=== PATIENT | male | born 1950 | race Caucasian/White ===

== ENCOUNTER → 2017-10-20 14:50 | Outpatient (CLI) | payer MEDICARE, MEDICAID, SELFPAY ==
[2017-10-22 20:08] LABS: HCV Quant. RNA PCR 1360000 IU/mL (.)
[2017-10-23 11:10] LABS: HCV log 10 6.134 (.)
== END ==
PROVIDERS: Family Provider Family Medicine; PCP Family Medicine; Visit Provider Internal Medicine Gastroenterology
DX: B19.20 Unspecified viral hepatitis C without hepatic coma (principal)
CPT/HCPCS: 36415; 87522

== ENCOUNTER 2017-11-01 09:13 | Emergency (ER) | payer MEDICARE, OTHER, MEDICAID, SELFPAY ==
[2017-11-01 09:13] VITALS: BP 135/65; PULSE 102; RESP 16; TEMP 36.9; O2SAT 92; BMI 29.6
[2017-11-01 09:23] VITALS: BP 129/86; PULSE 101; RESP 16; O2SAT 97
--- NOTE | 2017-11-01 09:23 | CT_ITS ---
STUDY: CT ABDOMEN AND PELVIS WITHOUT CONTRAST REASON FOR EXAM: Male, 67 years old. Abdominal distention and back pain. RADIATION DOSAGE (If Supplied By Facility): CTDIvol = ( 13.88 ) mGy, DLP = ( 756.11 ) mGycm TECHNIQUE: Transaxial images were obtained from the dome of the diaphragm to the symphysis pubis without oral contrast, and without intravenous contrast. Sagittal and coronal images were reconstructed. Individualized dose optimization techniques were used for this CT. COMPARISON: CT of the abdomen dated March 18, 2017. FINDINGS: There is a calcified subpleural nodule in the left lower lobe that likely represents a granuloma. This is unchanged since the previous CT. There is patchy right basilar airspace consolidation and/or atelectasis. The visualized portions of the heart are within normal limits. There are vascular calcifications of the coronary arteries. There are calcified left-sided hilar lymph nodes. Appears be some enlargement of the left lobe liver. There is a subtle focal area of decreased attenuation within the liver and near the falciform ligament. This is most obvious in appearance since previous CT. Small calcifications are visible within the liver that may represent granulomas. Normal gallbladder and extrahepatic biliary system. There are multiple benign calcified granulomata of the spleen. Normal pancreas. Normal bilateral adrenal glands. Normal right kidney. Normal left kidney. Normal visualized stomach. There is no evidence for dilated bowel, ascites or pneumoperitoneum. Small bowel has a grossly normal appearance. Stool visible throughout the colon. The appendix is visualized and appears normal. There is diffuse atherosclerotic calcification of the abdominal aorta with elongation and tortuosity, but without a demonstrated aneurysm. Normal inferior vena cava. Normal retroperitoneum. Urinary bladder appears to have a mass. The mass measures approximately 5.4 x 3.3 x 6.0 cm in size. Normal visualized prostate gland. Appear to be bilateral inguinal hernias containing fat. There are diffuse degenerative changes of the visualized thoracic and lumbar spine. CT/Abdomen/Pelvis without Cont IMPRESSION: 1. Urinary bladder mass. 2. Bilateral inguinal hernias containing fat. 3. Sequela of coronary artery vascular disease. Electronically Signed: Keiko Bucio MD at 10:53 EDT , Service support ,
--- NOTE | 2017-11-01 09:26 | CT_ITS ---
STUDY: CT LUMBAR SPINE WITHOUT CONTRAST REASON FOR EXAM: Male, 67 years old. Low-back pain. RADIATION DOSAGE (If Supplied By Facility): CTDIvol = ( 13.88 ) mGy, DLP = ( 756.11 ) mGycm TECHNIQUE: The patient was scanned in a multi detector CT scanner. High resolution transaxial imaging was performed. Images were obtained from T11 to sacrum. Sagittal and coronal images were reconstructed. Individualized dose optimization techniques were used for this CT. COMPARISON: CT abdomen and pelvis dated November 01, 2017. FINDINGS: There is straightening of the normal lumbar lordosis. There is mild curvature of lumbar spine with convexity towards the right. The bones appear osteopenic. The vertebral bodies have normal height. There is no demonstrated compression deformity or fracture of the visualized lumbar vertebrae. L1-2: There is an annular disc bulge and osteophyte complex. There is narrowing of the neural foramina. There is no significant central acquired canal stenosis. Facet joints are within normal limits. L2-3: There is narrowing of the disc space with vacuum disc phenomenon. There is a large broad central disc protrusion with mild central acquired canal stenosis. The facet joints are within normal limits. Neural foramina are narrowed. L3-4: There is narrowing of the disc space is vacuum disc phenomenon. There is annular disc bulge and osteophyte complex. There is mild central acquired canal stenosis. The facet joints are within normal limits. Neural foramina are narrowed. L4-5: There is annular disc bulge with what appears to be a large broad central disc protrusion. There is severe acquired canal stenosis. There is mild degenerative arthropathy of facet joints. Neural foramina are narrowed. L5-S1: There is narrowing of the disc with vacuum disc phenomenon. There is annular disc bulge with broad central disc protrusion. There is mild degenerative arthropathy of facet joints. There is mild central acquired canal stenosis. Neural foramina are narrowed. There are atherosclerotic calcifications of the abdominal aorta and iliac arteries. There is patchy right basilar airspace consolidation and/or atelectasis. CT/Spine Lumbar without Contrast IMPRESSION: Moderately severe multilevel degenerative disc disease and degenerative arthropathy of the lumbar spine with acquired canal stenosis and neural foraminal narrowing, as described. Electronically Signed: Keiko Bucio MD at 11:04 EDT , Service support ,
--- NOTE | 2017-11-01 09:30 | ED.VISSUMM ---
- ER Visit Summary Date of Service: 11/01/17 Chief Complaint: []lumbar back pain started a few days ago History of Present Illness: The patient is a 67 M [], the patient is a very poor historian, denies any past history, reports that on Thursday he had a cystoscopy by a physician he thinks is Dr. davis at [facility] in [place], he is not sure why that was necessary, he basically reports Thursday or Thursday began having low lumbar back pain the pain does not radiate he denies any bowel or bladder incontinence no paresthesias he is able walk around his home today the pain intensified is very stiff he called paramedics he was brought in for evaluation No history of lumbar back element except for common back disorders, no history of fracture or spine disease disc disease, he denies any past history he believes he is on an antibiotic post the cystoscopy, He indicates that he was told there may be abnormalities on the cystoscopy possibly cancer and he needs additional testing is scheduled for 2 weeks from now Review of systems are negative for nausea vomiting fever chest pain or abdominal pain he points to his left lumbar back flank area as well he seems to have distended bladder he just voided about 100 cc and he feels that his bladder is empty Physical Examination: [] In no distress his vital signs are within normal range head neck chest unremarkable the abdomen seems distended in the suprapubic area there is no fullness mass pulsations, he has vague pain to the lumbar back and left flank he has full range of motion of his lower extremities his pelvis is stable he has what appears to be normal perfusion to the lower extremities he is awake and alert resting comfortably in the bed as long as he still indicates his back pain is much improved, there are no neurologic abnormalities a full range of motion of all 4 extremities no signs of cauda equina The patient's CT shows nothing acute chronic changes see that report, there is a 6 cm lesion in the bladder etiology is unclear, his UA came back for signs of UTI and yeast it is not clear if the yeast is contributing to UTI or is a contaminant his white count 14,000 he remains awake and alert, lumbar spine CT reconstruction images showed DJD generalized diffuse stenosis nothing acute no fracture Have sent urine culture he was started on IV Rocephin 2 g the patient feels better he wants to go home again he is a very poor historian The records suggest his primary care physician is amrit Candelario,, I spoke with Dr. Reggie Capone systems management consultant for that office, discussed case with him in detail including all the above the UA urine cultures etc. they will be happy see the patient the office they will track down his antibiotics as follow-up instructions prior urine cultures and arrange continuity care I further explained the patient it is his responsibility contact the primary care's office to keep the appointments we did discuss the concept of the UTI versus contamination and potential resistance to the current antibiotic he is on further I explained to him he does have a lesion in his bladder and he must follow-up as scheduled with the urologist for further management, I have also instructed him when he sees his urologist in [place] to let him know if there urine culture results CT scan reports etc. so they can follow-up, in addition I provided him copies of his studies so he could take them to his follow-up doctors He is feeling fine he wants to go home to be discharged on Naprosyn [place] 4 tablets as back pain Test Results: [] Emergency Department Course and Treatment: [] Treatment Plan: [] Disposition: [] Home stable Preparing discharge the computer suggested that Dr. Estrella was the patient's primary care physician, we also spoke then with Dr. garrett systems management consultant for Dr. Estrella had the same discussion as above and they will follow-up with the patient Impression: [] Lumbar back pain, 6 cm bladder mass, UTI possible yeast UTI, lumbar spine DJD, patient poor historian This note was generated with [employer] dictation software. It may contain incorrect words, spelling, and punctuation that were not noted in review of the chart prior to signing ED Disposition - Plan for ED Patient: Chief Complaint: Back Instructions: ED Spasm Back No Trauma, ED Sprain Strain Lumbar, ED UTI Cystitis Male Prescriptions: Hydrocodone Bitart/Apap 5-325 [[place] 5/325] 1 tab PO QHS #7 tab Naproxen [Naprosyn] 500 mg PO BID PRN #20 tab Referrals: Price Estrella MD [NON-STAFF] -
--- NOTE | 2017-11-01 09:33 | ED.DCSUM_ITS ---
- ER Visit Summary Date of Service: 11/01/17 Chief Complaint: []lumbar back pain started a few days ago History of Present Illness: The patient is a 67 M [], the patient is a very poor historian, denies any past history, reports that on Thursday he had a cystoscopy by a physician he thinks is Dr. davis at [facility] in [place] , he is not sure why that was necessary, he basically reports Thursday or Thursday began having low lumbar back pain the pain does not radiate he denies any bowel or bladder incontinence no paresthesias he is able walk around his home today the pain intensified is very stiff he called paramedics he was brought in for evaluation No history of lumbar back element except for common back disorders, no history of fracture or spine disease disc disease, he denies any past history he believes he is on an antibiotic post the cystoscopy, He indicates that he was told there may be abnormalities on the cystoscopy possibly cancer and he needs additional testing is scheduled for 2 weeks from now Review of systems are negative for nausea vomiting fever chest pain or abdominal pain he points to his left lumbar back flank area as well he seems to have distended bladder he just voided about 100 cc and he feels that his bladder is empty Physical Examination: [] In no distress his vital signs are within normal range head neck chest unremarkable the abdomen seems distended in the suprapubic area there is no fullness mass pulsations, he has vague pain to the lumbar back and left flank he has full range of motion of his lower extremities his pelvis is stable he has what appears to be normal perfusion to the lower extremities he is awake and alert resting comfortably in the bed as long as he still indicates his back pain is much improved, there are no neurologic abnormalities a full range of motion of all 4 extremities no signs of cauda equina The patient's CT shows nothing acute chronic changes see that report, there is a 6 cm lesion in the bladder etiology is unclear, his UA came back for signs of UTI and yeast it is not clear if the yeast is contributing to UTI or is a contaminant his white count 14,000 he remains awake and alert, lumbar spine CT reconstruction images showed DJD generalized diffuse stenosis nothing acute no fracture Have sent urine culture he was started on IV Rocephin 2 g the patient feels better he wants to go home again he is a very poor historian The records suggest his primary care physician is amrit Candelario,, I spoke with Dr. Reggie Capone media liaison officer for that office, discussed case with him in detail including all the above the UA urine cultures etc. they will be happy see the patient the office they will track down his antibiotics as follow-up instructions prior urine cultures and arrange continuity care I further explained the patient it is his responsibility contact the primary care's office to keep the appointments we did discuss the concept of the UTI versus contamination and potential resistance to the current antibiotic he is on further I explained to him he does have a lesion in his bladder and he must follow-up as scheduled with the urologist for further management, I have also instructed him when he sees his urologist in [place] to let him know if there urine culture results CT scan reports etc. so they can follow-up, in addition I provided him copies of his studies so he could take them to his follow-up doctors He is feeling fine he wants to go home to be discharged on Naprosyn [place] 4 tablets as back pain Test Results: [] Emergency Department Course and Treatment: [] Treatment Plan: [] Disposition: [] Home stable Preparing discharge the computer suggested that Dr. Estrella was the patient's primary care physician, we also spoke then with Dr. garrett media liaison officer for Dr. Estrella had the same discussion as above and they will follow-up with the patient Impression: [] Lumbar back pain, 6 cm bladder mass, UTI possible yeast UTI, lumbar spine DJD, patient poor historian This note was generated with [employer] dictation software. It may contain incorrect words, spelling, and punctuation that were not noted in review of the chart prior to signing ED Disposition - Plan for ED Patient: Chief Complaint: Back Instructions: ED Spasm Back No Trauma, ED Sprain Strain Lumbar, ED UTI Cystitis Male Prescriptions: Hydrocodone Bitart/Apap 5-325 [[place] 5/325] 1 tab PO QHS #7 tab Naproxen [Naprosyn] 500 mg PO BID PRN #20 tab Referrals: Price Estrella MD [NON-STAFF] -
[2017-11-01] MEDS: Ondansetron 4 MG/2 ML Vial IV (09:44)
[2017-11-01 09:46] LABS: Absolute Lymphocyte Count 1.46 X10^3/ul (0.83-4.51); Absolute Neutrophil Count 11.4 X10^3/uL (2.0-7.7); Basophil# 0.01 X10^3/uL; Basophil% 0.1 % (0-1); Eosinophil# 0.01 X10^3/uL; Eosinophils% 0.1 % (0-5); Hematocrit 40.1 % (40-54); Hemoglobin 13.2 g/dl (13.0-16.5); Lymphocyte # 1.46 X10^3/ul (4.0); Lymphocyte % 9.9 % (19-41); Mean Corp Hgb Conc 32.9 g/gl (32-36); Mean Corpuscular Hgb 29.5 pg (27.0-32.0); Mean Corpuscular Volume 89.5 fL (80-94); Mean Platelet Vol. 8.9 fl (6.2-12.0); Monocyte# 1.79 X10^3/uL; Monocyte% 12.2 % (0-10); Neutrophil # 11.42 X10^3/uL (2.7-7.7); Neutrophil % 77.4 % (47-70); Platelet Count 173 K/mm3 (150-450); RBC Distribution Width CV 13.7 % (11.6-14.6); RBC Distribution Width SD 44.6 fl (35.1-43.9); Red Blood Count 4.48 M/mm3 (4.6-6.2); White Blood Count 14.7 K/mm3 (4.4-11.0)
[2017-11-01 09:51] LABS: Differential Indicated SCAN CRITERIA MET; POSITIVE COUNT NO; POSITIVE DIFFERENTIAL YES; POSITIVE MORPHOLOGY NO
[2017-11-01 09:52] LABS: Mucous, Urine 0 SEEN /hpf (<or=2+)
[2017-11-01 09:58] LABS: Color, Urine Amber (Yellow); Glucose, Dipstick Normal (Normal); Ketone-Dipstick Negative (Negative); Leukocyte Esterase-Dipstick 500 /ul (Negative); Nitrite-Dipstick Positive (Negative); Occult Blood-Urine 250 /ul (Negative); Protein-Dipstick 30 mg/dl (Negative); Urine Bilirubin Dipstick Negative (Negative); Urine Clarity Cloudy (Clear); Urine Urobilinogen 1 mg/dl (Normal)
[2017-11-01 09:58] LABS: AST(SGOT) 44 U/L (15-37); Alanine Aminotransfer ALT/SGPT 71 U/L (16-61); Albumin, Serum 2.9 g/dL (3.2-5.0); Alkaline Phosphatase 40 U/L (45-117); Anion Gap 9 (5-15); BUN 33 mg/dL (7-18); BUN/Creat Ratio 37.1 RATIO (10-20); Bilirubin, Direct 0.19 mg/dL (0.00-0.30); Calcium,Total 8.4 mg/dL (8.5-10.1); Chloride 108 mmol/L (98-107); Creatinine, Serum 0.89 mg/dL (0.70-1.30); EST Glomerular Filtration Rate 90 mL/min (>60); Est Glom Filt Rate - Afr Amer 109 mL/min (>60); Estimated Creatinine Clearance 75.79 ml/min; Globulin 5.1 g/dL (2.2-4.2); Glucose 125 mg/dL (74-106); Lipase 124 U/L (73-393); Potassium 4.4 mmol/L (3.5-5.1); Sodium Level 140 mmol/L (136-145)
[2017-11-01 10:05] LABS: Bacteria 2+ /hpf (None Seen); Red Blood Cells-Urine 50-100 SEEN /hpf (0-5); Squamous Epithelial Cells - UA 0-5 SEEN /hpf (0-5); White Blood Cells 5-10 SEEN /hpf (0-5); Yeast-Urine RARE /hpf (None Seen)
--- NOTE | 2017-11-01 11:32 | ED.DEP ---
ED Disposition - Plan for ED Patient: Chief Complaint: Back Instructions: ED Spasm Back No Trauma, ED Sprain Strain Lumbar, ED UTI Cystitis Male Prescriptions: Hydrocodone Bitart/Apap 5-325 [[place] 5/325] 1 tab PO QHS #7 tab Naproxen [Naprosyn] 500 mg PO BID PRN #20 tab Referrals: Price Estrella MD [NON-STAFF] -
--- NOTE | 2017-11-01 11:36 | DCINST.ED_ITS ---
ED Disposition - Plan for ED Patient: Chief Complaint: Back Instructions: ED Spasm Back No Trauma, ED Sprain Strain Lumbar, ED UTI Cystitis Male Prescriptions: Hydrocodone Bitart/Apap 5-325 [[place] 5/325] 1 tab PO QHS #7 tab Naproxen [Naprosyn] 500 mg PO BID PRN #20 tab Referrals: Price Estrella MD [NON-STAFF] -
[2017-11-01 12:37] VITALS: BP 96/44; PULSE 87; RESP 14
[2017-11-01] MEDS: HYDROcodone Bitartrate/Apap 5/325 Tablet PO (12:43)
[2017-11-01 12:46] VITALS: BP 96/44; PULSE 89; RESP 14
== END 2017-11-01 12:47 | disposition home or self-care (01) ==
PROVIDERS: Emergency Provider Emergency Medicine
DX: M47.896 Other spondylosis, lumbar region (principal); N32.9 Bladder disorder, unspecified; N39.0 Urinary tract infection, site not specified
CPT/HCPCS: 72131; 74176; 80048; 80076; 81001; 83690; 85025; 87077; 87086; 87088; 87186; 96361; 96365; 96375; 99285; J7040; J7050; A4216; J2405

== ENCOUNTER → 2017-11-11 16:38 | Outpatient (CLI) | payer MEDICARE, MEDICAID, SELFPAY ==
[2017-11-11 18:12] LABS: Hematocrit 39.9 % (40-54); Hemoglobin 13.1 g/dl (13.0-16.5); Mean Corp Hgb Conc 32.8 g/gl (32-36); Mean Corpuscular Hgb 28.8 pg (27.0-32.0); Mean Corpuscular Volume 87.7 fL (80-94); Mean Platelet Vol. 8.7 fl (6.2-12.0); Platelet Count 335 K/mm3 (150-450); RBC Distribution Width CV 13.6 % (11.6-14.6); Red Blood Count 4.55 M/mm3 (4.6-6.2); White Blood Count 14.6 K/mm3 (4.4-11.0)
[2017-11-11 18:14] LABS: Scan Indicated on CBC? Y/N NO
[2017-11-11 18:27] LABS: International Normalized Ratio 1.2; Prothrombin Time (Protime)PT. 14.9 SECONDS (11.7-14.9)
[2017-11-11 18:48] LABS: AST(SGOT) 35 U/L (15-37); Alanine Aminotransfer ALT/SGPT 39 U/L (16-61); Albumin, Serum 2.7 g/dL (3.2-5.0); Alkaline Phosphatase 38 U/L (45-117); Bilirubin, Direct 0.08 mg/dL (0.00-0.30); Globulin 5.5 g/dL (2.2-4.2); Protein, Total 8.2 g/dL (6.4-8.2)
[2017-11-13 09:28] LABS: AFP, Tumor Marker 3.9 ng/mL (0.0-8.3)
== END ==
PROVIDERS: Visit Provider Internal Medicine Gastroenterology
DX: K74.60 Unspecified cirrhosis of liver (principal)
CPT/HCPCS: 36415; 80076; 82105; 85027; 85610

== ENCOUNTER 2017-11-25 11:41 | Emergency (ER) | payer MEDICARE, MEDICAID, SELFPAY ==
[2017-11-25 11:42] VITALS: BP 130/109; PULSE 98; RESP 16; TEMP 36.2; O2SAT 94; BMI 30.1
[2017-11-25 12:30] LABS: Mucous, Urine 0 SEEN /hpf (<or=2+)
[2017-11-25 12:36] LABS: Absolute Lymphocyte Count 2.39 X10^3/ul (0.83-4.51); Absolute Neutrophil Count 9.5 X10^3/uL (2.0-7.7); Basophil# 0.04 X10^3/uL; Basophil% 0.3 % (0-1); Eosinophil# 0.04 X10^3/uL; Eosinophils% 0.3 % (0-5); Hematocrit 36.2 % (40-54); Hemoglobin 11.8 g/dl (13.0-16.5); Lymphocyte # 2.39 X10^3/ul (4.0); Mean Corp Hgb Conc 32.6 g/gl (32-36); Mean Platelet Vol. 7.9 fl (6.2-12.0); Monocyte# 1.18 X10^3/uL; Monocyte% 8.9 % (0-10); Neutrophil # 9.54 X10^3/uL (2.7-7.7); Platelet Count 241 K/mm3 (150-450); RBC Distribution Width CV 13.8 % (11.6-14.6); RBC Distribution Width SD 43.4 fl (35.1-43.9); Red Blood Count 4.21 M/mm3 (4.6-6.2); White Blood Count 13.3 K/mm3 (4.4-11.0)
[2017-11-25 12:37] LABS: Color, Urine Yellow (Yellow); Glucose, Dipstick Normal (Normal); Ketone-Dipstick Negative (Negative); Leukocyte Esterase-Dipstick 500 /ul (Negative); Nitrite-Dipstick Positive (Negative); Occult Blood-Urine 250 /ul (Negative); Protein-Dipstick 100 mg/dl (Negative); Urine Bilirubin Dipstick Negative (Negative); Urine Clarity Sl. Cloudy (Clear); Urine Urobilinogen 1 mg/dl (Normal)
[2017-11-25 12:37] LABS: POSITIVE COUNT NO; POSITIVE DIFFERENTIAL NO; POSITIVE MORPHOLOGY NO
[2017-11-25 12:48] LABS: Anion Gap 8 (5-15); BUN 28 mg/dL (7-18); BUN/Creat Ratio 31.4 RATIO (10-20); Calcium,Total 8.6 mg/dL (8.5-10.1); Chloride 104 mmol/L (98-107); Creatinine, Serum 0.89 mg/dL (0.70-1.30); EST Glomerular Filtration Rate 90 mL/min (>60); Est Glom Filt Rate - Afr Amer 109 mL/min (>60); Estimated Creatinine Clearance 75.79 ml/min; Glucose 111 mg/dL (74-106); Potassium 4.5 mmol/L (3.5-5.1); Sodium Level 138 mmol/L (136-145)
[2017-11-25 12:55] LABS: Bacteria 4+ /hpf (None Seen); Red Blood Cells-Urine > 100 SEEN /hpf (0-5); Squamous Epithelial Cells - UA 0-5 SEEN /hpf (0-5); White Blood Cells >100 SEEN /hpf (0-5)
[2017-11-25 13:00] LABS: Lactic Acid 1.4 mmol/L (0.4-2.0)
[2017-11-25] MEDS: 0.9% Normal Saline 1,000 ML 1000 ML IV (13:03)
--- NOTE | 2017-11-25 13:34 | NURSING ---
CALLED [facility] FOR TRANSFER.
[2017-11-25 13:36] VITALS: BP 128/75; PULSE 72; RESP 17; O2SAT 96
--- NOTE | 2017-11-25 13:56 | NURSING ---
ON WAITING LIST FOR BED AT [place]. PAGED HOSPITALIST
--- NOTE | 2017-11-25 14:09 | ED.VISSUMM ---
- ER Visit Summary Date of Service: 11/25/17 Chief Complaint: Back pain History of Present Illness: The patient is a 67 M who presents with back pain. He is a very poor informant. He does appear disoriented as well. He had a cystoscopy last month for a bladder tumor. He was seen in the emergency department afterwards for back pain. He had a CT of the abdomen and lumbar spine and urinalysis which was suggestive of infection. The ER physician spoke to his doctors at that time and he was currently on antibiotics. It was felt that this may be contamination. Indications were continued. It does not sound like the patient followed up. He was seen yesterday at the [facility] due to increased pain. He was noted to be hypotensive in the 70s but had no other symptoms. They called to check on him today and noticed increasing confusion and he was advised to call EMS. Denies fevers vomiting or abdominal pain. He denies any other complaints. No urinary retention, fecal incontinence, radiation pain into the legs. Physical Examination: Initial blood pressure 130/109 however while I was in the room repeat blood pressure 84 systolic. Afebrile. Vitals otherwise unremarkable Pulse ox 94% on room air at the time of my examination he was 89% on room air and was placed on nasal cannula Patient is disoriented and confused. He is oriented to self and place and is alert but does not remember recent events well and does not remember his office visit yesterday well. No focal or lateralizing neurological deficits, normal strength and sensation, 5 out of 5 dorsiflexion, plantarflexion, extensor hallucis longus Heart regular Lungs clear Abdomen soft nontender Bilateral CVA/paraspinal lumbar tenderness Test Results: Laboratory studies notable for white blood cell count 13.3. BUN 28. UA shows 500 leukocyte esterase, positive nitrites, greater than 100 WBCs, 4+ bacteria. Lactic acid normal. Emergency Department Course and Treatment: She was treated with IV fluids. On reevaluation his mental status does not seem improved and repeat blood pressure was about 119 systolic. He was given IV Rocephin. Given that he is scheduled for urological procedure next week at [place] we did call their transfer line and the hospital is currently full and he was placed on a waiting list. Patient will be treated with IV antibiotics and admitted here until a bed is available. Treatment Plan: [] Disposition: Admit Impression: UTI Altered mental status Transient hypotension This note was generated with [employer] dictation software. It may contain incorrect words, spelling, and punctuation that were not noted in review of the chart prior to signing ED Disposition - Plan for ED Patient: Chief Complaint: Back Referrals: Care Physician,No Primary [Primary Care Provider] -
--- NOTE | 2017-11-25 14:13 | ED.DCSUM_ITS ---
- ER Visit Summary Date of Service: 11/25/17 Chief Complaint: Back pain History of Present Illness: The patient is a 67 M who presents with back pain. He is a very poor informant. He does appear disoriented as well. He had a cystoscopy last month for a bladder tumor. He was seen in the emergency department afterwards for back pain. He had a CT of the abdomen and lumbar spine and urinalysis which was suggestive of infection. The ER physician spoke to his doctors at that time and he was currently on antibiotics. It was felt that this may be contamination. Indications were continued. It does not sound like the patient followed up. He was seen yesterday at the [facility] due to increased pain. He was noted to be hypotensive in the 70s but had no other symptoms. They called to check on him today and noticed increasing confusion and he was advised to call EMS. Denies fevers vomiting or abdominal pain. He denies any other complaints. No urinary retention, fecal incontinence , radiation pain into the legs. Physical Examination: Initial blood pressure 130/109 however while I was in the room repeat blood pressure 84 systolic. Afebrile. Vitals otherwise unremarkable Pulse ox 94% on room air at the time of my examination he was 89% on room air and was placed on nasal cannula Patient is disoriented and confused. He is oriented to self and place and is alert but does not remember recent events well and does not remember his office visit yesterday well. No focal or lateralizing neurological deficits, normal strength and sensation, 5 out of 5 dorsiflexion, plantarflexion, extensor hallucis longus Heart regular Lungs clear Abdomen soft nontender Bilateral CVA/paraspinal lumbar tenderness Test Results: Laboratory studies notable for white blood cell count 13.3. BUN 28. UA shows 500 leukocyte esterase, positive nitrites, greater than 100 WBCs, 4+ bacteria. Lactic acid normal. Emergency Department Course and Treatment: She was treated with IV fluids. On reevaluation his mental status does not seem improved and repeat blood pressure was about 119 systolic. He was given IV Rocephin. Given that he is scheduled for urological procedure next week at [place] we did call their transfer line and the hospital is currently full and he was placed on a waiting list. Patient will be treated with IV antibiotics and admitted here until a bed is available. Treatment Plan: [] Disposition: Admit Impression: UTI Altered mental status Transient hypotension This note was generated with [employer] dictation software. It may contain incorrect words, spelling, and punctuation that were not noted in review of the chart prior to signing ED Disposition - Plan for ED Patient: Chief Complaint: Back Referrals: Care Physician,No Primary [Primary Care Provider] -
[2017-11-25 14:28] VITALS: BP 125/77; PULSE 72; RESP 16; O2SAT 97
--- NOTE | 2017-11-25 14:46 | PCM.DC ---
You will use the following diet at home:: Cardiac Your food should be the consistency of: Regular Your liquids should be the consistency of: Regular/Thin Call your doctor if you observe: Fever of 101 or Higher, - - inability to urinate. worsening back pain. Allergies/Adverse Reactions: Allergies No Known Allergies Allergy (Verified 03/18/17 09:19) Medications to take at Discharge Amlodipine [Norvasc] 5 mg PO DAILY 11/25/17 Finasteride [Proscar] 5 mg PO DAILY 11/25/17 Hydrocodone/Acetaminophen [[place] 5-325 Tablet] 1 each PO Q8H 3 Days #9 tablet 11/25/17 Levofloxacin [Levaquin] 750 mg PO DAILY #7 tab 11/25/17 Lisinopril 20 mg PO DAILY 11/25/17 Pantoprazole Sodium [Protonix] 40 mg PO DAILY 11/25/17 Tamsulosin HCl [Flomax] 0.4 mg PO DAILY 11/25/17 The following prescriptions were given: Hydrocodone/Acetaminophen [[place] 5-325 Tablet] 1 each PO Q8H 3 Days #9 tablet Levofloxacin [Levaquin] 750 mg PO DAILY #7 tab Primary Care Physician: Care Physician,No Primary [Primary Care Provider] - Please Follow Up With: Andree Muller MD When: 11/27/17 Please Follow Up With: Urology - Surgery When: 12/04 Proposed Discharge Date: 11/25/17
--- NOTE | 2017-11-25 14:48 | PCM.CONS.GEN ---
Problem List (1) Bladder tumor Status: Chronic (2) BPH (benign prostatic hyperplasia) Status: Chronic (3) HTN (hypertension) Status: Chronic (4) Back pain Status: Acute (5) UTI (urinary tract infection) Status: Acute Reason for Consult Date of Consultation: 11/25/17 Reason for Consultation: back pain History of Present Illness: The patient is a 67 year old M presents with several month history of low back pain. Was seen here in October for the same complaint and had a urinary tract infection and did receive antibiotics which did seem to help somewhat but patient presents again with low back pain not flank pain. Patient did have a positive urinalysis and did receive ceftriaxone. Patient has a known bladder tumor which she does get some episodes of hematuria and black sludge looking urine which his urologist is been aware of. Patient has a surgery scheduled for a resection on December 04. The emergency room doctor contacted [facility] and they accepted the patient but did not have any beds readily available. I was asked to admit the patient to hold the patient until he can go over to [facility]. Patient states he has back pain but denies any abdominal pain. Does complain of a urinary frequency but denies any dysuria. Upon evaluation of the patient I feel that the patient can be discharged home with antibiotics and pain control and follow-up with his primary care doctor which he has an appointment this coming Thursday and to follow-up with his urologist next week. [] Past Medical History Past Medical History (Chronic Problems): Chronic Problems Bladder tumor (Chronic) BPH (benign prostatic hyperplasia) (Chronic) HTN (hypertension) (Chronic) Allergies No Known Allergies Allergy (Verified 03/18/17 09:19) Home Medications: Ambulatory Orders Medication Instructions Recorded Amlodipine [Norvasc] 5 mg PO DAILY 11/25/17 Finasteride [Proscar] 5 mg PO DAILY 11/25/17 Hydrocodone/Acetaminophen [Loop 1 each PO Q8H 3 Days #9 tablet 11/25/17 5-325 Tablet] Levofloxacin [Levaquin] 750 mg PO DAILY #7 tab 11/25/17 Lisinopril 20 mg PO DAILY 11/25/17 Pantoprazole Sodium [Protonix] 40 mg PO DAILY 11/25/17 Tamsulosin HCl [Flomax] 0.4 mg PO DAILY 11/25/17 Surgical History: no surgical history Psychiatric History: No pertinent psych hx Lives: Alone Smoking Status: Heavy Smoker (>10/day) Tobacco Use: Cigarettes Alcohol: None Drugs: None - *Family History Maternal History Items: - - No cancer Paternal History Items: - - No cancer Review of Systems Constitutional: Denies: Anorexia, Chills, Fever, Night Sweats Eyes: Denies: Blurred vision, Double vision HEENT: Denies: Head Aches, Sinus Congestion, Sinus Drainage Cardiovascular: Denies: Chest Pain, Palpitations Respiratory: Denies: Cough, Shortness of breath at rest, Sputum production Gastrointestinal: Denies: Abdominal Pain, Nausea, Vomiting Genitourinary: Reports: Frequency, Hematuria. Denies: Dysuria, Incontinence Musculoskeletal: Reports: Back Pain. Denies: Joint Pain, Joint Tenderness Skin: Denies: Rash, Wounds Neurological: Denies: Numbness, Tingling, Focal weakness Psychiatric: Denies: Anxiety, Depression Endocrine: Denies: Change in Body Habitus Hematologic/ Lymphatic: Denies: Easy Bruising, Easy Bleeding, Hx of blood clot Patient Problems: Active and Suspected Problems Back pain (Acute) UTI (urinary tract infection) (Acute) - Physical Exam General: Alert, Cooperative, No apparent distress HEENT: Atraumatic, Normocephalic Neck: No Nodes, Thyroid Normal Size and Texture Lungs: Clear to auscultation, Normal air movement, No rhonchi, No wheeze Cardiovascular: Regular rate, Regular Rhythm, Normal S1, Normal S2, No murmurs Abdomen: Bowel Sounds Present, Soft, Non Tender, Non-Distended, No Hepato-splenomegaly, Passing Flatus Extremities: No edema, No Calf Tenderness Skin: - - Dry skin and lower extremities grade swastika on the dorsal aspect of his hand between his thumb and index finger on the left. Musculoskeletal: No Tenderness to Palpation of Joints or Extremities, No Muscle Wasting Psych/Mental Status: Normal Affect, Appropriate Vital Signs Temp Pulse Resp BP Pulse Ox 36.2 C L 72 16 125/77 H 97 11/25/17 11:42 11/25/17 14:28 11/25/17 14:28 11/25/17 14:28 11/25/17 14:28 Oxygen Delivery Method Room Air Weight: 89.811 kg Body Mass Index (BMI) 30.1 Laboratory Tests Past 24 Hrs 11/25/17 11/25/17 11/25/17 12:25 12:25 12:25 WBC 13.3 H RBC 4.21 L Hgb 11.8 L Hct 36.2 L MCV 86.0 MCH 28.0 MCHC 32.6 RDW 13.8 RDW Differential 43.4 Plt Count 241 MPV 7.9 Immature Gran % (Auto) 0.500 Neut % (Auto) 72.0 H Lymph % (Auto) 18.0 L [place] % (Auto) 8.9 Eos % (Auto) 0.3 Baso % (Auto) 0.3 Absolute Neuts (auto) 9.5 H Absolute Lymphs (auto) 2.39 Total Counted Not Reportable Sodium 138 Potassium 4.5 Chloride 104 Carbon Dioxide 26.0 Anion Gap 8 BUN 28 H Creatinine 0.89 Estim Creat Clear Calc 75.79 Est GFR (MDRD) Af Amer 109 Est GFR (MDRD) Non-Af 90 BUN/Creatinine Ratio 31.4 H Glucose 111 H Lactic Acid 1.4 Calcium 8.6 Urine Color Urine Clarity Urine pH Ur Specific [place] Urine Protein Urine Glucose (UA) Urine Ketones Urine Occult Blood Urine Nitrite Urine Bilirubin Urine Urobilinogen Ur Leukocyte Esterase Urine RBC Urine WBC Ur Squamous Epith Cells Urine Bacteria Urine Mucus 11/25/17 12:26 WBC RBC Hgb Hct MCV MCH MCHC RDW RDW Differential Plt Count MPV Immature Gran % (Auto) Neut % (Auto) Lymph % (Auto) [place] % (Auto) Eos % (Auto) Baso % (Auto) Absolute Neuts (auto) Absolute Lymphs (auto) Total Counted Sodium Potassium Chloride Carbon Dioxide Anion Gap BUN Creatinine Estim Creat Clear Calc Est GFR (MDRD) Af Amer Est GFR (MDRD) Non-Af BUN/Creatinine Ratio Glucose Lactic Acid Calcium Urine Color Yellow Urine Clarity Sl. Cloudy Urine pH 6.0 Ur Specific [place] 1.020 Urine Protein 100 H Urine Glucose (UA) Normal Urine Ketones Negative Urine Occult Blood 250 H Urine Nitrite Positive H Urine Bilirubin Negative Urine Urobilinogen 1 H Ur Leukocyte Esterase 500 H Urine RBC > 100 SEEN Urine WBC >100 SEEN Ur Squamous Epith Cells 0-5 SEEN Urine Bacteria 4+ Urine Mucus 0 SEEN Assessment/Plan Active and Suspected Problems Back pain (Acute) UTI (urinary tract infection) (Acute) 1. Urinary tract infection Clinically, do not feel the patient has pyelonephritis. And I will treat patient with Levaquin. Patient did have staph epidermidis on culture from October. Patient has a follow-up appointment with his primary care doctor on the and patient started follow-up with them to see if the cultures have come back. Patient is not septic does have a white count but otherwise stable. I feel patient can be discharged. 2. Back pain No significant back pain noted on my exam. No red flags. May be muscular skeletal versus his bladder tumor. Given the patient's hematuria I would avoid any NSAIDs at this time. I will give patient a prescription for Loop. 3. Bladder tumor Patient has a known hematuria and viscous urine at times. Patient states that his urologist is aware of this this may be presumably related with the patient's bladder tumor. Patient is to have resection of his bladder tumor on December 04. Patient is medically stable and feel the patient does not necessarily warrant hospitalization at this time. Patient's prescriptions were sent to his drug marked. I have taken liberty of discharging the patient from the emergency room. Code Visit Office Visits / Consults: [id number] OP Consult L3
--- NOTE | 2017-11-25 14:55 | CON.PCM_ITS ---
Problem List (1) Bladder tumor Status: Chronic (2) BPH (benign prostatic hyperplasia) Status: Chronic (3) HTN (hypertension) Status: Chronic (4) Back pain Status: Acute (5) UTI (urinary tract infection) Status: Acute Reason for Consult Date of Consultation: 11/25/17 Reason for Consultation: back pain History of Present Illness: The patient is a 67 year old M presents with several month history of low back pain. Was seen here in October for the same complaint and had a urinary tract infection and did receive antibiotics which did seem to help somewhat but patient presents again with low back pain not flank pain. Patient did have a positive urinalysis and did receive ceftriaxone. Patient has a known bladder tumor which she does get some episodes of hematuria and black sludge looking urine which his urologist is been aware of. Patient has a surgery scheduled for a resection on December 04. The emergency room doctor contacted [facility] and they accepted the patient but did not have any beds readily available. I was asked to admit the patient to hold the patient until he can go over to [facility]. Patient states he has back pain but denies any abdominal pain. Does complain of a urinary frequency but denies any dysuria. Upon evaluation of the patient I feel that the patient can be discharged home with antibiotics and pain control and follow-up with his primary care doctor which he has an appointment this coming Thursday and to follow-up with his urologist next week. [ ] Past Medical History Past Medical History (Chronic Problems): Chronic Problems Bladder tumor (Chronic) BPH (benign prostatic hyperplasia) (Chronic) HTN (hypertension) (Chronic) Allergies No Known Allergies Allergy (Verified 03/18/17 09:19) Home Medications: Ambulatory Orders Medication Instructions Recorded Amlodipine [Norvasc] 5 mg PO DAILY 11/25/17 Finasteride [Proscar] 5 mg PO DAILY 11/25/17 Hydrocodone/Acetaminophen [Sargents 1 each PO Q8H 3 Days #9 tablet 11/25/17 5-325 Tablet] Levofloxacin [Levaquin] 750 mg PO DAILY #7 tab 11/25/17 Lisinopril 20 mg PO DAILY 11/25/17 Pantoprazole Sodium [Protonix] 40 mg PO DAILY 11/25/17 Tamsulosin HCl [Flomax] 0.4 mg PO DAILY 11/25/17 Surgical History: no surgical history Psychiatric History: No pertinent psych hx Lives: Alone Smoking Status: Heavy Smoker (>10/day) Tobacco Use: Cigarettes Alcohol: None Drugs: None - *Family History Maternal History Items: - - No cancer Paternal History Items: - - No cancer Review of Systems Constitutional: Denies: Anorexia, Chills, Fever, Night Sweats Eyes: Denies: Blurred vision, Double vision HEENT: Denies: Head Aches, Sinus Congestion, Sinus Drainage Cardiovascular: Denies: Chest Pain, Palpitations Respiratory: Denies: Cough, Shortness of breath at rest, Sputum production Gastrointestinal: Denies: Abdominal Pain, Nausea, Vomiting Genitourinary: Reports: Frequency, Hematuria. Denies: Dysuria, Incontinence Musculoskeletal: Reports: Back Pain. Denies: Joint Pain, Joint Tenderness Skin: Denies: Rash, Wounds Neurological: Denies: Numbness, Tingling, Focal weakness Psychiatric: Denies: Anxiety, Depression Endocrine: Denies: Change in Body Habitus Hematologic/ Lymphatic: Denies: Easy Bruising, Easy Bleeding, Hx of blood clot Patient Problems: Active and Suspected Problems Back pain (Acute) UTI (urinary tract infection) (Acute) - Physical Exam General: Alert, Cooperative, No apparent distress HEENT: Atraumatic, Normocephalic Neck: No Nodes, Thyroid Normal Size and Texture Lungs: Clear to auscultation, Normal air movement, No rhonchi, No wheeze Cardiovascular: Regular rate, Regular Rhythm, Normal S1, Normal S2, No murmurs Abdomen: Bowel Sounds Present, Soft, Non Tender, Non-Distended, No Hepato- splenomegaly, Passing Flatus Extremities: No edema, No Calf Tenderness Skin: - - Dry skin and lower extremities grade swastika on the dorsal aspect of his hand between his thumb and index finger on the left. Musculoskeletal: No Tenderness to Palpation of Joints or Extremities, No Muscle Wasting Psych/Mental Status: Normal Affect, Appropriate Vital Signs Temp Pulse Resp BP Pulse Ox 36.2 C L 72 16 125/77 H 97 11/25/17 11:42 11/25/17 14:28 11/25/17 14:28 11/25/17 14:28 11/25/17 14:28 Oxygen Delivery Method Room Air Weight: 89.811 kg Body Mass Index (BMI) 30.1 Laboratory Tests Past 24 Hrs 11/25/17 11/25/17 11/25/17 12:25 12:25 12:25 WBC 13.3 H RBC 4.21 L Hgb 11.8 L Hct 36.2 L MCV 86.0 MCH 28.0 MCHC 32.6 RDW 13.8 RDW Differential 43.4 Plt Count 241 MPV 7.9 Immature Gran % (Auto) 0.500 Neut % (Auto) 72.0 H Lymph % (Auto) 18.0 L [place] % (Auto) 8.9 Eos % (Auto) 0.3 Baso % (Auto) 0.3 Absolute Neuts (auto) 9.5 H Absolute Lymphs (auto) 2.39 Total Counted Not Reportable Sodium 138 Potassium 4.5 Chloride 104 Carbon Dioxide 26.0 Anion Gap 8 BUN 28 H Creatinine 0.89 Estim Creat Clear Calc 75.79 Est GFR (MDRD) Af Amer 109 Est GFR (MDRD) Non-Af 90 BUN/Creatinine Ratio 31.4 H Glucose 111 H Lactic Acid 1.4 Calcium 8.6 Urine Color Urine Clarity Urine pH Ur Specific [place] Urine Protein Urine Glucose (UA) Urine Ketones Urine Occult Blood Urine Nitrite Urine Bilirubin Urine Urobilinogen Ur Leukocyte Esterase Urine RBC Urine WBC Ur Squamous Epith Cells Urine Bacteria Urine Mucus 11/25/17 12:26 WBC RBC Hgb Hct MCV MCH MCHC RDW RDW Differential Plt Count MPV Immature Gran % (Auto) Neut % (Auto) Lymph % (Auto) [place] % (Auto) Eos % (Auto) Baso % (Auto) Absolute Neuts (auto) Absolute Lymphs (auto) Total Counted Sodium Potassium Chloride Carbon Dioxide Anion Gap BUN Creatinine Estim Creat Clear Calc Est GFR (MDRD) Af Amer Est GFR (MDRD) Non-Af BUN/Creatinine Ratio Glucose Lactic Acid Calcium Urine Color Yellow Urine Clarity Sl. Cloudy Urine pH 6.0 Ur Specific [place] 1.020 Urine Protein 100 H Urine Glucose (UA) Normal Urine Ketones Negative Urine Occult Blood 250 H Urine Nitrite Positive H Urine Bilirubin Negative Urine Urobilinogen 1 H Ur Leukocyte Esterase 500 H Urine RBC > 100 SEEN Urine WBC >100 SEEN Ur Squamous Epith Cells 0-5 SEEN Urine Bacteria 4+ Urine Mucus 0 SEEN Assessment/Plan Active and Suspected Problems Back pain (Acute) UTI (urinary tract infection) (Acute) 1. Urinary tract infection * Clinically, do not feel the patient has pyelonephritis. And I will treat patient with Levaquin. Patient did have staph epidermidis on culture from October. * Patient has a follow-up appointment with his primary care doctor on the and patient started follow-up with them to see if the cultures have come back. Patient is not septic does have a white count but otherwise stable. I feel patient can be discharged. 2. Back pain * No significant back pain noted on my exam. No red flags. May be muscular skeletal versus his bladder tumor. * Given the patient's hematuria I would avoid any NSAIDs at this time. I will give patient a prescription for Sargents. 3. Bladder tumor * Patient has a known hematuria and viscous urine at times. Patient states that his urologist is aware of this this may be presumably related with the patient's bladder tumor. Patient is to have resection of his bladder tumor on December 04. Patient is medically stable and feel the patient does not necessarily warrant hospitalization at this time. Patient's prescriptions were sent to his drug marked. I have taken liberty of discharging the patient from the emergency room. Code Visit Office Visits / Consults: [id number] OP Consult L3
[2017-11-25] MEDS: Ceftriaxone 1 GM/50 mL Premix x1 IV (15:33)
[2017-11-25 16:20] VITALS: BP 129/77; PULSE 71; RESP 16; O2SAT 96
== END 2017-11-25 16:21 | disposition home or self-care (01) ==
PROVIDERS: Emergency Provider Emergency Medicine
DX: N39.0 Urinary tract infection, site not specified (principal); I95.89 Other hypotension; R41.82 Altered mental status, unspecified; I10 Essential (primary) hypertension; K21.9 Gastro-esophageal reflux disease without esophagitis; Z79.899 Other long term (current) drug therapy
CPT/HCPCS: 80048; 81001; 83605; 85025; 87040; 87077; 87086; 87088; 87186; 96361; 96365; 99285; J7030; J7050

== ENCOUNTER → 2017-12-01 10:07 | Outpatient (CLI) | payer MEDICARE, SELFPAY ==
[2017-12-01 11:13] LABS: Hematocrit 37.3 % (40-54); Mean Corp Hgb Conc 32.2 g/gl (32-36); Mean Corpuscular Hgb 27.9 pg (27.0-32.0); Mean Corpuscular Volume 86.7 fL (80-94); Mean Platelet Vol. 8.1 fl (6.2-12.0); Platelet Count 260 K/mm3 (150-450); RBC Distribution Width CV 14.2 % (11.6-14.6); RBC Distribution Width SD 44.8 fl (35.1-43.9)
--- NOTE | 2017-12-01 11:13 | EKG12_ITS ---
Test Reason : BLADDER TUMOR Blood Pressure : / mmHG Vent. Rate : 101 BPM Atrial Rate : 101 BPM P-R Int : 146 ms QRS Dur : 074 ms QT Int : 338 ms P-R-T Axes : 085 052 072 degrees QTc Int : 438 ms Sinus tachycardia Otherwise normal ECG Confirmed by SANTI MISHRA ([id number]), manuscript editor ADRI CHILD ([id number] on 12/03/2017 2:46:56 PM Referred By: MELISSA XIE Confirmed By:SANTI MISHRA
[2017-12-01 11:16] LABS: Scan Indicated on CBC? Y/N NO
[2017-12-01 11:40] LABS: Anion Gap 9 (5-15); BUN 17 mg/dL (7-18); Calcium,Total 8.5 mg/dL (8.5-10.1); Chloride 104 mmol/L (98-107); Creatinine, Serum 0.89 mg/dL (0.70-1.30); EST Glomerular Filtration Rate 90 mL/min (>60); Est Glom Filt Rate - Afr Amer 108 mL/min (>60); Glucose 127 mg/dL (74-106); PSA,Total - Annual Screen 1.24 ng/mL (0.00-4.00); Potassium 4.3 mmol/L (3.5-5.1); Sodium Level 140 mmol/L (136-145)
== END ==
PROVIDERS: Family Provider Family Medicine; PCP Family Medicine
DX: D49.4 Neoplasm of unspecified behavior of bladder (principal); R31.0 Gross hematuria; Z12.5 Encounter for screening for malignant neoplasm of prostate
CPT/HCPCS: 36415; 80048; 84153; 85027; 93005; G0103

== ENCOUNTER 2017-12-11 03:02 | Emergency (ER) | payer MEDICARE, MEDICAID, SELFPAY ==
[2017-12-11 03:03] VITALS: BP 176/101; PULSE 119; RESP 20; TEMP 36.8; O2SAT 99; BMI 28.3
--- NOTE | 2017-12-11 03:21 | ED.VISSUMM ---
- ER Visit Summary Date of Service: 12/11/17 Chief Complaint: Urinary retention History of Present Illness: The patient is a 67 M who presents with urinary retention. He states he last urinated 3-4 hours ago. He is having a lot of suprapubic pain. He states he feels burning at the tip of his penis. He thinks he might have seen blood as well. He has no history of this in the past. He has no prostate issues. He does tell me that he has a tumor in his bladder and he is currently seeing a urologist in [place]. He is scheduled for surgery for this removal next week. He denies any fevers. No other issues Physical Examination: Vital signs reviewed. HEENT exam unremarkable. Heart is tachycardic and regular rhythm without murmurs. Lungs are clear to auscultation. Abdomen is soft with suprapubic tenderness to palpation. Extremities reveal no edema. Neurologic exam normal Test Results: Urinalysis reveals bloody urine Emergency Department Course and Treatment: The patient had a Garcia catheter placed and it relieved his symptoms. It did show bloody urine. He states that it has been this color for a couple of weeks. His urologist knows about his bloody urine. This is why he is scheduled for a bladder tumor removal next week. 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 He will be discharged with a catheter in place. He will call his urologist today Treatment Plan: [] Disposition: Discharge Impression: Urinary retention, hematuria This note was generated with [employer] dictation software. It may contain incorrect words, spelling, and punctuation that were not noted in review of the chart prior to signing ED Disposition - Plan for ED Patient: Chief Complaint: Complaint Referrals: Andree Muller MD [Primary Care Provider] -
[2017-12-11 03:40] VITALS: BP 137/71; PULSE 94; RESP 16; O2SAT 92
[2017-12-11 03:43] LABS: Mucous, Urine 0 SEEN /hpf (<or=2+)
[2017-12-11 03:46] LABS: Color, Urine Red (Yellow); Glucose, Dipstick Normal (Normal); Ketone-Dipstick 5 mg/dl (Negative); Leukocyte Esterase-Dipstick 25 /ul (Negative); Nitrite-Dipstick Negative (Negative); Occult Blood-Urine 250 /ul (Negative); Protein-Dipstick 500 mg/dl (Negative); Specific Gravity, Urine 1.015 (1.002-1.030); Urine Bilirubin Dipstick Negative (Negative); Urine Clarity Turbid (Clear); Urine Urobilinogen Normal (Normal); Urine pH 6.5 (5.0 - 8.0)
[2017-12-11 03:53] LABS: Bacteria 1+ /hpf (None Seen)
[2017-12-11 03:54] LABS: Red Blood Cells-Urine 50-100 SEEN /hpf (0-5); Squamous Epithelial Cells - UA 0-5 SEEN /hpf (0-5); White Blood Cells 0-5 SEEN /hpf (0-5)
--- NOTE | 2017-12-11 04:10 | ED.DEP ---
ED Disposition - Plan for ED Patient: Disposition: Home or Assisted Living Chief Complaint: Complaint Instructions: ED Retention Urinary Male Referrals: Andree Muller MD [Primary Care Provider] -
[2017-12-11 05:29] VITALS: BP 136/87; PULSE 88; RESP 16; O2SAT 93
== END 2017-12-11 05:31 | disposition home or self-care (01) ==
PROVIDERS: Emergency Provider Emergency Medicine; Family Provider Family Medicine; PCP Family Medicine
DX: D49.4 Neoplasm of unspecified behavior of bladder (principal); K74.60 Unspecified cirrhosis of liver; Z79.899 Other long term (current) drug therapy; Z72.0 Tobacco use
CPT/HCPCS: 51702; 81001; 87086; 99285; A4216

== ENCOUNTER 2017-12-14 00:30 | Emergency (ER) | payer MEDICARE, MEDICAID, SELFPAY ==
[2017-12-14 00:31] VITALS: BP 184/97; PULSE 114; RESP 22; TEMP 36.9; O2SAT 95; BMI 29.0
[2017-12-14 01:19] LABS: Absolute Lymphocyte Count 1.51 X10^3/ul (0.83-4.51); Absolute Neutrophil Count 7.1 X10^3/uL (2.0-7.7); Basophil# 0.02 X10^3/uL; Basophil% 0.2 % (0-1); Eosinophil# 0.06 X10^3/uL; Eosinophils% 0.6 % (0-5); Hematocrit 34.2 % (40-54); Lymphocyte # 1.51 X10^3/ul (4.0); Lymphocyte % 15.6 % (19-41); Mean Corp Hgb Conc 32.2 g/gl (32-36); Mean Corpuscular Hgb 27.9 pg (27.0-32.0); Mean Corpuscular Volume 86.8 fL (80-94); Mean Platelet Vol. 7.9 fl (6.2-12.0); Monocyte# 0.95 X10^3/uL; Monocyte% 9.8 % (0-10); Neutrophil # 7.11 X10^3/uL (2.7-7.7); Neutrophil % 73.7 % (47-70); Platelet Count 258 K/mm3 (150-450); RBC Distribution Width CV 14.4 % (11.6-14.6); RBC Distribution Width SD 44.3 fl (35.1-43.9); Red Blood Count 3.94 M/mm3 (4.6-6.2); White Blood Count 9.7 K/mm3 (4.4-11.0)
[2017-12-14 01:22] LABS: POSITIVE COUNT NO; POSITIVE DIFFERENTIAL NO; POSITIVE MORPHOLOGY NO
[2017-12-14 01:24] LABS: International Normalized Ratio 1.2; Prothrombin Time (Protime)PT. 15.1 SECONDS (11.7-14.9)
[2017-12-14 01:25] LABS: Partial Thromboplast Time 35.6 Seconds (24.1-36.2)
[2017-12-14 01:30] LABS: Anion Gap 5 (5-15); BUN 15 mg/dL (7-18); BUN/Creat Ratio 19.9 RATIO (10-20); Calcium,Total 8.4 mg/dL (8.5-10.1); Chloride 106 mmol/L (98-107); Creatinine, Serum 0.76 mg/dL (0.70-1.30); EST Glomerular Filtration Rate 109 mL/min (>60); Est Glom Filt Rate - Afr Amer 132 mL/min (>60); Estimated Creatinine Clearance 67.45 ml/min; Glucose 127 mg/dL (74-106); Potassium 3.7 mmol/L (3.5-5.1); Sodium Level 137 mmol/L (136-145)
--- NOTE | 2017-12-14 01:59 | ED.VISSUMM ---
- ER Visit Summary Date of Service: 12/14/17 Chief Complaint: Burning pain tip of penis History of Present Illness: The patient is a [address] Muller and Dr. Bowling. He has a known bladder mass that he has seen urology for. In fact, he has an appointment in 5 days to have this removed. He was seen in the emergency department 2 days ago and had a Garcia catheter placed for urinary retention and hematuria. He reports that he is doing well until 3-4 hours ago began having burning in the tip of his penis. Dates he has pain is 6 out of 10 severity. Worsened by nothing. His catheter was irrigated prior to my seeing him and he reports that this completely resolved his pain. He denies any other complaints on review of systems. Physical Examination: Vitals: Stable. Afebrile. General: Well-nourished and well-developed. Head: Normocephalic atraumatic. Neck: Supple, no lymphadenopathy. No JVD. Nontender. Cardiovascular: Regular rate and rhythm. No murmurs. Respiratory: No respiratory distress. Clear to auscultation bilaterally. Abdominal: Soft, nontender, nondistended, normal bowel sounds. No guarding, rebound, or peritoneal signs. Back: Nontender. Extremities: Nontender, no edema. Skin: Normal color, no rash. Neurologic: Alert and oriented ?3. Cranial nerves II through XII are intact. Normal strength and sensation. Psych: Normal affect. Test Results: CBC is marked for an H&H of 11.0 34.2, segment neutrophils of 74, lymphocytes of 16. Chem-7 is more for glucose 127 calcium 8.4. INR is 1.2. PTT is 35.6. He had a urinalysis obtained 2 days ago that was negative. His urine cultures returned and it is negative as well. Emergency Department Course and Treatment: Patient had his catheter irrigated and his pain completely resolved. He does have blood-tinged urine draining. Treatment Plan: The patient was discussed with Dr. Bowling. He is instructed to keep his appointment in 5 days for removal of this mass. Return to the emergency department if his catheter is not draining. Disposition: To home in improved and stable condition. Impression: 1. Hematuria. 2. Bladder mass. This note was generated with [employer] software. It may contain incorrect words, spelling, and punctuation that were not noted in review of the chart prior to signing ED Disposition - Plan for ED Patient: Disposition: Home or Assisted Living Chief Complaint: Garcia C/O Instructions: ED Hematuria Additional Instructions: Follow-up with Dr. Bowling as soon as possible.
[2017-12-14 02:54] VITALS: BP 154/92; PULSE 82; RESP 16
== END 2017-12-14 02:54 | disposition home or self-care (01) ==
LOC: ED 01:00
PROVIDERS: Emergency Provider Emergency Medicine; Family Provider Family Medicine; PCP Family Medicine
DX: N32.9 Bladder disorder, unspecified (principal); R31.9 Hematuria, unspecified; Z72.0 Tobacco use
CPT/HCPCS: 80048; 85025; 85610; 85730; 99285; A4216

== ENCOUNTER 2017-12-16 10:14 | Emergency (ER) | payer MEDICARE, MEDICAID, SELFPAY ==
[2017-12-16 10:15] VITALS: BP 142/84; PULSE 123; RESP 16; TEMP 37.4; O2SAT 93; BMI 28.3
--- NOTE | 2017-12-16 10:43 | ED.DCSUM_ITS ---
- ER Visit Summary Date of Service: 12/16/17 Chief Complaint: Garcia catheter going to fall out History of Present Illness: The patient is a [address] Muller and Dr. Bowling. He reports that his brother has tripped over his catheter for times. States that it pulled out approximately 1 inch. He denies any pain. No blood in his urine. No abdominal pain. Review of systems: General: No fever, chills, cold sweats. Cardiovascular: No chest pain, palpitations. Respiratory: No cough, shortness of breath, dyspnea on exertion. Gastrointestinal: No abdominal pain, nausea, vomiting, diarrhea, melena, or hematochezia. Genitourinary: No dysuria, frequency, hematuria. Skin: No rash. Neuro: No headache, numbness, weakness. Physical Examination: Vitals: Stable. Afebrile. General: Well-nourished and well-developed. Head: Normocephalic atraumatic. Neck: Supple, no lymphadenopathy. No JVD. Nontender. Cardiovascular: Tachycardic regular rhythm. No murmurs. Respiratory: No respiratory distress. Clear to auscultation bilaterally. Abdominal: Soft, nontender, nondistended, normal bowel sounds. No guarding, rebound, or peritoneal signs. Fully catheter is draining cloudy urine without blood. Back: Nontender. Extremities: Nontender, no edema. Skin: Normal color, no rash. Neurologic: Alert and oriented ?3. Cranial nerves II through XII are intact. Normal strength and sensation. Psych: Normal affect. Emergency Department Course and Treatment: I removed 30 cc of saline from the balloon without any difficulty. It is clearly intact. His Garcia is approximately 4 cm from being hubbed. He has it attached to his leg this way. Treatment Plan: Patient will be discharged and changed to a leg bag rather than the bag that he seems to be having a difficult time with. Instructed to follow- up Dr. Bowling in 2 days as previously scheduled. Disposition: To home in improved and stable condition. Impression: 1. Bladder mass. 2. Indwelling Garcia catheter. This note was generated with [employer] software. It may contain incorrect words, spelling, and punctuation that were not noted in review of the chart prior to signing ED Disposition - Plan for ED Patient: Disposition: Home or Assisted Living Chief Complaint: Garcia C/O Instructions: Discharge Instructions: Caring for Your Leg Bag Additional Instructions: Follow up with Dr. Bowling Thursday as scheduled.
[2017-12-16 11:20] VITALS: BP 142/84; PULSE 103; RESP 18
== END 2017-12-16 11:27 | disposition home or self-care (01) ==
LOC: ED 11:15
PROVIDERS: Emergency Provider Emergency Medicine; Family Provider Family Medicine; PCP Family Medicine
DX: T83.021A Displacement of indwelling urethral catheter, initial encounter (principal); N32.9 Bladder disorder, unspecified; K74.60 Unspecified cirrhosis of liver; Z79.899 Other long term (current) drug therapy; Z72.0 Tobacco use
CPT/HCPCS: 99282

== ENCOUNTER → 2018-01-18 10:00 | Outpatient (CLI) | payer MEDICARE, SELFPAY ==
--- NOTE | 2018-01-18 10:00 | DT_ITS ---
This patient was seen during an EMR downtime January 18, 2018 - January 25, 2018. This patient may have a combination of paper and electronic documentation or all paper documentation. All documentation is viewable within the e-chart portion of [employer] for each patient visit.
--- NOTE | 2018-01-18 12:30 | NM_ITS ---
CLINICAL: Male, 67 years old. History of bladder cancer. WHOLE BODY NUCLEAR BONE SCAN TECHNIQUE: Following the IV administration of 26.8 mCi of Tc MDP, whole body bone imaging was performed with a gamma camera following a three hour delay. COMPARISON STUDIES : NM - None. CR - Not available for review at this time. CT - CT scan of the abdomen and pelvis and CT scan of the lumbar spine of 11/01/2017. MR - Not available for review at this time. US - Not available for review at this time. FINDINGS: Is increased concentration of radiopharmaceutical in the lower lumbar spine corresponding to degenerative changes seen on the previous CTs. Small area of increased uptake is seen in the right-sided pelvis probably in the soft tissues. There is also faint focal area of increased uptake in the region of the right greater trochanter and right sternoclavicular joint region. Mild increased uptake is seen in the knees, right great toe and right elbow likely due to degenerative arthrosis. The uptake otherwise is unremarkable. There is no evidence of metastatic disease. NM/Bone Scan Whole Body IMPRESSION: Increased uptake in the lower lumbar spine likely corresponds to degenerative changes seen of the CT scan of the lumbar spine. Small area of increased uptake in the pelvic region probably in the soft tissues of undetermined etiology and significance at this time. Otherwise no evidence of metastatic disease on this examination. Electronically Signed: Leobardo Bob MD at 10:54 EDT Tel , Service support ,
== END ==
PROVIDERS: Family Provider Family Medicine; PCP Family Medicine; Visit Provider Internal Medicine Hematology & Oncology
DX: C67.9 Malignant neoplasm of bladder, unspecified (principal); M48.00 Spinal stenosis, site unspecified; M47.9 Spondylosis, unspecified
CPT/HCPCS: 78306

== ENCOUNTER → 2018-01-27 11:23 | Outpatient (CLI) | payer MEDICARE, SELFPAY ==
--- NOTE | 2018-01-27 11:29 | CT_ITS ---
STUDY: CT ABDOMEN AND PELVIS WITH CONTRAST REASON FOR EXAM: Male, 67 years old. Bladder malignancy. RADIATION DOSAGE (If Supplied By Facility): CTDIvol = ( 21.94 ) mGy, DLP = ( 3391.39 ) mGycm TECHNIQUE: Transaxial images were obtained from the dome of the diaphragm to the symphysis pubis without oral contrast. 100 ml of Isovue 300 contrast was administered. Sagittal and coronal images were reconstructed. Individualized dose optimization techniques were used for this CT. COMPARISON: CT abdomen and pelvis November 01, 2017. FINDINGS: There is stable elevation of left diaphragm. Minor subsegmental atelectasis or scarring in the inferior left lung base. The heart size is within normal limits. There is calcification at the aortic valve leaflets as well as atherosclerotic calcification in the left anterior descending coronary artery. Mixed density 2.8 x 2.5 x 2.5 cm structure better seen today at the juncture of the right and left lobes of the liver, grossly unchanged and likely representing hemangioma. 4 mm calcified stone seen at the neck of the gallbladder. No mural thickening of the gallbladder nor pericholecystic fluid to suggest cholecystitis. The common bile duct diameter is 5 mm. Normal spleen. Normal pancreas. Normal bilateral adrenal glands. Normal right kidney. Normal left kidney. No hydronephrosis. Normal visualized stomach. Incidental note of an interposition of nondistended small bowel loops anterior to the right lobe of the liver. Normal caliber of the small intestine. Normal colon. The appendix is visualized and appears normal. There is diffuse moderate atherosclerotic calcification of the abdominal aorta and iliofemoral arteries with elongation and tortuosity, but without a demonstrated aneurysm. Normal inferior vena cava. Normal retroperitoneum. There is been progression of incompletely defined mural soft tissue mass involving the upper two thirds of the urinary bladder, consistent with a history of malignancy. Normal visualized prostate gland. There is a small umbilical hernia containing fat. There is a right-sided inguinal hernia containing adipose tissue. There is a left-sided inguinal hernia containing adipose tissue. There are diffuse degenerative changes of the visualized lumbar spine as well as multilevel spondylotic changes of the lower thoracic spine. There is notably worsened degenerative disc height narrowing at L4-5, accompanied by loss of the cortical endplate margins, incompletely defined endplate invaginations, and mild anterior wedging of the L4 vertebra. There is a 15 degree dextroscoliosis centered at L4. Degenerative arthrosis is also again seen at the bilateral sacroiliac joints. CT/Abdomen/Pelvis W IV Cont ONLY IMPRESSION: 1. Worsened, irregular mural urinary bladder soft tissue mass consistent with malignancy, now involving the upper two thirds of the urinary bladder. No hydronephrosis. 2. Again seen are multilevel degenerative changes of the spine. There is notably worsened degenerative disc height narrowing at L4-5, some loss of the cortical endplate margins, incompletely defined endplate invaginations, mild anterior wedging of the L4 vertebra. The findings are worrisome for evolving discitis or other inflammatory/infectious process. 3. Atherosclerotic calcification of the right coronary artery, tortuous abdominal aorta, and iliofemoral arteries again noted. The aortic calcification, by itself, portends moderate risk for future cardiovascular event, Abdominal Aortic Calcific Deposits Are an Important Predictor of Vascular Morbidity and Mortality; Sj Velasquez, et al. Circulation, 2001;103:5070-6931. No demonstrated aneurysm. 4. Stable 2.8 cm lesion at the junction of the right and left lobes of the liver may be hemangioma. If clinically indicated, this can be further characterized with ultrasound or MRI. 5. 4 mm stone at the neck of the gallbladder. No CT sign of cholecystitis or bile duct obstruction. 6. There is interposition of nondistended small bowel loops anterior to the right lobe of liver 2 and even greater degree than on prior study. No sign of obstruction. The bowel is otherwise unremarkable, and the appendix is normal. 7. Stable fat-containing umbilical and bilateral inguinal hernias. 8. Stable elevation of left diaphragm with minor subsegmental atelectasis or scarring in the left lung base. Electronically Signed: Ankur Ward MD at 12:19 EDT , Service support ,
--- NOTE | 2018-01-27 11:30 | CT_ITS ---
STUDY: CT CHEST/THORAX WITH CONTRAST REASON FOR EXAM: Male, 67 years old. Bladder cancer. RADIATION DOSAGE (If Supplied By Facility): CTDIvol = ( 21.94 ) mGy, DLP = ( 3391.39 ) mGycm TECHNIQUE: Transaxial imaging was performed following intravenous administration of 100 ml of Isovue 300 contrast material. Multiplanar coronal and sagittal images were reformatted. Individualized dose optimization techniques were used for this CT. COMPARISON: None. FINDINGS: Focal scarring seen in the lateral periphery of the right upper lobe at the mid chest, and there is subsegmental hypoventilation in the posterior right upper lobe abutting the pleural fissure. Subsegmental volume loss also present in the left posterior costophrenic sulcus and inferior lingula of the left upper lobe. Calcified granulomata noted adjacent to the left hilum. There is no demonstrated pleural abnormality. Normal heart and pericardium. There are calcifications of the coronary arteries. There are nonspecific pericarinal lymph nodes. No suspicious adenopathy. There are a few calcified left hilar lymph nodes. Normal enhanced pulmonary arteries. There is atherosclerotic calcification of the aortic arch and descending thoracic aorta. There are multi-level degenerative changes of the lower thoracic spine. 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 Incidental note of an interposition of nondistended bowel loops anterior to the right lobe of the liver. A few calcified granulomata are seen in the spleen. CT/Chest WITH Contrast IMPRESSION: 1. No findings suspicious for thoracic metastatic disease. 2. Minor scarring and/or subsegmental volume loss in the periphery of the right upper lobe and left base. There are also findings of old left calcified granulomatous disease. Electronically Signed: Ankur Ward MD at 14:06 EDT , Service support ,
== END ==
PROVIDERS: Family Provider Family Medicine; PCP Family Medicine; Visit Provider Internal Medicine Hematology & Oncology
DX: C67.9 Malignant neoplasm of bladder, unspecified (principal); M48.00 Spinal stenosis, site unspecified; M47.9 Spondylosis, unspecified
CPT/HCPCS: 71260; 74177; Q9967

== ENCOUNTER 2018-02-09 06:33 | Day surgery (SDC) | payer MEDICARE, MEDICAID, SELFPAY ==
[2018-02-09 07:23] VITALS: BP 108/70; PULSE 100; RESP 18; TEMP 36.6; O2SAT 94; BMI 25.9
[2018-02-09] MEDS: Cefazolin 2 GM in 0.9% Normal Saline 100 ML IV (08:16)
[2018-02-09] MEDS: Bupivacaine Mpf 0.5% 30 ML VIAL (08:36)
--- NOTE | 2018-02-09 09:13 | RAD_ITS ---
STUDY: X-RAY CHEST REASON FOR EXAM: Male, 67 years old. Port placement. TECHNIQUE: Single AP portable view of the chest. COMPARISON: None. FINDINGS: A right-sided portacatheter as been placed. The tip is at junction of the superior vena cava and right atrium. Mild degree of increased linear markings at the left lung base suggestive of left basilar atelectasis. There is no demonstrated pleural abnormality. Normal size heart. Normal mediastinum and jill. Normal visualized pulmonary arteries. There is atherosclerotic calcification of the aortic arch with tortuosity. There are degenerative changes of the visualized thoracic spine. Normal visualized ribs, clavicles, and shoulders. There is no demonstrated abnormality of the visualized soft tissue structures of the upper abdomen. RAD/CXR for Line Placement IMPRESSION: Status post right port placement. The tip is at the junction of the superior vena cava and right atrium. Mild increased linear markings at the left lung base suggestive of atelectasis. Electronically Signed: Albert Braun MD at 10:03 EDT Tel [phone], Service support ,
--- NOTE | 2018-02-09 09:15 | OP.PCM_ITS ---
Report of Operation Date of Procedure: 02/09/18 Pre-Operative Diagnosis: z45.2, bladder cancer Post-Operative Diagnosis: same Description of Surgical Findings:: 1. placement of Right IJ portacath 2. use of U/S 3. Use of fluoroscopy Type of Anesthesia:: MAC Anesthesiologist: Randy Giles Special Medications: ancef 2 grams IV x1 Specimen's removed: none Estimated Blood Loss (mL): < 5 cc Fluids Replaced: 1000 cc Description of Procedure: After informed consent was given, the patient was brought to the operating room and placed in the supine position. Appropriate time out protocol was followed. He was then given IV conscious sedation for anesthesia. The patient 's right upper chest and neck were then prepped with a surgical skin preparation and sterile surgical drapes were placed. After proper landmarks were ascertained, the skin at the upper right chest area was then infiltrated with 1:1 mixture of 1% lidocaine with epinephrine and 0.5% maricaine- total of 10 cc. A needle trocar was then inserted into the right internal jugular vein with ultrasound guidance-multiple vessels were viewed with u/s and the right IJ was chosen-- and there was good aspiration of venous blood. A wire was then threaded into the needle trocar and this was visualized under fluoroscopy to ensure that the wire was in the superior vena cava. Once this was done, then the needle trocar was removed. A small skin everton was made with an 11 blade knife at the wire entrance site. The dilator with the introducer sheath attached was then placed over the wire into the right internal jugular vein via the Seldinger technique and this was visualized under fluoroscopy. The dilator and sheath were in proper position as visualized by fluoroscopy. A subcutaneous pocket was then created caudad to the catheter insertion site. A transverse skin incision was made after the skin and subcutaneous tissues were infiltrated with local anesthetic. Blunt dissection was then used to create a space large enough for placement of the subcutaneous port. The catheter was then tunneled into the subcutaneous pocket. The wire and dilator were then removed. The catheter was then threaded into the introducer sheath and was positioned with its tip at the junction of the superior vena cava and the right atrium as visualized under fluoroscopy. The excess catheter was transected. The catheter was then attached to the subcutaneous port using manufacturers guidelines. The catheter was flushed with a heparin saline mixture prior to placement. Hemostasis was carefully controlled with electrocautery. The port was sutured to the subcutaneous fascia using 3-0 PDS suture at two sites. The port was then placed in the subcutaneous pocket and the sutures were ligated. The incision were reapproximated with interrupted subdermal 3-0 vicryl sutures. The skin was reapproximated with 3-0 nylon suture in a interrupted fashion. Steristrips were used for reinforcement of the skin closure at IJ insertion site and a sterile opsite dressings was applied. The port was accessed with the tong access kit that comes with the port. Good blood return and easy to flush the line, covered with 4x4 gauzed and secured with tape. The patient tolerated the procedure well. Implants Used: [employer] PowerPort isp M.R.I. 6Fr Lot [id number] Grafts/Implants Used: Powerport isp MRI 6Fr LOT [id number] [id number] - Complications none
[2018-02-09 09:17] VITALS: BP 108/70; BP 82/58; PULSE 104; RESP 14; TEMP 36.8; O2SAT 93
--- NOTE | 2018-02-09 09:26 | PCM.DC.POR ---
Discharge Diet: No Restrictions Discharge Activity: May not drive while taking narcotic pain medications. Lifting Restrictions: no lifting >15 lb on right for 1 week Call your doctor if your incision/area has: Continuous Slow Oozing, Sudden Increased Bleeding, Increased Pain/ Swelling, Increased Redness, Foul Smelling Discharge, Swelling at the incision site Call your doctor if you observe: Fever of 101 or Higher Remove Dressing in (days):: 5 - keep port site covered and dry for 5 days then ok to shower but keep covered until sutures removed in 10 days from surgery Cleanse incision/area with: Keep Dressing Clean & Dry - for 5 days then ok to shower Allergies/Adverse Reactions: Allergies No Known Allergies Allergy (Verified 02/09/18 07:33) Medications to take at Discharge Finasteride [Proscar] 5 mg PO DAILY 11/25/17 Lisinopril 20 mg PO DAILY 11/25/17 Pantoprazole Sodium [Protonix] 40 mg PO DAILY 11/25/17 Sertraline HCl [Zoloft] 50 mg PO DAILY 01/14/18 Oxycodone [Oxyir] 5 mg PO Q6H PRN PRN 2 Days #6 tablet 02/09/18 The following prescriptions were given: Oxycodone [Oxyir] 5 mg PO Q6H PRN PRN 2 Days #6 tablet PRN Reason: Pain Primary Care Physician: Andree Muller MD [Primary Care Provider] - Please Follow Up With: Anay Montalvo MD - call [phone] with any issues after 5pm/weekend When: call office [phone] for removal of sutures in 10 days from surgery Proposed Discharge Date: 02/09/18
[2018-02-09 09:30] VITALS: BP 108/70; BP 88/61; PULSE 101; RESP 14; O2SAT 93
--- NOTE | 2018-02-09 09:30 | DCINST_ITS ---
Discharge Diet: No Restrictions Discharge Activity: May not drive while taking narcotic pain medications. Lifting Restrictions: no lifting >15 lb on right for 1 week Call your doctor if your incision/area has: Continuous Slow Oozing, Sudden Increased Bleeding, Increased Pain/ Swelling, Increased Redness, Foul Smelling Discharge, Swelling at the incision site Call your doctor if you observe: Fever of 101 or Higher Remove Dressing in (days):: 5 - keep port site covered and dry for 5 days then ok to shower but keep covered until sutures removed in 10 days from surgery Cleanse incision/area with: Keep Dressing Clean & Dry - for 5 days then ok to shower Allergies/Adverse Reactions: Allergies No Known Allergies Allergy (Verified 02/09/18 07:33) Medications to take at Discharge Finasteride [Proscar] 5 mg PO DAILY 11/25/17 Lisinopril 20 mg PO DAILY 11/25/17 Pantoprazole Sodium [Protonix] 40 mg PO DAILY 11/25/17 Sertraline HCl [Zoloft] 50 mg PO DAILY 01/14/18 Oxycodone [Oxyir] 5 mg PO Q6H PRN PRN 2 Days #6 tablet 02/09/18 The following prescriptions were given: Oxycodone [Oxyir] 5 mg PO Q6H PRN PRN 2 Days #6 tablet PRN Reason: Pain Primary Care Physician: Andree Muller MD [Primary Care Provider] - Please Follow Up With: Anay Montalvo MD - call [phone] with any issues after 5pm/weekend When: call office [phone] for removal of sutures in 10 days from surgery Proposed Discharge Date: 02/09/18
[2018-02-09 09:45] VITALS: BP 108/70; BP 88/68; PULSE 96; RESP 14; TEMP 36.6; O2SAT 91
[2018-02-09 10:18] VITALS: PULSE 88; RESP 16
[2018-02-09] MEDS: Albuterol 2.5 MG/3 ML VIAL.NEB. INHALATION (10:18)
--- NOTE | 2018-02-09 10:38 | RAD_ITS ---
STUDY: X-RAY CHEST REASON FOR EXAM: Male, 67 years old. sob post port placement TECHNIQUE: PA and lateral views of the chest. COMPARISON: February 09, 2018 FINDINGS: There is a right central venous line with the distal tip in the midsuperior vena cava. There is stable elevation of the left hemidiaphragm and left basilar scarring/atelectasis. No demonstrated pleural abnormality. Normal size heart. Normal mediastinum and jill. Normal visualized pulmonary arteries. Normal visualized aortic arch and descending thoracic aorta. There are diffuse degenerative changes of the visualized thoracic spine. There is a stable old left rib fracture. There is no demonstrated abnormality of the visualized soft tissue structures of the upper abdomen. RAD/Chest PA and Lateral IMPRESSION: No acute disease is demonstrated. Electronically Signed: Lisa Yu MD at 10:57 EDT , Service support ,
[2018-02-09 11:47] VITALS: BP 106/78; BP 108/70; PULSE 78; RESP 18; TEMP 36.3; O2SAT 92
== END 2018-02-09 11:42 | disposition home or self-care (01) ==
LOC: SDC 06:34 → AC 06:35
PROVIDERS: Family Provider Family Medicine; PCP Family Medicine; Visit Provider Surgery
PROC: (CPT 36561; principal; 2018-02-09 08:15)
DX: Z45.2 Encounter for adjustment and management of vascular access device (principal); C67.9 Malignant neoplasm of bladder, unspecified; I10 Essential (primary) hypertension; N40.1 Benign prostatic hyperplasia with lower urinary tract symptoms; N39.498 Other specified urinary incontinence; K21.9 Gastro-esophageal reflux disease without esophagitis; B19.20 Unspecified viral hepatitis C without hepatic coma; F17.200 Nicotine dependence, unspecified, uncomplicated; Z79.899 Other long term (current) drug therapy
CPT/HCPCS: 36561; 36591; 71045; 71046; 77001; 80053; 83735; 85025; 94640; J7120; A4216; C1788; J2405

== ENCOUNTER 2018-02-13 08:13 | Emergency (ER) | payer MEDICARE, MEDICAID, SELFPAY ==
[2018-02-13 08:14] VITALS: BP 132/94; PULSE 91; RESP 20; TEMP 36.7; O2SAT 95; BMI 26.1
[2018-02-13 08:20] VITALS: BMI 26.1
--- NOTE | 2018-02-13 08:37 | ED.VISSUMM ---
- ER Visit Summary Date of Service: 02/13/18 Chief Complaint: Decreased urine output History of Present Illness: The patient is a 67 M who is scheduled to start chemotherapy for bladder cancer next week. Patient had a Garcia catheter placed at the cancer center yesterday. A 16 Turkish catheter is currently in place. Patient reports decreased urine output, bloody urine, and lower abdominal pressure. He believes he has a clot blocking the catheter. Physical Examination: Vital signs are unremarkable. Patient's lying in bed no acute distress. Heart is regular rate and rhythm. Lungs are clear. Abdomen is soft with suprapubic tenderness. He has a bloody urine in his leg bag with a small clot noted in the back as well. Test Results: [] Emergency Department Course and Treatment: Patient previously had a 24 Turkish three-way catheter placed here in the emergency room. Patient had his 16 Turkish catheter changed out to a 24 Turkish three-way. Nursing staff states there is no difficulty getting the catheter placed. He did have bloody urine initially which cleared with 400 cc of flush. Urine has turned somewhat bloody at this time but after irrigation of a few clots these seem to have cleared. Bedside ultrasound was performed of bladder does not appear to be distended. Patient be discharged with a leg bag and the larger sized catheter. Treatment Plan: [] Disposition: Discharge Impression: Hematuria and urinary retention with Garcia catheter change out This note was generated with [employer] dictation software. It may contain incorrect words, spelling, and punctuation that were not noted in review of the chart prior to signing ED Disposition - Plan for ED Patient: Chief Complaint: Garcia C/O Referrals: Andree Muller MD [Primary Care Provider] -
--- NOTE | 2018-02-13 09:34 | ED.DEP ---
ED Disposition - Plan for ED Patient: Disposition: Home or Assisted Living Chief Complaint: Garcia C/O Instructions: ED Catheter Care Garcia Referrals: Andree Muller MD [Primary Care Provider] -
== END 2018-02-13 09:53 | disposition home or self-care (01) ==
PROVIDERS: Emergency Provider Emergency Medicine; Family Provider Family Medicine; PCP Family Medicine
DX: T83.86XA Thrombosis due to genitourinary prosthetic devices, implants and grafts, initial encounter (principal); R31.9 Hematuria, unspecified; C67.9 Malignant neoplasm of bladder, unspecified; N40.1 Benign prostatic hyperplasia with lower urinary tract symptoms; R33.8 Other retention of urine; I10 Essential (primary) hypertension; Z79.899 Other long term (current) drug therapy; Z72.0 Tobacco use
CPT/HCPCS: 99282; A4216

== ENCOUNTER 2018-02-20 08:15 | Outpatient (CLI) | payer MEDICARE, MEDICAID, SELFPAY ==
[2018-02-20 08:54] VITALS: BP 103/60; PULSE 84; RESP 17; TEMP 37.2; O2SAT 94
[2018-02-20] MEDS: 0.9% NaCl VAD Flush 10 ML IV ×2 (08:55→14:40)
[2018-02-20] MEDS: 0.9% Normal Saline 1,000 ML 400 ML IV ×2 (08:55→11:55)
[2018-02-20 12:55] VITALS: BP 133/69; PULSE 73; RESP 16; TEMP 36.4; O2SAT 95
[2018-02-20 14:33] VITALS: BP 136/79; PULSE 67; RESP 17; TEMP 36.3; O2SAT 95
== END 2018-02-20 14:52 | disposition home or self-care (01) ==
LOC: MEDOUTP 08:17 → PCU 08:38
PROVIDERS: Family Provider Family Medicine; PCP Family Medicine; Visit Provider Internal Medicine Hematology & Oncology
DX: E86.0 Dehydration (principal)
CPT/HCPCS: 96360; 96361 ×5; 96523; J7030; A4216

== ENCOUNTER 2018-02-21 08:21 | Outpatient (CLI) | payer MEDICARE, MEDICAID, SELFPAY ==
[2018-02-21 08:35] VITALS: BMI 26.1
[2018-02-21 08:37] VITALS: BP 132/79; PULSE 84; RESP 18; TEMP 36.3; O2SAT 99
[2018-02-21] MEDS: 0.9% NaCl VAD Flush 10 ML IV ×2 (09:02→14:12)
[2018-02-21] MEDS: 0.9% Normal Saline 1,000 ML 400 ML IV ×2 (09:02→11:50)
[2018-02-21 14:28] VITALS: BP 142/66; PULSE 74; RESP 18; TEMP 36.7; O2SAT 98
== END 2018-02-21 14:40 | disposition home or self-care (01) ==
LOC: MS3OUT 08:23 → MS3 08:24
PROVIDERS: Family Provider Family Medicine; PCP Family Medicine; Visit Provider Internal Medicine Hematology & Oncology
DX: E86.0 Dehydration (principal)
CPT/HCPCS: 96360; 96361 ×5; J7030; A4216

== ENCOUNTER 2018-02-26 08:20 | Emergency (ER) | payer MEDICARE, MEDICAID, SELFPAY ==
[2018-02-26 08:21] VITALS: BP 170/103; PULSE 102; RESP 22; TEMP 36.9; O2SAT 97; BMI 29.0
--- NOTE | 2018-02-26 08:34 | ED.VISSUMM ---
- ER Visit Summary Date of Service: 02/26/18 Chief Complaint: Garcia catheter obstruction History of Present Illness: The patient is a 67 M who presents with decreased urine output from his Garcia catheter that he noticed today. Patient states he emptied his leg bag this morning. Patient states that after that he is only had a small amount of bloody urine. Patient also states he has been having some blood clots come to his catheter. Patient states he is leaking around his catheter. Patient admits to some fullness to his bladder. Patient denies any fevers or chills. Patient denies any flank pain. Physical Examination: Vital signs are stable except for mildly elevated blood pressure 170/103. Patient is afebrile. Patient is in no acute distress. Oral mucosa is pink and moist. Neck is supple. Trachea is midline. There is no JVD noted. Heart was regular rate and rhythm. Lungs are clear and equal bilateral. Abdomen is soft. There is some distention of the bladder. There is some mild tenderness over the suprapubic area. There is no rebound or guarding noted. Garcia catheter is in place. There is no active drainage from the catheter. The remaining physical exam is within normal limits. Test Results: Urinalysis showed leukocyte esterase of 100. There were 10-25 white blood cells and 50-100 red blood cells. There is no bacteria noted. Emergency Department Course and Treatment: Garcia catheter was irrigated. Several clots were removed. Catheter began to drain freely. Patient felt better on reevaluation. Patient was instructed to follow-up with his primary care physician in 3-5 days. Patient understood and was agreeable with the plan. All questions were answered. Disposition: Discharged home Impression: Urinary retention, hematuria This note was generated with [employer] dictation software. It may contain incorrect words, spelling, and punctuation that were not noted in review of the chart prior to signing ED Disposition - Plan for ED Patient: Disposition: Home or Assisted Living Chief Complaint: Garcia C/O Diagnosis: Urinary retention, Hematuria Instructions: ED Catheter Care Garcia Referrals: Andree Muller MD [Primary Care Provider] -
[2018-02-26 09:36] LABS: Bacteria 0 SEEN /hpf (None Seen); Mucous, Urine 0 SEEN /hpf (<or=2+); Squamous Epithelial Cells - UA 0 SEEN /hpf (0-5)
[2018-02-26 09:59] LABS: Color, Urine Red (Yellow); Glucose, Dipstick Normal (Normal); Ketone-Dipstick Negative (Negative); Leukocyte Esterase-Dipstick 100 /ul (Negative); Nitrite-Dipstick Negative (Negative); Occult Blood-Urine 250 /ul (Negative); Protein-Dipstick 500 mg/dl (Negative); Urine Bilirubin Dipstick Negative (Negative); Urine Clarity Cloudy (Clear); Urine Urobilinogen Normal (Normal); Urine pH 6.5 (5.0 - 8.0)
[2018-02-26 10:06] LABS: Red Blood Cells-Urine 50-100 SEEN /hpf (0-5); White Blood Cells 10-25 SEEN /hpf (0-5)
--- NOTE | 2018-02-26 10:25 | ED.RN ---
Cath irrigated through third cath port initially. Pt experienced increased pain with instillation of water. No clots noted at this site. Cath irrigated for several large clots. Instilled 200 ml over three episodes and drained without difficulty. Color red and without clots. Physician notifed. Pt trembling due to being cold. He waited outside for D/C instruction. He admitted to feeling better when I presented D/C instructions and inquired of his well being of which he stated I'm fine. He verified the sob noted is wnl for him after exertion.
== END 2018-02-26 10:38 | disposition home or self-care (01) ==
PROVIDERS: Emergency Provider Emergency Medicine; Family Provider Family Medicine; PCP Family Medicine
DX: R33.9 Retention of urine, unspecified (principal); R31.9 Hematuria, unspecified; Z85.51 Personal history of malignant neoplasm of bladder; Z72.0 Tobacco use
CPT/HCPCS: 81001; 99281

== ENCOUNTER 2018-04-20 11:17 | Inpatient (IN) | payer MEDICARE, MEDICAID, SELFPAY ==
[2018-04-20] VITALS (38 sets, daily range): BP systolic 61–149; BP diastolic 41–131; PULSE 142–179; RESP 16–39; TEMP 36.2–36.6; O2SAT 88–99; BMI 25.4; BMI 25.7
[2018-04-20] MEDS: 0.9% Normal Saline 1,000 ML 1000 ML IV (11:33)
[2018-04-20 12:06] LABS: Lactic Acid 5.6 mmol/L (0.4-2.0)
--- NOTE | 2018-04-20 12:08 | ED.RN ---
lactic acid 5.[address] lab[address] dr mendez aware
[2018-04-20] MEDS: 0.9% Normal Saline 1,000 ML 500 ML IV (12:23)
--- NOTE | 2018-04-20 12:45 | ED.VISSUMM ---
- ER Visit Summary Date of Service: 04/20/18 Chief Complaint: Shortness of breath History of Present Illness: The patient is a 67 M who feels weak, short of breath, he has history of bladder cancer on chemotherapy he was seen in the infusion center and apparently he was tachycardic but could not improve with IV fluids he does have a heart rate between 180s and 110s, he is in SVT at 180s but he self converts from time to time to 110s when he is on bigeminy. He has diffuse weakness. Physical Examination: Patient appears chronically ill and acutely toxic. He is tachycardic, his lungs are diminished mostly on the right He has a soft abdomen. He is not pale. He has full range of motion of his extremities. He has no calf tenderness. Emergency Department Course and Treatment: Patient was sent for a PE study right away, this showed a massive saddle embolus. His RV was somewhat dilated however his RA was severely dilated on my bedside ultrasound. He continues to be hypotensive and tachycardic, he certainly meets criteria for TPA. I discussed with ICU physician. Patient will be admitted to the ICU TPA was given. He does have a white count of 40,000 apparently he received antibiotics outpatient, I believe currently his main concern is saddle pulmonary embolism which is quite life-threatening and is receiving TPA. He understands that he is critically and gravely ill and he is getting maximum therapy. Admit in critical condition Impression: Saddle pulmonary embolus Critical care time 35 minutes This note was generated with [employer] dictation software. It may contain incorrect words, spelling, and punctuation that were not noted in review of the chart prior to signing ED Disposition - Plan for ED Patient: Chief Complaint: General Illness Referrals: Care Physician,No Primary [Primary Care Provider] -
--- NOTE | 2018-04-20 13:40 | EKG12_ITS ---
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 Rate : 177 BPM Atrial Rate : 119 BPM P-R Int : 000 ms QRS Dur : 078 ms QT Int : 270 ms P-R-T Axes : 000 048 060 degrees QTc Int : [address] depression, consider subendocardial injury Abnormal ECG Confirmed by SANTI MISHRA ([id number]), news videotape editor ADRI CHILD ([id number]) on 04/27/2018 2:05:46 PM Referred By: MELISSA XIE Confirmed By:SANTI MISHRA
--- NOTE | 2018-04-20 14:01 | PCM.HP.STD ---
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 He states that he has been having increasing SOB and lightheadedness and dizziness that has caused him to fall several times over the last few days. His dizziness began about 2 weeks ago and has steadily worsened. He denies chest pain, fevers, or chills. In the ED he was found to be significantly hypotensive to 60's/50's with MAPs below 60. He received several liters of fluid between the oncologists office and the ER. He has a lactate drawn which was 5.6. CTA of the chest shows a non-occlusive saddle PE and he was started on Alteplase IV. Past Medical History Past Medical History (Chronic Problems): Chronic Problems (Last Reviewed 04/20/18 @ 08:55 by Venessa Meneses) Depression (Chronic) Hearing loss (Chronic) Anemia (Chronic) Urinary bladder cancer (Chronic) Spinal stenosis (Chronic) Degenerative joint disease of spine (Chronic) Cirrhosis (Chronic) BPH (benign prostatic hyperplasia) (Chronic) HTN (hypertension) (Chronic) Medical History: Medical History (Last Reviewed 04/20/18 @ 08:55 by Venessa Meneses) Anemia (Chronic) D64.9 Urinary bladder cancer (Chronic) C67.9 Spinal stenosis (Chronic) M48.00 Degenerative joint disease of spine (Chronic) M47.9 Cirrhosis (Chronic) K74.60 UTI (urinary tract infection) (Acute) N39.0 Back pain (Acute) M54.9 BPH (benign prostatic hyperplasia) (Chronic) N40.0 HTN (hypertension) (Chronic) I10 Bladder neoplasm D49.4 Essential hypertension I10 Gross hematuria R31.0 Hepatitis C B19.20 UTI (urinary tract infection) N39.0 Allergies No Known Allergies Allergy (Verified 04/20/18 08:55) Home Medications: Ambulatory Orders Medication Instructions Recorded Lisinopril 20 mg PO DAILY 11/25/17 Pantoprazole Sodium [Protonix] 40 mg PO DAILY 11/25/17 Sertraline HCl [Zoloft] 50 mg PO DAILY 01/14/18 Ondansetron HCl [Zofran] 4 mg PO PRN PRN 04/20/18 Surgical History: Surgical History (Last Reviewed 04/20/18 @ 08:55 by Venessa Meneses) S/P cystoscopy Z98.890 x 2 liver biopsy, percutaneous Surgical History: - - Port placement Psychiatric History: Depression Smoking Status: Current every day smoker Alcohol: None Drugs: None - *Family History Maternal Family History: Family History (Last Reviewed 04/20/18 @ 08:55 by Venessa Meneses) Brother Diabetes Mother Diabetes History Items: - - No cancer Paternal Family History: Family History (Last Reviewed 04/20/18 @ 08:55 by Venessa Meneses) Brother Diabetes Mother Diabetes History Items: - - No cancer Review of Systems Constitutional: Denies: Chills, Fever, Weight Change HEENT: Denies: Head Aches, Sinus Congestion, Sinus Drainage Cardiovascular: Reports: Light Headedness, Palpitations. Denies: Chest Pain Respiratory: Reports: Shortness of breath at rest, Shortness of breath upon exertion. Denies: Cough, Pleuritic Pain, Sputum production Gastrointestinal: Denies: Abdominal Pain, Nausea, Vomiting Genitourinary: Denies: Dysuria Musculoskeletal: Denies: Joint Pain, Joint Tenderness Skin: Denies: Rash, Wounds Neurological: Denies: Numbness, Tingling, Focal weakness Psychiatric: Reports: Depression. Denies: Anxiety Hematologic/ Lymphatic: Reports: Anemia. Denies: Easy Bruising, Easy Bleeding VTE Information - Inpt Only VTE Present on Admission: Yes - Pharm prophylaxis contraindicated with alteplase Patient Problems: Active and Suspected Problems (Last Reviewed 04/20/18 @ 08:55 by Venessa Meneses) Chemotherapy management, encounter for (Acute) - Physical Exam General: Alert, Oriented x3, Cooperative HEENT: Atraumatic, EOMI, - - scleral icterus Oral: Moist Mucosa Neck: Supple, No JVD Lungs: Clear to auscultation, Normal air movement, No rhonchi, No wheeze, No rales Cardiovascular: Regular Rhythm, No murmurs, Tachycardic Abdomen: Soft, Non Tender, Non-Distended, No Hepato-splenomegaly Extremities: No edema, Capillary Refill Less than 3 Seconds Skin: No rashes, No breakdown, - - slight jaundice and bruising Musculoskeletal: No Tenderness to Palpation of Joints or Extremities Neurological: Neuro grossly intact, Sensory exam intact to light touch and pain Psych/Mental Status: Normal Affect, Appropriate Vital Signs Temp Pulse Resp BP Pulse Ox 98 F 157 H 26 H 74/56 L 96 04/20/18 13:48 04/20/18 13:48 04/20/18 13:48 04/20/18 13:48 04/20/18 13:48 Oxygen Flow Rate (L/min) 2 Oxygen Delivery Method Nasal Cannula Weight: 167 lb 1.766 oz Body Mass Index (BMI) 25.4 Laboratory Tests Past 24 Hrs 04/20/18 11:36 Lactic Acid 5.6 H* Assessment/Plan All Active Problems (Last Reviewed 04/20/18 @ 08:55 by Venessa Meneses) Chemotherapy management, encounter for (Acute) Saddle embolus of pulmonary artery with acute cor pulmonale (Acute) Pneumonia (Acute) UTI (urinary tract infection) (Acute) Back pain (Acute) 1. 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 Cirrhosis from Hep C/chronic Anemia - LDH is elevated and he has hyperbilirubinemia with an increased direct over indirect - Iron in December was low with a normal ferritin and TIBC but decreased iron sat - Iron deficiency vs hemolytic anemia, retic index is low - Given his bladder cancer could be chronic - Monitor with repeat CBC in the am 3. depression - c/w zoloft - Stable 4. GERD - Stable - c/w PPI 5. HTN - Hold lisinopril given hypotension DVT: Alteplase Code: DNR Diet: NPO dispo: ICU Critical Care time: 35 min Code Visit Inpatient E&M: 21259 Init Hosp L3 Procedures: 66438 Critial Care 1st Hr
--- NOTE | 2018-04-20 14:57 | PCM.RX.CS ---
Consult Pharmacy has been consulted to manage selected antiobiotic: Vancomycin Type of Consult: New start Suspected Infection: Pneumonia Prior Doses of Antibiotics Received/Current Regimen: 0 Labs: TROUGH TO BE DRAWN 04/22/18 @ 0330 Weight used for dosin.7 kg Estimated Creatinine Clearance: 61.32 Goal Trough: 10-15 mcg/mL - 1250MG X1 THEN 750MG Q12H. TROUGH TO BE DRAWN PRIOR TO 4TH DOSE Pharmacy Plan for Drug Dosing: Pharmacy Service will continue to monitor and adjust dosing as required.
[2018-04-20] MEDS: 0.9% NaCl Peripheral Flush Adult/Peds IV ×2 (15:19→15:24)
--- NOTE | 2018-04-20 15:19 | PCM.CON.CC ---
Problem List (1) Chemotherapy management, encounter for Status: Acute (2) Saddle embolus of pulmonary artery with acute cor pulmonale Status: Acute Qualifiers: Chronicity: acute Qualified Code(s): I26.02 - Saddle embolus of pulmonary artery with acute cor pulmonale (3) Hearing loss Status: Chronic (4) Urinary bladder cancer Status: Chronic (5) Spinal stenosis Status: Chronic (6) Degenerative joint disease of spine Status: Chronic (7) Back pain Status: Acute (8) BPH (benign prostatic hyperplasia) Status: Chronic (9) HTN (hypertension) Status: Chronic Reason for Consult Date of Consultation: 04/20/18 Reason for Consultation: Submassive pulmonary embolism History of Present Illness: The patient is a 67 year old M, with past medical history listed below, who presented to his oncologist office for chemotherapy and was found to have hypotension and tachycardia. Patient had also reported increased shortness of breath, lightheadedness and dizziness that resulted in several falls over the last couple of days. Patient is not a very good historian, but states that he started to notice dizziness approximately 2 weeks ago and this has steadily worsened. Patient denies any chest pain, fever, chills or productive cough. On presentation to the emergency room, patient was noted to be hypotensive in the 60s despite receiving several liters of fluid between his oncologist office in the ER. Lactate was drawn and was noted to be 5.6. CTA of the chest showed significant saddle pulmonary embolism and given hypotension, patient was initiated on alteplase therapy. Patient reported some subjective improvement in overall condition on presentation to the intensive care unit. Patient is still requiring supplemental oxygen to maintain saturations and heart rates have been in the 140s-160s with atrial fibrillation. Patient reports some palpitations approximately 2-3 days ago, but denies any history of previous atrial fibrillation. Patient denies any recent trauma or bleeding complications. Patient does have stage II bladder cancer per his report. Patient is a poor historian and unable to provide additional information at this time. Patient's blood pressure has improved following administration of TPA, but infusion has approximately 15 more minutes. Some labs were drawn the patient's outside office. These included an albumin of 1.7, creatinine of 1.1, sodium of 132, INR 1.2, hemoglobin of 9.8 with 3.36% reticulocyte count and a white blood cell count of 40. Past Medical History Past Medical History (Chronic Problems): Chronic Problems (Last Reviewed 04/20/18 @ 08:55 by Venessa Meneses) Depression (Chronic) Hearing loss (Chronic) Anemia (Chronic) Urinary bladder cancer (Chronic) Spinal stenosis (Chronic) Degenerative joint disease of spine (Chronic) Cirrhosis (Chronic) BPH (benign prostatic hyperplasia) (Chronic) HTN (hypertension) (Chronic) Medical History: Medical History (Last Reviewed 04/20/18 @ 08:55 by Venessa Meneses) Anemia (Chronic) D64.9 Urinary bladder cancer (Chronic) C67.9 Spinal stenosis (Chronic) M48.00 Degenerative joint disease of spine (Chronic) M47.9 Cirrhosis (Chronic) K74.60 UTI (urinary tract infection) (Acute) N39.0 Back pain (Acute) M54.9 BPH (benign prostatic hyperplasia) (Chronic) N40.0 HTN (hypertension) (Chronic) I10 Bladder neoplasm D49.4 Essential hypertension I10 Gross hematuria R31.0 Hepatitis C B19.20 UTI (urinary tract infection) N39.0 Allergies No Known Allergies Allergy (Verified 04/20/18 08:55) Home Medications: Ambulatory Orders Medication Instructions Recorded Lisinopril 20 mg PO DAILY 11/25/17 Pantoprazole Sodium [Protonix] 40 mg PO DAILY 11/25/17 Sertraline HCl [Zoloft] 50 mg PO DAILY 01/14/18 Ondansetron HCl [Zofran] 4 mg PO PRN PRN 04/20/18 Surgical History: Surgical History (Last Reviewed 04/20/18 @ 08:55 by Venessa Meneses) S/P cystoscopy Z98.890 x 2 liver biopsy, percutaneous Surgical History: - - Port placement Psychiatric History: Depression Smoking Status: Current every day smoker Tobacco Use: Cigarettes Alcohol: None Drugs: None - *Family History Maternal Family History: Family History (Last Reviewed 04/20/18 @ 08:55 by Venessa Meneses) Brother Diabetes Mother Diabetes History Items: - - No cancer Paternal Family History: Family History (Last Reviewed 04/20/18 @ 08:55 by Venessa Meneses) Brother Diabetes Mother Diabetes History Items: - - No cancer Review of Systems Comment: See HPI, otherwise negative ?10 systems. Patient Problems: Active and Suspected Problems (Last Reviewed 04/20/18 @ 08:55 by Venessa Meneses) Chemotherapy management, encounter for (Acute) Objective: CT scan of the chest was personally reviewed and shows bilateral saddle pulmonary embolism with infiltrate noted in the right midlung zone. - Physical Exam General: Alert, Cooperative, No apparent distress, - - Pressured speech. Some tangential discussion noted. HEENT: Atraumatic, PERRLA, EOMI, Normocephalic, - - No scleral icterus or injection noted. Oral: Moist Mucosa, No Gingival or Mucosal Lesions/ Ulcerations Neck: Supple, No Nodes, Trachea Midline, JVD, Right Lungs: No rhonchi, No wheeze, Diminished, Rales - Right chest, - - Symmetric expansion. No dullness to percussion. Cardiovascular: Normal S1, Normal S2, No murmurs, Irregular Rate, No rub noted, No Gallop, Tachycardic Abdomen: Bowel Sounds Present, Soft, Non Tender, Non-Distended Extremities: No cyanosis, Capillary Refill Less than 3 Seconds, Clubbing, Edema - 2+ lower extremity Skin: - - Venous stasis changes of the lower extremities. Alopecia noted. Musculoskeletal: No Tenderness to Palpation of Joints or Extremities Lymphatic: No Cervical, Supraclavicular, or Inguinal Adenopathy Neurological: Cranial nerves II-XII grossly intact, Neuro grossly intact, Motor Exam 5/5 strength throughout Psych/Mental Status: Anxious, Impulsive, Restless Vital Signs Temp Pulse Resp BP Pulse Ox 36.6 C 162 H 26 H 74/56 L 96 04/20/18 13:48 04/20/18 14:08 04/20/18 13:48 04/20/18 13:48 04/20/18 14:08 Oxygen Flow Rate (L/min) 2 Oxygen Delivery Method Nasal Cannula Weight: 76.7 kg Body Mass Index (BMI) 25.7 Laboratory Tests 04/20/18 11:36 Lactic Acid 5.6 H* Clinical Impression(s) from Imaging Studies Chest CTA 04/20/18 11:30 IMPRESSION: Nonocclusive saddle embolus within the right and left pulmonary arteries, extending into the right upper lobe pulmonary artery. A small embolus is seen within the left lower lobe pulmonary artery. Dense consolidation within the right upper lobe with findings suggesting early cavitation. N.B. : The above information has been verbally conveyed by Ollie Kirkpatrick DO to , Covering Physician, on 04/20/2018 13:44:33 (ET). Electronically Signed: Ollie Kirkpatrick DO at 12:32 EDT Tel , Service support , Assessment/Plan Active and Suspected Problems (Last Reviewed 04/20/18 @ 08:55 by Venessa Meneses) Chemotherapy management, encounter for (Acute) RECOMMENDATIONS: 1. Continue TPA with protocol 2. Possible need for cardioversion 3. Wean supplemental oxygen as tolerated 4. Agree with empiric antibiotic 5. Hold baseline antihypertensives 6. Possibly initiate stress dose steroids if remains hypotensive overnight 7. Obtain echocardiogram IMPRESSIONS: 1. Cardiogenic shock secondary to submassive pulmonary embolism status post TPA/possible severe sepsis Patient reportedly is hypertensive at baseline and on lisinopril. This will be held and patient has been given TPA. Continue with TPA protocol. Monitor saturations. Wean oxygen as tolerated. Unclear if patient has pulmonary infarction versus acute pneumonia. Agree with empiric antibiotics of cefepime and vancomycin in the interim. Can repeat lactic acid per protocol. Patient will not be able to have any central line until 24 hours has passed, as risk for bleeding would be substantial. 2. A. fib with RVR Likely secondary to #1. Patient has received TPA. We will continue to monitor to see if patient will spontaneously revert once clot burden is improved. Patient may require emergent cardioversion overnight if hypotension were to worsen. Will obtain an echocardiogram for quantification of right heart function. Patient has received significant volume resuscitation. 3. Reported cirrhosis secondary to hepatitis C/anemia of chronic disease Patient does have decreased albumin, but coagulation studies appear to be appropriate at this time. Patient currently receiving chemotherapy for bladder cancer. Defer to hospitalist if oncologist needs to be consulted. 4. Hypertension/GERD/depression/stage II bladder cancer Complicates care, management, recovery and prognosis. TIME: 35 minutes critical care time spent addressing patient's submassive PE, A. fib with RVR, possible severe sepsis, review of all data and collaboration with care team (2:30 PM to 3:40 PM) Code Visit 9xxxx: [id number] Critical care first hour
[2018-04-20] MEDS: 0.9% Normal Saline 1,000 ML 150 ML IV ×2 (15:32→22:07)
[2018-04-20 15:38] LABS: Reflex Lactate? Y
--- NOTE | 2018-04-20 16:00 | NURSING ---
Echo started and pt turned to L side, SPO2 immediately in low 80s. Oxygen increased to 6L. After 10 minutes, 50% VM placed and SPO2 returned to 93-94%; pt states slightly more dyspnea on L side, denies CP.
--- NOTE | 2018-04-20 16:30 | NURSING ---
Pt verbalizes that the only person he wishes to have information over the phone is his niece Celine, who is listed in the demographics. Pt states that his long time friend Cheryl Bucio is not his fiance, which she identifies as when she calls into the unit.
[2018-04-20 16:54] LABS: Lactic Acid 4.6 mmol/L (0.4-2.0)
[2018-04-21] VITALS (58 sets, daily range): BP systolic 63–101; BP diastolic 39–75; PULSE 96–154; RESP 12–35; TEMP 36.1–36.3; O2SAT 86–96
--- NOTE | 2018-04-21 01:50 | EKG12_ITS ---
Test Reason : AFIB Blood Pressure : / mmHG Vent. Rate : 110 BPM Atrial Rate : 110 BPM P-R Int : 134 ms QRS Dur : 066 ms QT Int : 324 ms P-R-T Axes : 071 050 053 degrees QTc Int : 438 ms Sinus tachycardia Otherwise normal ECG No previous ECGs available Confirmed by SANTI MISHRA ([id number]), newspaper editor managing ADRI CHILD ([id number]) on 04/27/2018 3:10:57 PM Referred By: MELISSA XIE Confirmed By:SANTI MISHRA
[2018-04-21] MEDS: 0.9% NaCl Peripheral Flush Adult/Peds IV ×3 (03:50→21:00)
[2018-04-21 04:29] LABS: Hematocrit 28.6 % (40-54); Hemoglobin 9.1 g/dl (13.0-16.5); Mean Corp Hgb Conc 31.8 g/gl (32-36); Mean Corpuscular Hgb 27.9 pg (27.0-32.0); Mean Corpuscular Volume 87.7 fL (80-94); Mean Platelet Vol. 9.2 fl (6.2-12.0); Platelet Count 186 K/mm3 (150-450); RBC Distribution Width CV 24.4 % (11.6-14.6); RBC Distribution Width SD 73.9 fl (35.1-43.9); Red Blood Count 3.26 M/mm3 (4.6-6.2)
[2018-04-21 04:30] LABS: Scan Indicated on CBC? Y/N YES- FLAGS NOTED; White Blood Count 34.2 K/mm3 (4.4-11.0)
[2018-04-21 04:37] LABS: BUN 30 mg/dL (7-18); Creatinine, Serum 1.16 mg/dL (0.70-1.30); EST Glomerular Filtration Rate 66 mL/min (>60); Estimated Creatinine Clearance 58.15 ml/min; Glucose 73 mg/dL (74-106)
[2018-04-21 04:38] LABS: ALB/GLOB Ratio 0.3 RATIO (0.9-2.4); AST(SGOT) 69 U/L (15-37); Alanine Aminotransfer ALT/SGPT 25 U/L (16-61); Albumin, Serum 1.2 g/dL (3.2-5.0); Alkaline Phosphatase 70 U/L (45-117); Anion Gap 14 (5-15); BUN/Creat Ratio 25.9 RATIO (10-20); Calcium,Total 6.7 mg/dL (8.5-10.1); Chloride 106 mmol/L (98-107); Est Glom Filt Rate - Afr Amer 80 mL/min (>60); Globulin 3.7 g/dL (2.2-4.2); Potassium 3.9 mmol/L (3.5-5.1); Protein, Total 4.9 g/dL (6.4-8.2); Sodium Level 140 mmol/L (136-145)
[2018-04-21] MEDS: 0.9% Normal Saline 1,000 ML 150 ML IV ×2 (04:52→12:21)
[2018-04-21 04:57] LABS: Differential Comment SCANNED
--- NOTE | 2018-04-21 07:14 | PN_ITS ---
Subjective: Patient did okay overnight. Patient's oxygenation has been doing well on nasal cannula. However, patient's blood pressure has been marginal overnight. Patient was not initiated on pressor therapy given normal mental status throughout. Called by the infusion center and patient reportedly is growing gram-positive cocci in clusters out of all blood cultures (4 out of 4). No bleeding complications have been noted from TPA. Patient did transition to sinus rhythm at approximately 1:30 AM. General: Alert, Oriented x3, Cooperative, No apparent distress, - - Tangential discussions noted. Speaking in full sentences. HEENT: Atraumatic, PERRLA, EOMI, Normocephalic, - - No scleral icterus or injection noted. Oral: Moist Mucosa, No Gingival or Mucosal Lesions/ Ulcerations Neck: Supple, No JVD, No Nodes, Trachea Midline Lungs: No wheeze, No rales, Diminished, Rhonchi - Right upper lung field Cardiovascular: Normal S1, Normal S2, No murmurs, No rub noted, No Gallop, Tachycardic, - - Sinus rhythm noted on telemetry Abdomen: Bowel Sounds Present, Soft, Non Tender, Non-Distended Extremities: No clubbing, No cyanosis, Edema Skin: No rashes, No breakdown, - - Alopecia noted. Some venous stasis changes lower extremities. Musculoskeletal: No Tenderness to Palpation of Joints or Extremities Lymphatic: No Cervical, Supraclavicular, or Inguinal Adenopathy Neurological: Cranial nerves II-XII grossly intact, Neuro grossly intact, Motor Exam 5/5 strength throughout Psych/Mental Status: Appropriate, Anxious Vital Signs Temp Pulse Resp BP Pulse Ox 36.1 C L 96 26 H 84/58 L 93 04/21/18 04:00 04/21/18 07:00 04/21/18 07:00 04/21/18 07:00 04/21/18 07:00 Oxygen Flow Rate (L/min) 3 Oxygen Delivery Method Nasal Cannula Weight: 78.1 kg Body Mass Index (BMI) 25.7 Intake and Output for Last 24 Hours 04/19/18 04/20/18 04/21/18 23:59 23:59 23:59 Intake Total 2179 / 2179 1274 / 1274 Output Total 350 / 350 125 / 125 Balance 1829 / 1829 1149 / 1149 Labs (Last 48 Hours) 04/20/18 04/21/1818 15:45 03:40 03:40 WBC 34.2 H* RBC 3.26 L Hgb 9.1 L Hct 28.6 L MCV 87.7 MCH 27.9 MCHC 31.8 L RDW 24.4 H RDW Differential 73.9 H Plt Count 186 MPV 9.2 Differential Comment SCANNED Diff Path Review December Sodium 140 Potassium 3.9 Chloride 106 Carbon Dioxide 20.0 L Anion Gap 14 BUN 30 H Creatinine 1.16 Estim Creat Clear Calc 58.15 Est GFR (MDRD) Af Amer 80 Est GFR (MDRD) Non-Af 66 BUN/Creatinine Ratio 25.9 H Glucose 73 L Lactic Acid 4.6 H* Calcium 6.7 L Total Bilirubin 2.50 H AST 69 H ALT 25 Alkaline Phosphatase 70 Total Protein 4.9 L Albumin 1.2 L Globulin 3.7 Albumin/Globulin Ratio 0.3 L Clinical Impression(s) from Imaging Studies Chest CTA 04/20/18 11:30 IMPRESSION: Nonocclusive saddle embolus within the right and left pulmonary arteries, extending into the right upper lobe pulmonary artery. A small embolus is seen within the left lower lobe pulmonary artery. Dense consolidation within the right upper lobe with findings suggesting early cavitation. N.B. : The above information has been verbally conveyed by Ollie Kirkpatrick DO to , Covering Physician, on 04/20/2018 13:44:33 (ET). Electronically Signed: Ollie Kirkpatrick DO at 12:32 EDT Tel , Service support , Medical Necessity - Tobacco Use Smoking Status: Current every day smoker Tobacco Use: Cigarettes Assessment/Plan All Active Problems (Last Reviewed 04/20/18 @ 08:55 by Venessa Meneses) Chemotherapy management, encounter for (Acute) Saddle embolus of pulmonary artery with acute cor pulmonale (Acute) Pneumonia (Acute) UTI (urinary tract infection) (Acute) Back pain (Acute) RECOMMENDATIONS: 1. Continue TPA with protocol, initiate heparin drip after 24 hours 2. Continue with empiric antibiotics 3. Wean supplemental oxygen as tolerated 4. Possible addition of pressor therapy if not fluid responsive 5. Repeat echocardiogram in 6-8 weeks 6. Okay to initiate a p.o. diet IMPRESSIONS: 1. Cardiogenic shock secondary to submassive pulmonary embolism status post TPA/possible severe sepsis Patient reportedly is hypertensive at baseline and on lisinopril. This will be held and patient has been given TPA. Continue with TPA protocol. Patient will be done with 24 hours at approximately 3 PM. Patient should be initiated on heparin drip at this time. 2. A. fib with RVR Resolved > likely secondary to #1. Patient has received TPA. Patient spontaneously converted overnight. Echocardiogram shows preserved ejection fraction, but elevated pulmonary artery pressures, likely leading to dilatation of atria and arrhythmia. 3. Reported cirrhosis secondary to hepatitis C/anemia of chronic disease Patient does have decreased albumin, but coagulation studies appear to be appropriate at this time. Patient currently receiving chemotherapy for bladder cancer. Defer to hospitalist if oncologist needs to be consulted. 4. Hypertension/GERD/depression/stage II bladder cancer Complicates care, management, recovery and prognosis. 5. Septic shock Patient reportedly has 4-4 blood cultures positive for gram-positive cocci in clusters. Given infiltrate on CT chest with possible early cavitation , concern for staph aureus pneumonia. Patient is on vancomycin at this time. Cannot exclude the need for initiation of pressor therapy if patient does not respond to fluid boluses. Patient does have significantly depressed albumin, likely secondary to underlying malignancy. Addendum 1443: Patient with increased respiratory distress and hypotension during the day. Patient was initiated on Levophed therapy through his port. Patient also noted to have increased respiratory rate into the 40s at approximately 1 PM. Patient was placed on BiPAP therapy and appears to be responding to therapy. TIME: 65 minutes critical care time spent addressing patient's submassive PE, A. fib with RVR, possible severe sepsis, review of all data and collaboration with care team (6 AM to 7:15 AM, 9:30 AM to 10:30 AM, 1 PM to 1:30 PM) Code Visit 9xxxx: [id number] Critical care first hour
[2018-04-21] MEDS: Cefazolin 2 GM in 0.9% Normal Saline 100 ML IV ×2 (08:14→15:11)
--- NOTE | 2018-04-21 09:59 | PCM.PN.HOSP ---
Patient Problems: Active and Suspected Problems (Last Reviewed 04/20/18 @ 08:55 by Venessa Meneses) Chemotherapy management, encounter for (Acute) Subjective: Patient seen and examined. Complains of right sided chest pain. Denies dizziness, nausea or vomiting. Overnight, his blood pressure has been low, map in the low 60s. Received a couple of fluid boluses and maintained on 150 cc of fluid. Receive alteplase yesterday Vitals/I&O's: Vital Signs Temp Pulse Resp BP Pulse Ox 97.0 F L 98 26 H 81/57 L 93 04/21/18 04:00 04/21/18 07:15 04/21/18 07:00 04/21/18 07:15 04/21/18 07:00 Oxygen Flow Rate (L/min) 3 Oxygen Delivery Method Nasal Cannula Weight: 78.1 kg Body Mass Index (BMI) 25.7 Intake and Output for Last 24 Hours 04/19/18 04/20/18 04/21/18 23:59 23:59 23:59 Intake Total 2179 / 2179 1274 / 1274 Output Total 350 / 350 125 / 125 Balance 1829 / 1829 1149 / 1149 General: Alert, Oriented x3, Cooperative, - - on 2L oxygen HEENT: Atraumatic, PERRLA, EOMI, Normocephalic Oral: Moist Mucosa Neck: Supple Lungs: Diminished Cardiovascular: Regular rate, Regular Rhythm, Normal S1, Normal S2, No murmurs, Tachycardic Abdomen: Bowel Sounds Present, Soft, Non Tender, Non-Distended, No Hepato-splenomegaly Extremities: No edema Skin: No rashes, No breakdown Musculoskeletal: No Tenderness to Palpation of Joints or Extremities Lymphatic: No Cervical, Supraclavicular, or Inguinal Adenopathy Neurological: Cranial nerves II-XII grossly intact, Neuro grossly intact Psych/Mental Status: Normal Affect, Appropriate Laboratory Results 04/20/18 15:45: Lactic Acid 4.6 H* 04/21/18 03:40: WBC 34.2 H*, RBC 3.26 L, Hgb 9.1 L, Hct 28.6 L, MCV 87.7, MCH 27.9, MCHC 31.8 L, RDW 24.4 H, RDW Differential 73.9 H, Plt Count 186, MPV 9.2, Differential Comment SCANNED, Diff Path Review December foll 04/21/18 03:40: Sodium 140, Potassium 3.9, Chloride 106, Carbon Dioxide 20.0 L, Anion Gap 14, BUN 30 H, Creatinine 1.16, Estim Creat Clear Calc 58.15, Est GFR (MDRD) Af Amer 80, Est GFR (MDRD) Non-Af 66, BUN/Creatinine Ratio 25.9 H, Glucose 73 L, Calcium 6.7 L, Total Bilirubin 2.50 H, AST 69 H, ALT 25, Alkaline Phosphatase 70, Total Protein 4.9 L, Albumin 1.2 L, Globulin 3.7, Albumin/Globulin Ratio 0.3 L Current Medications Guaifenesin (Mucinex) 1,200 mg PO BID YUE Heparin Sodium (Beef Lung) (Heparin 500 Unit/5 Ml (100/Ml)) 500 unit IV UD PRN PRN Reason: HEPARIN FLUSH Sodium Chloride () 1,000 mls @ 150 mls/hr IV .[id number] YUE Last Admin: 04/21/18 04:52 Dose: 150 mls/hr Cefazolin Sodium 2 gm/ Sodium (Chloride) 110 mls @ 150 mls/hr IV Q8 YUE Heparin Sodium/Dextrose () 25,000 units in 250 mls @ 11 mls/hr IV .[id number] YUE; As Directed PRN Reason: Protocol Magnesium Hydroxide (Milk Of Magnesia) 30 ml PO DAILY PRN PRN PRN Reason: Constipation Nutritional Formula (Lactose Free) (Ensure Enlive) 120 ml PO 4X/DAY [facility] Ondansetron HCl (Zofran) 4 mg IV Q8H PRN PRN PRN Reason: NAUSEA Pantoprazole Sodium (Protonix) 40 mg PO DAILY YUE Sertraline HCl (Zoloft) 50 mg PO DAILY [facility] Sodium Chloride () 5 - 30 ml IV UD PRN PRN Reason: SALINE FLUSH Last Admin: 04/21/18 03:50 Dose: 10 ml Sodium Chloride () 10 ml IV UD PRN PRN Reason: R PORT FLUSH Last Admin: 04/21/18 03:50 Dose: 10 ml Medical Necessity - Tobacco Use Smoking Status: Current every day smoker Tobacco Use: Cigarettes Assessment/Plan All Active Problems (Last Reviewed 04/20/18 @ 08:55 by Venessa Meneses) Chemotherapy management, encounter for (Acute) Saddle embolus of pulmonary artery with acute cor pulmonale (Acute) Pneumonia (Acute) UTI (urinary tract infection) (Acute) Back pain (Acute) 67-year-old male with past medical history of stage 2 bladder cancer, GERD, cirrhosis, Chronic Hep C referred from his PCP admitted with hypotensive and tachycardic from his oncology office and found to have non-occlusive saddle PE. He was given ateplase yesterday. Remains hypotensive. 1. Hypotension related to saddle PE, on maintenance fluids, managed in ICU, will continue to monitor 2. Acute nonocclusive saddle PE, status post ateplase IV, started on heparin drip this pm, will continue to monitor per protocol 3. A. fib with RVR, spontaneously converted, patient has remained in sinus tachycardia, will continue to monitor 4. Bladder CA, stage II, receiving chemotherapy 5. Recent staph aureus bacteremia, started on IV cefazolin by [employer], 2D echo did not show any vegetation, will consult ID 6. Right-sided postobstructive infiltrate, likely related to possible HCAP, with a leukocytosis and infiltrates seen on CT, IV vancomycin and cefepime have been stopped, started on cefazolin by [employer], would recommend coverage for HCAP organisms. 7. Microcytic microchromic anemia, will check iron stores 8. Chronic hep C, cirrhosis 9. DVT PPx- On heparin drip Code Visit Inpatient E&M: 08072 Subs Hosp L2
[2018-04-21] MEDS: Sertraline 50 MG Tablet PO (10:10)
[2018-04-21] MEDS: Pantoprazole Sodium 40 MG Tablet PO (10:10)
--- NOTE | 2018-04-21 12:16 | CASEMGMT ---
Addendum entered by Alis Junior 04/21/18 12:59: SW spoke w/pt navigator Emelyn Escalante in regard to this pt. She explains that pt was about to start his fourth and final chemotherapy cycle. As per RHYS Amaro, pt's chemotherapy may be suspended at present if SNF is needed. Should SNF be needed, will find out this answer definitively. Alis Junior, SIMULATION SOFTWARE ENGINEER-S, CLAIM PROFESSIONAL Original Note: SW spoke initially w/pt navigator Emelyn, who has been working w/pt. She applied for waiver w/pt and is assisting pt to get into assisted living at [facility]. As per Emelyn, pt lives w/his brother and pt has said his brother is a hoarder. Pt also has said that the water pressure is low. Emelyn spoke to the landlord about this but pt's brother will not let landlord in to check the water pressure. SW spoke w/pt in room, confirmed w/pt he lives w/his brother, pt reported to this SW also that pt's brother does not help pt much at home, will occasionally get pt something to eat and does his laundry. Pt states his brother never says thank you, never offers to help. Pt states he used to take his brother to the [place], his brother never thanked pt. SW offered support to pt about this. Pt also told this SW that Emelyn is helping pt to get into assisted living. Pt states he uses a walker at times when weak, is not on home O2. Pt lives on the first floor of a two story home, and they have a homemade bathroom on the first floor, with plastic bags and two chairs. Pt is not able to get up the stairs. SW asked pt about his treatment, pt states he is supposed to have chemo Thursday and Thursday, but now with these health problems won't be getting chemo right now. SW also asked pt about PCP. Pt states was to have an appt w/Dr. Yu today, but he is here in the hospital so has not seen her yet. SW spoke w/pt briefly about discharge options, whether he would be able to return home or may need to go somewhere for rehab. At this time, it is too soon to know what will be needed at discharge. SW/MYCHAL will continue to follow for appropriate discharge plan. ANNA Plasencia, CLAIM PROFESSIONAL
[2018-04-21] MEDS: guaiFENesin 1,200 MG Tablet 1200 MG PO ×2 (12:45→20:54)
[2018-04-21] MEDS: Bumetanide 1 MG/4 ML Vial 0.5 MG IV (13:09)
--- NOTE | 2018-04-21 14:58 | NURSING ---
alena took pt phone home
[2018-04-21] MEDS: HEPARIN/D5w 25,000 UNITS 25,000 UNITS/250 ML IV.SOLN. 11 UNITS IV (15:12)
[2018-04-21] MEDS: Haloperidol Lactate 5 MG/ML Vial 3 MG IV (15:19)
--- NOTE | 2018-04-21 15:54 | RAD_ITS ---
STUDY: X-RAY CHEST REASON FOR EXAM: Male, 67 years old. Shortness of breath TECHNIQUE: Frontal view of the chest COMPARISON: 02/09/2018 FINDINGS: There is a right-sided port with its tip in the superior vena cava. There is dense airspace opacity throughout the right lung, most pronounced in the right upper lobe. This likely represents multilobar pneumonia. The left lung is clear. There are no pleural effusions. There is no pneumothorax. The heart is normal in size. The visualized osseous structures are within normal limits. RAD/Chest 1 View IMPRESSION: Dense airspace opacity throughout the right lung, most pronounced in the right upper lobe. This likely represents multilobar pneumonia. Electronically Signed: Don Castro, at 16:13 EDT Tel , Service support ,
[2018-04-21 16:39] LABS: Iron 14 ug/dL (65-175); Iron Binding Capacity,Total 93 ug/dL (250-450); PERCENT IRON SATURATION 15.1 % (15.0-55.0)
[2018-04-21 16:45] LABS: Immature Platelet Fraction 3.1 % (1.0-7.9); RET-HE 26.2 pg (30-35); Reticulocyte Count 2.83 % (0.5-1.5)
--- NOTE | 2018-04-21 17:18 | PCM.RX.CS ---
Consult Pharmacy has been consulted to manage selected antiobiotic: Vancomycin Type of Consult: New start Suspected Infection: Pneumonia Prior Doses of Antibiotics Received/Current Regimen: 2 Labs: Sodium 140 mmol/L (136-145) 04/21/18 03:40 Potassium 3.9 mmol/L (3.5-5.1) 04/21/18 03:40 Chloride 106 mmol/L (98-107) 04/21/18 03:40 Carbon Dioxide 20.0 mmol/L (21.0-32.0) L 04/21/18 03:40 Anion Gap 14 (5-15) 04/21/18 03:40 BUN 30 mg/dL (7-18) H 04/21/18 03:40 Creatinine 1.16 mg/dL (0.70-1.30) 04/21/18 03:40 Est GFR (MDRD) Af Amer 80 mL/min (>60) 04/21/18 03:40 Est GFR (MDRD) Non-Af 66 mL/min (>60) 04/21/18 03:40 BUN/Creatinine Ratio 25.9 RATIO (10-20) H 04/21/18 03:40 Glucose 73 mg/dL (74-106) L 04/21/18 03:40 Weight used for dosin.1 kg Estimated Creatinine Clearance: 58.15 Goal Trough: 10-15 mcg/mL - RESTART AT 750MG Q12H, TROUCH LEVEL PRIOR TO 3RD DOSE 04/22/18 @ 2029 Pharmacy Plan for Drug Dosing: Pharmacy Service will continue to monitor and adjust dosing as required.
[2018-04-21] MEDS: Piperacil/Tazobactam 3.375 GM/50 ML ML IV ×2 (18:06→23:32)
[2018-04-21 21:29] LABS: Partial Thromboplast Time 88.2 Seconds (24.1-36.2)
[2018-04-22] VITALS (44 sets, daily range): BP systolic 86–123; BP diastolic 55–86; PULSE 86–108; RESP 12–30; TEMP 36–36.8; O2SAT 87–99
[2018-04-22 04:37] LABS: Absolute Lymphocyte Count 2.45 X10^3/ul (0.83-4.51); Absolute Neutrophil Count 20.9 X10^3/uL (2.0-7.7); Basophil# 0.06 X10^3/uL; Basophil% 0.2 % (0-1); Hematocrit 25.5 % (40-54); Hemoglobin 7.9 g/dl (13.0-16.5); Lymphocyte # 2.45 X10^3/ul (4.0); Lymphocyte % 9.6 % (19-41); Mean Corpuscular Hgb 26.9 pg (27.0-32.0); Mean Corpuscular Volume 86.7 fL (80-94); Mean Platelet Vol. 8.6 fl (6.2-12.0); Monocyte# 1.99 X10^3/uL; Monocyte% 7.8 % (0-10); Neutrophil # 20.87 X10^3/uL (2.7-7.7); Neutrophil % 81.4 % (47-70); Platelet Count 125 K/mm3 (150-450); RBC Distribution Width CV 24.9 % (11.6-14.6); RBC Distribution Width SD 77.7 fl (35.1-43.9); Red Blood Count 2.94 M/mm3 (4.6-6.2); White Blood Count 25.6 K/mm3 (4.4-11.0)
[2018-04-22 04:38] LABS: Differential Indicated SCAN CRITERIA MET; POSITIVE COUNT NO; POSITIVE DIFFERENTIAL YES; POSITIVE MORPHOLOGY YES
[2018-04-22 04:40] LABS: ALB/GLOB Ratio 0.3 RATIO (0.9-2.4); AST(SGOT) 74 U/L (15-37); Alanine Aminotransfer ALT/SGPT 20 U/L (16-61); Albumin, Serum 1.1 g/dL (3.2-5.0); Alkaline Phosphatase 63 U/L (45-117); Anion Gap 12 (5-15); BUN 45 mg/dL (7-18); Calcium,Total 6.8 mg/dL (8.5-10.1); Chloride 110 mmol/L (98-107); EST Glomerular Filtration Rate 49 mL/min (>60); Est Glom Filt Rate - Afr Amer 60 mL/min (>60); Estimated Creatinine Clearance 44.97 ml/min; Globulin 3.8 g/dL (2.2-4.2); Glucose 181 mg/dL (74-106); Potassium 3.5 mmol/L (3.5-5.1); Protein, Total 4.9 g/dL (6.4-8.2); Sodium Level 142 mmol/L (136-145)
[2018-04-22 04:51] LABS: Partial Thromboplast Time 93.8 Seconds (24.1-36.2)
--- NOTE | 2018-04-22 05:02 | CPS ---
pt dislikes bipap, on 6L nasal o2
[2018-04-22 05:28] LABS: Anisocytosis 2+; Differential Comment SCANNED
[2018-04-22] MEDS: Piperacil/Tazobactam 3.375 GM/50 ML ML IV (05:54)
[2018-04-22] MEDS: 0.9% NaCl Peripheral Flush Adult/Peds IV ×2 (05:55→09:50)
[2018-04-22] MEDS: CHLORHEXIDINE GLUC 2% CLOTH 1 EACH TOWELETTE TOPICAL (06:02)
--- NOTE | 2018-04-22 06:46 | PN_ITS ---
Subjective: Patient did well overnight. Patient was able to come off of Levophed therapy at approximately 2 AM. Patient did require BiPAP rescue yesterday afternoon, but refused it overnight. Patient currently on 3 L nasal cannula. Hospitalist broadened antimicrobial coverage overnight, but infectious disease has not seen the patient at this time. No obvious blood loss has been noted. Patient has been placed on heparin and appears to be tolerating this well. Objective: Chest x-ray shows blossoming of right infiltrate yesterday afternoon. General: Alert, Oriented x3, Cooperative, No apparent distress, - - Appears older than stated age. Speaking in full sentences. HEENT: Atraumatic, PERRLA, EOMI, Normocephalic, - - Slight scleral injection without icterus Oral: Moist Mucosa, No Gingival or Mucosal Lesions/ Ulcerations Neck: Supple, No JVD, No Nodes, Trachea Midline Lungs: No wheeze, No rales, Diminished, Rhonchi - Right greater than left, - - Symmetric expansion. No dullness to percussion. Cardiovascular: Regular rate, Regular Rhythm, Normal S1, Normal S2, No murmurs, No rub noted, No Gallop Abdomen: Bowel Sounds Present, Soft, Non Tender, Non-Distended Extremities: No clubbing, No cyanosis, Capillary Refill Less than 3 Seconds, Edema Skin: - - No significant change compared to previous Musculoskeletal: No Tenderness to Palpation of Joints or Extremities, No Muscle Wasting Lymphatic: No Cervical, Supraclavicular, or Inguinal Adenopathy Neurological: Cranial nerves II-XII grossly intact, Neuro grossly intact, Motor Exam 5/5 strength throughout Psych/Mental Status: Appropriate, Anxious Vital Signs Temp Pulse Resp BP Pulse Ox 36.2 C L 96 19 H 94/63 96 04/22/18 04:00 04/22/18 06:00 04/22/18 06:00 04/22/18 06:00 04/22/18 06:00 Oxygen Flow Rate (L/min) 3 Oxygen Delivery Method Nasal Cannula Weight: 82 kg Body Mass Index (BMI) 25.7 Intake and Output for Last 24 Hours 04/20/18 04/21/18 04/22/18 23:59 23:59 23:59 Intake Total 2179 / 2179 4159.7 / 4159.7 255.6 / 255.6 Output Total 350 / 350 375 / 375 250 / 250 Balance 1829 / 1829 3784.7 / 3784.7 5.6 / 5.6 Labs (Last 48 Hours) 04/20/18 04/21/18 04/21/18 15:45 03:40 03:40 WBC 34.2 H* RBC 3.26 L Hgb 9.1 L Hct 28.6 L MCV 87.7 MCH 27.9 MCHC 31.8 L RDW 24.4 H RDW Differential 73.9 H Plt Count 186 MPV 9.2 Immature Gran % (Auto) Neut % (Auto) Lymph % (Auto) [place] % (Auto) Eos % (Auto) Baso % (Auto) Absolute Neuts (auto) Absolute Lymphs (auto) Total Counted Differential Comment SCANNED Diff Path Review May foll Immature Plt Fraction Anisocytosis Retic Count Immature Retic Fraction Retic Hgb Equivalent APTT Sodium 140 Potassium 3.9 Chloride 106 Carbon Dioxide 20.0 L Anion Gap 14 BUN 30 H Creatinine 1.16 Estim Creat Clear Calc 58.15 Est GFR (MDRD) Af Amer 80 Est GFR (MDRD) Non-Af 66 BUN/Creatinine Ratio 25.9 H Glucose 73 L Lactic Acid 4.6 H* Calcium 6.7 L Iron TIBC Iron Saturation Total Bilirubin 2.50 H AST 69 H ALT 25 Alkaline Phosphatase 70 Total Protein 4.9 L Albumin 1.2 L Globulin 3.7 Albumin/Globulin Ratio 0.3 L 04/21/18 04/21/18 04/21/18 03:40 03:40 21:00 WBC RBC Hgb Hct MCV MCH MCHC RDW RDW Differential Plt Count MPV Immature Gran % (Auto) Neut % (Auto) Lymph % (Auto) [place] % (Auto) Eos % (Auto) Baso % (Auto) Absolute Neuts (auto) Absolute Lymphs (auto) Total Counted Differential Comment Diff Path Review Immature Plt Fraction 3.1 Anisocytosis Retic Count 2.83 H Immature Retic Fraction 24.10 H Retic Hgb Equivalent 26.2 L APTT 88.2 H Sodium Potassium Chloride Carbon Dioxide Anion Gap BUN Creatinine Estim Creat Clear Calc Est GFR (MDRD) Af Amer Est GFR (MDRD) Non-Af BUN/Creatinine Ratio Glucose Lactic Acid Calcium Iron 14 L TIBC 93 L Iron Saturation 15.1 Total Bilirubin AST ALT Alkaline Phosphatase Total Protein Albumin Globulin Albumin/Globulin Ratio 09/02/0104/22/18 04/22/18 04:15 04:15 04:15 WBC 25.6 H RBC 2.94 L Hgb 7.9 L Hct 25.5 L MCV 86.7 MCH 26.9 L MCHC 31.0 L RDW 24.9 H RDW Differential 77.7 H Plt Count 125 L MPV 8.6 Immature Gran % (Auto) 1.000 H Neut % (Auto) 81.4 H Lymph % (Auto) 9.6 L [place] % (Auto) 7.8 Eos % (Auto) 0.0 Baso % (Auto) 0.2 Absolute Neuts (auto) 20.9 H Absolute Lymphs (auto) 2.45 Total Counted Not Reportable Differential Comment SCANNED Diff Path Review May foll Immature Plt Fraction Anisocytosis 2+ Retic Count Immature Retic Fraction Retic Hgb Equivalent APTT 93.8 H* Sodium 142 Potassium 3.5 Chloride 110 H Carbon Dioxide 20.0 L Anion Gap 12 BUN 45 H Creatinine 1.50 H Estim Creat Clear Calc 44.97 Est GFR (MDRD) Af Amer 60 Est GFR (MDRD) Non-Af 49 L BUN/Creatinine Ratio 30.0 H Glucose 181 H Lactic Acid Calcium 6.8 L Iron TIBC Iron Saturation Total Bilirubin 2.50 H AST 74 H ALT 20 Alkaline Phosphatase 63 Total Protein 4.9 L Albumin 1.1 L Globulin 3.8 Albumin/Globulin Ratio 0.3 L Microbiology 04/21/18 03:40 Blood Culture (Wb) - Anticubital Left Blood Culture - Preliminary Medical Necessity - Tobacco Use Smoking Status: Current every day smoker Tobacco Use: Cigarettes Assessment/Plan All Active Problems (Last Reviewed 04/20/18 @ 08:55 by Venessa Meneses) Chemotherapy management, encounter for (Acute) Saddle embolus of pulmonary artery with acute cor pulmonale (Acute) Pneumonia (Acute) UTI (urinary tract infection) (Acute) Back pain (Acute) RECOMMENDATIONS: 1. Continue heparin drip 2. Continue with empiric antibiotics, await ID recommendations 3. Wean supplemental oxygen as tolerated 4. Possible addition of pressor therapy to keep map greater than 65 5. Repeat echocardiogram in 6-8 weeks 6. Okay to initiate a p.o. diet IMPRESSIONS: 1. Cardiogenic shock secondary to submassive pulmonary embolism status post TPA/possible severe sepsis Patient reportedly is hypertensive at baseline and on lisinopril. Patient tolerated TPA well. Patient currently on a heparin drip. Chest x-ray shows blossoming of right-sided infiltrate and this is likely the etiology of patient's continued oxygen requirements. 2. A. fib with RVR Resolved > likely secondary to #1. Patient has received TPA. Patient spontaneously converted. Echocardiogram shows preserved ejection fraction, but elevated pulmonary artery pressures, likely leading to dilatation of atria and arrhythmia. 3. Reported cirrhosis secondary to hepatitis C/anemia of chronic disease Patient does have decreased albumin, but coagulation studies appear to be appropriate at this time. Patient currently receiving chemotherapy for bladder cancer. Defer to hospitalist if oncologist needs to be consulted. Low albumin will cause issues with extravasation of fluid. 4. Hypertension/GERD/depression/stage II bladder cancer Complicates care, management, recovery and prognosis. 5. Septic shock Patient growing MSSA from blood cultures at outside facility. Hospitalist concern with narrowing of coverage, so was brought in. Patient does have infectious disease consulted for evaluation. Will continue with antibiotics for now. Code Visit Inpatient E&M: 27802 [facility] Hosp L3
--- NOTE | 2018-04-22 08:56 | PCM.PN.HOSP ---
Patient Problems: Active and Suspected Problems (Last Reviewed 04/20/18 @ 08:55 by Venessa Meneses) Chemotherapy management, encounter for (Acute) Subjective: Patient was seen and examined. Remains stable. Was started on levophed yesterday, switched off around 1 AM. Was initiated on BiPAP in the afternoon of yesterday, patient did not tolerate BiPAP, taken off BiPAP, oxygen level improved to 2 L. He still complains of chest pain, worse with coughing, but generally feels improved Objective: Physical exam: General: Alert, Oriented x3, Cooperative, - - on 2L oxygen, appears ill-looking, HEENT: Atraumatic, PERRLA, EOMI, Normocephalic Oral: Moist Mucosa Neck: Supple Lungs: Diminished Cardiovascular: Regular rate, Regular Rhythm, Normal S1, Normal S2, No murmurs, Tachycardic Abdomen: Bowel Sounds Present, Soft, Non Tender, Non-Distended, No Hepato-splenomegaly Extremities:Bilateral pedaL edema +1 Skin: No rashes, No breakdown Musculoskeletal: No Tenderness to Palpation of Joints or Extremities Lymphatic: No Cervical, Supraclavicular, or Inguinal Adenopathy Neurological: Cranial nerves II-XII grossly intact, Neuro grossly intact Psych/Mental Status: Normal Affect, Appropriate Vitals/I&O's: Vital Signs Temp Pulse Resp BP Pulse Ox 96.8 F L 93 23 H 120/69 92 04/22/18 08:00 04/22/18 08:00 04/22/18 08:00 04/22/18 08:00 04/22/18 08:00 Oxygen Flow Rate (L/min) 2 Oxygen Delivery Method Nasal Cannula Weight: 82 kg Body Mass Index (BMI) 25.7 Intake and Output for Last 24 Hours 04/20/18 04/21/18 04/22/18 23:59 23:59 23:59 Intake Total 2179 / 2179 4159.7 / 4159.7 255.6 / 255.6 Output Total 350 / 350 375 / 375 250 / 250 Balance 1829 / 1829 3784.7 / 3784.7 5.6 / 5.6 Microbiology Past 72 Hours 04/21/18 03:40 Blood Culture (Wb) - Anticubital Left Blood Culture - Preliminary Laboratory Results 04/21/18 03:40: Immature Plt Fraction 3.1, Retic Count 2.83 H, Immature Retic Fraction 24.10 H, Retic Hgb Equivalent 26.2 L 04/21/18 03:40: Iron 14 L, TIBC 93 L, Iron Saturation 15.1 04/21/18 21:00: APTT 88.2 H 04/22/18 04:15: WBC 25.6 H, RBC 2.94 L, Hgb 7.9 L, Hct 25.5 L, MCV 86.7, MCH 26.9 L, MCHC 31.0 L, RDW 24.9 H, RDW Differential 77.7 H, Plt Count 125 L, MPV 8.6, Immature Gran % (Auto) 1.000 H, Neut % (Auto) 81.4 H, Lymph % (Auto) 9.6 L, [place] % (Auto) 7.8, Eos % (Auto) 0.0, Baso % (Auto) 0.2, Absolute Neuts (auto) 20.9 H, Absolute Lymphs (auto) 2.45, Total Counted Not Reportable, Differential Comment SCANNED, Diff Path Review December foll, Anisocytosis 2+ 04/22/18 04:15: Sodium 142, Potassium 3.5, Chloride 110 H, Carbon Dioxide 20.0 L, Anion Gap 12, BUN 45 H, Creatinine 1.50 H, Estim Creat Clear Calc 44.97, Est GFR (MDRD) Af Amer 60, Est GFR (MDRD) Non-Af 49 L, BUN/Creatinine Ratio 30.0 H, Glucose 181 H, Calcium 6.8 L, Total Bilirubin 2.50 H, AST 74 H, ALT 20, Alkaline Phosphatase 63, Total Protein 4.9 L, Albumin 1.1 L, Globulin 3.8, Albumin/Globulin Ratio 0.3 L 04/22/18 04:15: APTT 93.8 H* Current Medications Chlorhexidine Gluconate () 1 each TOPICAL DAILY YUE Last Admin: 04/22/18 06:02 Dose: 1 each Guaifenesin (Mucinex) 1,200 mg PO BID YUE Last Admin: 04/21/18 20:54 Dose: 1,200 mg Haloperidol Lactate (Haldol) 5 mg IV Q4H PRN PRN PRN Reason: AGITATION Heparin Sodium (Beef Lung) (Heparin 500 Unit/5 Ml (100/Ml)) 500 unit IV UD PRN PRN Reason: HEPARIN FLUSH Heparin Sodium/Dextrose () 25,000 units in 250 mls @ 11 mls/hr IV .[id number] [facility]; As Directed PRN Reason: Protocol Last Admin: 04/21/18 15:12 Dose: 11 mls/hr Norepinephrine Bitartrate 8 mg (/ Dextrose) 258 mls @ 9.67 mls/hr IV .[id number] [facility] PRN Reason: 5 MCG/MIN Last Admin: 04/21/18 11:00 Dose: 9.67 mls/hr Piperacillin Sod/Tazobactam Sod (Zosyn) 3.375 gm in 50 mls @ 12.5 mls/hr IV Q8 [facility] Last Admin: 04/22/18 05:54 Dose: 12.5 mls/hr Vancomycin HCl 750 mg/ Sodium (Chloride) 265 mls @ 250 mls/hr IV Q12H [facility] Last Admin: 04/21/18 22:15 Dose: 250 mls/hr Magnesium Hydroxide (Milk Of Magnesia) 30 ml PO DAILY PRN PRN PRN Reason: Constipation Nicotine (Nicoderm Cq (Pbkc)) 21 mg TRANSDERM. DAILY [facility] Nutritional Formula (Lactose Free) (Ensure Enlive) 120 ml PO 4X/DAY [facility] Last Admin: 04/21/18 20:54 Dose: Not Given Ondansetron HCl (Zofran) 4 mg IV Q8H PRN PRN PRN Reason: NAUSEA Pantoprazole Sodium (Protonix) 40 mg PO DAILY [facility] Last Admin: 04/21/18 10:10 Dose: 40 mg Sertraline HCl (Zoloft) 50 mg PO DAILY [facility] Last Admin: 04/21/18 10:10 Dose: 50 mg Sodium Chloride () 5 - 30 ml IV UD PRN PRN Reason: SALINE FLUSH Last Admin: 04/22/18 05:55 Dose: 20 ml Sodium Chloride () 10 ml IV UD PRN PRN Reason: R PORT FLUSH Last Admin: 04/21/18 03:50 Dose: 10 ml Medical Necessity - Tobacco Use Smoking Status: Current every day smoker Tobacco Use: Cigarettes Assessment/Plan All Active Problems (Last Reviewed 04/20/18 @ 08:55 by Venessa Meneses) Chemotherapy management, encounter for (Acute) Saddle embolus of pulmonary artery with acute cor pulmonale (Acute) Pneumonia (Acute) UTI (urinary tract infection) (Acute) Back pain (Acute) 67-year-old male with past medical history of stage 2 bladder cancer, GERD, cirrhosis, Chronic Hep C referred from his PCP admitted with hypotensive and tachycardic from his oncology office and found to have non-occlusive saddle PE. He was given alteplase on 04/20/18. 1. Cardiogenic shock related to saddle PE, was on levophed momentarily, BP remains stable, will continue to monitor vitals. 2. Acute nonocclusive saddle PE, status post ateplase IV, on heparin drip, will discuss conversion to oral anticoagulants from tomorrow if patient continues to remain stable. 3. A. fib with RVR, spontaneously converted, patient has remained in sinus tachycardia, will continue to monitor 4. Bladder CA, stage II, receiving chemotherapy 5. Recent staph aureus bacteremia, 2D echo did not show any vegetation, ID consulted, on iV Zosyn and Vancomycin for HCAP 6. Right-sided postobstructive infiltrate, likely related to possible HCAP, leucocytosis is improved, started on Vancomycin and Zosyn, ID consulted, will continue pending ID recommendations. 7. Microcytic microchromic anemia, drop in hemoglobin secondary to hemodilution, iron profile shows a mixed picture with low iron but also low TIBC and borderline iron saturation with a high reticulocyte count, will continue to monitor, will start oral iron possible tomorrow when patient is better. 8. MARTA, likely pre-renal from previous hypotension, his baseline creatinine is less than 1, will continue to monitor, BMP in am 9. Chronic hep C, cirrhosis, needs to follow-up in the outpatient. 10. DVT PPx- On heparin drip Code Visit Inpatient E&M: 37737 Subs Hosp L3
[2018-04-22] MEDS: Pantoprazole Sodium 40 MG Tablet PO (09:50)
[2018-04-22] MEDS: Sertraline 50 MG Tablet PO (09:50)
[2018-04-22] MEDS: guaiFENesin 1,200 MG Tablet 1200 MG PO ×2 (09:50→22:02)
[2018-04-22 10:32] LABS: Partial Thromboplast Time 66.8 Seconds (24.1-36.2)
--- NOTE | 2018-04-22 11:10 | PCM.HP.ID ---
Problem List (1) MSSA bacteremia Status: Acute Reason for Consult: mssa Consulted by: Dr. 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 No issues with R chest port. No fever. Was having some R sided sharp chest pain with deep breath. No sputum. Some nausea. Bcx drawn, (+) for mssa, admitted with septic shock, found to have saddle R sided PE. Feeling a little better today. Full ROS performed and neg except as noted above. Denies any new joint or back pain. - Medical History Past Medical History (Chronic Problems): Chronic Problems (Last Reviewed 04/20/18 @ 08:55 by Venessa Meneses) Depression (Chronic) Hearing loss (Chronic) Anemia (Chronic) Urinary bladder cancer (Chronic) Spinal stenosis (Chronic) Degenerative joint disease of spine (Chronic) Cirrhosis (Chronic) BPH (benign prostatic hyperplasia) (Chronic) HTN (hypertension) (Chronic) Allergies/Adverse Reactions: Allergies No Known Allergies Allergy (Verified 04/20/18 08:55) Home Medications: Ambulatory Orders Medication Instructions Recorded Lisinopril 20 mg PO DAILY 11/25/17 Pantoprazole Sodium [Protonix] 40 mg PO DAILY 11/25/17 Sertraline HCl [Zoloft] 50 mg PO DAILY 01/14/18 Ondansetron HCl [Zofran] 4 mg PO PRN PRN 04/20/18 - Social History Tobacco Use: cigarettes Vital Signs Temp Pulse Resp BP Pulse Ox 96.8 F L 95 18 95/80 93 04/22/18 08:00 04/22/18 10:00 04/22/18 10:00 04/22/18 10:00 04/22/18 10:00 Oxygen Flow Rate (L/min) 2 Oxygen Delivery Method Nasal Cannula Weight: 82 kg Body Mass Index (BMI) 25.7 Microbiology Past 72 Hours 04/21/18 03:40 Blood Culture - Preliminary Blood Culture (Wb) - Anticubital Left Laboratory Tests Past 24 Hrs 04/21/18 04/21/18 04/21/18 03:40 03:40 21:00 WBC RBC Hgb Hct MCV MCH MCHC RDW RDW Differential Plt Count MPV Immature Gran % (Auto) Neut % (Auto) Lymph % (Auto) [place] % (Auto) Eos % (Auto) Baso % (Auto) Absolute Neuts (auto) Absolute Lymphs (auto) Total Counted Differential Comment Diff Path Review Immature Plt Fraction 3.1 Anisocytosis Retic Count 2.83 H Immature Retic Fraction 24.10 H Retic Hgb Equivalent 26.2 L APTT 88.2 H Sodium Potassium Chloride Carbon Dioxide Anion Gap BUN Creatinine Estim Creat Clear Calc Est GFR (MDRD) Af Amer Est GFR (MDRD) Non-Af BUN/Creatinine Ratio Glucose Calcium Iron 14 L TIBC 93 L Iron Saturation 15.1 Total Bilirubin AST ALT Alkaline Phosphatase Total Protein Albumin Globulin Albumin/Globulin Ratio 04/22/18 04/22/18 04/22/18 04:15 04:15 04:15 WBC 25.6 H RBC 2.94 L Hgb 7.9 L Hct 25.5 L MCV 86.7 MCH 26.9 L MCHC 31.0 L RDW 24.9 H RDW Differential 77.7 H Plt Count 125 L MPV 8.6 Immature Gran % (Auto) 1.000 H Neut % (Auto) 81.4 H Lymph % (Auto) 9.6 L [place] % (Auto) 7.8 Eos % (Auto) 0.0 Baso % (Auto) 0.2 Absolute Neuts (auto) 20.9 H Absolute Lymphs (auto) 2.45 Total Counted Not Reportable Differential Comment SCANNED Diff Path Review May foll Immature Plt Fraction Anisocytosis 2+ Retic Count Immature Retic Fraction Retic Hgb Equivalent APTT 93.8 H* Sodium 142 Potassium 3.5 Chloride 110 H Carbon Dioxide 20.0 L Anion Gap 12 BUN 45 H Creatinine 1.50 H Estim Creat Clear Calc 44.97 Est GFR (MDRD) Af Amer 60 Est GFR (MDRD) Non-Af 49 L BUN/Creatinine Ratio 30.0 H Glucose 181 H Calcium 6.8 L Iron TIBC Iron Saturation Total Bilirubin 2.50 H AST 74 H ALT 20 Alkaline Phosphatase 63 Total Protein 4.9 L Albumin 1.1 L Globulin 3.8 Albumin/Globulin Ratio 0.3 L 04/22/18 10:00 WBC RBC Hgb Hct MCV MCH MCHC RDW RDW Differential Plt Count MPV Immature Gran % (Auto) Neut % (Auto) Lymph % (Auto) [place] % (Auto) Eos % (Auto) Baso % (Auto) Absolute Neuts (auto) Absolute Lymphs (auto) Total Counted Differential Comment Diff Path Review Immature Plt Fraction Anisocytosis Retic Count Immature Retic Fraction Retic Hgb Equivalent APTT 66.8 H Sodium Potassium Chloride Carbon Dioxide Anion Gap BUN Creatinine Estim Creat Clear Calc Est GFR (MDRD) Af Amer Est GFR (MDRD) Non-Af BUN/Creatinine Ratio Glucose Calcium Iron TIBC Iron Saturation Total Bilirubin AST ALT Alkaline Phosphatase Total Protein Albumin Globulin Albumin/Globulin Ratio - Other Studies Radiology: [] reviewed Other Studies: [] Route of nutrition/ use of supplements: [] Nutritional Intake: [] IV Site: [] Garcia Catheter: [] - Physical Exam General: Alert, Oriented x3, Cooperative, - - ill appearing HEENT: Atraumatic, PERRLA, EOMI Neck: Supple, No Nodes Lungs: Rhonchi - R sided Cardiovascular: Regular Rhythm, No murmurs, Tachycardic Abdomen: Soft, Non Tender, Non-Distended Extremities: No edema Skin: No rashes, - - no janeway/osler/splinter hemorrhages on hands or feet IV Site: Central Line, without redness - no tenderness to R chest port Musculoskeletal: No Tenderness to Palpation of Joints or Extremities - including spine Neurological: Cranial nerves II-XII grossly intact - Assessment/Plan Antibiotics: [] Assessment/Plan: [] Active and Suspected Problems (Last Reviewed 04/20/18 @ 08:55 by Venessa Meneses) Chemotherapy management, encounter for (Acute) Septic shock due to port-related MSSA bacteremia with PE and suspected developing cavitary pneumonia - pt has been receiving chemo via port for bladder cancer. Repeat bcx. Will need port removed as soon as possible. Narrow abx to cefazolin. No sign of other organism causing pneumonia. Will order dopplers to check for source of septic thrombus. TTE showed no endocarditis, will need PONCHO. Plan will be for 4-8 weeks of iv cefazolin depending on further results. hep C cirrhosis - he is not sure who has been managing this, but reports failing treatment after 12 weeks of harvoni several months ago. Genotype 1a. MARTA - will monitor. Thank you, will follow, d/w Dr. Penny and Dr. Faye.
--- NOTE | 2018-04-22 14:04 | CASEMGMT ---
Pt resting w/bipap mask on at present, also getting a test at the bedside. SW will follow up tomorrow or when appropriate regarding discharge needs. ANNA Plasencia, [employer]
[2018-04-22 14:24] LABS: Pathologist Review Reviewed
[2018-04-22 14:38] LABS: Pathologist Review Reviewed
[2018-04-22] MEDS: Cefazolin 2 GM in 0.9% Normal Saline 100 ML IV ×2 (14:40→22:02)
[2018-04-22] MEDS: HEPARIN/D5w 25,000 UNITS 25,000 UNITS/250 ML IV.SOLN. 11 UNITS IV (15:22)
[2018-04-22 16:32] LABS: Partial Thromboplast Time 70.9 Seconds (24.1-36.2)
[2018-04-23] VITALS (33 sets, daily range): BP systolic 95–131; BP diastolic 60–87; PULSE 101–116; RESP 21–30; TEMP 36.1–36.8; O2SAT 88–100
[2018-04-23 04:30] LABS: Absolute Lymphocyte Count 1.96 X10^3/ul (0.83-4.51); Absolute Neutrophil Count 16.1 X10^3/uL (2.0-7.7); Basophil# 0.06 X10^3/uL; Basophil% 0.3 % (0-1); Hematocrit 26.1 % (40-54); Hemoglobin 8.3 g/dl (13.0-16.5); Lymphocyte # 1.96 X10^3/ul (4.0); Lymphocyte % 9.8 % (19-41); Mean Corp Hgb Conc 31.8 g/gl (32-36); Mean Corpuscular Hgb 27.1 pg (27.0-32.0); Mean Corpuscular Volume 85.3 fL (80-94); Mean Platelet Vol. 8.6 fl (6.2-12.0); Monocyte# 1.43 X10^3/uL; Monocyte% 7.2 % (0-10); Neutrophil # 16.08 X10^3/uL (2.7-7.7); Neutrophil % 80.7 % (47-70); Platelet Count 98 K/mm3 (150-450); RBC Distribution Width CV 24.8 % (11.6-14.6); RBC Distribution Width SD 75.7 fl (35.1-43.9); Red Blood Count 3.06 M/mm3 (4.6-6.2); White Blood Count 19.9 K/mm3 (4.4-11.0)
[2018-04-23 04:32] LABS: Differential Indicated SCAN CRITERIA MET; POSITIVE COUNT YES; POSITIVE DIFFERENTIAL NO; POSITIVE MORPHOLOGY YES
[2018-04-23 04:37] LABS: Partial Thromboplast Time 73.6 Seconds (24.1-36.2)
[2018-04-23 04:49] LABS: Anion Gap 9 (5-15); BUN 40 mg/dL (7-18); BUN/Creat Ratio 37.7 RATIO (10-20); Calcium,Total 7.4 mg/dL (8.5-10.1); Chloride 110 mmol/L (98-107); Creatinine, Serum 1.06 mg/dL (0.70-1.30); EST Glomerular Filtration Rate 74 mL/min (>60); Est Glom Filt Rate - Afr Amer 89 mL/min (>60); Estimated Creatinine Clearance 63.63 ml/min; Glucose 155 mg/dL (74-106); Potassium 2.9 mmol/L (3.5-5.1); Sodium Level 142 mmol/L (136-145)
[2018-04-23] MEDS: CHLORHEXIDINE GLUC 2% CLOTH 1 EACH TOWELETTE TOPICAL (04:53)
[2018-04-23] MEDS: Cefazolin 2 GM in 0.9% Normal Saline 100 ML IV ×3 (04:54→23:24)
[2018-04-23 05:04] LABS: Atypical Lymphocyte RARE %; Differential Comment SCANNED
[2018-04-23 05:05] LABS: Anisocytosis 1+
[2018-04-23 05:06] LABS: Crenated RBC RARE; Polychromasia RARE
--- NOTE | 2018-04-23 07:41 | PN_ITS ---
Subjective: Patient did okay overnight. Patient refused any positive pressure ventilation, but saturated acceptably on 6 L nasal cannula. Patient continues to report a productive cough. There is some blood-tinged sputum, but no cristhian hemoptysis. Patient does report some right-sided chest pain associated with coughing. General: Alert, Cooperative, No apparent distress, - - Appears older than stated age. Speaking in full sentences, but difficult to understand secondary to lack of mandibular teeth HEENT: Atraumatic, PERRLA, EOMI, Normocephalic, - - No scleral icterus or injection noted. Oral: No Gingival or Mucosal Lesions/ Ulcerations, Dry Mucosa Neck: Supple, No JVD, No Nodes, Trachea Midline Lungs: No wheeze, No rales, Diminished, Rhonchi - Right greater than left Cardiovascular: Normal S1, Normal S2, No murmurs, No rub noted, No Gallop, Tachycardic Abdomen: Bowel Sounds Present, Soft, Non Tender, Non-Distended Extremities: No cyanosis, Capillary Refill Less than 3 Seconds, Edema Skin: - - No significant change compared to previous Musculoskeletal: No Tenderness to Palpation of Joints or Extremities, No Muscle Wasting Lymphatic: No Cervical, Supraclavicular, or Inguinal Adenopathy Neurological: Cranial nerves II-XII grossly intact, Neuro grossly intact Psych/Mental Status: Normal Affect, Appropriate Vital Signs Temp Pulse Resp BP Pulse Ox 36.7 C 109 H 25 H 107/68 91 04/23/18 05:00 04/23/18 06:00 04/23/18 06:00 04/23/18 06:00 04/23/18 06:00 Oxygen Flow Rate (L/min) 6 Oxygen Delivery Method Nasal Cannula Weight: 81.7 kg Body Mass Index (BMI) 25.7 Intake and Output for Last 24 Hours 04/21/18 04/22/18 04/23/18 23:59 23:59 23:59 Intake Total 4159.7 / 4159.7 1030.6 / 1030.6 1021.5 / 1021.5 Output Total 375 / 375 950 / 950 950 / 950 Balance 3784.7 / 3784.7 80.6 / 80.6 71.5 / 71.5 Labs (Last 48 Hours) 04/21/18 04/21/18 04/21/18 03:40 03:40 03:40 WBC RBC Hgb Hct MCV MCH MCHC RDW RDW Differential Plt Count MPV Immature Gran % (Auto) Neut % (Auto) Lymph % (Auto) [place] % (Auto) Eos % (Auto) Baso % (Auto) Absolute Neuts (auto) Absolute Lymphs (auto) Total Counted Differential Comment Diff Path Review Reviewed Atypical Lymphocytes Immature Plt Fraction 3.1 RBC Morphology Polychromasia Anisocytosis Retic Count 2.83 H Immature Retic Fraction 24.10 H Retic Hgb Equivalent 26.2 L APTT Sodium Potassium Chloride Carbon Dioxide Anion Gap BUN Creatinine Estim Creat Clear Calc Est GFR (MDRD) Af Amer Est GFR (MDRD) Non-Af BUN/Creatinine Ratio Glucose Calcium Iron 14 L TIBC 93 L Iron Saturation 15.1 Total Bilirubin AST ALT Alkaline Phosphatase Total Protein Albumin Globulin Albumin/Globulin Ratio 04/21/18 04/22/18 04/22/18 21:00 04:15 04:15 WBC 25.6 H RBC 2.94 L Hgb 7.9 L Hct 25.5 L MCV 86.7 MCH 26.9 L MCHC 31.0 L RDW 24.9 H RDW Differential 77.7 H Plt Count 125 L MPV 8.6 Immature Gran % (Auto) 1.000 H Neut % (Auto) 81.4 H Lymph % (Auto) 9.6 L [place] % (Auto) 7.8 Eos % (Auto) 0.0 Baso % (Auto) 0.2 Absolute Neuts (auto) 20.9 H Absolute Lymphs (auto) 2.45 Total Counted Not Reportable Differential Comment SCANNED Diff Path Review Reviewed Atypical Lymphocytes Immature Plt Fraction RBC Morphology Polychromasia Anisocytosis 2+ Retic Count Immature Retic Fraction Retic Hgb Equivalent APTT 88.2 H Sodium 142 Potassium 3.5 Chloride 110 H Carbon Dioxide 20.0 L Anion Gap 12 BUN 45 H Creatinine 1.50 H Estim Creat Clear Calc 44.97 Est GFR (MDRD) Af Amer 60 Est GFR (MDRD) Non-Af 49 L BUN/Creatinine Ratio 30.0 H Glucose 181 H Calcium 6.8 L Iron TIBC Iron Saturation Total Bilirubin 2.50 H AST 74 H ALT 20 Alkaline Phosphatase 63 Total Protein 4.9 L Albumin 1.1 L Globulin 3.8 Albumin/Globulin Ratio 0.3 L 09/06/18 09/06/18 09/06/18 04:15 10:00 16:10 WBC RBC Hgb Hct MCV MCH MCHC RDW RDW Differential Plt Count MPV Immature Gran % (Auto) Neut % (Auto) Lymph % (Auto) [place] % (Auto) Eos % (Auto) Baso % (Auto) Absolute Neuts (auto) Absolute Lymphs (auto) Total Counted Differential Comment Diff Path Review Atypical Lymphocytes Immature Plt Fraction RBC Morphology Polychromasia Anisocytosis Retic Count Immature Retic Fraction Retic Hgb Equivalent APTT 93.8 H* 66.8 H 70.9 H Sodium Potassium Chloride Carbon Dioxide Anion Gap BUN Creatinine Estim Creat Clear Calc Est GFR (MDRD) Af Amer Est GFR (MDRD) Non-Af BUN/Creatinine Ratio Glucose Calcium Iron TIBC Iron Saturation Total Bilirubin AST ALT Alkaline Phosphatase Total Protein Albumin Globulin Albumin/Globulin Ratio 04/23/18 04/23/18 04/23/18 04:20 04:20 04:20 WBC 19.9 H RBC 3.06 L Hgb 8.3 L Hct 26.1 L MCV 85.3 MCH 27.1 MCHC 31.8 L RDW 24.8 H RDW Differential 75.7 H Plt Count 98 L MPV 8.6 Immature Gran % (Auto) 2.000 H Neut % (Auto) 80.7 H Lymph % (Auto) 9.8 L [place] % (Auto) 7.2 Eos % (Auto) 0.0 Baso % (Auto) 0.3 Absolute Neuts (auto) 16.1 H Absolute Lymphs (auto) 1.96 Total Counted Not Reportable Differential Comment SCANNED Diff Path Review May foll Atypical Lymphocytes RARE Immature Plt Fraction RBC Morphology RARE Polychromasia RARE Anisocytosis 1+ Retic Count Immature Retic Fraction Retic Hgb Equivalent APTT 73.6 H Sodium 142 Potassium 2.9 L Chloride 110 H Carbon Dioxide 23.0 Anion Gap 9 BUN 40 H Creatinine 1.06 Estim Creat Clear Calc 63.63 Est GFR (MDRD) Af Amer 89 Est GFR (MDRD) Non-Af 74 BUN/Creatinine Ratio 37.7 H Glucose 155 H Calcium 7.4 L Iron TIBC Iron Saturation Total Bilirubin AST ALT Alkaline Phosphatase Total Protein Albumin Globulin Albumin/Globulin Ratio Microbiology 04/21/18 03:40 Blood Culture (Wb) - Anticubital Left Blood Culture - Preliminary Medical Necessity - Tobacco Use Smoking Status: Current every day smoker Tobacco Use: Cigarettes Assessment/Plan All Active Problems (Last Reviewed 04/20/18 @ 08:55 by Venessa Meneses) Chemotherapy management, encounter for (Acute) Saddle embolus of pulmonary artery with acute cor pulmonale (Acute) Pneumonia (Acute) MSSA bacteremia (Acute) UTI (urinary tract infection) (Acute) Back pain (Acute) RECOMMENDATIONS: 1. Continue heparin drip 2. Continue with antibiotics per ID recommendations 3. Wean supplemental oxygen as tolerated 4. Possible addition of pressor therapy to keep map greater than 65 5. Arrange for PONCHO and port removal per ID recommendations 6. N.p.o. pending procedures IMPRESSIONS: 1. Cardiogenic shock secondary to submassive pulmonary embolism status post TPA/septic shock Patient reportedly is hypertensive at baseline and on lisinopril. Patient tolerated TPA well. Patient currently on a heparin drip. Chest x-ray shows blossoming of right-sided infiltrate and this is likely the etiology of patient's continued oxygen requirements. 2. A. fib with RVR Resolved > likely secondary to #1. Patient has received TPA. Patient spontaneously converted. Echocardiogram shows preserved ejection fraction, but elevated pulmonary artery pressures, likely leading to dilatation of atria and arrhythmia. No recurrence of A. fib has been noted. 3. Reported cirrhosis secondary to hepatitis C/anemia of chronic disease Patient does have decreased albumin, but coagulation studies appear to be appropriate at this time. Patient currently receiving chemotherapy for bladder cancer. Defer to hospitalist if oncologist needs to be consulted. Low albumin will cause issues with extravasation of fluid. 4. Hypertension/GERD/depression/stage II bladder cancer Complicates care, management, recovery and prognosis. 5. Septic shock Patient growing MSSA from blood cultures at outside facility. Infectious disease is currently following. Patient appears to be responding well to therapy. Patient may need a repeat CT scan of the chest for evaluation of cavitation. Infectious disease is suggesting PNOCHO and removal of port. Once blood cultures have cleared, PICC line can be placed and patient will require 4- 6 weeks of IV antibiotics. Code Visit Inpatient E&M: [id number] [facility] L3
[2018-04-23 08:23] LABS: AST(SGOT) 106 U/L (15-37); Alanine Aminotransfer ALT/SGPT 18 U/L (16-61); Albumin, Serum 1.1 g/dL (3.2-5.0); Alkaline Phosphatase 96 U/L (45-117); Bilirubin, Direct 2.31 mg/dL (0.00-0.30); Globulin 4.4 g/dL (2.2-4.2); Protein, Total 5.5 g/dL (6.4-8.2)
--- NOTE | 2018-04-23 09:05 | PCM.PN.HOSP ---
Patient Problems: Active and Suspected Problems (Last Reviewed 04/20/18 @ 08:55 by Venessa Meneses) MSSA bacteremia (Acute) Subjective: Patient was seen and examined. Yesterday, he became hypoxic and desaturated to the 70s while sitting out in the chair, he was started on BiPAP and refused. He has remained stable on 6 L of oxygen. Denies any chest pain no dizziness or palpitations. Objective: Physical exam: General: Alert, Oriented x3, Cooperative, - - on 6L oxygen, appears ill-looking, HEENT: Atraumatic, PERRLA, EOMI, Normocephalic Oral: Moist Mucosa Neck: Supple Lungs: Diminished particularly on the right side with lower lung zone crackles Cardiovascular: Regular rate, Regular Rhythm, Normal S1, Normal S2, No murmurs, Tachycardic Abdomen: Bowel Sounds Present, Soft, Non Tender, Non-Distended, No Hepato-splenomegaly Extremities:Bilateral pedaL edema +1 Skin: No rashes, No breakdown Musculoskeletal: No Tenderness to Palpation of Joints or Extremities Lymphatic: No Cervical, Supraclavicular, or Inguinal Adenopathy Neurological: Cranial nerves II-XII grossly intact, Neuro grossly intact Psych/Mental Status: Normal Affect, Appropriate Vitals/I&O's: Vital Signs Temp Pulse Resp BP Pulse Ox 97.9 F 104 H 25 H 111/70 92 04/23/18 07:55 04/23/18 08:00 04/23/18 08:00 04/23/18 08:00 04/23/18 08:00 Oxygen Flow Rate (L/min) 6 Oxygen Delivery Method Nasal Cannula Weight: 81.7 kg Body Mass Index (BMI) 25.7 Intake and Output for Last 24 Hours 04/21/18 04/22/18 04/23/18 23:59 23:59 23:59 Intake Total 4159.7 / 4159.7 1030.6 / 1030.6 1021.5 / 1021.5 Output Total 375 / 375 950 / 950 950 / 950 Balance 3784.7 / 3784.7 80.6 / 80.6 71.5 / 71.5 Microbiology Past 72 Hours 04/22/18 11:40 Blood Culture (Wb) - Left Hand Blood Culture - Preliminary 04/21/18 03:40 Blood Culture (Wb) - Port Blood Culture - Preliminary Staphylococcus aureus 04/21/18 03:40 Blood Culture (Wb) - Anticubital Left Blood Culture - Preliminary Staphylococcus aureus Laboratory Results 04/21/18 03:40: Diff Path Review Reviewed 04/22/18 04:15: Diff Path Review Reviewed 04/22/18 10:00: APTT 66.8 H 04/22/18 16:10: APTT 70.9 H 04/23/18 04:20: WBC 19.9 H, RBC 3.06 L, Hgb 8.3 L, Hct 26.1 L, MCV 85.3, MCH 27.1, MCHC 31.8 L, RDW 24.8 H, RDW Differential 75.7 H, Plt Count 98 L, MPV 8.6, Immature Gran % (Auto) 2.000 H, Neut % (Auto) 80.7 H, Lymph % (Auto) 9.8 L, [place] % (Auto) 7.2, Eos % (Auto) 0.0, Baso % (Auto) 0.3, Absolute Neuts (auto) 16.1 H, Absolute Lymphs (auto) 1.96, Total Counted Not Reportable, Differential Comment SCANNED, Diff Path Review May foll, Atypical Lymphocytes RARE, RBC Morphology RARE, Polychromasia RARE, Anisocytosis 1+ 04/23/18 04:20: Sodium 142, Potassium 2.9 L, Chloride 110 H, Carbon Dioxide 23.0, Anion Gap 9, BUN 40 H, Creatinine 1.06, Estim Creat Clear Calc 63.63, Est GFR (MDRD) Af Amer 89, Est GFR (MDRD) Non-Af 74, BUN/Creatinine Ratio 37.7 H, Glucose 155 H, Calcium 7.4 L 04/23/18 04:20: APTT 73.6 H 04/23/18 04:20: Total Bilirubin 2.60 H, Direct Bilirubin 2.31 H, AST 106 H, ALT 18, Alkaline Phosphatase 96, Total Protein 5.5 L, Albumin 1.1 L, Globulin 4.4 H Current Medications Chlorhexidine Gluconate () 1 each TOPICAL DAILY YUE Last Admin: 04/23/18 04:53 Dose: 1 each Guaifenesin (Mucinex) 1,200 mg PO BID YUE Last Admin: 04/22/18 22:02 Dose: 1,200 mg Haloperidol Lactate (Haldol) 5 mg IV Q4H PRN PRN PRN Reason: AGITATION Heparin Sodium (Beef Lung) (Heparin 500 Unit/5 Ml (100/Ml)) 500 unit IV UD PRN PRN Reason: HEPARIN FLUSH Heparin Sodium/Dextrose () 25,000 units in 250 mls @ 11 mls/hr IV .[id number] [facility]; As Directed PRN Reason: Protocol Last Admin: 04/22/18 15:22 Dose: 11 mls/hr Norepinephrine Bitartrate 8 mg (/ Dextrose) 258 mls @ 9.67 mls/hr IV .[id number] [facility] PRN Reason: 5 MCG/MIN Last Admin: 04/22/18 11:28 Dose: Not Given Cefazolin Sodium 2 gm/ Sodium (Chloride) 110 mls @ 150 mls/hr IV Q8 [facility] Last Admin: 04/23/18 04:54 Dose: 150 mls/hr Magnesium Hydroxide (Milk Of Magnesia) 30 ml PO DAILY PRN PRN PRN Reason: Constipation Nicotine (Nicoderm Cq (Pbkc)) 21 mg TRANSDERM. DAILY [facility] Last Admin: 04/22/18 09:50 Dose: 21 mg Nutritional Formula (Lactose Free) (Ensure Enlive) 120 ml PO 4X/DAY [facility] Last Admin: 04/22/18 22:02 Dose: 120 ml Ondansetron HCl (Zofran) 4 mg IV Q8H PRN PRN PRN Reason: NAUSEA Pantoprazole Sodium (Protonix) 40 mg PO DAILY [facility] Last Admin: 04/22/18 09:50 Dose: 40 mg Sertraline HCl (Zoloft) 50 mg PO DAILY [facility] Last Admin: 04/22/18 09:50 Dose: 50 mg Sodium Chloride () 5 - 30 ml IV UD PRN PRN Reason: SALINE FLUSH Last Admin: 04/22/18 09:50 Dose: 20 ml Sodium Chloride () 10 ml IV UD PRN PRN Reason: R PORT FLUSH Last Admin: 04/21/18 03:50 Dose: 10 ml Medical Necessity - Tobacco Use Smoking Status: Current every day smoker Tobacco Use: Cigarettes Assessment/Plan All Active Problems (Last Reviewed 04/20/18 @ 08:55 by Venessa Meneses) Chemotherapy management, encounter for (Acute) Saddle embolus of pulmonary artery with acute cor pulmonale (Acute) Pneumonia (Acute) MSSA bacteremia (Acute) UTI (urinary tract infection) (Acute) Back pain (Acute) 67-year-old male with past medical history of stage 2 bladder cancer, GERD, cirrhosis, Chronic Hep C referred from his PCP to the ED and admitted with hypotensive and tachycardic from his oncology office and found to have non-occlusive saddle PE. He was given alteplase on 04/20/18. 1. Cardiogenic shock related to saddle PE, was on levophed momentarily, BP remains stable, will continue to monitor vitals. 2. Acute nonocclusive saddle PE, status post ateplase IV, on heparin drip 3. Staphylococcus aureus bacteremia, septic shock, POA, likely source may be medport, concern also for possible infective endocarditis WBC count is improving, no fevers seen transthoracic Echo did not show any vegetation, ID consulted, cardiology consulted for PONCHO, general surgery consulted for medport removal on IV cefazolin 4. Right-sided postobstructive infiltrate, POA, suggestive of HCAP, ID consulted, remains on IV cefazolin, will follow per ID recommendations 5. Hypokalemia, being replaced, recheck BMP in afternoon and in am 6. A. fib with RVR, spontaneously converted, remains in sinus tachycardia, will continue to monitor 7. Microcytic microchromic anemia, drop in hemoglobin secondary to hemodilution, iron profile shows a mixed picture with low iron but also low TIBC and borderline iron saturation with a high reticulocyte count, will continue to monitor, will start oral iron possible tomorrow when patient is better. 8. MARTA, likely pre-renal from previous hypotension, resolving 9. Nicotine dependency, on replacement 10. Chronic hep C, cirrhosis, needs to follow-up in the outpatient. 11. DVT PPx- On heparin drip 12. GI ppx- on PPI Code Visit Inpatient E&M: [id number] Subs Hosp L3
--- NOTE | 2018-04-23 09:22 | PN_ITS ---
Patient Problems: Active and Suspected Problems (Last Reviewed 04/20/18 @ 08:55 by Venessa Meneses) MSSA bacteremia (Acute) Subjective: Patient was seen and examined. Yesterday, he became hypoxic and desaturated to the 70s while sitting out in the chair, he was started on BiPAP and refused. He has remained stable on 6 L of oxygen. Denies any chest pain no dizziness or palpitations. Objective: Physical exam: General: Alert, Oriented x3, Cooperative, - - on 6L oxygen, appears ill-looking , HEENT: Atraumatic, PERRLA, EOMI, Normocephalic Oral: Moist Mucosa Neck: Supple Lungs: Diminished particularly on the right side with lower lung zone crackles Cardiovascular: Regular rate, Regular Rhythm, Normal S1, Normal S2, No murmurs, Tachycardic Abdomen: Bowel Sounds Present, Soft, Non Tender, Non-Distended, No Hepato- splenomegaly Extremities:Bilateral pedaL edema +1 Skin: No rashes, No breakdown Musculoskeletal: No Tenderness to Palpation of Joints or Extremities Lymphatic: No Cervical, Supraclavicular, or Inguinal Adenopathy Neurological: Cranial nerves II-XII grossly intact, Neuro grossly intact Psych/Mental Status: Normal Affect, Appropriate Vitals/I&O's: Vital Signs Temp Pulse Resp BP Pulse Ox 97.9 F 104 H 25 H 111/70 92 04/23/18 07:55 04/23/18 08:00 04/23/18 08:00 04/23/18 08:00 04/23/18 08:00 Oxygen Flow Rate (L/min) 6 Oxygen Delivery Method Nasal Cannula Weight: 81.7 kg Body Mass Index (BMI) 25.7 Intake and Output for Last 24 Hours 04/21/18 04/22/18 04/23/18 23:59 23:59 23:59 Intake Total 4159.7 / 4159.7 1030.6 / 1030.6 1021.5 / 1021.5 Output Total 375 / 375 950 / 950 950 / 950 Balance 3784.7 / 3784.7 80.6 / 80.6 71.5 / 71.5 Microbiology Past 72 Hours 04/22/18 11:40 Blood Culture (Wb) - Left Hand Blood Culture - Preliminary 04/21/18 03:40 Blood Culture (Wb) - Port Blood Culture - Preliminary Staphylococcus aureus 04/21/18 03:40 Blood Culture (Wb) - Anticubital Left Blood Culture - Preliminary Staphylococcus aureus Laboratory Results 04/21/18 03:40: Diff Path Review Reviewed 04/22/18 04:15: Diff Path Review Reviewed 04/22/18 10:00: APTT 66.8 H 04/22/18 16:10: APTT 70.9 H 04/23/18 04:20: WBC 19.9 H, RBC 3.06 L, Hgb 8.3 L, Hct 26.1 L, MCV 85.3, MCH 27.1, MCHC 31.8 L, RDW 24.8 H, RDW Differential 75.7 H, Plt Count 98 L, MPV 8.6 , Immature Gran % (Auto) 2.000 H, Neut % (Auto) 80.7 H, Lymph % (Auto) 9.8 L, [place] % (Auto) 7.2, Eos % (Auto) 0.0, Baso % (Auto) 0.3, Absolute Neuts (auto) 16.1 H, Absolute Lymphs (auto) 1.96, Total Counted Not Reportable, Differential Comment SCANNED, Diff Path Review May foll, Atypical Lymphocytes RARE, RBC Morphology RARE, Polychromasia RARE, Anisocytosis 1+ 04/23/18 04:20: Sodium 142, Potassium 2.9 L, Chloride 110 H, Carbon Dioxide 23.0 , Anion Gap 9, BUN 40 H, Creatinine 1.06, Estim Creat Clear Calc 63.63, Est GFR (MDRD) Af Amer 89, Est GFR (MDRD) Non-Af 74, BUN/Creatinine Ratio 37.7 H, Glucose 155 H, Calcium 7.4 L 04/23/18 04:20: APTT 73.6 H 04/23/18 04:20: Total Bilirubin 2.60 H, Direct Bilirubin 2.31 H, AST 106 H, ALT 18, Alkaline Phosphatase 96, Total Protein 5.5 L, Albumin 1.1 L, Globulin 4.4 H Current Medications Chlorhexidine Gluconate () 1 each TOPICAL DAILY YUE Last Admin: 04/23/18 04:53 Dose: 1 each Guaifenesin (Mucinex) 1,200 mg PO BID YUE Last Admin: 04/22/18 22:02 Dose: 1,200 mg Haloperidol Lactate (Haldol) 5 mg IV Q4H PRN PRN PRN Reason: AGITATION Heparin Sodium (Beef Lung) (Heparin 500 Unit/5 Ml (100/Ml)) 500 unit IV UD PRN PRN Reason: HEPARIN FLUSH Heparin Sodium/Dextrose () 25,000 units in 250 mls @ 11 mls/hr IV .[id number] [facility] ; As Directed PRN Reason: Protocol Last Admin: 04/22/18 15:22 Dose: 11 mls/hr Norepinephrine Bitartrate 8 mg (/ Dextrose) 258 mls @ 9.67 mls/hr IV .[id number] [facility] PRN Reason: 5 MCG/MIN Last Admin: 04/22/18 11:28 Dose: Not Given Cefazolin Sodium 2 gm/ Sodium (Chloride) 110 mls @ 150 mls/hr IV Q8 [facility] Last Admin: 04/23/18 04:54 Dose: 150 mls/hr Magnesium Hydroxide (Milk Of Magnesia) 30 ml PO DAILY PRN PRN PRN Reason: Constipation Nicotine (Nicoderm Cq (Pbkc)) 21 mg TRANSDERM. DAILY [facility] Last Admin: 04/22/18 09:50 Dose: 21 mg Nutritional Formula (Lactose Free) (Ensure Enlive) 120 ml PO 4X/DAY [facility] Last Admin: 04/22/18 22:02 Dose: 120 ml Ondansetron HCl (Zofran) 4 mg IV Q8H PRN PRN PRN Reason: NAUSEA Pantoprazole Sodium (Protonix) 40 mg PO DAILY [facility] Last Admin: 04/22/18 09:50 Dose: 40 mg Sertraline HCl (Zoloft) 50 mg PO DAILY [facility] Last Admin: 04/22/18 09:50 Dose: 50 mg Sodium Chloride () 5 - 30 ml IV UD PRN PRN Reason: SALINE FLUSH Last Admin: 04/22/18 09:50 Dose: 20 ml Sodium Chloride () 10 ml IV UD PRN PRN Reason: R PORT FLUSH Last Admin: 04/21/18 03:50 Dose: 10 ml Medical Necessity - Tobacco Use Smoking Status: Current every day smoker Tobacco Use: Cigarettes Assessment/Plan All Active Problems (Last Reviewed 04/20/18 @ 08:55 by Venessa Meneses) Chemotherapy management, encounter for (Acute) Saddle embolus of pulmonary artery with acute cor pulmonale (Acute) Pneumonia (Acute) MSSA bacteremia (Acute) UTI (urinary tract infection) (Acute) Back pain (Acute) 67-year-old male with past medical history of stage 2 bladder cancer, GERD, cirrhosis, Chronic Hep C referred from his PCP to the ED and admitted with hypotensive and tachycardic from his oncology office and found to have non- occlusive saddle PE. He was given alteplase on 04/20/18. 1. Cardiogenic shock related to saddle PE, was on levophed momentarily, BP remains stable, will continue to monitor vitals. 2. Acute nonocclusive saddle PE, status post ateplase IV, on heparin drip 3. Staphylococcus aureus bacteremia, septic shock, POA, likely source may be medport, concern also for possible infective endocarditis WBC count is improving, no fevers seen transthoracic Echo did not show any vegetation, ID consulted, cardiology consulted for PONCHO, general surgery consulted for medport removal on IV cefazolin 4. Right-sided postobstructive infiltrate, POA, suggestive of HCAP, ID consulted, remains on IV cefazolin, will follow per ID recommendations 5. Hypokalemia, being replaced, recheck BMP in afternoon and in am 6. A. fib with RVR, spontaneously converted, remains in sinus tachycardia, will continue to monitor 7. Microcytic microchromic anemia, drop in hemoglobin secondary to hemodilution , iron profile shows a mixed picture with low iron but also low TIBC and borderline iron saturation with a high reticulocyte count, will continue to monitor, will start oral iron possible tomorrow when patient is better. 8. MARTA, likely pre-renal from previous hypotension, resolving 9. Nicotine dependency, on replacement 10. Chronic hep C, cirrhosis, needs to follow-up in the outpatient. 11. DVT PPx- On heparin drip 12. GI ppx- on PPI Code Visit Inpatient E&M: 26280 Subs Hosp L3
--- NOTE | 2018-04-23 09:27 | PCM.CONS.GEN ---
Reason for Consult Date of Consultation: 04/23/18 Reason for Consultation: Port removal due to bacteremia History of Present Illness: The patient is a 67 year old M admitted due to bacteremia, PE, cirrhosis, bladder cancer receiving chemotherapy. Patient is known to me as he has his right IJ port placed in late January 2018 for chemotherapy for his bladder cancer. Patient states that he went to chemotherapy however he was hypotensive and tachycardic and admitted to being dizzy the past few days and having a couple falls. Patient was then admitted to the hospital due to bacteremia and also PE seen on CTA chest. Patient is currently on antibiotics per ID and has heparin for his PE. ID requests that his right IJ port be removed due to his bacteremia. Past Medical History Past Medical History (Chronic Problems): Chronic Problems (Last Reviewed 04/20/18 @ 08:55 by Venessa Meneses) Depression (Chronic) Hearing loss (Chronic) Anemia (Chronic) Urinary bladder cancer (Chronic) Spinal stenosis (Chronic) Degenerative joint disease of spine (Chronic) Cirrhosis (Chronic) BPH (benign prostatic hyperplasia) (Chronic) HTN (hypertension) (Chronic) Medical History: Medical History (Last Reviewed 04/20/18 @ 08:55 by Venessa Meneses) Anemia (Chronic) D64.9 Urinary bladder cancer (Chronic) C67.9 Spinal stenosis (Chronic) M48.00 Degenerative joint disease of spine (Chronic) M47.9 Cirrhosis (Chronic) K74.60 UTI (urinary tract infection) (Acute) N39.0 Back pain (Acute) M54.9 BPH (benign prostatic hyperplasia) (Chronic) N40.0 HTN (hypertension) (Chronic) I10 Bladder neoplasm D49.4 Essential hypertension I10 Gross hematuria R31.0 Hepatitis C B19.20 UTI (urinary tract infection) N39.0 Allergies No Known Allergies Allergy (Verified 04/20/18 08:55) Home Medications: Ambulatory Orders Medication Instructions Recorded RX: Lisinopril 20 mg PO DAILY 11/25/17 RX: Pantoprazole Sodium [Protonix] 40 mg PO DAILY 11/25/17 Sertraline HCl [Zoloft] 50 mg PO DAILY 01/14/18 Ondansetron HCl [Zofran] 4 mg PO PRN PRN 04/20/18 Surgical History: Surgical History (Last Reviewed 04/20/18 @ 08:55 by Venessa Meneses) S/P cystoscopy Z98.890 x 2 liver biopsy, percutaneous Surgical History: - - Port placement Psychiatric History: Depression Smoking Status: Current every day smoker Tobacco Use: Cigarettes Alcohol: None Drugs: None - *Family History Maternal Family History: Family History (Last Reviewed 04/20/18 @ 08:55 by eVnessa Meneses) Brother Diabetes Mother Diabetes History Items: - - No cancer Paternal Family History: Family History (Last Reviewed 04/20/18 @ 08:55 by Venessa Meneses) Brother Diabetes Mother Diabetes History Items: - - No cancer Review of Systems Respiratory: Reports: Shortness of Breath Gastrointestinal: Denies: Abdominal Pain, Vomiting Hematologic/ Lymphatic: Denies: Easy Bruising, Easy Bleeding Patient Problems: Active and Suspected Problems (Last Reviewed 04/20/18 @ 08:55 by Venessa Meneses) MSSA bacteremia (Acute) - Physical Exam General: Alert, Oriented x3, Cooperative HEENT: Atraumatic Lungs: Diminished - greater on the right Cardiovascular: Tachycardic Abdomen: Soft, Non Tender, Non-Distended Extremities: No clubbing, No cyanosis, Edema Skin: - - Right IJ port site appears clean dry and intact no erythema to the skin, port is accessed with the Tegaderm over the top. Prior to removing the port removal of the Tegaderm the port area did appear to be erythematous but his previous lead site area was also erythematous question there is just from the adhesive. Neurological: Cranial nerves II-XII grossly intact Psych/Mental Status: Normal Affect Vital Signs Temp Pulse Resp BP Pulse Ox 97.9 F 104 H 25 H 111/70 92 04/23/18 07:55 04/23/18 08:00 04/23/18 08:00 04/23/18 08:00 04/23/18 08:00 Oxygen Flow Rate (L/min) 6 Oxygen Delivery Method Nasal Cannula Weight: 180 lb 1.883 oz Body Mass Index (BMI) 25.7 Intake and Output for Last 24 Hours 04/21/18 04/22/18 04/23/18 23:59 23:59 23:59 Intake Total 4159.7 / 4159.7 1030.6 / 1030.6 1021.5 / 1021.5 Output Total 375 / 375 950 / 950 950 / 950 Balance 3784.7 / 3784.7 80.6 / 80.6 71.5 / 71.5 Microbiology Past 72 Hours 04/22/18 11:40 Blood Culture - Preliminary Blood Culture (Wb) - Left Hand 04/21/18 03:40 Blood Culture - Preliminary Blood Culture (Wb) - Port Staphylococcus aureus 04/21/18 03:40 Blood Culture - Preliminary Blood Culture (Wb) - Anticubital Left Staphylococcus aureus Laboratory Tests Past 24 Hrs 04/21/18 04/22/18 04/22/18 03:40 04:15 10:00 WBC RBC Hgb Hct MCV MCH MCHC RDW RDW Differential Plt Count MPV Immature Gran % (Auto) Neut % (Auto) Lymph % (Auto) [place] % (Auto) Eos % (Auto) Baso % (Auto) Absolute Neuts (auto) Absolute Lymphs (auto) Total Counted Differential Comment Diff Path Review Reviewed Reviewed Atypical Lymphocytes RBC Morphology Polychromasia Anisocytosis APTT 66.8 H Sodium Potassium Chloride Carbon Dioxide Anion Gap BUN Creatinine Estim Creat Clear Calc Est GFR (MDRD) Af Amer Est GFR (MDRD) Non-Af BUN/Creatinine Ratio Glucose Calcium Total Bilirubin Direct Bilirubin AST ALT Alkaline Phosphatase Total Protein Albumin Globulin 04/22/18 04/23/18 04/23/18 16:10 04:20 04:20 WBC 19.9 H RBC 3.06 L Hgb 8.3 L Hct 26.1 L MCV 85.3 MCH 27.1 MCHC 31.8 L RDW 24.8 H RDW Differential 75.7 H Plt Count 98 L MPV 8.6 Immature Gran % (Auto) 2.000 H Neut % (Auto) 80.7 H Lymph % (Auto) 9.8 L [place] % (Auto) 7.2 Eos % (Auto) 0.0 Baso % (Auto) 0.3 Absolute Neuts (auto) 16.1 H Absolute Lymphs (auto) 1.96 Total Counted Not Reportable Differential Comment SCANNED Diff Path Review May foll Atypical Lymphocytes RARE RBC Morphology RARE Polychromasia RARE Anisocytosis 1+ APTT 70.9 H Sodium 142 Potassium 2.9 L Chloride 110 H Carbon Dioxide 23.0 Anion Gap 9 BUN 40 H Creatinine 1.06 Estim Creat Clear Calc 63.63 Est GFR (MDRD) Af Amer 89 Est GFR (MDRD) Non-Af 74 BUN/Creatinine Ratio 37.7 H Glucose 155 H Calcium 7.4 L Total Bilirubin Direct Bilirubin AST ALT Alkaline Phosphatase Total Protein Albumin Globulin 04/23/18 04/23/18 04:20 04:20 WBC RBC Hgb Hct MCV MCH MCHC RDW RDW Differential Plt Count MPV Immature Gran % (Auto) Neut % (Auto) Lymph % (Auto) [place] % (Auto) Eos % (Auto) Baso % (Auto) Absolute Neuts (auto) Absolute Lymphs (auto) Total Counted Differential Comment Diff Path Review Atypical Lymphocytes RBC Morphology Polychromasia Anisocytosis APTT 73.6 H Sodium Potassium Chloride Carbon Dioxide Anion Gap BUN Creatinine Estim Creat Clear Calc Est GFR (MDRD) Af Amer Est GFR (MDRD) Non-Af BUN/Creatinine Ratio Glucose Calcium Total Bilirubin 2.60 H Direct Bilirubin 2.31 H AST 106 H ALT 18 Alkaline Phosphatase 96 Total Protein 5.5 L Albumin 1.1 L Globulin 4.4 H Assessment/Plan All Active Problems (Last Reviewed 04/20/18 @ 08:55 by Venessa Meneses) Chemotherapy management, encounter for (Acute) Saddle embolus of pulmonary artery with acute cor pulmonale (Acute) Pneumonia (Acute) MSSA bacteremia (Acute) UTI (urinary tract infection) (Acute) Back pain (Acute) 67-year-old male with PE, bacteremia, bladder cancer, cirrhosis/hepatitis C, PNA 1. Bacteremia--will remove port at bedside after heparin has been off for 2 hours. About 1030 this morning. Discussed the procedure with the patient and he is agreeable to proceed-risks including but not limited to bleeding and infection at port site (patient is on antibiotics per ID for his bacteremia already). Anay Montalvo M.D. Pager: [phone] [facility] [address] [place] [address], [facility], [address] [place] [address] Office: [phone]
--- NOTE | 2018-04-23 10:37 | PCM.OP.BLANK ---
Operative Report Date of Procedure: 04/23/18 67-year-old male with bacteremia staph aureus for right IJ port removal. Patient was supine on ICU bed. Timeout was completed verifying correct patient, procedure, site, positioning, special, prior to beginning procedure. Consent was signed. The right chest was prepped and draped in usual sterile fashion with Betadine after the port was de-accessed. Local anesthesia of 1% lidocaine was used 3 cc. The previous right port site was re-incised with a 15 blade scalpel in Metzenbaum scissors were used to sharply incise the capsule surrounding the port. The catheter was removed while pressure was being held on the right IJ site externally. Next the port was removed from the pocket. Port was sent as specimen for culture. The incision was closed with 3-0 Vicryl subdermal sutures with skin open due to infection at the site. A pressure dressing was placed over the port site as well as the right IJ site due to the patient and restarting anticoagulation and was previously on anticoagulant for PE. Patient tolerated procedure well. Okay to restart heparin drip in 1 hour.
--- NOTE | 2018-04-23 11:06 | CASEMGMT ---
Addendum entered by Alis Junior 04/23/18 11:20: Referral sent to [facility]. ANNA Plasencia, YESICA Original Note: SW spoke w/pt about discharge plan, pt agreeable to have a referral sent to [facility]. SW called [facility], message left. SW will fax a referral shortly. SW will continue to follow. ANNA Plasencia, YESICA
[2018-04-23 11:19] LABS: Pathologist Review Reviewed
[2018-04-23] MEDS: Pantoprazole Sodium 40 MG Tablet PO (11:56)
[2018-04-23] MEDS: 0.9% NaCl Peripheral Flush Adult/Peds IV ×2 (11:56→11:57)
[2018-04-23] MEDS: guaiFENesin 1,200 MG Tablet 1200 MG PO ×2 (11:56→23:24)
[2018-04-23] MEDS: Sertraline 50 MG Tablet PO (11:56)
--- NOTE | 2018-04-23 12:38 | PCM.PN.ID ---
Patient Problems: Active and Suspected Problems (Last Reviewed 04/20/18 @ 08:55 by Venessa Meneses) MSSA bacteremia (Acute) Subjective: Port removed today. No fever. Feeling a little better. - Physical Exam General: Cooperative, No apparent distress Lungs: Clear to auscultation, Normal air movement Cardiovascular: Tachycardic Abdomen: Soft, Non Tender, Non-Distended Extremities: No edema Skin: No rashes Vital Signs Temp Pulse Resp BP Pulse Ox 97.1 F L 115 H 28 H 95/64 90 04/23/18 12:00 04/23/18 12:00 04/23/18 12:00 04/23/18 12:00 04/23/18 12:00 Oxygen Flow Rate (L/min) 6 Oxygen Delivery Method Nasal Cannula Weight: 81.7 kg Body Mass Index (BMI) 25.7 Intake and Output for Last 24 Hours 04/21/18 04/22/18 04/23/18 23:59 23:59 23:59 Intake Total 4159.7 / 4159.7 1030.6 / 1030.6 1365.5 / 1365.5 Output Total 375 / 375 950 / 950 1400 / 1400 Balance 3784.7 / 3784.7 80.6 / 80.6 -34.5 / -34.5 Microbiology Past 72 Hours 04/22/18 11:40 Blood Culture - Preliminary Blood Culture (Wb) - Left Hand 04/21/18 03:40 Blood Culture - Preliminary Blood Culture (Wb) - Port Staphylococcus aureus 04/21/18 03:40 Blood Culture - Preliminary Blood Culture (Wb) - Anticubital Left Staphylococcus aureus Laboratory Tests Past 24 Hrs 04/21/18 04/22/18 04/22/18 03:40 04:15 16:10 WBC RBC Hgb Hct MCV MCH MCHC RDW RDW Differential Plt Count MPV Immature Gran % (Auto) Neut % (Auto) Lymph % (Auto) [place] % (Auto) Eos % (Auto) Baso % (Auto) Absolute Neuts (auto) Absolute Lymphs (auto) Total Counted Differential Comment Diff Path Review Reviewed Reviewed Atypical Lymphocytes RBC Morphology Polychromasia Anisocytosis APTT 70.9 H Sodium Potassium Chloride Carbon Dioxide Anion Gap BUN Creatinine Estim Creat Clear Calc Est GFR (MDRD) Af Amer Est GFR (MDRD) Non-Af BUN/Creatinine Ratio Glucose Calcium Total Bilirubin Direct Bilirubin AST ALT Alkaline Phosphatase Total Protein Albumin Globulin 04/23/18 04/23/18 04/23/18 04:20 04:20 04:20 WBC 19.9 H RBC 3.06 L Hgb 8.3 L Hct 26.1 L MCV 85.3 MCH 27.1 MCHC 31.8 L RDW 24.8 H RDW Differential 75.7 H Plt Count 98 L MPV 8.6 Immature Gran % (Auto) 2.000 H Neut % (Auto) 80.7 H Lymph % (Auto) 9.8 L [place] % (Auto) 7.2 Eos % (Auto) 0.0 Baso % (Auto) 0.3 Absolute Neuts (auto) 16.1 H Absolute Lymphs (auto) 1.96 Total Counted Not Reportable Differential Comment SCANNED Diff Path Review Reviewed Atypical Lymphocytes RARE RBC Morphology RARE Polychromasia RARE Anisocytosis 1+ APTT 73.6 H Sodium 142 Potassium 2.9 L Chloride 110 H Carbon Dioxide 23.0 Anion Gap 9 BUN 40 H Creatinine 1.06 Estim Creat Clear Calc 63.63 Est GFR (MDRD) Af Amer 89 Est GFR (MDRD) Non-Af 74 BUN/Creatinine Ratio 37.7 H Glucose 155 H Calcium 7.4 L Total Bilirubin Direct Bilirubin AST ALT Alkaline Phosphatase Total Protein Albumin Globulin 04/23/18 04:20 WBC RBC Hgb Hct MCV MCH MCHC RDW RDW Differential Plt Count MPV Immature Gran % (Auto) Neut % (Auto) Lymph % (Auto) [place] % (Auto) Eos % (Auto) Baso % (Auto) Absolute Neuts (auto) Absolute Lymphs (auto) Total Counted Differential Comment Diff Path Review Atypical Lymphocytes RBC Morphology Polychromasia Anisocytosis APTT Sodium Potassium Chloride Carbon Dioxide Anion Gap BUN Creatinine Estim Creat Clear Calc Est GFR (MDRD) Af Amer Est GFR (MDRD) Non-Af BUN/Creatinine Ratio Glucose Calcium Total Bilirubin 2.60 H Direct Bilirubin 2.31 H AST 106 H ALT 18 Alkaline Phosphatase 96 Total Protein 5.5 L Albumin 1.1 L Globulin 4.4 H Medical Necessity - Tobacco Use Smoking Status: Current every day smoker Tobacco Use: Cigarettes Route of nutrition/ use of supplements: [] Nutritional Intake: [] IV Site: [] Garcia Catheter: [] - Assessment/Plan Antibiotics: [] Assessment/Plan: [] Active and Suspected Problems (Last Reviewed 04/20/18 @ 08:55 by Venessa Meneses) Chemotherapy management, encounter for (Acute) Septic shock due to port-related MSSA bacteremia with PE and suspected developing cavitary pneumonia - pt has been receiving chemo via port for bladder cancer. Port removed 04/23. Repeat bcx today and tomorrow. Continue cefazolin. Pending dopplers to check for source of septic thrombus. TTE showed no endocarditis, will need PONCHO. Plan will be for 4-8 weeks of iv cefazolin depending on further results. hep C cirrhosis - he is not sure who has been managing this, but reports failing treatment after 12 weeks of harvoni several months ago. Genotype 1a. MARTA - resolved Will follow.
[2018-04-23] MEDS: Haloperidol Lactate 5 MG/ML Vial IV (13:47)
[2018-04-23 14:01] LABS: Anion Gap 10 (5-15); BUN 37 mg/dL (7-18); BUN/Creat Ratio 38.2 RATIO (10-20); Calcium,Total 7.8 mg/dL (8.5-10.1); Chloride 112 mmol/L (98-107); Creatinine, Serum 0.97 mg/dL (0.70-1.30); EST Glomerular Filtration Rate 82 mL/min (>60); Est Glom Filt Rate - Afr Amer 99 mL/min (>60); Estimated Creatinine Clearance 69.54 ml/min; Glucose 143 mg/dL (74-106); Potassium 3.3 mmol/L (3.5-5.1); Sodium Level 143 mmol/L (136-145)
[2018-04-24] VITALS (21 sets, daily range): BP systolic 120–155; BP diastolic 75–109; PULSE 99–114; RESP 18–30; TEMP 36.6–36.9; O2SAT 90–95
[2018-04-24] MEDS: HEPARIN/D5w 25,000 UNITS 25,000 UNITS/250 ML IV.SOLN. 11 UNITS IV (03:57)
[2018-04-24] MEDS: CHLORHEXIDINE GLUC 2% CLOTH 1 EACH TOWELETTE TOPICAL (03:57)
[2018-04-24] MEDS: 0.9% NaCl Peripheral Flush Adult/Peds IV (04:02)
[2018-04-24 04:15] LABS: Absolute Neutrophil Count 14.1 X10^3/uL (2.0-7.7); Basophil# 0.09 X10^3/uL; Basophil% 0.5 % (0-1); Eosinophil# 0.02 X10^3/uL; Eosinophils% 0.1 % (0-5); Hematocrit 26.4 % (40-54); Hemoglobin 8.3 g/dl (13.0-16.5); Lymphocyte % 14.3 % (19-41); Mean Corp Hgb Conc 31.4 g/gl (32-36); Mean Corpuscular Hgb 27.1 pg (27.0-32.0); Mean Corpuscular Volume 86.3 fL (80-94); Mean Platelet Vol. 8.9 fl (6.2-12.0); Monocyte# 1.39 X10^3/uL; Monocyte% 7.4 % (0-10); Neutrophil # 14.07 X10^3/uL (2.7-7.7); Neutrophil % 74.8 % (47-70); Platelet Count 81 K/mm3 (150-450); RBC Distribution Width CV 25.1 % (11.6-14.6); Red Blood Count 3.06 M/mm3 (4.6-6.2); White Blood Count 18.8 K/mm3 (4.4-11.0)
[2018-04-24 04:16] LABS: Differential Indicated SCAN CRITERIA MET; POSITIVE COUNT YES; POSITIVE DIFFERENTIAL NO; POSITIVE MORPHOLOGY YES
[2018-04-24 04:35] LABS: Anion Gap 9 (5-15); BUN 32 mg/dL (7-18); BUN/Creat Ratio 37.1 RATIO (10-20); Calcium,Total 7.6 mg/dL (8.5-10.1); Chloride 113 mmol/L (98-107); Creatinine, Serum 0.86 mg/dL (0.70-1.30); EST Glomerular Filtration Rate 93 mL/min (>60); Est Glom Filt Rate - Afr Amer 113 mL/min (>60); Estimated Creatinine Clearance 78.43 ml/min; Glucose 174 mg/dL (74-106); Partial Thromboplast Time 75.1 Seconds (24.1-36.2); Potassium 3.5 mmol/L (3.5-5.1); Sodium Level 147 mmol/L (136-145)
[2018-04-24] MEDS: Cefazolin 2 GM in 0.9% Normal Saline 100 ML IV ×3 (06:11→21:38)
--- NOTE | 2018-04-24 06:16 | PN_ITS ---
Subjective: Patient did well overnight. No acute issues were reported. Patient did have several episodes of diarrhea, but C. difficile was negative. Patient was maintained on nasal cannula oxygen overnight. Patient denies any pain at this time. PONCHO was delayed secondary to patient's respiratory status. General: Alert, Oriented x3, Cooperative, No apparent distress, - - No conversational dyspnea appreciated HEENT: Atraumatic, PERRLA, EOMI, Normocephalic, - - No scleral icterus or injection noted. Oral: Moist Mucosa, No Gingival or Mucosal Lesions/ Ulcerations Neck: Supple, No JVD, No Nodes, Trachea Midline Lungs: No wheeze, No rales, Diminished, Rhonchi - Right greater than left, - - Symmetric expansion. No dullness to percussion. Cardiovascular: Regular rate, Regular Rhythm, Normal S1, Normal S2, No murmurs, No rub noted, No Gallop Abdomen: Bowel Sounds Present, Soft, Non Tender, Non-Distended Extremities: No cyanosis, Capillary Refill Less than 3 Seconds, Edema Skin: - - Grossly unchanged compared to previous Musculoskeletal: No Tenderness to Palpation of Joints or Extremities Lymphatic: No Cervical, Supraclavicular, or Inguinal Adenopathy Neurological: Cranial nerves II-XII grossly intact, Neuro grossly intact, Motor Exam 5/5 strength throughout Psych/Mental Status: Normal Affect, Appropriate Vital Signs Temp Pulse Resp BP Pulse Ox 36.7 C 103 H 23 H 130/86 H 94 04/24/18 00:00 04/24/18 04:00 04/24/18 03:00 04/24/18 03:00 04/24/18 03:00 Oxygen Flow Rate (L/min) 4 Oxygen Delivery Method Nasal Cannula Weight: 87.1 kg Body Mass Index (BMI) 25.7 Intake and Output for Last 24 Hours 04/22/18 04/23/18 04/24/18 23:59 23:59 23:59 Intake Total 1030.6 / 1030.6 1585.5 / 1585.5 700 / 700 Output Total 950 / 950 1750 / 1750 650 / 650 Balance 80.6 / 80.6 -164.5 / -164.5 50 / 50 Labs (Last 48 Hours) 04/21/18 04/22/18 04/22/18 03:40 04:15 10:00 WBC RBC Hgb Hct MCV MCH MCHC RDW RDW Differential Plt Count MPV Immature Gran % (Auto) Neut % (Auto) Lymph % (Auto) [place] % (Auto) Eos % (Auto) Baso % (Auto) Absolute Neuts (auto) Absolute Lymphs (auto) Total Counted Differential Comment Diff Path Review Reviewed Reviewed Atypical Lymphocytes RBC Morphology Polychromasia Anisocytosis APTT 66.8 H Sodium Potassium Chloride Carbon Dioxide Anion Gap BUN Creatinine Estim Creat Clear Calc Est GFR (MDRD) Af Amer Est GFR (MDRD) Non-Af BUN/Creatinine Ratio Glucose Calcium Total Bilirubin Direct Bilirubin AST ALT Alkaline Phosphatase Total Protein Albumin Globulin 04/22/18 04/23/18 04/23/18 16:10 04:20 04:20 WBC 19.9 H RBC 3.06 L Hgb 8.3 L Hct 26.1 L MCV 85.3 MCH 27.1 MCHC 31.8 L RDW 24.8 H RDW Differential 75.7 H Plt Count 98 L MPV 8.6 Immature Gran % (Auto) 2.000 H Neut % (Auto) 80.7 H Lymph % (Auto) 9.8 L [place] % (Auto) 7.2 Eos % (Auto) 0.0 Baso % (Auto) 0.3 Absolute Neuts (auto) 16.1 H Absolute Lymphs (auto) 1.96 Total Counted Not Reportable Differential Comment SCANNED Diff Path Review Reviewed Atypical Lymphocytes RARE RBC Morphology RARE Polychromasia RARE Anisocytosis 1+ APTT 70.9 H Sodium 142 Potassium 2.9 L Chloride 110 H Carbon Dioxide 23.0 Anion Gap 9 BUN 40 H Creatinine 1.06 Estim Creat Clear Calc 63.63 Est GFR (MDRD) Af Amer 89 Est GFR (MDRD) Non-Af 74 BUN/Creatinine Ratio 37.7 H Glucose 155 H Calcium 7.4 L Total Bilirubin Direct Bilirubin AST ALT Alkaline Phosphatase Total Protein Albumin Globulin 04/23/18 04/23/18 04/23/18 04:20 04:20 13:30 WBC RBC Hgb Hct MCV MCH MCHC RDW RDW Differential Plt Count MPV Immature Gran % (Auto) Neut % (Auto) Lymph % (Auto) [place] % (Auto) Eos % (Auto) Baso % (Auto) Absolute Neuts (auto) Absolute Lymphs (auto) Total Counted Differential Comment Diff Path Review Atypical Lymphocytes RBC Morphology Polychromasia Anisocytosis APTT 73.6 H Sodium 143 Potassium 3.3 L Chloride 112 H Carbon Dioxide 21.0 Anion Gap 10 BUN 37 H Creatinine 0.97 Estim Creat Clear Calc 69.54 Est GFR (MDRD) Af Amer 99 Est GFR (MDRD) Non-Af 82 BUN/Creatinine Ratio 38.2 H Glucose 143 H Calcium 7.8 L Total Bilirubin 2.60 H Direct Bilirubin 2.31 H AST 106 H ALT 18 Alkaline Phosphatase 96 Total Protein 5.5 L Albumin 1.1 L Globulin 4.4 H 04/24/18 04/24/18 04/24/18 04:05 04:05 04:05 WBC 18.8 H RBC 3.06 L Hgb 8.3 L Hct 26.4 L MCV 86.3 MCH 27.1 MCHC 31.4 L RDW 25.1 H RDW Differential 76.0 H Plt Count 81 L MPV 8.9 Immature Gran % (Auto) 2.900 H Neut % (Auto) 74.8 H Lymph % (Auto) 14.3 L [place] % (Auto) 7.4 Eos % (Auto) 0.1 Baso % (Auto) 0.5 Absolute Neuts (auto) 14.1 H Absolute Lymphs (auto) 2.70 Total Counted Not Reportable Differential Comment Diff Path Review May foll Atypical Lymphocytes RBC Morphology Polychromasia Anisocytosis APTT 75.1 H Sodium 147 H Potassium 3.5 Chloride 113 H Carbon Dioxide 25.0 Anion Gap 9 BUN 32 H Creatinine 0.86 Estim Creat Clear Calc 78.43 Est GFR (MDRD) Af Amer 113 Est GFR (MDRD) Non-Af 93 BUN/Creatinine Ratio 37.1 H Glucose 174 H Calcium 7.6 L Total Bilirubin Direct Bilirubin AST ALT Alkaline Phosphatase Total Protein Albumin Globulin Microbiology 04/23/18 14:30 Stool C. difficile DNA Amplification - Final 04/22/18 11:40 Blood Culture (Wb) - Left Hand Blood Culture - Preliminary 04/21/18 03:40 Blood Culture (Wb) - Port Blood Culture - Preliminary Staphylococcus aureus 04/21/18 03:40 Blood Culture (Wb) - Anticubital Left Blood Culture - Preliminary Staphylococcus aureus Medical Necessity - Tobacco Use Smoking Status: Current every day smoker Tobacco Use: Cigarettes Assessment/Plan All Active Problems (Last Reviewed 04/20/18 @ 08:55 by Venessa Meneses) Chemotherapy management, encounter for (Acute) Saddle embolus of pulmonary artery with acute cor pulmonale (Acute) Pneumonia (Acute) MSSA bacteremia (Acute) UTI (urinary tract infection) (Acute) Back pain (Acute) RECOMMENDATIONS: 1. Continue heparin drip 2. Continue with antibiotics per ID recommendations 3. Wean supplemental oxygen as tolerated 4. May need to initiate D5W for free water 5. Arrange for PONCHO next week per ID recommendations 6. Increase activity as tolerated 7. Blood cultures daily until negative 8. Okay to transfer from the intensive care unit from my perspective IMPRESSIONS: 1. Cardiogenic shock secondary to submassive pulmonary embolism status post TPA/septic shock Patient reportedly is hypertensive at baseline and on lisinopril. Patient tolerated TPA well. Patient currently on a heparin drip. Chest x-ray shows blossoming of right-sided infiltrate and this is likely the etiology of patient's continued oxygen requirements. Patient will require Lovenox therapy on discharge, but several procedures are necessary, so heparin will be used for now. 2. A. fib with RVR Resolved > likely secondary to #1. Patient has received TPA. Patient spontaneously converted. Echocardiogram shows preserved ejection fraction, but elevated pulmonary artery pressures, likely leading to dilatation of atria and arrhythmia. No recurrence of A. fib has been noted. 3. Reported cirrhosis secondary to hepatitis C/anemia of chronic disease Patient does have decreased albumin, but coagulation studies appear to be appropriate prior to initiation of heparin. Patient currently receiving chemotherapy for bladder cancer. Defer to hospitalist if oncologist needs to be consulted. Low albumin will cause issues with extravasation of fluid. 4. Hypertension/GERD/depression/stage II bladder cancer Complicates care, management, recovery and prognosis. 5. Septic shock Patient with MSSA bacteremia and probable lung abscess. Patient did not have PONCHO yesterday secondary to respiratory status. Patient did have the port removed. Anticipate daily blood cultures until negative. Once negative, PICC line can be placed for 4-6 weeks of IV antibiotics. Patient likely to have PONCHO next week. However, patient has been hemodynamically stable for over 24 hours and can likely leave the intensive care unit. Code Visit Inpatient E&M: [id number] [place] [id number]
--- NOTE | 2018-04-24 07:49 | PN_ITS ---
Patient Problems: Active and Suspected Problems (Last Reviewed 04/20/18 @ 08:55 by Venessa Meneses) MSSA bacteremia (Acute) Subjective: Patient was seen and examined. Denies any new complains. PONCHO planned for next week. Remains on 4L oxygen. Objective: Physical exam: General: Alert, Oriented x3, Cooperative, - - on 4L oxygen, appears ill-looking , HEENT: Atraumatic, PERRLA, EOMI, Normocephalic Oral: Moist Mucosa Neck: Supple Lungs: Diminished particularly on the right side with lower lung zone crackles Cardiovascular: Regular rate, Regular Rhythm, Normal S1, Normal S2, No murmurs, Tachycardic Abdomen: Bowel Sounds Present, Soft, Non Tender, Non-Distended, No Hepato- splenomegaly Extremities:Bilateral pedaL edema +1 Skin: No rashes, No breakdown Musculoskeletal: No Tenderness to Palpation of Joints or Extremities Lymphatic: No Cervical, Supraclavicular, or Inguinal Adenopathy Neurological: Cranial nerves II-XII grossly intact, Neuro grossly intact Psych/Mental Status: Normal Affect, Appropriate Vitals/I&O's: Vital Signs Temp Pulse Resp BP Pulse Ox 97.9 F 106 H 25 H 153/84 H 90 04/24/18 04:00 04/24/18 06:00 04/24/18 06:00 04/24/18 06:00 04/24/18 07:05 Oxygen Flow Rate (L/min) 4 Oxygen Delivery Method Nasal Cannula Weight: 87.1 kg Body Mass Index (BMI) 25.7 Intake and Output for Last 24 Hours 04/22/18 04/23/18 04/24/18 23:59 23:59 23:59 Intake Total 1030.6 / 1030.6 1585.5 / 1585.5 700 / 700 Output Total 950 / 950 1750 / 1750 650 / 650 Balance 80.6 / 80.6 -164.5 / -164.5 50 / 50 Microbiology Past 72 Hours 04/21/18 03:40 Blood Culture (Wb) - Port Blood Culture - Final Staphylococcus aureus 04/23/18 14:30 Stool C. difficile DNA Amplification - Final 04/22/18 11:40 Blood Culture (Wb) - Left Hand Blood Culture - Preliminary 04/21/18 03:40 Blood Culture (Wb) - Anticubital Left Blood Culture - Preliminary Staphylococcus aureus Laboratory Results 04/23/18 04:20: Diff Path Review Reviewed 04/23/18 04:20: Total Bilirubin 2.60 H, Direct Bilirubin 2.31 H, AST 106 H, ALT 18, Alkaline Phosphatase 96, Total Protein 5.5 L, Albumin 1.1 L, Globulin 4.4 H 04/23/18 13:30: Sodium 143, Potassium 3.3 L, Chloride 112 H, Carbon Dioxide 21.0 , Anion Gap 10, BUN 37 H, Creatinine 0.97, Estim Creat Clear Calc 69.54, Est GFR (MDRD) Af Amer 99, Est GFR (MDRD) Non-Af 82, BUN/Creatinine Ratio 38.2 H, Glucose 143 H, Calcium 7.8 L 04/24/18 04:05: WBC 18.8 H, RBC 3.06 L, Hgb 8.3 L, Hct 26.4 L, MCV 86.3, MCH 27.1, MCHC 31.4 L, RDW 25.1 H, RDW Differential 76.0 H, Plt Count 81 L, MPV 8.9 , Immature Gran % (Auto) 2.900 H, Neut % (Auto) 74.8 H, Lymph % (Auto) 14.3 L, [place] % (Auto) 7.4, Eos % (Auto) 0.1, Baso % (Auto) 0.5, Absolute Neuts (auto) 14.1 H, Absolute Lymphs (auto) 2.70, Total Counted Not Reportable, Differential Comment , Diff Path Review May foll 04/24/18 04:05: Sodium 147 H, Potassium 3.5, Chloride 113 H, Carbon Dioxide 25.0 , Anion Gap 9, BUN 32 H, Creatinine 0.86, Estim Creat Clear Calc 78.43, Est GFR (MDRD) Af Amer 113, Est GFR (MDRD) Non-Af 93, BUN/Creatinine Ratio 37.1 H, Glucose 174 H, Calcium 7.6 L 04/24/18 04:05: APTT 75.1 H Current Medications Chlorhexidine Gluconate () 1 each TOPICAL DAILY [facility] Last Admin: 04/24/18 03:57 Dose: 1 each Guaifenesin (Mucinex) 1,200 mg PO BID [facility] Last Admin: 04/23/18 23:24 Dose: 1,200 mg Haloperidol Lactate (Haldol) 5 mg IV Q4H PRN PRN PRN Reason: AGITATION Last Admin: 04/23/18 13:47 Dose: 5 mg Heparin Sodium (Beef Lung) (Heparin 500 Unit/5 Ml (100/Ml)) 500 unit IV UD PRN PRN Reason: HEPARIN FLUSH Heparin Sodium/Dextrose () 25,000 units in 250 mls @ 11 mls/hr IV .[id number] [facility] ; As Directed PRN Reason: Protocol Last Admin: 04/24/18 03:57 Dose: 11 mls/hr Cefazolin Sodium 2 gm/ Sodium (Chloride) 110 mls @ 150 mls/hr IV Q8 [facility] [place] Last Admin: 04/24/18 06:11 Dose: 150 mls/hr Magnesium Hydroxide (Milk Of Magnesia) 30 ml PO DAILY PRN PRN PRN Reason: Constipation Nicotine (Nicoderm Cq (Pbkc)) 21 mg TRANSDERM. DAILY [facility] Last Admin: 04/23/18 11:56 Dose: 21 mg Nutritional Formula (Lactose Free) (Ensure Enlive) 120 ml PO 4X/DAY [facility] [place] Last Admin: 04/23/18 23:24 Dose: 120 ml Ondansetron HCl (Zofran) 4 mg IV Q8H PRN PRN PRN Reason: NAUSEA Pantoprazole Sodium (Protonix) 40 mg PO DAILY [facility] [place] Last Admin: 04/23/18 11:56 Dose: 40 mg Sertraline HCl (Zoloft) 50 mg PO DAILY [facility] [place] Last Admin: 04/23/18 11:56 Dose: 50 mg Sodium Chloride () 5 - 30 ml IV UD PRN PRN Reason: SALINE FLUSH Last Admin: 04/24/18 04:02 Dose: 20 ml Sodium Chloride () 10 ml IV UD PRN PRN Reason: R PORT FLUSH Last Admin: 04/21/18 03:50 Dose: 10 ml Medical Necessity - Tobacco Use Smoking Status: Current every day smoker Tobacco Use: Cigarettes Assessment/Plan All Active Problems (Last Reviewed 04/20/18 @ 08:55 by Venessa Meneses) Chemotherapy management, encounter for (Acute) Saddle embolus of pulmonary artery with acute cor pulmonale (Acute) Pneumonia (Acute) MSSA bacteremia (Acute) UTI (urinary tract infection) (Acute) Back pain (Acute) 67-year-old male with past medical history of stage 2 bladder cancer, GERD, cirrhosis, Chronic Hep C referred from his PCP to the ED and admitted with hypotensive and tachycardic from his oncology office and found to have non- occlusive saddle PE. He was given alteplase on 04/20/18. 1. Cardiogenic shock related to saddle PE, was on levophed momentarily, resolved , will continue to monitor vitals. 2. Acute nonocclusive saddle PE, without cor-pulmonale, status post ateplase IV , on heparin drip 3. Septic shock, Staphylococcus aureus bacteremia, POA, likely source may be [place], concern also for possible infective endocarditis, remains on cefazolin IV 4. Right-sided postobstructive infiltrate, POA, suggestive of HCAP, ID consulted, remains on IV cefazolin, will follow per ID recommendations 5. Hypokalemia, resolved 6. A. fib with RVR, spontaneously converted, remains in sinus tachycardia, will continue to monitor 7. Microcytic microchromic anemia, Hb remains stable. 8. MARTA, likely pre-renal from previous hypotension, resolving 9. Nicotine dependency, on replacement 10. Chronic hep C, cirrhosis, needs to follow-up in the outpatient. 11. DVT PPx- On heparin drip 12. GI ppx- on PPI Code Visit Inpatient E&M: [id number] [facility] Hosp L3
--- NOTE | 2018-04-24 08:38 | PCM.PN.SRG ---
Patient Problems: Active and Suspected Problems (Last Reviewed 04/20/18 @ 08:55 by Venessa Meneses) MSSA bacteremia (Acute) Subjective: Patient does not complain of any pain at previous port site white blood cell count slightly improved 18 from 19 - Physical Exam General: Alert, Oriented x3, Cooperative, No apparent distress Skin: - - Right chest port site, no erythema, ecchymosis at incision site, clean dry and intact -redressed Vital Signs Temp Pulse Resp BP Pulse Ox 97.9 F 109 H 25 H 153/84 H 90 04/24/18 04:00 04/24/18 07:00 04/24/18 06:00 04/24/18 06:00 04/24/18 07:05 Oxygen Flow Rate (L/min) 4 Oxygen Delivery Method Nasal Cannula Weight: 192 lb 0.362 oz Body Mass Index (BMI) 25.7 Intake and Output for Last 24 Hours 04/22/18 04/23/18 04/24/18 23:59 23:59 23:59 Intake Total 1030.6 / 1030.6 1585.5 / 1585.5 700 / 700 Output Total 950 / 950 1750 / 1750 650 / 650 Balance 80.6 / 80.6 -164.5 / -164.5 50 / 50 Microbiology Past 72 Hours 04/21/18 03:40 Blood Culture - Preliminary Blood Culture (Wb) - Anticubital Left Staphylococcus aureus 04/21/18 03:40 Blood Culture - Final Blood Culture (Wb) - Port Staphylococcus aureus 04/23/18 14:30 C. difficile DNA Amplification - Final Stool 04/22/18 11:40 Blood Culture - Preliminary Blood Culture (Wb) - Left Hand Laboratory Tests Past 24 Hrs 04/23/18 04/23/18 04/24/18 04:20 13:30 04:05 WBC 18.8 H RBC 3.06 L Hgb 8.3 L Hct 26.4 L MCV 86.3 MCH 27.1 MCHC 31.4 L RDW 25.1 H RDW Differential 76.0 H Plt Count 81 L MPV 8.9 Immature Gran % (Auto) 2.900 H Neut % (Auto) 74.8 H Lymph % (Auto) 14.3 L [place] % (Auto) 7.4 Eos % (Auto) 0.1 Baso % (Auto) 0.5 Absolute Neuts (auto) 14.1 H Absolute Lymphs (auto) 2.70 Total Counted Not Reportable Differential Comment Diff Path Review Reviewed December foll APTT Sodium 143 Potassium 3.3 L Chloride 112 H Carbon Dioxide 21.0 Anion Gap 10 BUN 37 H Creatinine 0.97 Estim Creat Clear Calc 69.54 Est GFR (MDRD) Af Amer 99 Est GFR (MDRD) Non-Af 82 BUN/Creatinine Ratio 38.2 H Glucose 143 H Calcium 7.8 L 04/24/18 04/24/18 04:05 04:05 WBC RBC Hgb Hct MCV MCH MCHC RDW RDW Differential Plt Count MPV Immature Gran % (Auto) Neut % (Auto) Lymph % (Auto) [place] % (Auto) Eos % (Auto) Baso % (Auto) Absolute Neuts (auto) Absolute Lymphs (auto) Total Counted Differential Comment Diff Path Review APTT 75.1 H Sodium 147 H Potassium 3.5 Chloride 113 H Carbon Dioxide 25.0 Anion Gap 9 BUN 32 H Creatinine 0.86 Estim Creat Clear Calc 78.43 Est GFR (MDRD) Af Amer 113 Est GFR (MDRD) Non-Af 93 BUN/Creatinine Ratio 37.1 H Glucose 174 H Calcium 7.6 L Medical Necessity - Tobacco Use Smoking Status: Current every day smoker Tobacco Use: Cigarettes Assessment/Plan All Active Problems (Last Reviewed 04/20/18 @ 08:55 by Venessa Meneses) Chemotherapy management, encounter for (Acute) Saddle embolus of pulmonary artery with acute cor pulmonale (Acute) Pneumonia (Acute) MSSA bacteremia (Acute) UTI (urinary tract infection) (Acute) Back pain (Acute) 67-year-old male with PE, bacteremia, bladder cancer, cirrhosis/hepatitis C, PNA 1. Bacteremia--port removed yesterday without any issues. Incision site clean dry and intact with some ecchymosis at incision, no erythema this morning. No further surgical intervention please call questions. Anay Montalvo M.D. Pager: [phone] [facility] [address] [place] [address], Outpatient [facility]ilion, [address] [place] [address] Office: [phone]
[2018-04-24] MEDS: Pantoprazole Sodium 40 MG Tablet PO (11:13)
[2018-04-24] MEDS: guaiFENesin 1,200 MG Tablet 1200 MG PO ×2 (11:13→21:39)
[2018-04-24] MEDS: Sertraline 50 MG Tablet PO (11:14)
[2018-04-25] VITALS (22 sets, daily range): BP systolic 90–137; BP diastolic 50–84; PULSE 78–112; RESP 18–28; TEMP 36.2–37.1; O2SAT 90–95
[2018-04-25 04:56] LABS: Partial Thromboplast Time 98.4 Seconds (24.1-36.2)
[2018-04-25 06:46] LABS: Anion Gap 8 (5-15); BUN 22 mg/dL (7-18); BUN/Creat Ratio 37.5 RATIO (10-20); Calcium,Total 7.5 mg/dL (8.5-10.1); Chloride 111 mmol/L (98-107); Creatinine, Serum 0.59 mg/dL (0.70-1.30); EST Glomerular Filtration Rate 145 mL/min (>60); Est Glom Filt Rate - Afr Amer 176 mL/min (>60); Estimated Creatinine Clearance 67.45 ml/min; Glucose 122 mg/dL (74-106); Potassium 3.5 mmol/L (3.5-5.1); Sodium Level 145 mmol/L (136-145)
[2018-04-25] MEDS: Cefazolin 2 GM in 0.9% Normal Saline 100 ML IV ×3 (06:49→21:32)
[2018-04-25 07:16] LABS: Hematocrit 27.2 % (40-54); Hemoglobin 8.4 g/dl (13.0-16.5); Mean Corp Hgb Conc 30.9 g/gl (32-36); Mean Corpuscular Volume 87.5 fL (80-94); Mean Platelet Vol. 9.1 fl (6.2-12.0); Platelet Count 131 K/mm3 (150-450); RBC Distribution Width CV 25.6 % (11.6-14.6); RBC Distribution Width SD 78.9 fl (35.1-43.9); Red Blood Count 3.11 M/mm3 (4.6-6.2); White Blood Count 18.6 K/mm3 (4.4-11.0)
[2018-04-25 07:22] LABS: Differential Indicated MANUAL DIFF; POSITIVE COUNT NO; POSITIVE DIFFERENTIAL NO; POSITIVE MORPHOLOGY YES
--- NOTE | 2018-04-25 07:30 | PCM.PN.INT ---
Subjective: Patient did well overnight. No acute issues were reported. Patient stated in the intensive care unit secondary to lack of PCU bed. Patient reports overall fatigue, but no specific complaints. No chest pain or shortness of breath is reported. General: Alert, Oriented x3, Cooperative, No apparent distress, - - Appears older than stated age. HEENT: Atraumatic, PERRLA, EOMI, Normocephalic, - - Light scleral injection without icterus. Alopecia noted. Oral: Moist Mucosa, No Gingival or Mucosal Lesions/ Ulcerations Neck: Supple, No JVD, No Nodes, Trachea Midline, - - Port removal site is clean, dry and intact Lungs: No wheeze, No rales, Diminished, Rhonchi - Right greater than left, - - Symmetric expansion. Cardiovascular: Regular rate, Regular Rhythm, Normal S1, Normal S2, Murmur, No rub noted, No Gallop Abdomen: Bowel Sounds Present, Soft, Non Tender, Non-Distended Extremities: No cyanosis, Clubbing, Edema Skin: - - Grossly unchanged compared to previous Musculoskeletal: No Tenderness to Palpation of Joints or Extremities, No Muscle Wasting Lymphatic: No Cervical, Supraclavicular, or Inguinal Adenopathy Neurological: Cranial nerves II-XII grossly intact, Neuro grossly intact, Motor Exam 5/5 strength throughout Psych/Mental Status: Appropriate, Flat Affect Vital Signs Temp Pulse Resp BP Pulse Ox 36.7 C 103 H 23 H 134/79 H 91 04/25/18 01:59 04/25/18 06:00 04/25/18 06:00 04/25/18 01:59 04/25/18 06:00 Oxygen Flow Rate (L/min) 4 Oxygen Delivery Method Nasal Cannula Weight: 83.2 kg Body Mass Index (BMI) 25.7 Intake and Output for Last 24 Hours 04/23/18 04/24/18 04/25/18 23:59 23:59 23:59 Intake Total 1585.5 / 1585.5 2660.9 / 2660.9 339.3 / 339.3 Output Total 1750 / 1750 1525 / 1525 Balance -164.5 / -164.5 1135.9 / 1135.9 339.3 / 339.3 Labs (Last 48 Hours) 04/23/18 04/23/18 04/23/18 04:20 04:20 13:30 WBC RBC Hgb Hct MCV MCH MCHC RDW RDW Differential Plt Count MPV Immature Gran % (Auto) Neut % (Auto) Lymph % (Auto) Sullivan % (Auto) Eos % (Auto) Baso % (Auto) Absolute Neuts (auto) Absolute Lymphs (auto) Total Counted Differential Comment Diff Path Review Reviewed APTT Sodium 143 Potassium 3.3 L Chloride 112 H Carbon Dioxide 21.0 Anion Gap 10 BUN 37 H Creatinine 0.97 Estim Creat Clear Calc 69.54 Est GFR (MDRD) Af Amer 99 Est GFR (MDRD) Non-Af 82 BUN/Creatinine Ratio 38.2 H Glucose 143 H Calcium 7.8 L Total Bilirubin 2.60 H Direct Bilirubin 2.31 H AST 106 H ALT 18 Alkaline Phosphatase 96 Total Protein 5.5 L Albumin 1.1 L Globulin 4.4 H 04/24/18 04/24/18 04/24/18 04:05 04:05 04:05 WBC 18.8 H RBC 3.06 L Hgb 8.3 L Hct 26.4 L MCV 86.3 MCH 27.1 MCHC 31.4 L RDW 25.1 H RDW Differential 76.0 H Plt Count 81 L MPV 8.9 Immature Gran % (Auto) 2.900 H Neut % (Auto) 74.8 H Lymph % (Auto) 14.3 L Sullivan % (Auto) 7.4 Eos % (Auto) 0.1 Baso % (Auto) 0.5 Absolute Neuts (auto) 14.1 H Absolute Lymphs (auto) 2.70 Total Counted Not Reportable Differential Comment Diff Path Review May foll APTT 75.1 H Sodium 147 H Potassium 3.5 Chloride 113 H Carbon Dioxide 25.0 Anion Gap 9 BUN 32 H Creatinine 0.86 Estim Creat Clear Calc 78.43 Est GFR (MDRD) Af Amer 113 Est GFR (MDRD) Non-Af 93 BUN/Creatinine Ratio 37.1 H Glucose 174 H Calcium 7.6 L Total Bilirubin Direct Bilirubin AST ALT Alkaline Phosphatase Total Protein Albumin Globulin 04/25/18 04/25/18 04/25/18 04:25 06:00 06:00 WBC 18.6 H RBC 3.11 L Hgb 8.4 L Hct 27.2 L MCV 87.5 MCH 27.0 MCHC 30.9 L RDW 25.6 H RDW Differential 78.9 H Plt Count 131 L MPV 9.1 Immature Gran % (Auto) Neut % (Auto) Not Reportable Lymph % (Auto) Sullivan % (Auto) Eos % (Auto) Baso % (Auto) Absolute Neuts (auto) Not Reportable Absolute Lymphs (auto) Total Counted Pending Differential Comment Diff Path Review APTT 98.4 H* Sodium 145 Potassium 3.5 Chloride 111 H Carbon Dioxide 26.0 Anion Gap 8 BUN 22 H Creatinine 0.59 L Estim Creat Clear Calc 67.45 Est GFR (MDRD) Af Amer 176 Est GFR (MDRD) Non-Af 145 BUN/Creatinine Ratio 37.5 H Glucose 122 H Calcium 7.5 L Total Bilirubin Direct Bilirubin AST ALT Alkaline Phosphatase Total Protein Albumin Globulin Microbiology 04/23/18 10:30 Other - Port Gram Stain - Final 04/21/18 03:40 Blood Culture (Wb) - Port Blood Culture - Final Staphylococcus aureus 04/21/18 03:40 Blood Culture (Wb) - Anticubital Left Blood Culture - Preliminary Staphylococcus aureus 04/23/18 14:30 Stool C. difficile DNA Amplification - Final 04/22/18 11:40 Blood Culture (Wb) - Left Hand Blood Culture - Preliminary Medical Necessity - Tobacco Use Smoking Status: Current every day smoker Tobacco Use: Cigarettes Assessment/Plan All Active Problems (Last Reviewed 04/20/18 @ 08:55 by Venessa Meneses) Chemotherapy management, encounter for (Acute) Saddle embolus of pulmonary artery with acute cor pulmonale (Acute) Pneumonia (Acute) MSSA bacteremia (Acute) UTI (urinary tract infection) (Acute) Back pain (Acute) RECOMMENDATIONS: 1. Continue heparin drip 2. Continue with antibiotics per ID recommendations 3. Aggressive pulmonary toileting and incentive spirometer. Wean supplemental oxygen as tolerated 4. Likely discontinue D5W tomorrow 5. Arrange for PONCHO next week per ID recommendations 6. Increase activity as tolerated 7. Blood cultures daily until negative 8. Okay to transfer from the intensive care unit from my perspective IMPRESSIONS: 1. Cardiogenic shock secondary to submassive pulmonary embolism status post TPA/septic shock Patient reportedly is hypertensive at baseline and on lisinopril. Patient tolerated TPA well. Patient currently on a heparin drip. Chest x-ray shows blossoming of right-sided infiltrate and this is likely the etiology of patient's continued oxygen requirements. Patient will require Lovenox therapy on discharge, but several procedures are necessary, so heparin will be used for now. 2. A. fib with RVR Resolved > likely secondary to #1. Patient has received TPA. Patient spontaneously converted. Echocardiogram shows preserved ejection fraction, but elevated pulmonary artery pressures, likely leading to dilatation of atria and arrhythmia. No recurrence of A. fib has been noted. 3. Reported cirrhosis secondary to hepatitis C/anemia of chronic disease Patient does have decreased albumin, but coagulation studies appear to be appropriate prior to initiation of heparin. Patient previously receiving chemotherapy for bladder cancer. Defer to hospitalist if oncologist needs to be consulted. Low albumin will cause issues with extravasation of fluid. 4. Hypertension/GERD/depression/stage II bladder cancer/thrombocytopenia Complicates care, management, recovery and prognosis. Platelet count appears to be improved compared to previous. Clinical suspicion for consumption. Unlikely secondary to HIT given continued heparin 5. Septic shock Patient with MSSA bacteremia and probable lung abscess. Patient was to have a PONCHO last week, but this was held secondary to respiratory status. Last positive blood culture from 04/22/2018. Potentially Place PICC line early next week for facilitation of prolonged antibiotics, anticipated 4-6 weeks. Code Visit Inpatient E&M: 47539 [facility] Hosp L3
[2018-04-25 07:37] LABS: Lymphocyte 7 % (19-41); Metamyelocyte 2 % (0-1); Neutrophil-Segmented 91 % (47-70); Nucleated Red Bld Cells,Manual 1 % (0-5); Total Cells Counted 100 (MANUAL DIFF)
[2018-04-25 07:39] LABS: Anisocytosis 1+; Platelet Estimate ADEQUATE (ADEQ); Red Cell Morphology N CHROM NORMAL (NORM C&C)
[2018-04-25 07:41] LABS: Absolute Neutrophil Count 16.9 X10^3/uL (2.0-7.7)
--- NOTE | 2018-04-25 08:17 | PCM.PN.HOSP ---
Patient Problems: Active and Suspected Problems (Last Reviewed 04/20/18 @ 08:55 by Venessa Meneses) MSSA bacteremia (Acute) Subjective: Patient was seen and examined. Remains on 4L oxygen. PONCHO is planned for next week as well as PICC line. Repeat blood cultures are pending. Objective: Physical exam: General: Alert, Oriented x3, Cooperative, - - on 4L oxygen, appears ill-looking, HEENT: Atraumatic, PERRLA, EOMI, Normocephalic Oral: Moist Mucosa Neck: Supple Lungs: Diminished particularly on the right side with lower lung zone crackles Cardiovascular: Regular rate, Regular Rhythm, Normal S1, Normal S2, No murmurs, Tachycardic Abdomen: Bowel Sounds Present, Soft, Non Tender, Non-Distended, No Hepato-splenomegaly Extremities:Bilateral pedaL edema +1 Skin: No rashes, No breakdown Musculoskeletal: No Tenderness to Palpation of Joints or Extremities Lymphatic: No Cervical, Supraclavicular, or Inguinal Adenopathy Neurological: Cranial nerves II-XII grossly intact, Neuro grossly intact Psych/Mental Status: Normal Affect, Appropriate Vitals/I&O's: Vital Signs Temp Pulse Resp BP Pulse Ox 98.1 F 103 H 23 H 134/79 H 91 04/25/18 01:59 04/25/18 06:00 04/25/18 06:00 04/25/18 01:59 04/25/18 06:00 Oxygen Flow Rate (L/min) 4 Oxygen Delivery Method Nasal Cannula Weight: 83.2 kg Body Mass Index (BMI) 25.7 Intake and Output for Last 24 Hours 04/23/18 04/24/18 04/25/18 23:59 23:59 23:59 Intake Total 1585.5 / 1585.5 2660.9 / 2660.9 339.3 / 339.3 Output Total 1750 / 1750 1525 / 1525 Balance -164.5 / -164.5 1135.9 / 1135.9 339.3 / 339.3 Microbiology Past 72 Hours 04/23/18 10:30 Other - Port Gram Stain - Final 04/21/18 03:40 Blood Culture (Wb) - Port Blood Culture - Final Staphylococcus aureus 04/21/18 03:40 Blood Culture (Wb) - Anticubital Left Blood Culture - Preliminary Staphylococcus aureus 04/23/18 14:30 Stool C. difficile DNA Amplification - Final 04/22/18 11:40 Blood Culture (Wb) - Left Hand Blood Culture - Preliminary Laboratory Results 04/25/18 04:25: APTT 98.4 H* 04/25/18 06:00: WBC 18.6 H, RBC 3.11 L, Hgb 8.4 L, Hct 27.2 L, MCV 87.5, MCH 27.0, MCHC 30.9 L, RDW 25.6 H, RDW Differential 78.9 H, Plt Count 131 L, MPV 9.1, Neut % (Auto) Not Reportable, Absolute Neuts (auto) 16.9 H, Absolute Lymphs (auto) 1.30, Total Counted 100, Neutrophils % (Manual) 91 H, Lymphocytes % (Manual) 7 L, Metamyelocytes % 2 H, Nucleated RBCs/100 WBC 1, Platelet Estimate ADEQUATE, RBC Morphology N CHROM, Anisocytosis 1+ 04/25/18 06:00: Sodium 145, Potassium 3.5, Chloride 111 H, Carbon Dioxide 26.0, Anion Gap 8, BUN 22 H, Creatinine 0.59 L, Estim Creat Clear Calc 67.45, Est GFR (MDRD) Af Amer 176, Est GFR (MDRD) Non-Af 145, BUN/Creatinine Ratio 37.5 H, Glucose 122 H, Calcium 7.5 L Current Medications Chlorhexidine Gluconate () 1 each TOPICAL DAILY [facility] Last Admin: 04/24/18 03:57 Dose: 1 each Guaifenesin (Mucinex) 1,200 mg PO BID [facility] Last Admin: 04/24/18 21:39 Dose: 1,200 mg Haloperidol Lactate (Haldol) 5 mg IV Q4H PRN PRN PRN Reason: AGITATION Last Admin: 04/23/18 13:47 Dose: 5 mg Heparin Sodium (Beef Lung) (Heparin 500 Unit/5 Ml (100/Ml)) 500 unit IV UD PRN PRN Reason: HEPARIN FLUSH Heparin Sodium/Dextrose () 25,000 units in 250 mls @ 11 mls/hr IV .[id number] [facility]; As Directed PRN Reason: Protocol Last Admin: 04/24/18 03:57 Dose: 11 mls/hr Cefazolin Sodium 2 gm/ Sodium (Chloride) 110 mls @ 150 mls/hr IV Q8 [facility] Last Admin: 04/25/18 06:49 Dose: 150 mls/hr Dextrose () 1,000 mls @ 40 mls/hr IV .Q25H [facility] Last Admin: 04/24/18 11:14 Dose: 40 mls/hr Magnesium Hydroxide (Milk Of Magnesia) 30 ml PO DAILY PRN PRN PRN Reason: Constipation Nicotine (Nicoderm Cq (Pbkc)) 21 mg TRANSDERM. DAILY [facility] Last Admin: 04/24/18 11:13 Dose: 21 mg Nutritional Formula (Lactose Free) (Ensure Enlive) 120 ml PO 4X/DAY [facility] Last Admin: 04/24/18 21:41 Dose: 120 ml Ondansetron HCl (Zofran) 4 mg IV Q8H PRN PRN PRN Reason: NAUSEA Pantoprazole Sodium (Protonix) 40 mg PO DAILY [facility] Last Admin: 04/24/18 11:13 Dose: 40 mg Sertraline HCl (Zoloft) 50 mg PO DAILY [facility] Last Admin: 04/24/18 11:14 Dose: 50 mg Sodium Chloride () 5 - 30 ml IV UD PRN PRN Reason: SALINE FLUSH Last Admin: 04/24/18 04:02 Dose: 20 ml Sodium Chloride () 10 ml IV UD PRN PRN Reason: R PORT FLUSH Last Admin: 04/21/18 03:50 Dose: 10 ml Medical Necessity - Tobacco Use Smoking Status: Current every day smoker Tobacco Use: Cigarettes Assessment/Plan All Active Problems (Last Reviewed 04/20/18 @ 08:55 by Venessa Meneses) Chemotherapy management, encounter for (Acute) Saddle embolus of pulmonary artery with acute cor pulmonale (Acute) Pneumonia (Acute) MSSA bacteremia (Acute) UTI (urinary tract infection) (Acute) Back pain (Acute) 67-year-old male with past medical history of stage 2 bladder cancer, GERD, cirrhosis, Chronic Hep C referred from his PCP to the EDcomes in with with hypotensive and tachycardic from his oncology office and found to have non-occlusive saddle PE. He was given alteplase on 04/20/18. 1. Cardiogenic shock related to saddle PE, was on levophed momentarily, resolved 2. Acute nonocclusive saddle PE, without cor-pulmonale, status post ateplase IV, remains on heparin drip pending PONCHO and PICC line 3. Septic shock, Staphylococcus aureus bacteremia, POA, infected medport, concern also for possible infective endocarditis, PONCHO planned Leucocytosis remains about the same, on cefazolin IV, ID consulted, following. 4. Right-sided postobstructive infiltrate, POA, suggestive of HCAP, ID consulted, remains on IV cefazolin, will follow per ID recommendations 5. Hypokalemia, resolved 6. A. fib with RVR, spontaneously converted, remains in sinus tachycardia, will continue to monitor 7. Microcytic microchromic anemia, Hb remains stable. 8. MARTA, likely pre-renal from previous hypotension, resolving 9. Nicotine dependency, on replacement 10.Thrombocytopenia, acute on chronic, slightly improved, remains on heparin drip, chronic also from cirrhosis of liver 11. Chronic hep C, cirrhosis, needs to follow-up in the outpatient. 12. DVT PPx- On heparin drip 13. GI ppx- on PPI Code Visit Inpatient E&M: [id number] Subs Hosp L3
[2018-04-25] MEDS: Metoprolol Tartrate 5 MG/5 ML Vial 2.5 MG IV (12:23)
[2018-04-25] MEDS: guaiFENesin 1,200 MG Tablet 1200 MG PO ×2 (12:24→21:34)
[2018-04-25] MEDS: Pantoprazole Sodium 40 MG Tablet PO (12:25)
[2018-04-25] MEDS: Sertraline 50 MG Tablet PO (12:25)
[2018-04-25] MEDS: HEPARIN/D5w 25,000 UNITS 25,000 UNITS/250 ML IV.SOLN. 11 UNITS IV (12:27)
[2018-04-25 12:29] LABS: Partial Thromboplast Time 62.4 Seconds (24.1-36.2)
[2018-04-25 18:03] LABS: Partial Thromboplast Time 65.5 Seconds (24.1-36.2)
--- NOTE | 2018-04-25 18:08 | NURSING ---
1645 pt sound asleep, respers 20, SpO2 69% on 4lnc. sat upright in bed, turned to back, IS, increased to 6lnc.chest rhonchi throughtout. pt refusing to wear bipap. NT sxt per RT for lg amt creamy. chest now clear. SpO2 96% on 6lnc. Dr. herbert notified. orders recd
[2018-04-25] MEDS: Metoprolol Tartrate 25 MG Tablet PO (21:34)
[2018-04-26] VITALS (14 sets, daily range): BP systolic 95–127; BP diastolic 57–91; PULSE 63–119; RESP 16–21; TEMP 36.1–36.9; O2SAT 92–96
[2018-04-26 00:38] LABS: Partial Thromboplast Time 78.5 Seconds (24.1-36.2)
[2018-04-26] MEDS: Cefazolin 2 GM in 0.9% Normal Saline 100 ML IV ×3 (06:31→22:15)
[2018-04-26 06:32] LABS: Hematocrit 27.6 % (40-54); Hemoglobin 8.6 g/dl (13.0-16.5); Mean Corp Hgb Conc 31.2 g/gl (32-36); Mean Corpuscular Hgb 27.7 pg (27.0-32.0); Mean Platelet Vol. 8.4 fl (6.2-12.0); Platelet Count 114 K/mm3 (150-450); RBC Distribution Width CV 26.2 % (11.6-14.6); RBC Distribution Width SD 77.8 fl (35.1-43.9); White Blood Count 17.5 K/mm3 (4.4-11.0)
[2018-04-26 06:39] LABS: ALB/GLOB Ratio 0.2 RATIO (0.9-2.4); AST(SGOT) 85 U/L (15-37); Alanine Aminotransfer ALT/SGPT 11 U/L (16-61); Albumin, Serum 0.9 g/dL (3.2-5.0); Alkaline Phosphatase 127 U/L (45-117); Anion Gap 8 (5-15); BUN 19 mg/dL (7-18); BUN/Creat Ratio 37.4 RATIO (10-20); Calcium,Total 7.5 mg/dL (8.5-10.1); Chloride 110 mmol/L (98-107); Creatinine, Serum 0.51 mg/dL (0.70-1.30); EST Glomerular Filtration Rate 172 mL/min (>60); Est Glom Filt Rate - Afr Amer 208 mL/min (>60); Estimated Creatinine Clearance 67.45 ml/min; Globulin 5.2 g/dL (2.2-4.2); Glucose 116 mg/dL (74-106); Potassium 3.5 mmol/L (3.5-5.1); Protein, Total 6.1 g/dL (6.4-8.2); Sodium Level 145 mmol/L (136-145)
[2018-04-26 06:44] LABS: Partial Thromboplast Time 78.4 Seconds (24.1-36.2)
[2018-04-26 06:55] LABS: Differential Indicated MANUAL DIFF; POSITIVE COUNT YES; POSITIVE DIFFERENTIAL NO; POSITIVE MORPHOLOGY YES
--- NOTE | 2018-04-26 07:18 | PCM.PN.INT ---
Subjective: The patient was seen and examined at the bedside this morning. Events from the last 24 hours have been reviewed. The patient is currently afebrile, hemodynamically stable and maintaining appropriate oxygen saturations on 4 L/min via nasal cannula. Per nursing report, the patient is scheduled to undergo PICC line placement and have a transesophageal echocardiogram completed today. Objective: The patient's most recent lab work, culture data and imaging studies have all been personally reviewed. MSSA was isolated from blood culture dated April 21. Repeat blood culture dated April 23 has shown no growth to date. General: Alert, Cooperative, No apparent distress HEENT: Atraumatic, PERRLA, Normocephalic Oral: No Gingival or Mucosal Lesions/ Ulcerations Neck: Supple, No Nodes, Trachea Midline Lungs: No rhonchi, No wheeze, No rales, Diminished Cardiovascular: Regular rate, Regular Rhythm, Normal S1, Normal S2, No murmurs Abdomen: Bowel Sounds Present, Soft, Non Tender, Non-Distended Extremities: No clubbing, No cyanosis, Edema Skin: No breakdown Musculoskeletal: Cachexia Lymphatic: No Cervical, Supraclavicular, or Inguinal Adenopathy Neurological: Neuro grossly intact Psych/Mental Status: Flat Affect Vital Signs Temp Pulse Resp BP Pulse Ox 97.7 F L 75 18 95/61 95 04/26/18 02:00 04/26/18 03:31 04/26/18 02:00 04/26/18 02:00 04/26/18 07:11 Oxygen Flow Rate (L/min) 4 Oxygen Delivery Method Nasal Cannula Weight: 181 lb 7.047 oz Body Mass Index (BMI) 25.7 Intake and Output for Last 24 Hours 04/24/18 04/25/18 04/26/18 23:59 23:59 23:59 Intake Total 2660.9 / 2660.9 1658.4 / 1658.4 311 / 311 Output Total 1525 / 1525 900 / 900 250 / 250 Balance 1135.9 / 1135.9 758.4 / 758.4 61 / 61 Labs (Last 48 Hours) 04/25/18 04/25/18 04/25/18 04:25 06:00 06:00 WBC 18.6 H RBC 3.11 L Hgb 8.4 L Hct 27.2 L MCV 87.5 MCH 27.0 MCHC 30.9 L RDW 25.6 H RDW Differential 78.9 H Plt Count 131 L MPV 9.1 Neut % (Auto) Not Reportable Absolute Neuts (auto) 16.9 H Absolute Lymphs (auto) 1.30 Total Counted 100 Neutrophils % (Manual) 91 H Lymphocytes % (Manual) 7 L Metamyelocytes % 2 H Nucleated RBCs/100 WBC 1 Diff Path Review May foll Platelet Estimate ADEQUATE RBC Morphology N CHROM Anisocytosis 1+ APTT 98.4 H* Sodium 145 Potassium 3.5 Chloride 111 H Carbon Dioxide 26.0 Anion Gap 8 BUN 22 H Creatinine 0.59 L Estim Creat Clear Calc 67.45 Est GFR (MDRD) Af Amer 176 Est GFR (MDRD) Non-Af 145 BUN/Creatinine Ratio 37.5 H Glucose 122 H Calcium 7.5 L Total Bilirubin AST ALT Alkaline Phosphatase Total Protein Albumin Globulin Albumin/Globulin Ratio 04/25/18 04/25/18 04/26/18 12:15 17:35 00:03 WBC RBC Hgb Hct MCV MCH MCHC RDW RDW Differential Plt Count MPV Neut % (Auto) Absolute Neuts (auto) Absolute Lymphs (auto) Total Counted Neutrophils % (Manual) Lymphocytes % (Manual) Metamyelocytes % Nucleated RBCs/100 WBC Diff Path Review Platelet Estimate RBC Morphology Anisocytosis APTT 62.4 H 65.5 H 78.5 H Sodium Potassium Chloride Carbon Dioxide Anion Gap BUN Creatinine Estim Creat Clear Calc Est GFR (MDRD) Af Amer Est GFR (MDRD) Non-Af BUN/Creatinine Ratio Glucose Calcium Total Bilirubin AST ALT Alkaline Phosphatase Total Protein Albumin Globulin Albumin/Globulin Ratio 04/26/18 04/26/18 04/26/18 06:00 06:00 06:00 WBC 17.5 H RBC 3.10 L Hgb 8.6 L Hct 27.6 L MCV 89.0 MCH 27.7 MCHC 31.2 L RDW 26.2 H RDW Differential 77.8 H Plt Count 114 L MPV 8.4 Neut % (Auto) Not Reportable Absolute Neuts (auto) Not Reportable Absolute Lymphs (auto) Total Counted Pending Neutrophils % (Manual) Lymphocytes % (Manual) Metamyelocytes % Nucleated RBCs/100 WBC Diff Path Review Platelet Estimate RBC Morphology Anisocytosis APTT 78.4 H Sodium 145 Potassium 3.5 Chloride 110 H Carbon Dioxide 27.0 Anion Gap 8 BUN 19 H Creatinine 0.51 L Estim Creat Clear Calc 67.45 Est GFR (MDRD) Af Amer 208 Est GFR (MDRD) Non-Af 172 BUN/Creatinine Ratio 37.4 H Glucose 116 H Calcium 7.5 L Total Bilirubin 1.60 H AST 85 H ALT 11 L Alkaline Phosphatase 127 H Total Protein 6.1 L Albumin 0.9 L Globulin 5.2 H Albumin/Globulin Ratio 0.2 L Microbiology 04/23/18 13:30 Blood Culture (Wb) - Left Wrist Blood Culture - Preliminary No growth in 48 hours. 04/23/18 10:30 Other - Port Miscellaneous Culture - Preliminary Staphylococcus species 04/23/18 10:30 Other - Port Gram Stain - Final 04/21/18 03:40 Blood Culture (Wb) - Port Blood Culture - Final Staphylococcus aureus 04/21/18 03:40 Blood Culture (Wb) - Anticubital Left Blood Culture - Preliminary Staphylococcus aureus Clinical Impression(s) from Imaging Studies Chest CTA 04/20/18 11:30 IMPRESSION: Nonocclusive saddle embolus within the right and left pulmonary arteries, extending into the right upper lobe pulmonary artery. A small embolus is seen within the left lower lobe pulmonary artery. Dense consolidation within the right upper lobe with findings suggesting early cavitation. N.B. : The above information has been verbally conveyed by Ollie Kirkpatrick DO to , Covering Physician, on 04/20/2018 13:44:33 (ET). Electronically Signed: Ollie Kirkpatrick DO at 12:32 EDT Tel , Service support , Chest X-Ray 04/25/18 17:21 IMPRESSION: Stable borderline cardiomegaly and hyperexpansion of the left lung. Stable right upper lobe opacity. Increased left effusion. Decreased opacities in the right middle and lower lobes. No acute pathology. Electronically Signed: Sidney Patterson MD at 18:06 EDT , Service support , Medical Necessity - Tobacco Use Smoking Status: Current every day smoker Tobacco Use: Cigarettes Assessment/Plan All Active Problems (Last Reviewed 04/20/18 @ 08:55 by Venessa Meneses) Chemotherapy management, encounter for (Acute) Saddle embolus of pulmonary artery with acute cor pulmonale (Acute) Pneumonia (Acute) MSSA bacteremia (Acute) UTI (urinary tract infection) (Acute) Back pain (Acute) RECOMMENDATIONS: 1. Continue heparin drip. 2. Continue antibiotics per infectious diseases recommendations. 3. Wean supplemental oxygen as tolerated and mobilize patient as tolerated. 4. May wish to consider discontinuation of Haldol. IMPRESSIONS: 1. Cardiogenic shock secondary to submassive pulmonary embolism status post TPA Continue heparin drip and wean supplemental oxygen as tolerated. 2. A. fib with RVR Resolved. Likely secondary to #1. Patient has received TPA. Patient spontaneously converted. Echocardiogram shows preserved ejection fraction, but elevated pulmonary artery pressures, likely leading to dilatation of atria and arrhythmia. No recurrence of A. fib has been noted. 3. Reported cirrhosis secondary to hepatitis C/anemia of chronic disease Patient does have decreased albumin, but coagulation studies appear to be appropriate prior to initiation of heparin. Patient previously receiving chemotherapy for bladder cancer. Defer to hospitalist if oncologist needs to be consulted. 4. Septic shock Patient with MSSA bacteremia and probable lung abscess. Tentative plans for upcoming transesophageal echocardiogram. Last positive blood culture from 04/22/2018. Potentially Place PICC line early next week for facilitation of prolonged antibiotics, anticipated 4-6 weeks. 5. Hypertension/GERD/depression/stage II bladder cancer/thrombocytopenia Complicates care, management, recovery and prognosis. Platelet count appears to be improved compared to previous. Clinical suspicion for consumption. Unlikely secondary to HIT given continued heparin. This note was generated with [employer] dictation software. It may contain incorrect words, spelling, and punctuation that were not noted in checking the note before signing. Code Visit Inpatient E&M: [id number] Subs Hosp L2
--- NOTE | 2018-04-26 07:21 | PN_ITS ---
Subjective: The patient was seen and examined at the bedside this morning. Events from the last 24 hours have been reviewed. The patient is currently afebrile, hemodynamically stable and maintaining appropriate oxygen saturations on 4 L/ min via nasal cannula. Per nursing report, the patient is scheduled to undergo PICC line placement and have a transesophageal echocardiogram completed today. Objective: The patient's most recent lab work, culture data and imaging studies have all been personally reviewed. MSSA was isolated from blood culture dated April 21. Repeat blood culture dated April 23 has shown no growth to date. General: Alert, Cooperative, No apparent distress HEENT: Atraumatic, PERRLA, Normocephalic Oral: No Gingival or Mucosal Lesions/ Ulcerations Neck: Supple, No Nodes, Trachea Midline Lungs: No rhonchi, No wheeze, No rales, Diminished Cardiovascular: Regular rate, Regular Rhythm, Normal S1, Normal S2, No murmurs Abdomen: Bowel Sounds Present, Soft, Non Tender, Non-Distended Extremities: No clubbing, No cyanosis, Edema Skin: No breakdown Musculoskeletal: Cachexia Lymphatic: No Cervical, Supraclavicular, or Inguinal Adenopathy Neurological: Neuro grossly intact Psych/Mental Status: Flat Affect Vital Signs Temp Pulse Resp BP Pulse Ox 97.7 F L 75 18 95/61 95 04/26/18 02:00 04/26/18 03:31 04/26/18 02:00 04/26/18 02:00 04/26/18 07:11 Oxygen Flow Rate (L/min) 4 Oxygen Delivery Method Nasal Cannula Weight: 181 lb 7.047 oz Body Mass Index (BMI) 25.7 Intake and Output for Last 24 Hours 04/24/18 04/25/18 04/26/18 23:59 23:59 23:59 Intake Total 2660.9 / 2660.9 1658.4 / 1658.4 311 / 311 Output Total 1525 / 1525 900 / 900 250 / 250 Balance 1135.9 / 1135.9 758.4 / 758.4 61 / 61 Labs (Last 48 Hours) 04/25/18 04/25/18 04/25/18 04:25 06:00 06:00 WBC 18.6 H RBC 3.11 L Hgb 8.4 L Hct 27.2 L MCV 87.5 MCH 27.0 MCHC 30.9 L RDW 25.6 H RDW Differential 78.9 H Plt Count 131 L MPV 9.1 Neut % (Auto) Not Reportable Absolute Neuts (auto) 16.9 H Absolute Lymphs (auto) 1.30 Total Counted 100 Neutrophils % (Manual) 91 H Lymphocytes % (Manual) 7 L Metamyelocytes % 2 H Nucleated RBCs/100 WBC 1 Diff Path Review May foll Platelet Estimate ADEQUATE RBC Morphology N CHROM Anisocytosis 1+ APTT 98.4 H* Sodium 145 Potassium 3.5 Chloride 111 H Carbon Dioxide 26.0 Anion Gap 8 BUN 22 H Creatinine 0.59 L Estim Creat Clear Calc 67.45 Est GFR (MDRD) Af Amer 176 Est GFR (MDRD) Non-Af 145 BUN/Creatinine Ratio 37.5 H Glucose 122 H Calcium 7.5 L Total Bilirubin AST ALT Alkaline Phosphatase Total Protein Albumin Globulin Albumin/Globulin Ratio 04/25/18 04/25/18 04/26/18 12:15 17:35 00:03 WBC RBC Hgb Hct MCV MCH MCHC RDW RDW Differential Plt Count MPV Neut % (Auto) Absolute Neuts (auto) Absolute Lymphs (auto) Total Counted Neutrophils % (Manual) Lymphocytes % (Manual) Metamyelocytes % Nucleated RBCs/100 WBC Diff Path Review Platelet Estimate RBC Morphology Anisocytosis APTT 62.4 H 65.5 H 78.5 H Sodium Potassium Chloride Carbon Dioxide Anion Gap BUN Creatinine Estim Creat Clear Calc Est GFR (MDRD) Af Amer Est GFR (MDRD) Non-Af BUN/Creatinine Ratio Glucose Calcium Total Bilirubin AST ALT Alkaline Phosphatase Total Protein Albumin Globulin Albumin/Globulin Ratio 04/26/18 04/26/18 04/26/18 06:00 06:00 06:00 WBC 17.5 H RBC 3.10 L Hgb 8.6 L Hct 27.6 L MCV 89.0 MCH 27.7 MCHC 31.2 L RDW 26.2 H RDW Differential 77.8 H Plt Count 114 L MPV 8.4 Neut % (Auto) Not Reportable Absolute Neuts (auto) Not Reportable Absolute Lymphs (auto) Total Counted Pending Neutrophils % (Manual) Lymphocytes % (Manual) Metamyelocytes % Nucleated RBCs/100 WBC Diff Path Review Platelet Estimate RBC Morphology Anisocytosis APTT 78.4 H Sodium 145 Potassium 3.5 Chloride 110 H Carbon Dioxide 27.0 Anion Gap 8 BUN 19 H Creatinine 0.51 L Estim Creat Clear Calc 67.45 Est GFR (MDRD) Af Amer 208 Est GFR (MDRD) Non-Af 172 BUN/Creatinine Ratio 37.4 H Glucose 116 H Calcium 7.5 L Total Bilirubin 1.60 H AST 85 H ALT 11 L Alkaline Phosphatase 127 H Total Protein 6.1 L Albumin 0.9 L Globulin 5.2 H Albumin/Globulin Ratio 0.2 L Microbiology 04/23/18 13:30 Blood Culture (Wb) - Left Wrist Blood Culture - Preliminary No growth in 48 hours. 04/23/18 10:30 Other - Port Miscellaneous Culture - Preliminary Staphylococcus species 04/23/18 10:30 Other - Port Gram Stain - Final 04/21/18 03:40 Blood Culture (Wb) - Port Blood Culture - Final Staphylococcus aureus 04/21/18 03:40 Blood Culture (Wb) - Anticubital Left Blood Culture - Preliminary Staphylococcus aureus Clinical Impression(s) from Imaging Studies Chest CTA 04/20/18 11:30 IMPRESSION: Nonocclusive saddle embolus within the right and left pulmonary arteries, extending into the right upper lobe pulmonary artery. A small embolus is seen within the left lower lobe pulmonary artery. Dense consolidation within the right upper lobe with findings suggesting early cavitation. N.B. : The above information has been verbally conveyed by Ollie Kirkpatrick DO to , Covering Physician, on 04/20/2018 13:44:33 (ET). Electronically Signed: Ollie Kirkpatrick DO at 12:32 EDT Tel , Service support , Chest X-Ray 04/25/18 17:21 IMPRESSION: Stable borderline cardiomegaly and hyperexpansion of the left lung. Stable right upper lobe opacity. Increased left effusion. Decreased opacities in the right middle and lower lobes. No acute pathology. Electronically Signed: Sidney Patterson MD at 18:06 EDT , Service support , Medical Necessity - Tobacco Use Smoking Status: Current every day smoker Tobacco Use: Cigarettes Assessment/Plan All Active Problems (Last Reviewed 04/20/18 @ 08:55 by Venessa Meneses) Chemotherapy management, encounter for (Acute) Saddle embolus of pulmonary artery with acute cor pulmonale (Acute) Pneumonia (Acute) MSSA bacteremia (Acute) UTI (urinary tract infection) (Acute) Back pain (Acute) RECOMMENDATIONS: 1. Continue heparin drip. 2. Continue antibiotics per infectious diseases recommendations. 3. Wean supplemental oxygen as tolerated and mobilize patient as tolerated. 4. May wish to consider discontinuation of Haldol. IMPRESSIONS: 1. Cardiogenic shock secondary to submassive pulmonary embolism status post TPA Continue heparin drip and wean supplemental oxygen as tolerated. 2. A. fib with RVR Resolved. Likely secondary to #1. Patient has received TPA. Patient spontaneously converted. Echocardiogram shows preserved ejection fraction, but elevated pulmonary artery pressures, likely leading to dilatation of atria and arrhythmia. No recurrence of A. fib has been noted. 3. Reported cirrhosis secondary to hepatitis C/anemia of chronic disease Patient does have decreased albumin, but coagulation studies appear to be appropriate prior to initiation of heparin. Patient previously receiving chemotherapy for bladder cancer. Defer to hospitalist if oncologist needs to be consulted. 4. Septic shock Patient with MSSA bacteremia and probable lung abscess. Tentative plans for upcoming transesophageal echocardiogram. Last positive blood culture from 2017. Potentially Place PICC line early next week for facilitation of prolonged antibiotics, anticipated 4-6 weeks. 5. Hypertension/GERD/depression/stage II bladder cancer/thrombocytopenia Complicates care, management, recovery and prognosis. Platelet count appears to be improved compared to previous. Clinical suspicion for consumption. Unlikely secondary to HIT given continued heparin. This note was generated with [employer] dictation software. It may contain incorrect words, spelling, and punctuation that were not noted in checking the note before signing. Code Visit Inpatient E&M: 16364 Subs Hosp L2
[2018-04-26 07:49] LABS: Blast 1 % (0-0); Lymphocyte 4 % (19-41); Metamyelocyte 3 % (0-1); Myelocyte 5 (0-0); Neutrophil-Band 8 % (0-5); Neutrophil-Segmented 78 % (47-70); Promyelocyte 1 (0-0); Total Cells Counted 100 (MANUAL DIFF)
[2018-04-26 07:51] LABS: Anisocytosis 1+; Smudge Cells RARE
[2018-04-26 07:52] LABS: Hypochromasia RARE; Polychromasia RARE
[2018-04-26 07:55] LABS: Absolute Neutrophil Count 15.1 X10^3/uL (2.0-7.7)
--- NOTE | 2018-04-26 07:56 | PCM.PN.HOSP ---
Patient Problems: Active and Suspected Problems (Last Reviewed 04/20/18 @ 08:55 by Venessa Meneses) MSSA bacteremia (Acute) Subjective: Patient is a 67-year-old gentleman who presented with progressive shortness of breath and assessment of submassive saddle pulmonary embolism was made patient did receive TPA subsequently admitted to the ICU. Hospital stay complicated by septic shock with MSSA bacteremia. Patient seen remains frail. Still requiring high flow oxygen Objective: GENERAL: Frail Looking HEENT: Clear conjunctiva, NECK; supple, normal thyroid, distended JVD. CHEST: Diminished to auscultation bilaterally, HEART: Regular S1 S2, no audible murmurs ABDOMEN: soft, non-tender, normoactive bowel sounds, RECTAL: deferred EXTREMITIES: No edema, no clubbing, no cyanosis. 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 SKIN: Tattoos on both upper extremities Vitals/I&O's: Vital Signs Temp Pulse Resp BP Pulse Ox 97.7 F L 75 18 95/61 95 04/26/18 02:00 04/26/18 03:31 04/26/18 02:00 04/26/18 02:00 04/26/18 07:11 Oxygen Flow Rate (L/min) 4 Oxygen Delivery Method Nasal Cannula Weight: 82.3 kg Body Mass Index (BMI) 25.7 Intake and Output for Last 24 Hours 04/24/18 04/25/18 04/26/18 23:59 23:59 23:59 Intake Total 2660.9 / 2660.9 1658.4 / 1658.4 311 / 311 Output Total 1525 / 1525 900 / 900 250 / 250 Balance 1135.9 / 1135.9 758.4 / 758.4 61 / 61 Microbiology Past 72 Hours 04/23/18 13:30 Blood Culture (Wb) - Left Wrist Blood Culture - Preliminary No growth in 48 hours. 04/23/18 10:30 Other - Port Miscellaneous Culture - Preliminary Staphylococcus species 04/23/18 10:30 Other - Port Gram Stain - Final 04/21/18 03:40 Blood Culture (Wb) - Port Blood Culture - Final Staphylococcus aureus 04/21/18 03:40 Blood Culture (Wb) - Anticubital Left Blood Culture - Preliminary Staphylococcus aureus 04/23/18 14:30 Stool C. difficile DNA Amplification - Final 04/22/18 11:40 Blood Culture (Wb) - Left Hand Blood Culture - Preliminary Laboratory Results 04/25/18 06:00: Diff Path Review May raghu 04/25/18 12:15: APTT 62.4 H 04/25/18 17:35: APTT 65.5 H 04/26/18 00:03: APTT 78.5 H 04/26/18 06:00: WBC 17.5 H, RBC 3.10 L, Hgb 8.6 L, Hct 27.6 L, MCV 89.0, MCH 27.7, MCHC 31.2 L, RDW 26.2 H, RDW Differential 77.8 H, Plt Count 114 L, MPV 8.4, Neut % (Auto) Not Reportable, Absolute Neuts (auto) Not Reportable, Total Counted 100, Neutrophils % (Manual) 78 H, Band Neutrophils % 8 H, Lymphocytes % (Manual) 4 L, Metamyelocytes % 3 H, Myelocytes % 5 H, Promyelocytes % 1 H, Blast Cells % 1 H*, Smudge Cells RARE, Polychromasia RARE, Hypochromasia RARE, Anisocytosis 1+ 04/26/18 06:00: Sodium 145, Potassium 3.5, Chloride 110 H, Carbon Dioxide 27.0, Anion Gap 8, BUN 19 H, Creatinine 0.51 L, Estim Creat Clear Calc 67.45, Est GFR (MDRD) Af Amer 208, Est GFR (MDRD) Non-Af 172, BUN/Creatinine Ratio 37.4 H, Glucose 116 H, Calcium 7.5 L, Total Bilirubin 1.60 H, AST 85 H, ALT 11 L, Alkaline Phosphatase 127 H, Total Protein 6.1 L, Albumin 0.9 L, Globulin 5.2 H, Albumin/Globulin Ratio 0.2 L 04/26/18 06:00: APTT 78.4 H Current Medications Chlorhexidine Gluconate () 1 each TOPICAL DAILY [facility] Last Admin: 04/25/18 14:45 Dose: Not Given Guaifenesin (Mucinex) 1,200 mg PO BID [facility] Last Admin: 04/25/18 21:34 Dose: 1,200 mg Haloperidol Lactate (Haldol) 5 mg IV Q4H PRN PRN PRN Reason: AGITATION Last Admin: 04/23/18 13:47 Dose: 5 mg Heparin Sodium (Beef Lung) (Heparin 500 Unit/5 Ml (100/Ml)) 500 unit IV UD PRN PRN Reason: HEPARIN FLUSH Heparin Sodium/Dextrose () 25,000 units in 250 mls @ 11 mls/hr IV .[id number] [facility]; As Directed PRN Reason: Protocol Last Admin: 04/25/18 12:27 Dose: 11 mls/hr Cefazolin Sodium 2 gm/ Sodium (Chloride) 110 mls @ 150 mls/hr IV Q8 [facility] Last Admin: 04/26/18 06:31 Dose: 150 mls/hr Dextrose () 1,000 mls @ 40 mls/hr IV .Q25H [facility] Last Admin: 04/25/18 12:28 Dose: 40 mls/hr Magnesium Hydroxide (Milk Of Magnesia) 30 ml PO DAILY PRN PRN PRN Reason: Constipation Metoprolol Tartrate (Lopressor (Beta Arturo)) 25 mg PO BID [facility] Last Admin: 04/25/18 21:34 Dose: 25 mg Nicotine (Nicoderm Cq (Pbkc)) 21 mg TRANSDERM. DAILY [facility] Last Admin: 04/25/18 12:24 Dose: 21 mg Nutritional Formula (Lactose Free) (Ensure Enlive) 120 ml PO 4X/DAY [facility] Last Admin: 04/25/18 21:32 Dose: 120 ml Ondansetron HCl (Zofran) 4 mg IV Q8H PRN PRN PRN Reason: NAUSEA Pantoprazole Sodium (Protonix) 40 mg PO DAILY [facility] Last Admin: 04/25/18 12:25 Dose: 40 mg Sertraline HCl (Zoloft) 50 mg PO DAILY [facility] Last Admin: 04/25/18 12:25 Dose: 50 mg Sodium Chloride () 5 - 30 ml IV UD PRN PRN Reason: SALINE FLUSH Last Admin: 04/24/18 04:02 Dose: 20 ml Sodium Chloride () 10 ml IV UD PRN PRN Reason: R PORT FLUSH Last Admin: 04/21/18 03:50 Dose: 10 ml Medical Necessity - Tobacco Use Smoking Status: Current every day smoker Tobacco Use: Cigarettes Assessment/Plan All Active Problems (Last Reviewed 04/20/18 @ 08:55 by Venessa Meneses) Chemotherapy management, encounter for (Acute) Saddle embolus of pulmonary artery with acute cor pulmonale (Acute) Pneumonia (Acute) MSSA bacteremia (Acute) UTI (urinary tract infection) (Acute) Back pain (Acute) Patient is a 67-year-old gentleman who presented with progressive shortness of breath and assessment of submassive saddle pulmonary embolism was made patient did receive TPA subsequently admitted to the ICU. Hospital stay complicated by septic shock with MSSA bacteremia. Submassive pulmonary embolism with complications including cardiogenic shock patient did receive TPA admitted to the intensive care unit to the echo obtained as part of his management demonstrated elevated pulmonary arterial pressure and currently remains on heparin 2. Septic shock secondary to suspected lung abscess with MSSA bacteremia. Patient is scheduled to undergo PONCHO once his respiratory status stabilizes 3. Acute hypoxic respiratory failure secondary to #1 and 2 patients of supplemental oxygen 4. A. fib with RVR patient converted spontaneously 5. Hypertension patient was in shock upon presentation blood pressure has stabilized 6. History of cirrhosis of the liver secondary to hep C 7. Anemia secondary to anemia of chronic disease 8. Depression 9. Stage II bladder CA 10. Acute kidney injury secondary from ATN from hypotension resolved 11. Chronic thrombocytopenia secondary to patient's cirrhosis of the liver 12. Tobacco dependence counseled on cessation, offered nicotine patch for tobacco cravings Clinical Impression(s) from Imaging Studies Chest CTA 04/20/18 11:30 IMPRESSION: Nonocclusive saddle embolus within the right and left pulmonary arteries, extending into the right upper lobe pulmonary artery. A small embolus is seen within the left lower lobe pulmonary artery. Dense consolidation within the right upper lobe with findings suggesting early cavitation. N.B. : The above information has been verbally conveyed by Ollie Kirkpatrick DO to , Covering Physician, on 04/20/2018 13:44:33 (ET). Electronically Signed: Ollie Kirkpatrick DO at 12:32 EDT Tel , Service support , Chest X-Ray 04/25/18 17:21 IMPRESSION: Stable borderline cardiomegaly and hyperexpansion of the left lung. Stable right upper lobe opacity. Increased left effusion. Decreased opacities in the right middle and lower lobes. No acute pathology. Electronically Signed: Sidney Patterson MD at 18:06 EDT , Service support , Active Medications Chlorhexidine Gluconate () 1 each TOPICAL DAILY [facility] Last Admin: 04/25/18 14:45 Dose: Not Given Guaifenesin (Mucinex) 1,200 mg PO BID [facility] Last Admin: 04/25/18 21:34 Dose: 1,200 mg Haloperidol Lactate (Haldol) 5 mg IV Q4H PRN PRN PRN Reason: AGITATION Last Admin: 04/23/18 13:47 Dose: 5 mg Heparin Sodium (Beef Lung) (Heparin 500 Unit/5 Ml (100/Ml)) 500 unit IV UD PRN PRN Reason: HEPARIN FLUSH Heparin Sodium/Dextrose () 25,000 units in 250 mls @ 11 mls/hr IV .[id number] [facility]; As Directed PRN Reason: Protocol Last Admin: 04/25/18 12:27 Dose: 11 mls/hr Cefazolin Sodium 2 gm/ Sodium (Chloride) 110 mls @ 150 mls/hr IV Q8 [facility] Last Admin: 04/26/18 06:31 Dose: 150 mls/hr Dextrose () 1,000 mls @ 40 mls/hr IV .Q25H [facility] Last Admin: 04/25/18 12:28 Dose: 40 mls/hr Magnesium Hydroxide (Milk Of Magnesia) 30 ml PO DAILY PRN PRN PRN Reason: Constipation Metoprolol Tartrate (Lopressor (Beta Arturo)) 25 mg PO BID [facility] Last Admin: 04/25/18 21:34 Dose: 25 mg Nicotine (Nicoderm Cq (Pbkc)) 21 mg TRANSDERM. DAILY [facility] Last Admin: 04/25/18 12:24 Dose: 21 mg Nutritional Formula (Lactose Free) (Ensure Enlive) 120 ml PO 4X/DAY [facility] Last Admin: 04/25/18 21:32 Dose: 120 ml Ondansetron HCl (Zofran) 4 mg IV Q8H PRN PRN PRN Reason: NAUSEA Pantoprazole Sodium (Protonix) 40 mg PO DAILY [facility] Last Admin: 04/25/18 12:25 Dose: 40 mg Sertraline HCl (Zoloft) 50 mg PO DAILY [facility] Last Admin: 04/25/18 12:25 Dose: 50 mg Sodium Chloride () 5 - 30 ml IV UD PRN PRN Reason: SALINE FLUSH Last Admin: 04/24/18 04:02 Dose: 20 ml Sodium Chloride () 10 ml IV UD PRN PRN Reason: R PORT FLUSH Last Admin: 04/21/18 03:50 Dose: 10 ml Code Visit Inpatient E&M: 37076 Subs Hosp L3
[2018-04-26] MEDS: Pantoprazole Sodium 40 MG Tablet PO (10:03)
[2018-04-26] MEDS: Metoprolol Tartrate 25 MG Tablet PO ×2 (10:03→22:20)
[2018-04-26] MEDS: Sertraline 50 MG Tablet PO (10:03)
[2018-04-26] MEDS: guaiFENesin 1,200 MG Tablet 1200 MG PO ×2 (10:03→22:20)
--- NOTE | 2018-04-26 10:44 | CASEMGMT ---
Addendum entered by Alis Junior 04/26/18 12:22: In regard to questions below, pt will not need bipap, and precert is to be started once pt has PONCHO, and it is not clear when pt will have the PONCHO. Oncology saw pt today, will watch for this note. Also, pt will need IV antibiotics for 6 weeks most likely. SW left a message for Micki letting her know that pt will not need bipap, to check w/SW Georgina regarding starting precert tomorrow morning, and that pt will definitely need the IV antibiotics as was in the initial referral. SW will call back to let her know what the oncologist said in regard to the chemo. ANNA Plasencia, [employer] Original Note: Addendum entered by Alis Junior 04/26/18 12:19: Also, if IV antibiotics are needed, need to let [facility] know this as well. ANNA Plasencia, YESICA Original Note: Addendum entered by Alis Junior 04/26/18 12:14: Micki from [facility] states they can take pt but need to let pt know that 1. He cannot smoke there, 2. they cannot guarantee placement after W. Also, Micki needs to know: 3. Does pt need Bipap. 4. Will pt's chemo be discontinued? 5. When to start precert? SW spoke w/pt, SW let pt know he cannot smoke there and that they cannot guarantee placement after [facility]. SW will speak w/physicians regarding 3,4, and 5 above. ANNA Plasencia, [employer] Original Note: NICOLE called Micki at [facility], she states the referral on Thursday was not received. They have available beds, they will review the referral. NICOLE refaxed referral with updates. NICOLE will continue to follow. ANNA Plasencia, YESICA
--- NOTE | 2018-04-26 12:39 | PCM.PN.ID ---
Patient Problems: Active and Suspected Problems (Last Reviewed 04/20/18 @ 08:55 by Venessa Meneses) MSSA bacteremia (Acute) Subjective: Patient is out of bed to a chair responsive. Denies any cardiopulmonary distress. Overall hemodynamically stable. Tolerating Ancef well. Status post removal of his port. Objective: Alert chronically ill-appearing male lungs are clear heart exam S1-S2 no murmurs appreciated abdomen soft - Physical Exam Vital Signs Temp Pulse Resp BP Pulse Ox 98.1 F 90 16 112/78 93 04/26/18 08:00 04/26/18 10:03 04/26/18 08:00 04/26/18 08:00 04/26/18 08:00 Oxygen Flow Rate (L/min) 4 Oxygen Delivery Method Nasal Cannula Weight: 82.3 kg Body Mass Index (BMI) 25.7 Intake and Output for Last 24 Hours 04/24/18 04/25/18 04/26/18 23:59 23:59 23:59 Intake Total 2660.9 / 2660.9 1658.4 / 1658.4 311 / 311 Output Total 1525 / 1525 900 / 900 250 / 250 Balance 1135.9 / 1135.9 758.4 / 758.4 61 / 61 Microbiology Past 72 Hours 04/21/18 03:40 Blood Culture - Preliminary Blood Culture (Wb) - Anticubital Left Staphylococcus aureus 04/23/18 10:30 Miscellaneous Culture - Final Other - Port Staphylococcus hominis hominis Gram Stain - Final 04/23/18 13:30 Blood Culture - Preliminary Blood Culture (Wb) - Left Wrist No growth in 48 hours. 04/21/18 03:40 Blood Culture - Final Blood Culture (Wb) - Port Staphylococcus aureus 04/23/18 14:30 C. difficile DNA Amplification - Final Stool 04/22/18 11:40 Blood Culture - Preliminary Blood Culture (Wb) - Left Hand Laboratory Tests Past 24 Hrs 04/25/18 04/25/18 04/26/18 06:00 17:35 00:03 WBC RBC Hgb Hct MCV MCH MCHC RDW RDW Differential Plt Count MPV Neut % (Auto) Absolute Neuts (auto) Absolute Lymphs (auto) Total Counted Neutrophils % (Manual) Band Neutrophils % Lymphocytes % (Manual) Metamyelocytes % Myelocytes % Promyelocytes % Blast Cells % Diff Path Review May foll Smudge Cells Polychromasia Hypochromasia Anisocytosis APTT 65.5 H 78.5 H Sodium Potassium Chloride Carbon Dioxide Anion Gap BUN Creatinine Estim Creat Clear Calc Est GFR (MDRD) Af Amer Est GFR (MDRD) Non-Af BUN/Creatinine Ratio Glucose Calcium Total Bilirubin AST ALT Alkaline Phosphatase Total Protein Albumin Globulin Albumin/Globulin Ratio 04/26/18 04/26/18 04/26/18 06:00 06:00 06:00 WBC 17.5 H RBC 3.10 L Hgb 8.6 L Hct 27.6 L MCV 89.0 MCH 27.7 MCHC 31.2 L RDW 26.2 H RDW Differential 77.8 H Plt Count 114 L MPV 8.4 Neut % (Auto) Not Reportable Absolute Neuts (auto) 15.1 H Absolute Lymphs (auto) 0.70 L Total Counted 100 Neutrophils % (Manual) 78 H Band Neutrophils % 8 H Lymphocytes % (Manual) 4 L Metamyelocytes % 3 H Myelocytes % 5 H Promyelocytes % 1 H Blast Cells % 1 H* Diff Path Review May foll Smudge Cells RARE Polychromasia RARE Hypochromasia RARE Anisocytosis 1+ APTT 78.4 H Sodium 145 Potassium 3.5 Chloride 110 H Carbon Dioxide 27.0 Anion Gap 8 BUN 19 H Creatinine 0.51 L Estim Creat Clear Calc 67.45 Est GFR (MDRD) Af Amer 208 Est GFR (MDRD) Non-Af 172 BUN/Creatinine Ratio 37.4 H Glucose 116 H Calcium 7.5 L Total Bilirubin 1.60 H AST 85 H ALT 11 L Alkaline Phosphatase 127 H Total Protein 6.1 L Albumin 0.9 L Globulin 5.2 H Albumin/Globulin Ratio 0.2 L Medical Necessity - Tobacco Use Smoking Status: Current every day smoker Tobacco Use: Cigarettes Route of nutrition/ use of supplements: [] Nutritional Intake: [] IV Site: [] Garcia Catheter: [] - Assessment/Plan Antibiotics: [] Assessment/Plan: [] Active and Suspected Problems (Last Reviewed 04/20/18 @ 08:55 by Venessa Meneses) MSSA bacteremia (Acute) MSSA bacteremia on Ancef. Most recent blood cultures remain sterile. Plan to continue current antimicrobial therapy. Await PONCHO information.
[2018-04-26 13:43] LABS: Pathologist Review Reviewed
[2018-04-26 13:58] LABS: Pathologist Review Reviewed
[2018-04-26 14:02] LABS: Pathologist Review Reviewed
[2018-04-27] VITALS (14 sets, daily range): BP systolic 97–125; BP diastolic 62–77; PULSE 47–87; RESP 16–19; TEMP 36.3–36.6; O2SAT 88–96
[2018-04-27] MEDS: Furosemide 20 MG/2 ML VIAL IV (01:37)
[2018-04-27] MEDS: 0.9% NaCl Peripheral Flush Adult/Peds IV ×2 (01:37→05:17)
[2018-04-27] MEDS: HEPARIN/D5w 25,000 UNITS 25,000 UNITS/250 ML IV.SOLN. 11 UNITS IV (05:15)
[2018-04-27] MEDS: Cefazolin 2 GM in 0.9% Normal Saline 100 ML IV ×3 (05:17→22:12)
--- NOTE | 2018-04-27 05:55 | EKG12_ITS ---
Test Reason : AM EKG Blood Pressure : / mmHG Vent. Rate : 074 BPM Atrial Rate : 074 BPM P-R Int : 152 ms QRS Dur : 086 ms QT Int : 408 ms P-R-T Axes : 055 036 054 degrees QTc Int : 452 ms Sinus rhythm with Premature atrial complexes Otherwise normal ECG When compared with ECG of 20-APR-2018 11:20, MANUAL COMPARISON REQUIRED, DATA IS UNCONFIRMED Confirmed by RADHA DRAPER, SALMA ([id number]), assistant film editor ADRI CHILD ([id number]) on 04/28/2018 1:54:28 PM Referred By: YASMINE Confirmed By:SALMA GARCIA MD
[2018-04-27 06:38] LABS: International Normalized Ratio 1.7
[2018-04-27 06:40] LABS: Partial Thromboplast Time 81.5 Seconds (24.1-36.2)
[2018-04-27 06:56] LABS: ALB/GLOB Ratio 0.2 RATIO (0.9-2.4); AST(SGOT) 84 U/L (15-37); Alanine Aminotransfer ALT/SGPT 10 U/L (16-61); Albumin, Serum 0.9 g/dL (3.2-5.0); Alkaline Phosphatase 126 U/L (45-117); Anion Gap 8 (5-15); BUN 20 mg/dL (7-18); BUN/Creat Ratio 33.8 RATIO (10-20); Calcium,Total 7.3 mg/dL (8.5-10.1); Chloride 111 mmol/L (98-107); Creatinine, Serum 0.59 mg/dL (0.70-1.30); EST Glomerular Filtration Rate 144 mL/min (>60); Est Glom Filt Rate - Afr Amer 174 mL/min (>60); Estimated Creatinine Clearance 67.45 ml/min; Globulin 5.2 g/dL (2.2-4.2); Glucose 97 mg/dL (74-106); Potassium 3.4 mmol/L (3.5-5.1); Protein, Total 6.1 g/dL (6.4-8.2); Sodium Level 146 mmol/L (136-145)
[2018-04-27 07:06] LABS: Hematocrit 27.9 % (40-54); Hemoglobin 8.7 g/dl (13.0-16.5); Mean Corp Hgb Conc 31.2 g/gl (32-36); Mean Corpuscular Volume 89.7 fL (80-94); Mean Platelet Vol. 9.6 fl (6.2-12.0); Platelet Count 89 K/mm3 (150-450); RBC Distribution Width CV 26.7 % (11.6-14.6); RBC Distribution Width SD 81.1 fl (35.1-43.9); Red Blood Count 3.11 M/mm3 (4.6-6.2); White Blood Count 17.1 K/mm3 (4.4-11.0)
[2018-04-27 07:07] LABS: Differential Indicated MANUAL DIFF; POSITIVE COUNT YES; POSITIVE DIFFERENTIAL NO; POSITIVE MORPHOLOGY YES
[2018-04-27 07:42] LABS: Lymphocyte 6 % (19-41); Monocyte 2 % (0-10); Neutrophil-Band 2 % (0-5); Neutrophil-Segmented 90 % (47-70); Total Cells Counted 100 (MANUAL DIFF)
[2018-04-27 07:43] LABS: Anisocytosis 1+; Hypochromasia 1+; Microcytosis 1+; Platelet Estimate MOD DEC (ADEQ)
[2018-04-27 07:45] LABS: Absolute Lymphocyte Count 1.03 X10^3/ul (0.83-4.51); Absolute Neutrophil Count 15.7 X10^3/uL (2.0-7.7)
--- NOTE | 2018-04-27 07:54 | EKG12_ITS ---
Test Reason : ARRYTHMIA Blood Pressure : / mmHG Vent. Rate : 082 BPM Atrial Rate : 082 BPM P-R Int : 152 ms QRS Dur : 086 ms QT Int : 396 ms P-R-T Axes : 068 054 063 degrees QTc Int : 462 ms Normal sinus rhythm Normal ECG Confirmed by RADHA DRAPER, SALMA ([id number]), photograph editor ADRI CHILD ([id number]) on 04/28/2018 1:53:31 PM Referred By: MELISSA XIE Confirmed By:SALMA GARCIA MD
--- NOTE | 2018-04-27 08:24 | PCM.PROGNOTE ---
Patient Problems: Active and Suspected Problems (Last Reviewed 04/20/18 @ 08:55 by Venessa Meneses) MSSA bacteremia (Acute) Subjective: The patient was seen and examined at the bedside this morning. Events from the last 24 hours have been reviewed. The patient is currently afebrile, hemodynamically stable and maintaining appropriate oxygen saturations on 2.5 L via nasal cannula. No overnight issues were reported. The patient is resting comfortably in bedside recliner. Objective: The patient's most recent lab work, culture data and imaging studies have all been personally reviewed. MSSA was isolated from blood culture dated April 21. Repeat blood culture dated April 23 has shown no growth to date. Repeat blood culture dated April 24 was positive for staph aureus. - Physical Exam General: Alert, Cooperative, No apparent distress HEENT: Atraumatic, PERRLA, Normocephalic, - - Temporal wasting present Oral: Moist Mucosa Neck: Supple, No Nodes, Trachea Midline Lungs: No rhonchi, No wheeze, No rales, Diminished Cardiovascular: Regular rate, Regular Rhythm, Normal S1, Normal S2, No murmurs Abdomen: Bowel Sounds Present, Soft, Non Tender Extremities: No clubbing, No cyanosis, Edema Skin: No breakdown Musculoskeletal: Cachexia, Muscle Wasting Lymphatic: No Cervical, Supraclavicular, or Inguinal Adenopathy Neurological: Neuro grossly intact Psych/Mental Status: Flat Affect Vital Signs Temp Pulse Resp BP Pulse Ox 97.9 F 80 19 H 125/77 H 93 04/27/18 04:07 04/27/18 07:00 04/27/18 04:07 04/27/18 04:07 04/27/18 04:07 Oxygen Flow Rate (L/min) 2.5 Oxygen Delivery Method Nasal Cannula Weight: 178 lb 9.191 oz Body Mass Index (BMI) 25.7 Intake and Output for Last 24 Hours 04/25/18 04/26/18 04/27/18 23:59 23:59 23:59 Intake Total 1658.4 / 1658.4 1440.9 / 1440.9 104.7 / 104.7 Output Total 900 / 900 690 / 690 750 / 750 Balance 758.4 / 758.4 750.9 / 750.9 -645.3 / -645.3 Microbiology Past 72 Hours 04/21/18 03:40 Blood Culture - Final Blood Culture (Wb) - Anticubital Left Staphylococcus aureus 04/24/18 14:30 Blood Culture - Preliminary Blood Culture (Wb) - No Site/Description Given 04/23/18 10:30 Miscellaneous Culture - Final Other - Port Staphylococcus hominis hominis Gram Stain - Final 04/23/18 13:30 Blood Culture - Preliminary Blood Culture (Wb) - Left Wrist No growth in 48 hours. 04/21/18 03:40 Blood Culture - Final Blood Culture (Wb) - Port Staphylococcus aureus Laboratory Tests Past 24 Hrs 04/24/18 04/25/18 04/26/18 04:05 06:00 06:00 WBC RBC Hgb Hct MCV MCH MCHC RDW RDW Differential Plt Count MPV Neut % (Auto) Absolute Neuts (auto) Absolute Lymphs (auto) Total Counted Neutrophils % (Manual) Band Neutrophils % Lymphocytes % (Manual) Monocytes % (Manual) Diff Path Review Reviewed Reviewed Reviewed Platelet Estimate Hypochromasia Anisocytosis Microcytosis PT INR APTT Sodium Potassium Chloride Carbon Dioxide Anion Gap BUN Creatinine Estim Creat Clear Calc Est GFR (MDRD) Af Amer Est GFR (MDRD) Non-Af BUN/Creatinine Ratio Glucose Calcium Total Bilirubin AST ALT Alkaline Phosphatase Total Protein Albumin Globulin Albumin/Globulin Ratio 04/27/18 04/27/18 04/27/18 06:00 06:00 06:00 WBC 17.1 H RBC 3.11 L Hgb 8.7 L Hct 27.9 L MCV 89.7 MCH 28.0 MCHC 31.2 L RDW 26.7 H RDW Differential 81.1 H Plt Count 89 L MPV 9.6 Neut % (Auto) Not Reportable Absolute Neuts (auto) 15.7 H Absolute Lymphs (auto) 1.03 Total Counted 100 Neutrophils % (Manual) 90 H Band Neutrophils % 2 Lymphocytes % (Manual) 6 L Monocytes % (Manual) 2 Diff Path Review May foll Platelet Estimate MOD DEC Hypochromasia 1+ Anisocytosis 1+ Microcytosis 1+ PT 20.0 H INR 1.7 APTT 81.5 H Sodium 146 H Potassium 3.4 L Chloride 111 H Carbon Dioxide 27.0 Anion Gap 8 BUN 20 H Creatinine 0.59 L Estim Creat Clear Calc 67.45 Est GFR (MDRD) Af Amer 174 Est GFR (MDRD) Non-Af 144 BUN/Creatinine Ratio 33.8 H Glucose 97 Calcium 7.3 L Total Bilirubin 1.20 H AST 84 H ALT 10 L Alkaline Phosphatase 126 H Total Protein 6.1 L Albumin 0.9 L Globulin 5.2 H Albumin/Globulin Ratio 0.2 L Clinical Impression(s) from Imaging Studies Chest CTA 04/20/18 11:30 IMPRESSION: Nonocclusive saddle embolus within the right and left pulmonary arteries, extending into the right upper lobe pulmonary artery. A small embolus is seen within the left lower lobe pulmonary artery. Dense consolidation within the right upper lobe with findings suggesting early cavitation. N.B. : The above information has been verbally conveyed by Ollie Kirkpatrick DO to , Covering Physician, on 04/20/2018 13:44:33 (ET). Electronically Signed: Ollie Kirkpatrick DO at 12:32 EDT Tel , Service support , Chest X-Ray 04/21/18 15:54 IMPRESSION: Dense airspace opacity throughout the right lung, most pronounced in the right upper lobe. This likely represents multilobar pneumonia. Electronically Signed: Don Castro at 16:13 EDT Tel , Service support , Chest X-Ray 04/25/18 17:21 IMPRESSION: Stable borderline cardiomegaly and hyperexpansion of the left lung. Stable right upper lobe opacity. Increased left effusion. Decreased opacities in the right middle and lower lobes. No acute pathology. Electronically Signed: Sidney Patterson MD at 18:06 EDT , Service support , Medical Necessity - Tobacco Use Smoking Status: Current every day smoker Tobacco Use: Cigarettes Assessment/Plan All Active Problems (Last Reviewed 04/20/18 @ 08:55 by Venessa Meneses) Chemotherapy management, encounter for (Acute) Saddle embolus of pulmonary artery with acute cor pulmonale (Acute) Pneumonia (Acute) MSSA bacteremia (Acute) UTI (urinary tract infection) (Acute) Back pain (Acute) RECOMMENDATIONS: 1. Continue heparin drip. 2. Continue antibiotics per infectious diseases recommendations. 3. Wean supplemental oxygen as tolerated and mobilize patient as tolerated. 4. May wish to consider discontinuation of Haldol. 5. Clear from my perspective to proceed with transesophageal echocardiogram IMPRESSIONS: 1. Cardiogenic shock secondary to submassive pulmonary embolism status post TPA Continue heparin drip and wean supplemental oxygen as tolerated. 2. A. fib with RVR Resolved. Likely secondary to #1. Patient has received TPA. Patient spontaneously converted. Echocardiogram shows preserved ejection fraction, but elevated pulmonary artery pressures, likely leading to dilatation of atria and arrhythmia. No recurrence of A. fib has been noted. 3. Reported cirrhosis secondary to hepatitis C/anemia of chronic disease Patient does have decreased albumin, but coagulation studies appear to be appropriate prior to initiation of heparin. Patient previously receiving chemotherapy for bladder cancer. Defer to hospitalist if oncologist needs to be consulted. 4. Septic shock Patient with MSSA bacteremia and probable lung abscess. Continue antibiotics per infectious diseases recommendations. The patient is clear from a pulmonary perspective to proceed with transesophageal echocardiogram. 5. Hypertension/GERD/depression/stage II bladder cancer/thrombocytopenia Complicates care, management, recovery and prognosis. Platelet count appears to be improved compared to previous. Clinical suspicion for consumption. Unlikely secondary to HIT given continued heparin. This note was generated with pocketfungames dictation software. It may contain incorrect words, spelling, and punctuation that were not noted in checking the note before signing. Code Visit Inpatient E&M: 85273 Subs Hosp L2
--- NOTE | 2018-04-27 10:39 | PN_ITS ---
Patient Problems: Active and Suspected Problems (Last Reviewed 04/20/18 @ 08:55 by Venessa Meneses) MSSA bacteremia (Acute) Subjective: Patient seen still remains dyspneic at rest. Was transferred from ICU to the progressive care unit on 04/26/2018. Repeat cultures obtained on 04/24/2018 still positive for methicillin sensitive staph aureus Objective: GENERAL: Frail Looking HEENT: Clear conjunctiva, NECK; supple, normal thyroid, distended JVD. CHEST: Diminished to auscultation bilaterally, HEART: Regular S1 S2, no audible murmurs ABDOMEN: soft, non-tender, normoactive bowel sounds, RECTAL: deferred EXTREMITIES: No edema, no clubbing, no cyanosis. GIMP TACKER: Awake; no lateralizing signs. SKIN: Tattoos on both upper extremities Vitals/I&O's: Vital Signs Temp Pulse Resp BP Pulse Ox 97.9 F 80 19 H 125/77 H 88 04/27/18 04:07 04/27/18 07:00 04/27/18 04:07 04/27/18 04:07 04/27/18 07:20 Oxygen Flow Rate (L/min) 3 Oxygen Delivery Method Nasal Cannula Weight: 81 kg Body Mass Index (BMI) 25.7 Intake and Output for Last 24 Hours 04/25/18 04/26/18 04/27/18 23:59 23:59 23:59 Intake Total 1658.4 / 1658.4 1440.9 / 1440.9 104.7 / 104.7 Output Total 900 / 900 690 / 690 750 / 750 Balance 758.4 / 758.4 750.9 / 750.9 -645.3 / -645.3 Microbiology Past 72 Hours 04/22/18 11:40 Blood Culture (Wb) - Left Hand Blood Culture - Preliminary Staphylococcus aureus 04/24/18 14:30 Blood Culture (Wb) - No Site/Description Given Blood Culture - Preliminary Staphylococcus aureus 04/21/18 03:40 Blood Culture (Wb) - Anticubital Left Blood Culture - Final Staphylococcus aureus 04/23/18 10:30 Other - Port Miscellaneous Culture - Final Staphylococcus hominis hominis 04/23/18 10:30 Other - Port Gram Stain - Final 04/23/18 13:30 Blood Culture (Wb) - Left Wrist Blood Culture - Preliminary No growth in 48 hours. 04/21/18 03:40 Blood Culture (Wb) - Port Blood Culture - Final Staphylococcus aureus Laboratory Results 04/24/18 04:05: Diff Path Review Reviewed 04/25/18 06:00: Diff Path Review Reviewed 04/26/18 06:00: Diff Path Review Reviewed 04/27/18 06:00: Sodium 146 H, Potassium 3.4 L, Chloride 111 H, Carbon Dioxide 27.0, Anion Gap 8, BUN 20 H, Creatinine 0.59 L, Estim Creat Clear Calc 67.45, Est GFR (MDRD) Af Amer 174, Est GFR (MDRD) Non-Af 144, BUN/Creatinine Ratio 33.8 H, Glucose 97, Calcium 7.3 L, Total Bilirubin 1.20 H, AST 84 H, ALT 10 L, Alkaline Phosphatase 126 H, Total Protein 6.1 L, Albumin 0.9 L, Globulin 5.2 H, Albumin/Globulin Ratio 0.2 L 04/27/18 06:00: PT 20.0 H, INR 1.7, APTT 81.5 H 04/27/18 06:00: WBC 17.1 H, RBC 3.11 L, Hgb 8.7 L, Hct 27.9 L, MCV 89.7, MCH 28.0, MCHC 31.2 L, RDW 26.7 H, RDW Differential 81.1 H, Plt Count 89 L, MPV 9.6 , Neut % (Auto) Not Reportable, Absolute Neuts (auto) 15.7 H, Absolute Lymphs ( auto) 1.03, Total Counted 100, Neutrophils % (Manual) 90 H, Band Neutrophils % 2 , Lymphocytes % (Manual) 6 L, Monocytes % (Manual) 2, Diff Path Review May foll , Platelet Estimate MOD DEC, Hypochromasia 1+, Anisocytosis 1+, Microcytosis 1+ Current Medications Guaifenesin (Mucinex) 1,200 mg PO BID YUE Last Admin: 04/26/18 22:20 Dose: 1,200 mg Haloperidol Lactate (Haldol) 5 mg IV Q4H PRN PRN PRN Reason: AGITATION Last Admin: 04/23/18 13:47 Dose: 5 mg Heparin Sodium (Beef Lung) (Heparin 500 Unit/5 Ml (100/Ml)) 500 unit IV UD PRN PRN Reason: HEPARIN FLUSH Heparin Sodium/Dextrose () 25,000 units in 250 mls @ 11 mls/hr IV .[id number] FOR[facility]LY [facility], [facility]1983 ; As Directed PRN Reason: Protocol Last Admin: 04/27/18 05:15 Dose: 11 mls/hr Cefazolin Sodium 2 gm/ Sodium (Chloride) 110 mls @ 150 mls/hr IV Q8 [facility], [facility]1983 Last Admin: 04/27/18 05:17 Dose: 150 mls/hr Magnesium Hydroxide (Milk Of Magnesia) 30 ml PO DAILY PRN PRN PRN Reason: Constipation Metoprolol Tartrate (Lopressor (Beta Arturo)) 25 mg PO BID [facility], [facility]1983 Last Admin: 04/26/18 22:20 Dose: 25 mg Nicotine (Nicoderm Cq (Pbkc)) 21 mg TRANSDERM. DAILY [facility], [facility]–1983 Last Admin: 04/26/18 10:03 Dose: 21 mg Nutritional Formula (Lactose Free) (Ensure Enlive) 120 ml PO 4X/DAY FOR[facility], [facility]1983 Last Admin: 04/26/18 22:15 Dose: Not Given Ondansetron HCl (Zofran) 4 mg IV Q8H PRN PRN PRN Reason: NAUSEA Pantoprazole Sodium (Protonix) 40 mg PO DAILY [facility], [facility]–1983 Last Admin: 04/26/18 10:03 Dose: 40 mg Sertraline HCl (Zoloft) 50 mg PO DAILY [facility] Last Admin: 04/26/18 10:03 Dose: 50 mg Sodium Chloride () 5 - 30 ml IV UD PRN PRN Reason: SALINE FLUSH Last Admin: 04/27/18 05:17 Dose: 10 ml Sodium Chloride () 10 ml IV UD PRN PRN Reason: R PORT FLUSH Last Admin: 04/21/18 03:50 Dose: 10 ml Medical Necessity - Tobacco Use Smoking Status: Current every day smoker Tobacco Use: Cigarettes Assessment/Plan All Active Problems (Last Reviewed 04/20/18 @ 08:55 by Venessa Meneses) Chemotherapy management, encounter for (Acute) Saddle embolus of pulmonary artery with acute cor pulmonale (Acute) Pneumonia (Acute) MSSA bacteremia (Acute) UTI (urinary tract infection) (Acute) Back pain (Acute) Patient is a 67-year-old gentleman who presented with progressive shortness of breath and assessment of submassive saddle pulmonary embolism was made patient did receive TPA subsequently admitted to the ICU. Hospital stay complicated by septic shock with MSSA bacteremia. 1. Submassive pulmonary embolism with complications including cardiogenic shock patient did receive TPA admitted to the intensive care unit to the echo obtained as part of his management demonstrated elevated pulmonary arterial pressure and currently remains on heparin 2. Septic shock secondary to suspected lung abscess with MSSA bacteremia. Repeat cultures obtained on 04/24/2018 came back positive for MSSA despite patient being on broad-spectrum antibiotics since his admission. Case was discussed with Dr. Hyde with pulmonary medicine patient stable from the pulmonary status for PONCHO order was subsequently placed 3. Acute hypoxic respiratory failure secondary to #1 and 2 patients of supplemental oxygen 4. A. fib with RVR patient converted spontaneously 5. Hypertension patient was in shock upon presentation blood pressure has stabilized 6. History of cirrhosis of the liver secondary to hep C 7. Anemia secondary to anemia of chronic disease 8. Depression 9. Stage II bladder CA 10. Acute kidney injury secondary from ATN from hypotension resolved 11. Chronic thrombocytopenia secondary to patient's cirrhosis of the liver 12. Tobacco dependence counseled on cessation, offered nicotine patch for tobacco cravings Clinical Impression(s) from Imaging Studies Chest CTA 04/20/18 11:30 IMPRESSION: Nonocclusive saddle embolus within the right and left pulmonary arteries, extending into the right upper lobe pulmonary artery. A small embolus is seen within the left lower lobe pulmonary artery. Dense consolidation within the right upper lobe with findings suggesting early cavitation. N.B. : The above information has been verbally conveyed by Ollie Kirkpatrick DO to , Covering Physician, on 04/20/2018 13:44:33 (ET). Electronically Signed: Ollie Kirkpatrick DO at 12:32 EDT Tel , Service support , Chest X-Ray 04/25/18 17:21 IMPRESSION: Stable borderline cardiomegaly and hyperexpansion of the left lung. Stable right upper lobe opacity. Increased left effusion. Decreased opacities in the right middle and lower lobes. No acute pathology. Electronically Signed: Sidney Patterson MD at 18:06 EDT , Service support , Active Medications Chlorhexidine Gluconate () 1 each TOPICAL DAILY [facility], [facility] Last Admin: 04/25/18 14:45 Dose: Not Given Guaifenesin (Mucinex) 1,200 mg PO BID [facility] Last Admin: 04/25/18 21:34 Dose: 1,200 mg Haloperidol Lactate (Haldol) 5 mg IV Q4H PRN PRN PRN Reason: AGITATION Last Admin: 04/23/18 13:47 Dose: 5 mg Heparin Sodium (Beef Lung) (Heparin 500 Unit/5 Ml (100/Ml)) 500 unit IV UD PRN PRN Reason: HEPARIN FLUSH Heparin Sodium/Dextrose () 25,000 units in 250 mls @ 11 mls/hr IV .[id number] YUE ; As Directed PRN Reason: Protocol Last Admin: 04/25/18 12:27 Dose: 11 mls/hr Cefazolin Sodium 2 gm/ Sodium (Chloride) 110 mls @ 150 mls/hr IV Q8 [facility], [facility] Last Admin: 04/26/18 06:31 Dose: 150 mls/hr Dextrose () 1,000 mls @ 40 mls/hr IV .Q25H [facility], [facility] Last Admin: 04/25/18 12:28 Dose: 40 mls/hr Magnesium Hydroxide (Milk Of Magnesia) 30 ml PO DAILY PRN PRN PRN Reason: Constipation Metoprolol Tartrate (Lopressor (Beta Arturo)) 25 mg PO BID [facility] Last Admin: 04/25/18 21:34 Dose: 25 mg Nicotine (Nicoderm Cq (Pbkc)) 21 mg TRANSDERM. DAILY [facility] Last Admin: 04/25/18 12:24 Dose: 21 mg Nutritional Formula (Lactose Free) (Ensure Enlive) 120 ml PO 4X/DAY [facility] Last Admin: 04/25/18 21:32 Dose: 120 ml Ondansetron HCl (Zofran) 4 mg IV Q8H PRN PRN PRN Reason: NAUSEA Pantoprazole Sodium (Protonix) 40 mg PO DAILY [facility] Last Admin: 04/25/18 12:25 Dose: 40 mg Sertraline HCl (Zoloft) 50 mg PO DAILY [facility] Last Admin: 04/25/18 12:25 Dose: 50 mg Sodium Chloride () 5 - 30 ml IV UD PRN PRN Reason: SALINE FLUSH Last Admin: 04/24/18 04:02 Dose: 20 ml Sodium Chloride () 10 ml IV UD PRN PRN Reason: R PORT FLUSH Last Admin: 04/21/18 03:50 Dose: 10 ml Code Visit Inpatient E&M: 73512 Subs Hosp L2
[2018-04-27] MEDS: guaiFENesin 1,200 MG Tablet 1200 MG PO ×2 (11:11→22:13)
[2018-04-27] MEDS: Sertraline 50 MG Tablet PO (11:12)
[2018-04-27] MEDS: Pantoprazole Sodium 40 MG Tablet PO (11:12)
[2018-04-27] MEDS: Metoprolol Tartrate 25 MG Tablet PO (11:12)
--- NOTE | 2018-04-27 13:40 | PCM.PN.ID ---
Patient Problems: Active and Suspected Problems (Last Reviewed 04/20/18 @ 08:55 by Venessa Meneses) MSSA bacteremia (Acute) Subjective: Patient transferred out of the ICU to the stepdown unit. No significant cardiopulmonary distress. Most recent blood culture from 24 April positive for staph aureus. On Ancef 2 g IV every 8 hours. Objective: Alert conversive lungs are clear heart exam S1-S2 abdomen soft. Garcia catheter remains in place - Physical Exam Vital Signs Temp Pulse Resp BP Pulse Ox 97.4 F L 82 18 100/65 93 04/27/18 11:15 04/27/18 11:15 04/27/18 11:15 04/27/18 11:15 04/27/18 11:15 Oxygen Flow Rate (L/min) 3 Oxygen Delivery Method Nasal Cannula Weight: 81 kg Body Mass Index (BMI) 25.7 Intake and Output for Last 24 Hours 04/25/18 04/26/18 04/27/18 23:59 23:59 23:59 Intake Total 1658.4 / 1658.4 1440.9 / 1440.9 104.7 / 104.7 Output Total 900 / 900 690 / 690 750 / 750 Balance 758.4 / 758.4 750.9 / 750.9 -645.3 / -645.3 Microbiology Past 72 Hours 04/22/18 11:40 Blood Culture - Preliminary Blood Culture (Wb) - Left Hand Staphylococcus aureus 04/24/18 14:30 Blood Culture - Preliminary Blood Culture (Wb) - No Site/Description Given Staphylococcus aureus 04/21/18 03:40 Blood Culture - Final Blood Culture (Wb) - Anticubital Left Staphylococcus aureus 04/23/18 10:30 Miscellaneous Culture - Final Other - Port Staphylococcus hominis hominis Gram Stain - Final 04/23/18 13:30 Blood Culture - Preliminary Blood Culture (Wb) - Left Wrist No growth in 48 hours. Laboratory Tests Past 24 Hrs 04/24/18 04/25/18 04/26/18 04:05 06:00 06:00 WBC RBC Hgb Hct MCV MCH MCHC RDW RDW Differential Plt Count MPV Neut % (Auto) Absolute Neuts (auto) Absolute Lymphs (auto) Total Counted Neutrophils % (Manual) Band Neutrophils % Lymphocytes % (Manual) Monocytes % (Manual) Diff Path Review Reviewed Reviewed Reviewed Platelet Estimate Hypochromasia Anisocytosis Microcytosis PT INR APTT Sodium Potassium Chloride Carbon Dioxide Anion Gap BUN Creatinine Estim Creat Clear Calc Est GFR (MDRD) Af Amer Est GFR (MDRD) Non-Af BUN/Creatinine Ratio Glucose Calcium Total Bilirubin AST ALT Alkaline Phosphatase Total Protein Albumin Globulin Albumin/Globulin Ratio 04/27/18 04/27/18 04/27/18 06:00 06:00 06:00 WBC 17.1 H RBC 3.11 L Hgb 8.7 L Hct 27.9 L MCV 89.7 MCH 28.0 MCHC 31.2 L RDW 26.7 H RDW Differential 81.1 H Plt Count 89 L MPV 9.6 Neut % (Auto) Not Reportable Absolute Neuts (auto) 15.7 H Absolute Lymphs (auto) 1.03 Total Counted 100 Neutrophils % (Manual) 90 H Band Neutrophils % 2 Lymphocytes % (Manual) 6 L Monocytes % (Manual) 2 Diff Path Review May foll Platelet Estimate MOD DEC Hypochromasia 1+ Anisocytosis 1+ Microcytosis 1+ PT 20.0 H INR 1.7 APTT 81.5 H Sodium 146 H Potassium 3.4 L Chloride 111 H Carbon Dioxide 27.0 Anion Gap 8 BUN 20 H Creatinine 0.59 L Estim Creat Clear Calc 67.45 Est GFR (MDRD) Af Amer 174 Est GFR (MDRD) Non-Af 144 BUN/Creatinine Ratio 33.8 H Glucose 97 Calcium 7.3 L Total Bilirubin 1.20 H AST 84 H ALT 10 L Alkaline Phosphatase 126 H Total Protein 6.1 L Albumin 0.9 L Globulin 5.2 H Albumin/Globulin Ratio 0.2 L 04/27/18 13:20 WBC RBC Hgb Hct MCV MCH MCHC RDW RDW Differential Plt Count MPV Neut % (Auto) Absolute Neuts (auto) Absolute Lymphs (auto) Total Counted Neutrophils % (Manual) Band Neutrophils % Lymphocytes % (Manual) Monocytes % (Manual) Diff Path Review Platelet Estimate Hypochromasia Anisocytosis Microcytosis PT INR APTT Pending Sodium Potassium Chloride Carbon Dioxide Anion Gap BUN Creatinine Estim Creat Clear Calc Est GFR (MDRD) Af Amer Est GFR (MDRD) Non-Af BUN/Creatinine Ratio Glucose Calcium Total Bilirubin AST ALT Alkaline Phosphatase Total Protein Albumin Globulin Albumin/Globulin Ratio Medical Necessity - Tobacco Use Smoking Status: Current every day smoker Tobacco Use: Cigarettes Route of nutrition/ use of supplements: [] Nutritional Intake: [] IV Site: [] Garcia Catheter: [] - Assessment/Plan MSSA bacteremia. We will continue Ancef 2 g IV every 8 hours. Repeat blood cultures today. Awaiting transesophageal echocardiogram.
--- NOTE | 2018-04-27 16:39 | CHAPLAIN ---
Type of Pastoral Visit _x__ Initial Visit ___ Follow-up Visit ___ On-call Visit ___ General Patient Visit ___ Spiritual Assessment ___ Family Conference ___ Bereavement ___ Rapid Response ___ Code Blue ___ Other (describe below) Pastoral Care Referral From _x__ Patient ___ Family ___ Nurse ___ Physician ___ Certified Appliance Service Technician ___ Market Editor ___ Other (describe below) Sacrament/Intervention _x__ Active listening ___ Anointing ___ Religious ___ Bereavement ___ Communion _x__ Barbara exploration ___ _x__ Life review _x__ Prayer ___ Reconciliation ___ Sacrament of Sick _x__ Supportive presence ___ Wedding ___ Other (describe below) Pastoral Comments patient has cancer and this recent issue will result in deferment of treatment/surgery; pt concern is knowing what is next and how things will progress; pt says that he is not afraid to but just how painful it might be; brother is with patient at this time; pt says that he is not 'particularly taoist but that maybe prayers will help';
[2018-04-27 17:06] LABS: Partial Thromboplast Time 64.9 Seconds (24.1-36.2)
[2018-04-28] VITALS (18 sets, daily range): BP systolic 95–116; BP diastolic 40–69; PULSE 76–90; RESP 16–20; TEMP 35–36.8; O2SAT 92–97
[2018-04-28 06:28] LABS: Partial Thromboplast Time 52.8 Seconds (24.1-36.2)
[2018-04-28] MEDS: Cefazolin 2 GM in 0.9% Normal Saline 100 ML IV ×3 (06:32→22:05)
[2018-04-28 06:36] LABS: ALB/GLOB Ratio 0.2 RATIO (0.9-2.4); AST(SGOT) 91 U/L (15-37); Alanine Aminotransfer ALT/SGPT 10 U/L (16-61); Albumin, Serum 0.9 g/dL (3.2-5.0); Alkaline Phosphatase 127 U/L (45-117); Anion Gap 7 (5-15); BUN 23 mg/dL (7-18); BUN/Creat Ratio 43.2 RATIO (10-20); Calcium,Total 7.2 mg/dL (8.5-10.1); Chloride 113 mmol/L (98-107); Creatinine, Serum 0.53 mg/dL (0.70-1.30); EST Glomerular Filtration Rate 163 mL/min (>60); Est Glom Filt Rate - Afr Amer 197 mL/min (>60); Estimated Creatinine Clearance 67.45 ml/min; Globulin 5.3 g/dL (2.2-4.2); Glucose 108 mg/dL (74-106); Potassium 3.8 mmol/L (3.5-5.1); Protein, Total 6.2 g/dL (6.4-8.2); Sodium Level 147 mmol/L (136-145)
[2018-04-28 06:49] LABS: Absolute Lymphocyte Count 2.54 X10^3/ul (0.83-4.51); Absolute Neutrophil Count 12.1 X10^3/uL (2.0-7.7); Basophil# 0.04 X10^3/uL; Basophil% 0.3 % (0-1); Eosinophil# 0.04 X10^3/uL; Eosinophils% 0.3 % (0-5); Hematocrit 29.7 % (40-54); Hemoglobin 8.9 g/dl (13.0-16.5); Lymphocyte # 2.54 X10^3/ul (4.0); Mean Corpuscular Hgb 27.3 pg (27.0-32.0); Mean Corpuscular Volume 91.1 fL (80-94); Mean Platelet Vol. 9.5 fl (6.2-12.0); Monocyte% 5.7 % (0-10); Neutrophil # 12.08 X10^3/uL (2.7-7.7); Neutrophil % 75.8 % (47-70); Platelet Count 81 K/mm3 (150-450); RBC Distribution Width CV 27.1 % (11.6-14.6); Red Blood Count 3.26 M/mm3 (4.6-6.2); White Blood Count 15.9 K/mm3 (4.4-11.0)
[2018-04-28 06:53] LABS: Differential Indicated SCAN CRITERIA MET; POSITIVE COUNT NO; POSITIVE DIFFERENTIAL NO; POSITIVE MORPHOLOGY YES
[2018-04-28 07:11] LABS: Anisocytosis 1+; Differential Comment SCAN
[2018-04-28 07:12] LABS: Hypochromasia 1+; Microcytosis 1+; Polychromasia 1+
--- NOTE | 2018-04-28 09:00 | ECHOTEE_ITS ---
Reason For Study: Emboli Medication [id number] gargled and swallowed. Cetacaine Topical [place] given X2 orally. Versed 2 mg given slow IVP. Fentanyl 25 mcg given slow IVP. Performed a rapid injection of agitated mix of 9 cc saline and 1cc air to assess for atrial septal defect. Left Ventricle Normal size and thickness. The estimated ejection fraction is 65 %. No regional wall motion abnormalities noted. Right Ventricle Normal size and thickness. The right ventricular wall motion is normal. Atria Aneurysmal atrial septum. Bubble contrast study negative for right to left interatrial shunt. Normal left atrium. No thrombus is detected in the left atrial appendage. Normal right atrium. Mitral Valve The mitral valve is structurally normal. No prolapse or stenosis seen. Equivocal mitral valve prolapse. Mild (1+) mitral valve insufficiency. Tricuspid Valve Normal tricuspid valve. Mild (1+) tricuspid valve insufficiency. Right ventricular systolic pressure estimated to be 30 mmHg. Aortic Valve Trisinus/trileaflet aortic valve. Mild focal aortic valve thickening. There is no aortic stenosis. Pulmonic Valve Normal pulmonic valve. Interpretation Summary The estimated ejection fraction is 65 %. Bubble contrast study negative for right to left interatrial shunt. Mild (1+) mitral valve insufficiency. Mild (1+) tricuspid valve insufficiency. Right ventricular systolic pressure estimated to be 30 mmHg. Mild focal aortic valve thickening of non coronary cusp. This does not appear to be a bacterial vegetation, but canot exclude vegetation. No thrombus is detected in the left atrial appendage. D/w Dr Celestin. Ordering Physician: Wagner Celestin Referring Physician: Melba Lawrence Performed By: Cathy Beltran, RDCS, RVT
--- NOTE | 2018-04-28 09:23 | PCM.PN.HOSP ---
Patient Problems: Active and Suspected Problems (Last Reviewed 04/20/18 @ 08:55 by Venessa Meneses) MSSA bacteremia (Acute) Subjective: Patient underwent PONCHO this a.m. final official report pending Objective: GENERAL: Frail Looking HEENT: Clear conjunctiva, NECK; supple, normal thyroid, distended JVD. CHEST: Diminished to auscultation bilaterally, HEART: Regular S1 S2, no audible murmurs ABDOMEN: soft, non-tender, normoactive bowel sounds, RECTAL: deferred EXTREMITIES: No edema, no clubbing, no cyanosis. 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 SKIN: Tattoos on both upper extremities Vitals/I&O's: Vital Signs Temp Pulse Resp BP Pulse Ox 98.0 F 81 20 H 100/67 96 04/28/18 09:15 04/28/18 09:15 04/28/18 09:15 04/28/18 09:15 04/28/18 09:15 Oxygen Flow Rate (L/min) 3 Oxygen Delivery Method Nasal Cannula Weight: 81.1 kg Body Mass Index (BMI) 25.7 Intake and Output for Last 24 Hours 04/26/18 04/27/18 04/28/18 23:59 23:59 23:59 Intake Total 1440.9 / 1440.9 929.7 / 929.7 31 / 31 Output Total 690 / 690 1300 / 1300 175 / 175 Balance 750.9 / 750.9 -370.3 / -370.3 -144 / -144 Microbiology Past 72 Hours 04/24/18 14:30 Blood Culture (Wb) - No Site/Description Given Blood Culture - Final Staphylococcus aureus 04/22/18 11:40 Blood Culture (Wb) - Left Hand Blood Culture - Final Staphylococcus aureus 04/21/18 03:40 Blood Culture (Wb) - Anticubital Left Blood Culture - Final Staphylococcus aureus 04/23/18 10:30 Other - Port Miscellaneous Culture - Final Staphylococcus hominis hominis 04/23/18 10:30 Other - Port Gram Stain - Final 04/23/18 13:30 Blood Culture (Wb) - Left Wrist Blood Culture - Preliminary No growth in 48 hours. Laboratory Results 04/27/18 13:20: APTT Cancelled 04/27/18 16:16: APTT 64.9 H 04/28/18 05:45: Sodium 147 H, Potassium 3.8, Chloride 113 H, Carbon Dioxide 27.0, Anion Gap 7, BUN 23 H, Creatinine 0.53 L, Estim Creat Clear Calc 67.45, Est GFR (MDRD) Af Amer 197, Est GFR (MDRD) Non-Af 163, BUN/Creatinine Ratio 43.2 H, Glucose 108 H, Calcium 7.2 L, Total Bilirubin 1.00, AST 91 H, ALT 10 L, Alkaline Phosphatase 127 H, Total Protein 6.2 L, Albumin 0.9 L, Globulin 5.3 H, Albumin/Globulin Ratio 0.2 L 04/28/18 05:45: APTT 52.8 H 04/28/18 05:45: WBC 15.9 H, RBC 3.26 L, Hgb 8.9 L, Hct 29.7 L, MCV 91.1, MCH 27.3, MCHC 30.0 L, RDW 27.1 H, RDW Differential 86.0 H, Plt Count 81 L, MPV 9.5, Immature Gran % (Auto) 1.900 H, Neut % (Auto) 75.8 H, Lymph % (Auto) 16.0 L, [place] % (Auto) 5.7, Eos % (Auto) 0.3, Baso % (Auto) 0.3, Absolute Neuts (auto) 12.1 H, Absolute Lymphs (auto) 2.54, Total Counted Not Reportable, Differential Comment SCAN, Polychromasia 1+, Hypochromasia 1+, Anisocytosis 1+, Microcytosis 1+ Current Medications Guaifenesin (Mucinex) 1,200 mg PO BID [facility] Last Admin: 04/27/18 22:13 Dose: 1,200 mg Haloperidol Lactate (Haldol) 5 mg IV Q4H PRN PRN PRN Reason: AGITATION Last Admin: 04/23/18 13:47 Dose: 5 mg Heparin Sodium (Beef Lung) (Heparin 500 Unit/5 Ml (100/Ml)) 500 unit IV UD PRN PRN Reason: HEPARIN FLUSH Heparin Sodium/Dextrose () 25,000 units in 250 mls @ 11 mls/hr IV .[id number] [facility]; As Directed PRN Reason: Protocol Last Admin: 04/27/18 05:15 Dose: 11 mls/hr Cefazolin Sodium 2 gm/ Sodium (Chloride) 110 mls @ 150 mls/hr IV Q8 [facility] Last Admin: 04/28/18 06:32 Dose: 150 mls/hr Magnesium Hydroxide (Milk Of Magnesia) 30 ml PO DAILY PRN PRN PRN Reason: Constipation Metoprolol Tartrate (Lopressor (Beta Arturo)) 25 mg PO BID [facility] Last Admin: 04/27/18 22:34 Dose: Not Given Nicotine (Nicoderm Cq (Pbkc)) 21 mg TRANSDERM. DAILY [facility] Last Admin: 04/27/18 11:12 Dose: 21 mg Nutritional Formula (Lactose Free) (Ensure Enlive) 120 ml PO 4X/DAY [facility] Last Admin: 04/27/18 22:14 Dose: Not Given Ondansetron HCl (Zofran) 4 mg IV Q8H PRN PRN PRN Reason: NAUSEA Pantoprazole Sodium (Protonix) 40 mg PO DAILY [facility] Last Admin: 04/27/18 11:12 Dose: 40 mg Sertraline HCl (Zoloft) 50 mg PO DAILY [facility] Last Admin: 04/27/18 11:12 Dose: 50 mg Sodium Chloride () 5 - 30 ml IV UD PRN PRN Reason: SALINE FLUSH Last Admin: 04/27/18 05:17 Dose: 10 ml Sodium Chloride () 10 ml IV UD PRN PRN Reason: R PORT FLUSH Last Admin: 04/21/18 03:50 Dose: 10 ml Medical Necessity - Tobacco Use Smoking Status: Current every day smoker Tobacco Use: Cigarettes Assessment/Plan All Active Problems (Last Reviewed 04/20/18 @ 08:55 by Venessa Meneses) Chemotherapy management, encounter for (Acute) Saddle embolus of pulmonary artery with acute cor pulmonale (Acute) Pneumonia (Acute) MSSA bacteremia (Acute) UTI (urinary tract infection) (Acute) Back pain (Acute) Patient is a 67-year-old gentleman who presented with progressive shortness of breath and assessment of submassive saddle pulmonary embolism was made patient did receive TPA subsequently admitted to the ICU. Hospital stay complicated by septic shock with MSSA bacteremia. 1. Submassive pulmonary embolism with complications including cardiogenic shock patient did receive TPA admitted to the intensive care unit to the echo obtained as part of his management demonstrated elevated pulmonary arterial pressure and currently remains on heparin 2. Septic shock secondary to suspected lung abscess with MSSA bacteremia. Repeat cultures obtained on 04/24/2018 came back positive for MSSA despite patient being on broad-spectrum antibiotics since his admission. Case was discussed with Dr. Hyde with pulmonary medicine patient stable from the pulmonary status for PONCHO order was subsequently placed patient PONCHO was performed on the morning of 04/28/2018 final official report pending 3. Acute hypoxic respiratory failure secondary to #1 and 2 patients of supplemental oxygen 4. A. fib with RVR patient converted spontaneously 5. Hypertension patient was in shock upon presentation blood pressure has stabilized 6. History of cirrhosis of the liver secondary to hep C 7. Anemia secondary to anemia of chronic disease 8. Depression 9. Stage II bladder CA 10. Acute kidney injury secondary from ATN from hypotension resolved 11. Chronic thrombocytopenia secondary to patient's cirrhosis of the liver 12. Tobacco dependence counseled on cessation, offered nicotine patch for tobacco cravings Clinical Impression(s) from Imaging Studies Chest CTA 04/20/18 11:30 IMPRESSION: Nonocclusive saddle embolus within the right and left pulmonary arteries, extending into the right upper lobe pulmonary artery. A small embolus is seen within the left lower lobe pulmonary artery. Dense consolidation within the right upper lobe with findings suggesting early cavitation. N.B. : The above information has been verbally conveyed by Ollie Kirkpatrick DO to , Covering Physician, on 04/20/2018 13:44:33 (ET). Electronically Signed: Ollie Kirkpatrick DO at 12:32 EDT Tel , Service support , Chest X-Ray 04/25/18 17:21 IMPRESSION: Stable borderline cardiomegaly and hyperexpansion of the left lung. Stable right upper lobe opacity. Increased left effusion. Decreased opacities in the right middle and lower lobes. No acute pathology. Electronically Signed: Sidney Patterson MD at 18:06 EDT , Service support , Active Medications Chlorhexidine Gluconate () 1 each TOPICAL DAILY [facility] Last Admin: 04/25/18 14:45 Dose: Not Given Guaifenesin (Mucinex) 1,200 mg PO BID [facility] Last Admin: 04/25/18 21:34 Dose: 1,200 mg Haloperidol Lactate (Haldol) 5 mg IV Q4H PRN PRN PRN Reason: AGITATION Last Admin: 04/23/18 13:47 Dose: 5 mg Heparin Sodium (Beef Lung) (Heparin 500 Unit/5 Ml (100/Ml)) 500 unit IV UD PRN PRN Reason: HEPARIN FLUSH Heparin Sodium/Dextrose () 25,000 units in 250 mls @ 11 mls/hr IV .[id number] [facility]; As Directed PRN Reason: Protocol Last Admin: 04/25/18 12:27 Dose: 11 mls/hr Cefazolin Sodium 2 gm/ Sodium (Chloride) 110 mls @ 150 mls/hr IV Q8 [facility] Last Admin: 04/26/18 06:31 Dose: 150 mls/hr Dextrose () 1,000 mls @ 40 mls/hr IV .Q25H [facility] Last Admin: 04/25/18 12:28 Dose: 40 mls/hr Magnesium Hydroxide (Milk Of Magnesia) 30 ml PO DAILY PRN PRN PRN Reason: Constipation Metoprolol Tartrate (Lopressor (Beta Arturo)) 25 mg PO BID [facility] Last Admin: 04/25/18 21:34 Dose: 25 mg Nicotine (Nicoderm Cq (Pbkc)) 21 mg TRANSDERM. DAILY [facility] Last Admin: 04/25/18 12:24 Dose: 21 mg Nutritional Formula (Lactose Free) (Ensure Enlive) 120 ml PO 4X/DAY [facility] Last Admin: 04/25/18 21:32 Dose: 120 ml Ondansetron HCl (Zofran) 4 mg IV Q8H PRN PRN PRN Reason: NAUSEA Pantoprazole Sodium (Protonix) 40 mg PO DAILY [facility] Last Admin: 04/25/18 12:25 Dose: 40 mg Sertraline HCl (Zoloft) 50 mg PO DAILY [facility] Last Admin: 04/25/18 12:25 Dose: 50 mg Sodium Chloride () 5 - 30 ml IV UD PRN PRN Reason: SALINE FLUSH Last Admin: 04/24/18 04:02 Dose: 20 ml Sodium Chloride () 10 ml IV UD PRN PRN Reason: R PORT FLUSH Last Admin: 04/21/18 03:50 Dose: 10 ml Code Visit Inpatient E&M: 14429 Subs Hosp L2
--- NOTE | 2018-04-28 09:55 | CASEMGMT ---
NICOLE spoke with Bonny with [facility]. NICOLE asked if patient will be getting chemo while at SNF. She checked with Dr Lawrence and patient will not be getting chemo. They would like to see him in the office to see Dr Quinn on May 10 at 10am to discuss radiation. They would then see him the following week to discuss a schedule for radiation. NICOLE told her SW will make sure this appt is on d/c instructions. NICOLE faxed updates to Micki at [facility]. NICOLE also called Micki and left her a vm letting her know above. NICOLE also let her know patient had his PONCHO this am and we are waiting on Infectious Disease Dr to assist with IV ABX. Georgina STEWART SAP PAYROLL CONSULTANT
[2018-04-28] MEDS: Sertraline 50 MG Tablet PO (12:12)
[2018-04-28] MEDS: Metoprolol Tartrate 25 MG Tablet PO (12:12)
[2018-04-28] MEDS: Pantoprazole Sodium 40 MG Tablet PO (12:12)
[2018-04-28] MEDS: guaiFENesin 1,200 MG Tablet 1200 MG PO ×2 (12:13→22:05)
--- NOTE | 2018-04-28 12:31 | PCM.PN.ID ---
Patient Problems: Active and Suspected Problems (Last Reviewed 04/20/18 @ 08:55 by Venessa Meneses) MSSA bacteremia (Acute) Subjective: Feeling ok, no fever, no n/v/d, no new joint/back pain. - Physical Exam General: Alert, Cooperative, No apparent distress Lungs: Clear to auscultation, Normal air movement Cardiovascular: Regular rate, Regular Rhythm Abdomen: Soft, Non Tender, Non-Distended Skin: No rashes Vital Signs Temp Pulse Resp BP Pulse Ox 97.5 F L 87 18 101/61 94 04/28/18 12:08 04/28/18 12:12 04/28/18 12:08 04/28/18 12:12 04/28/18 12:08 Oxygen Flow Rate (L/min) 3 Oxygen Delivery Method Nasal Cannula Weight: 81.1 kg Body Mass Index (BMI) 25.7 Intake and Output for Last 24 Hours 04/26/18 04/27/18 04/28/18 23:59 23:59 23:59 Intake Total 1440.9 / 1440.9 929.7 / 929.7 184.4 / 184.4 Output Total 690 / 690 1300 / 1300 325 / 325 Balance 750.9 / 750.9 -370.3 / -370.3 -140.6 / -140.6 Microbiology Past 72 Hours 04/24/18 14:30 Blood Culture - Final Blood Culture (Wb) - No Site/Description Given Staphylococcus aureus 04/22/18 11:40 Blood Culture - Final Blood Culture (Wb) - Left Hand Staphylococcus aureus 04/21/18 03:40 Blood Culture - Final Blood Culture (Wb) - Anticubital Left Staphylococcus aureus 04/23/18 10:30 Miscellaneous Culture - Final Other - Port Staphylococcus hominis hominis Gram Stain - Final 04/23/18 13:30 Blood Culture - Preliminary Blood Culture (Wb) - Left Wrist No growth in 48 hours. Laboratory Tests Past 24 Hrs 04/27/18 04/27/18 04/28/18 13:20 16:16 05:45 WBC RBC Hgb Hct MCV MCH MCHC RDW RDW Differential Plt Count MPV Immature Gran % (Auto) Neut % (Auto) Lymph % (Auto) [place] % (Auto) Eos % (Auto) Baso % (Auto) Absolute Neuts (auto) Absolute Lymphs (auto) Total Counted Differential Comment Polychromasia Hypochromasia Anisocytosis Microcytosis APTT Cancelled 64.9 H Sodium 147 H Potassium 3.8 Chloride 113 H Carbon Dioxide 27.0 Anion Gap 7 BUN 23 H Creatinine 0.53 L Estim Creat Clear Calc 67.45 Est GFR (MDRD) Af Amer 197 Est GFR (MDRD) Non-Af 163 BUN/Creatinine Ratio 43.2 H Glucose 108 H Calcium 7.2 L Total Bilirubin 1.00 AST 91 H ALT 10 L Alkaline Phosphatase 127 H Total Protein 6.2 L Albumin 0.9 L Globulin 5.3 H Albumin/Globulin Ratio 0.2 L 04/28/18 04/28/18 05:45 05:45 WBC 15.9 H RBC 3.26 L Hgb 8.9 L Hct 29.7 L MCV 91.1 MCH 27.3 MCHC 30.0 L RDW 27.1 H RDW Differential 86.0 H Plt Count 81 L MPV 9.5 Immature Gran % (Auto) 1.900 H Neut % (Auto) 75.8 H Lymph % (Auto) 16.0 L [place] % (Auto) 5.7 Eos % (Auto) 0.3 Baso % (Auto) 0.3 Absolute Neuts (auto) 12.1 H Absolute Lymphs (auto) 2.54 Total Counted Not Reportable Differential Comment SCAN Polychromasia 1+ Hypochromasia 1+ Anisocytosis 1+ Microcytosis 1+ APTT 52.8 H Sodium Potassium Chloride Carbon Dioxide Anion Gap BUN Creatinine Estim Creat Clear Calc Est GFR (MDRD) Af Amer Est GFR (MDRD) Non-Af BUN/Creatinine Ratio Glucose Calcium Total Bilirubin AST ALT Alkaline Phosphatase Total Protein Albumin Globulin Albumin/Globulin Ratio Medical Necessity - Tobacco Use Smoking Status: Current every day smoker Tobacco Use: Cigarettes Route of nutrition/ use of supplements: [] Nutritional Intake: [] IV Site: [] Garcia Catheter: [] - Assessment/Plan Antibiotics: [] Assessment/Plan: [] Active and Suspected Problems (Last Reviewed 04/20/18 @ 08:55 by Venessa Meneses) Chemotherapy management, encounter for (Acute) Septic shock due to port-related MSSA bacteremia with PE and suspected developing cavitary pneumonia - pt has been receiving chemo via port for bladder cancer. Port removed 04/23. Repeat bcx today. Continue cefazolin. Doppler showed BLE DVT. PONCHO with ? thickened valve. Plan will be for 6 weeks iv abx once Bcx clear. hep C cirrhosis - he is not sure who has been managing this, but reports failing treatment after 12 weeks of harvoni several months ago. Genotype 1a. MARTA - resolved Will follow. D/w rn case manager hospice
--- NOTE | 2018-04-28 12:44 | PCM.PROGNOTE ---
Patient Problems: Active and Suspected Problems (Last Reviewed 04/20/18 @ 08:55 by Venessa Meneses) MSSA bacteremia (Acute) Subjective: The patient was seen and examined at the bedside this morning. Events from the last 24 hours have been reviewed. The patient is currently afebrile, hemodynamically stable and maintaining appropriate oxygen saturations on 3 L/min. Transesophageal echocardiogram is pending. Objective: The patient's most recent lab work, culture data and imaging studies have all been personally reviewed. MSSA was isolated from blood culture dated April 21. Repeat blood culture dated April 23 has shown no growth to date. Repeat blood culture dated April 24 was positive for staph aureus. Repeat blood cultures dated April 27 are pending. - Physical Exam General: Alert, Cooperative, No apparent distress HEENT: Atraumatic, PERRLA, Normocephalic Oral: Moist Mucosa Neck: Supple, No Nodes, Trachea Midline Lungs: No rhonchi, No wheeze, No rales, Diminished Cardiovascular: Regular rate, Regular Rhythm, Normal S1, Normal S2, No murmurs Abdomen: Bowel Sounds Present, Soft, Non Tender, Non-Distended Extremities: No clubbing, No cyanosis, Edema Skin: No breakdown Musculoskeletal: Cachexia, Muscle Wasting Lymphatic: No Cervical, Supraclavicular, or Inguinal Adenopathy Neurological: Neuro grossly intact Psych/Mental Status: Flat Affect Vital Signs Temp Pulse Resp BP Pulse Ox 97.5 F L 87 18 101/61 94 04/28/18 12:08 04/28/18 12:12 04/28/18 12:08 04/28/18 12:12 04/28/18 12:08 Oxygen Flow Rate (L/min) 3 Oxygen Delivery Method Nasal Cannula Weight: 178 lb 12.718 oz Body Mass Index (BMI) 25.7 Intake and Output for Last 24 Hours 04/26/18 04/27/18 04/28/18 23:59 23:59 23:59 Intake Total 1440.9 / 1440.9 929.7 / 929.7 184.4 / 184.4 Output Total 690 / 690 1300 / 1300 325 / 325 Balance 750.9 / 750.9 -370.3 / -370.3 -140.6 / -140.6 Microbiology Past 72 Hours 04/24/18 14:30 Blood Culture - Final Blood Culture (Wb) - No Site/Description Given Staphylococcus aureus 04/22/18 11:40 Blood Culture - Final Blood Culture (Wb) - Left Hand Staphylococcus aureus 04/21/18 03:40 Blood Culture - Final Blood Culture (Wb) - Anticubital Left Staphylococcus aureus 04/23/18 10:30 Miscellaneous Culture - Final Other - Port Staphylococcus hominis hominis Gram Stain - Final 04/23/18 13:30 Blood Culture - Preliminary Blood Culture (Wb) - Left Wrist No growth in 48 hours. Laboratory Tests Past 24 Hrs 04/27/18 04/27/18 04/28/18 13:20 16:16 05:45 WBC RBC Hgb Hct MCV MCH MCHC RDW RDW Differential Plt Count MPV Immature Gran % (Auto) Neut % (Auto) Lymph % (Auto) [place] % (Auto) Eos % (Auto) Baso % (Auto) Absolute Neuts (auto) Absolute Lymphs (auto) Total Counted Differential Comment Polychromasia Hypochromasia Anisocytosis Microcytosis APTT Cancelled 64.9 H Sodium 147 H Potassium 3.8 Chloride 113 H Carbon Dioxide 27.0 Anion Gap 7 BUN 23 H Creatinine 0.53 L Estim Creat Clear Calc 67.45 Est GFR (MDRD) Af Amer 197 Est GFR (MDRD) Non-Af 163 BUN/Creatinine Ratio 43.2 H Glucose 108 H Calcium 7.2 L Total Bilirubin 1.00 AST 91 H ALT 10 L Alkaline Phosphatase 127 H Total Protein 6.2 L Albumin 0.9 L Globulin 5.3 H Albumin/Globulin Ratio 0.2 L 04/28/18 04/28/18 05:45 05:45 WBC 15.9 H RBC 3.26 L Hgb 8.9 L Hct 29.7 L MCV 91.1 MCH 27.3 MCHC 30.0 L RDW 27.1 H RDW Differential 86.0 H Plt Count 81 L MPV 9.5 Immature Gran % (Auto) 1.900 H Neut % (Auto) 75.8 H Lymph % (Auto) 16.0 L [place] % (Auto) 5.7 Eos % (Auto) 0.3 Baso % (Auto) 0.3 Absolute Neuts (auto) 12.1 H Absolute Lymphs (auto) 2.54 Total Counted Not Reportable Differential Comment SCAN Polychromasia 1+ Hypochromasia 1+ Anisocytosis 1+ Microcytosis 1+ APTT 52.8 H Sodium Potassium Chloride Carbon Dioxide Anion Gap BUN Creatinine Estim Creat Clear Calc Est GFR (MDRD) Af Amer Est GFR (MDRD) Non-Af BUN/Creatinine Ratio Glucose Calcium Total Bilirubin AST ALT Alkaline Phosphatase Total Protein Albumin Globulin Albumin/Globulin Ratio Clinical Impression(s) from Imaging Studies Chest CTA 04/20/18 11:30 IMPRESSION: Nonocclusive saddle embolus within the right and left pulmonary arteries, extending into the right upper lobe pulmonary artery. A small embolus is seen within the left lower lobe pulmonary artery. Dense consolidation within the right upper lobe with findings suggesting early cavitation. N.B. : The above information has been verbally conveyed by Ollie Kirkpatrick DO to , Covering Physician, on 04/20/2018 13:44:33 (ET). Electronically Signed: Ollie Kirkpatrick DO at 12:32 EDT Tel , Service support , Chest X-Ray 04/21/18 15:54 IMPRESSION: Dense airspace opacity throughout the right lung, most pronounced in the right upper lobe. This likely represents multilobar pneumonia. Electronically Signed: Don Castro at 16:13 EDT Tel , Service support , Chest X-Ray 04/25/18 17:21 IMPRESSION: Stable borderline cardiomegaly and hyperexpansion of the left lung. Stable right upper lobe opacity. Increased left effusion. Decreased opacities in the right middle and lower lobes. No acute pathology. Electronically Signed: Sidney Patterson MD at 18:06 EDT , Service support , Medical Necessity - Tobacco Use Smoking Status: Current every day smoker Tobacco Use: Cigarettes Assessment/Plan All Active Problems (Last Reviewed 04/20/18 @ 08:55 by Venessa Meneses) Chemotherapy management, encounter for (Acute) Saddle embolus of pulmonary artery with acute cor pulmonale (Acute) Pneumonia (Acute) MSSA bacteremia (Acute) UTI (urinary tract infection) (Acute) Back pain (Acute) RECOMMENDATIONS: 1. Continue heparin drip. 2. Continue antibiotics per infectious diseases recommendations. 3. Wean supplemental oxygen as tolerated and mobilize patient as tolerated. 4. Transesophageal echocardiogram is pending. IMPRESSIONS: 1. Cardiogenic shock secondary to submassive pulmonary embolism status post TPA Continue heparin drip and wean supplemental oxygen as tolerated. 2. A. fib with RVR Resolved. Likely secondary to #1. Patient has received TPA. Patient spontaneously converted. Echocardiogram shows preserved ejection fraction, but elevated pulmonary artery pressures, likely leading to dilatation of atria and arrhythmia. No recurrence of A. fib has been noted. 3. Reported cirrhosis secondary to hepatitis C/anemia of chronic disease Patient does have decreased albumin, but coagulation studies appear to be appropriate prior to initiation of heparin. Patient previously receiving chemotherapy for bladder cancer. Defer to hospitalist if oncologist needs to be consulted. 4. Septic shock Patient with MSSA bacteremia and probable lung abscess. Continue antibiotics per infectious diseases recommendations. The patient is clear from a pulmonary perspective to proceed with transesophageal echocardiogram. 5. Hypertension/GERD/depression/stage II bladder cancer/thrombocytopenia Complicates care, management, recovery and prognosis. Continue outpatient follow-up with oncology. This note was generated with Gobbler dictation software. It may contain incorrect words, spelling, and punctuation that were not noted in checking the note before signing. DISPOSITION: Given the lack of ongoing ICU needs, will sign off. Please call with any additional questions. Code Visit Inpatient E&M: 65020 Subs Hosp L2
--- NOTE | 2018-04-28 12:49 | PN_ITS ---
Patient Problems: Active and Suspected Problems (Last Reviewed 04/20/18 @ 08:55 by Venessa Meneses) MSSA bacteremia (Acute) Subjective: The patient was seen and examined at the bedside this morning. Events from the last 24 hours have been reviewed. The patient is currently afebrile, hemodynamically stable and maintaining appropriate oxygen saturations on 3 L/ min. Transesophageal echocardiogram is pending. Objective: The patient's most recent lab work, culture data and imaging studies have all been personally reviewed. MSSA was isolated from blood culture dated April 21. Repeat blood culture dated April 23 has shown no growth to date. Repeat blood culture dated April 24 was positive for staph aureus. Repeat blood cultures dated April 27 are pending. - Physical Exam General: Alert, Cooperative, No apparent distress HEENT: Atraumatic, PERRLA, Normocephalic Oral: Moist Mucosa Neck: Supple, No Nodes, Trachea Midline Lungs: No rhonchi, No wheeze, No rales, Diminished Cardiovascular: Regular rate, Regular Rhythm, Normal S1, Normal S2, No murmurs Abdomen: Bowel Sounds Present, Soft, Non Tender, Non-Distended Extremities: No clubbing, No cyanosis, Edema Skin: No breakdown Musculoskeletal: Cachexia, Muscle Wasting Lymphatic: No Cervical, Supraclavicular, or Inguinal Adenopathy Neurological: Neuro grossly intact Psych/Mental Status: Flat Affect Vital Signs Temp Pulse Resp BP Pulse Ox 97.5 F L 87 18 101/61 94 04/28/18 12:08 04/28/18 12:12 04/28/18 12:08 04/28/18 12:12 04/28/18 12:08 Oxygen Flow Rate (L/min) 3 Oxygen Delivery Method Nasal Cannula Weight: 178 lb 12.718 oz Body Mass Index (BMI) 25.7 Intake and Output for Last 24 Hours 04/26/18 04/27/18 04/28/18 23:59 23:59 23:59 Intake Total 1440.9 / 1440.9 929.7 / 929.7 184.4 / 184.4 Output Total 690 / 690 1300 / 1300 325 / 325 Balance 750.9 / 750.9 -370.3 / -370.3 -140.6 / -140.6 Microbiology Past 72 Hours 04/24/18 14:30 Blood Culture - Final Blood Culture (Wb) - No Site/Description Given Staphylococcus aureus 04/22/18 11:40 Blood Culture - Final Blood Culture (Wb) - Left Hand Staphylococcus aureus 04/21/18 03:40 Blood Culture - Final Blood Culture (Wb) - Anticubital Left Staphylococcus aureus 04/23/18 10:30 Miscellaneous Culture - Final Other - Port Staphylococcus hominis hominis Gram Stain - Final 04/23/18 13:30 Blood Culture - Preliminary Blood Culture (Wb) - Left Wrist No growth in 48 hours. Laboratory Tests Past 24 Hrs 04/27/18 04/27/18 04/28/18 13:20 16:16 05:45 WBC RBC Hgb Hct MCV MCH MCHC RDW RDW Differential Plt Count MPV Immature Gran % (Auto) Neut % (Auto) Lymph % (Auto) Park % (Auto) Eos % (Auto) Baso % (Auto) Absolute Neuts (auto) Absolute Lymphs (auto) Total Counted Differential Comment Polychromasia Hypochromasia Anisocytosis Microcytosis APTT Cancelled 64.9 H Sodium 147 H Potassium 3.8 Chloride 113 H Carbon Dioxide 27.0 Anion Gap 7 BUN 23 H Creatinine 0.53 L Estim Creat Clear Calc 67.45 Est GFR (MDRD) Af Amer 197 Est GFR (MDRD) Non-Af 163 BUN/Creatinine Ratio 43.2 H Glucose 108 H Calcium 7.2 L Total Bilirubin 1.00 AST 91 H ALT 10 L Alkaline Phosphatase 127 H Total Protein 6.2 L Albumin 0.9 L Globulin 5.3 H Albumin/Globulin Ratio 0.2 L 04/28/18 04/28/18 05:45 05:45 WBC 15.9 H RBC 3.26 L Hgb 8.9 L Hct 29.7 L MCV 91.1 MCH 27.3 MCHC 30.0 L RDW 27.1 H RDW Differential 86.0 H Plt Count 81 L MPV 9.5 Immature Gran % (Auto) 1.900 H Neut % (Auto) 75.8 H Lymph % (Auto) 16.0 L Park % (Auto) 5.7 Eos % (Auto) 0.3 Baso % (Auto) 0.3 Absolute Neuts (auto) 12.1 H Absolute Lymphs (auto) 2.54 Total Counted Not Reportable Differential Comment SCAN Polychromasia 1+ Hypochromasia 1+ Anisocytosis 1+ Microcytosis 1+ APTT 52.8 H Sodium Potassium Chloride Carbon Dioxide Anion Gap BUN Creatinine Estim Creat Clear Calc Est GFR (MDRD) Af Amer Est GFR (MDRD) Non-Af BUN/Creatinine Ratio Glucose Calcium Total Bilirubin AST ALT Alkaline Phosphatase Total Protein Albumin Globulin Albumin/Globulin Ratio Clinical Impression(s) from Imaging Studies Chest CTA 04/20/18 11:30 IMPRESSION: Nonocclusive saddle embolus within the right and left pulmonary arteries, extending into the right upper lobe pulmonary artery. A small embolus is seen within the left lower lobe pulmonary artery. Dense consolidation within the right upper lobe with findings suggesting early cavitation. N.B. : The above information has been verbally conveyed by Ollie Kirkpatrick DO to , Covering Physician, on 04/20/2018 13:44:33 (ET). Electronically Signed: Ollie Kirkpatrick DO at 12:32 EDT Tel , Service support , Chest X-Ray 04/21/18 15:54 IMPRESSION: Dense airspace opacity throughout the right lung, most pronounced in the right upper lobe. This likely represents multilobar pneumonia. Electronically Signed: Don Castro at 16:13 EDT Tel , Service support , Chest X-Ray 04/25/18 17:21 IMPRESSION: Stable borderline cardiomegaly and hyperexpansion of the left lung. Stable right upper lobe opacity. Increased left effusion. Decreased opacities in the right middle and lower lobes. No acute pathology. Electronically Signed: Sidney Patterson MD at 18:06 EDT , Service support , Medical Necessity - Tobacco Use Smoking Status: Current every day smoker Tobacco Use: Cigarettes Assessment/Plan All Active Problems (Last Reviewed 04/20/18 @ 08:55 by Venessa Meneses) Chemotherapy management, encounter for (Acute) Saddle embolus of pulmonary artery with acute cor pulmonale (Acute) Pneumonia (Acute) MSSA bacteremia (Acute) UTI (urinary tract infection) (Acute) Back pain (Acute) RECOMMENDATIONS: 1. Continue heparin drip. 2. Continue antibiotics per infectious diseases recommendations. 3. Wean supplemental oxygen as tolerated and mobilize patient as tolerated. 4. Transesophageal echocardiogram is pending. IMPRESSIONS: 1. Cardiogenic shock secondary to submassive pulmonary embolism status post TPA Continue heparin drip and wean supplemental oxygen as tolerated. 2. A. fib with RVR Resolved. Likely secondary to #1. Patient has received TPA. Patient spontaneously converted. Echocardiogram shows preserved ejection fraction, but elevated pulmonary artery pressures, likely leading to dilatation of atria and arrhythmia. No recurrence of A. fib has been noted. 3. Reported cirrhosis secondary to hepatitis C/anemia of chronic disease Patient does have decreased albumin, but coagulation studies appear to be appropriate prior to initiation of heparin. Patient previously receiving chemotherapy for bladder cancer. Defer to hospitalist if oncologist needs to be consulted. 4. Septic shock Patient with MSSA bacteremia and probable lung abscess. Continue antibiotics per infectious diseases recommendations. The patient is clear from a pulmonary perspective to proceed with transesophageal echocardiogram. 5. Hypertension/GERD/depression/stage II bladder cancer/thrombocytopenia Complicates care, management, recovery and prognosis. Continue outpatient follow-up with oncology. This note was generated with [employer] dictation software. It may contain incorrect words, spelling, and punctuation that were not noted in checking the note before signing. DISPOSITION: Given the lack of ongoing ICU needs, will sign off. Please call with any additional questions. Code Visit Inpatient E&M: 40951 Subs Hosp L2
--- NOTE | 2018-04-28 13:14 | NURSING ---
Maurisio in behavioral health notified of consult, will see today.
[2018-04-28 13:29] LABS: Partial Thromboplast Time 73.4 Seconds (24.1-36.2)
--- NOTE | 2018-04-28 14:40 | CASEMGMT ---
SW was told patient has made some comments regarding suicide and homicide. However, he currently denies feeling either one. Behavioral Health was consulted to see patient. SW also went into room to see patient. Introduced self and role at [facility]. SW sat down and had a lengthy discussion with patient. SW mostly listened to patient tell his story and frustrations and provided emotional support. Patient denied currently being suicidal or homicidal. He said he is just frustrated and is ready to leave the hospital. SW provided emotional support. He was ready to get some rest so SW let him rest. Georgina STEWART CLERICAL METHODS ANALYST
--- NOTE | 2018-04-28 14:46 | BH.NOTE ---
BH: Inpatient Note - Notes Behavioral Health Inpatient Note: 04/28/18 14:46 Referral to [facility] from nursing staff due to depressive symptoms and hx of passive suicidal thoughts. Met with pt alone in his room. Pt was alert and oriented. Cooperative with the assessment. Affect was flat. Mood was depressed. Speech is soft and difficult to understand at times. Denies active suicidal ideations, plan, intent, or hx of attempts. Pt reports that he has had suicidal thoughts in the past, however could not recall last thought stating it has been several months. States I've thought about it but I would never do it. States that due to his medical issues (cancer) over the past several years he understands that he may however states it won't be because I did it to myself. Does not have access to guns. Admits that he has verbalized suicidal thoughts in the past due to being angry at his brother who he felt did not take his medical issues seriously. Brother is primary support and caregiver. Pt lives with brother and reports conflicted relationship over the years. Currently they are getting along good and pt feels that his brother is very supportive and helpful. When asked how he is coping with his medical issues he states I'm coping pretty good. Pt was talkative during assessment. Upbeat at times. Smiles on occasion. Denies any overwhelming anxiety or panic attacks. Not currently linked with outpatient providers. He is not interested in seeking counseling. Was given resources in the area should he change his mind. Discussed case with SW and current plan is to discharge to SNF. Strongly encouraged to seeking counseling upon d/c from SNF.
[2018-04-28] MEDS: 0.9% NaCl Peripheral Flush Adult/Peds IV (14:51)
--- NOTE | 2018-04-28 15:59 | NURSING ---
Read SN documentation
--- NOTE | 2018-04-28 17:28 | NURSING ---
04/28/18 2624 CM consulted d/t Pt stating Not going to deny that if I had a loaded pistal at home that I don't occasionally have thoughts about suicide. Had discussion with Pt regarding these thoughts. He currently denies having thoughts regarding harming himself or others. kennel manager dog track, Charge nurse, and SW notified.
[2018-04-28] MEDS: HEPARIN/D5w 25,000 UNITS 25,000 UNITS/250 ML IV.SOLN. 11 UNITS IV (22:05)
[2018-04-29 00:20] VITALS: BP 107/63; PULSE 86; RESP 16; TEMP 36.8; O2SAT 95
[2018-04-29 03:00] VITALS: PULSE 96
[2018-04-29 05:08] VITALS: BP 106/76; PULSE 89; RESP 16; TEMP 37; O2SAT 95
[2018-04-29] MEDS: Cefazolin 2 GM in 0.9% Normal Saline 100 ML IV (05:13)
[2018-04-29 06:22] LABS: Partial Thromboplast Time 66.9 Seconds (24.1-36.2)
[2018-04-29 06:47] VITALS: PULSE 98
[2018-04-29 07:30] VITALS: O2SAT 94
--- NOTE | 2018-04-29 09:37 | CASEMGMT ---
SW was told patient wants to leave AMA. SW spoke to patient yesterday so thought it may be helpful to talk with him again. SW sat down with patient and listened. He said he hates the food, he's bored, doesn't understand what difference it makes if he stays here and waits on labs or home and waits on labs. He said he would come back and forth for his chemo. SW tried to help him understand why he cannot go and tried to get him to remember how weak he is currently. He said his brother will take care of him. SW reminded him that yesterday he said his brother isn't helpful and they don't get along most of the time. He said he has changed. NICOLE told him people do not change that fast. He said he is not afraid of dying and in fact he welcomes it. He told SW that it doesn't matter how much SW talks to him, he is not changing his mind. He said SW could talk to anyone that knows him and they would say he is very stubborn. NICOLE continued to try and rationalize with patient and he did not want to talk anymore. Georgina STEWART MSW
--- NOTE | 2018-04-29 10:35 | DCINST_ITS ---
- Discharge Diagnoses Current Active Problems: Current Active and Chronic Problems (Last Reviewed 04/20/18 @ 08:55 by Venessa Meneses) MSSA bacteremia (Acute) Allergies/Adverse Reactions: Allergies No Known Allergies Allergy (Verified 04/20/18 08:55) Medications to take at Discharge Lisinopril 20 mg PO DAILY 11/25/17 Pantoprazole Sodium [Protonix] 40 mg PO DAILY 11/25/17 Sertraline HCl [Zoloft] 50 mg PO DAILY 01/14/18 Ondansetron HCl [Zofran] 4 mg PO PRN PRN 04/20/18 Linezolid 600 mg PO BID #28 tab 04/29/18 The following prescriptions were given: Linezolid 600 mg PO BID #28 tab Primary Care Physician: Care Physician,No Primary [Primary Care Provider] - Test Results: Test results from this visit will be discussed in further detail at your follow- up appointment, if applicable. Proposed Discharge Date: 04/29/18
--- NOTE | 2018-04-29 10:36 | PCM.DC.SUM ---
Discharge Date and Diagnosis - Problem List Patient Problems: Active and Suspected Problems (Last Reviewed 04/20/18 @ 08:55 by Venessa Meneses) MSSA bacteremia (Acute) Date of Admission: 04/20/18 Date of Discharge: 04/29/18 - Primary Discharge Diagnosis Active and Suspected Problems (Last Reviewed 04/20/18 @ 08:55 by Venessa Meneses) MSSA bacteremia (Acute) - Secondary Discharge Diagnosis Chronic Problems (Last Reviewed 04/20/18 @ 08:55 by Venessa Meneses) Depression (Chronic) Hearing loss (Chronic) Anemia (Chronic) Urinary bladder cancer (Chronic) Spinal stenosis (Chronic) Degenerative joint disease of spine (Chronic) Cirrhosis (Chronic) BPH (benign prostatic hyperplasia) (Chronic) HTN (hypertension) (Chronic) Hospital Course and Treatment Summary of Care Provided: Patient is a 67-year-old gentleman who presented with progressive shortness of breath and assessment of submassive saddle pulmonary embolism was made patient did receive TPA subsequently admitted to the ICU. Hospital stay complicated by septic shock with MSSA bacteremia. 1. Submassive pulmonary embolism with complications including cardiogenic shock patient did receive TPA admitted to the intensive care unit to the echo obtained as part of his management demonstrated elevated pulmonary arterial pressure and currently remains on heparin 2. Septic shock secondary to suspected lung abscess with MSSA bacteremia. Repeat cultures obtained on 04/24/2018 came back positive for MSSA despite patient being on broad-spectrum antibiotics since his admission. Case was discussed with Dr. Hyde with pulmonary medicine patient stable from the pulmonary status for PONCHO order was subsequently placed patient PONCHO was performed on the morning of 04/28/2018 there was no evidence of endocarditis. On the morning of 04/29/2018 patient insisted on being discharged home. He was instructed that the only way he could be discharged was for him to sign himself AGAINST MEDICAL ADVICE he insisted on pursuing this route. All attempts made for patient to rescind his decision proved futile. Patient was warned on the consequences of his actions including sudden deterioration of his medical condition and possible . He was aware of these risk and still insisted on being discharged. Prior to patient being discharged Case was discussed with Dr. Ferris with infectious disease who recommended discharging patient home with a 2-week course of Zyvox. 3. Acute hypoxic respiratory failure secondary to #1 and 2 patients of supplemental oxygen 4. A. fib with RVR patient converted spontaneously 5. Hypertension patient was in shock upon presentation blood pressure has stabilized 6. History of cirrhosis of the liver secondary to hep C 7. Anemia secondary to anemia of chronic disease 8. Depression 9. Stage II bladder CA is followed by Dr. Lawrence with oncology instructed to call to make a follow-up appointment 10. Acute kidney injury secondary from ATN from hypotension resolved 11. Chronic thrombocytopenia secondary to patient's cirrhosis of the liver 12. Tobacco dependence counseled on cessation, offered nicotine patch for tobacco cravings Home Medications: Medications to take at Discharge Lisinopril 20 mg PO DAILY 11/25/17 Pantoprazole Sodium [Protonix] 40 mg PO DAILY 11/25/17 Sertraline HCl [Zoloft] 50 mg PO DAILY 01/14/18 Ondansetron HCl [Zofran] 4 mg PO PRN PRN 04/20/18 Linezolid 600 mg PO BID #28 tab 04/29/18 Following Prescrptions Were Given to Patient: Linezolid 600 mg PO BID #28 tab Primary Care Physician: Care Physician,No Primary [Primary Care Provider] - Disposition: Against Medical Advice Minutes spent on discharge:: 45 Patient Condition:: Stable Medical Necessity - Tobacco Use Smoking Status: Current every day smoker Tobacco Use: Cigarettes Meaningful Use Info Meaningful Use Diagnoses (Choose all that apply): None applicable Code Visit Inpatient E&M: 31227 Disch Hosp
--- NOTE | 2018-04-29 10:57 | PCM.PN.ID ---
Patient Problems: Active and Suspected Problems (Last Reviewed 04/20/18 @ 08:55 by Venessa Meneses) MSSA bacteremia (Acute) Subjective: Pt is insistent on leaving the hospital. No fever. - Physical Exam General: Alert, Cooperative, No apparent distress Lungs: Clear to auscultation, Normal air movement Cardiovascular: Regular rate, Regular Rhythm Abdomen: Soft, Non Tender, Non-Distended Skin: No rashes Vital Signs Temp Pulse Resp BP Pulse Ox 98.6 F 98 16 106/76 94 04/29/18 05:08 04/29/18 06:47 04/29/18 05:08 04/29/18 05:08 04/29/18 07:30 Oxygen Flow Rate (L/min) 3 Oxygen Delivery Method Nasal Cannula Weight: 81.4 kg Body Mass Index (BMI) 25.7 Intake and Output for Last 24 Hours 04/27/18 04/28/18 04/29/18 23:59 23:59 23:59 Intake Total 929.7 / 929.7 676.4 / 676.4 30 / 30 Output Total 1300 / 1300 650 / 650 175 / 175 Balance -370.3 / -370.3 26.4 / 26.4 -145 / -145 Microbiology Past 72 Hours 04/23/18 13:30 Blood Culture - Final Blood Culture (Wb) - Left Wrist No growth in 5 days. 04/24/18 14:30 Blood Culture - Final Blood Culture (Wb) - No Site/Description Given Staphylococcus aureus 04/22/18 11:40 Blood Culture - Final Blood Culture (Wb) - Left Hand Staphylococcus aureus 04/21/18 03:40 Blood Culture - Final Blood Culture (Wb) - Anticubital Left Staphylococcus aureus 04/23/18 10:30 Miscellaneous Culture - Final Other - Port Staphylococcus hominis hominis Gram Stain - Final Laboratory Tests Past 24 Hrs 04/28/18 04/29/18 13:00 05:32 APTT 73.4 H 66.9 H Medical Necessity - Tobacco Use Smoking Status: Current every day smoker Tobacco Use: Cigarettes Route of nutrition/ use of supplements: [] Nutritional Intake: [] IV Site: [] Garcia Catheter: [] - Assessment/Plan Antibiotics: [] Assessment/Plan: [] Active and Suspected Problems (Last Reviewed 04/20/18 @ 08:55 by Venessa Meneses) Chemotherapy management, encounter for (Acute) Septic shock due to port-related MSSA bacteremia with PE and suspected developing cavitary pneumonia - pt has been receiving chemo via port for bladder cancer. Port removed 04/23. Repeat bcx from 04/27 neg so far. Continue cefazolin. Doppler showed BLE DVT. PONCHO with ? thickened valve. Plan will be for 6 weeks iv abx once Bcx clear. hep C cirrhosis - he is not sure who has been managing this, but reports failing treatment after 12 weeks of harvoni several months ago. Genotype 1a. MARTA - resolved Will follow. D/w registered nurse hh case manager and primary team. Pt is insistent on leaving. Counselled him that he has a life threatening infection that needs IV abx. He refuses to stay for picc placement or abx arrangement. If he has to leave, would do 2 week course of po linezolid until iv abx can be arranged for home. This is not standard of care and he is at risk for side effects given his low platelets as well as for serotonin syndrome with his low dose zoloft. Recommended he return to the hospital as soon as possible. Wrote rx for home6 weeks of iv cefazolin and weekly bmp and cbc and gave to registered nurse hh case manager.
--- NOTE | 2018-04-29 11:43 | NURSING ---
Patient requested to leave AMA. Patient refused care while waiting on MD to talk to him. MD came to room and they decided that he was going to leave AMA.
--- NOTE | 2018-04-29 13:45 | CASEMGMT ---
Patient did leave AMA regardless of everyone's efforts to keep him here. SW called Adult Protective Services and left a message requesting a return call regarding referral. NICOLE also spoke with Micki at [facility] and let her know this information. Georgina STEWART MSW
[2018-04-29 14:14] LABS: Pathologist Review Reviewed
--- NOTE | 2018-04-30 13:36 | CASEMGMT ---
NICOLE spoke with Lisa from [facility] and made referral. Georgina STEWART UMBRELLA REPAIRER
== END 2018-04-29 11:17 | disposition left against medical advice (07) | DRG 871 ==
LOC: ED 12:43 → ICU 14:29 → PCU 04-26 16:53
PROVIDERS: Internal Medicine; Internal Medicine Critical Care Medicine; Admitting Provider Family Medicine; Emergency Provider Emergency Medicine; Visit Provider Internal Medicine
DX: A41.01 Sepsis due to Methicillin susceptible Staphylococcus aureus (principal); R65.21 Severe sepsis with septic shock; I26.92 Saddle embolus of pulmonary artery without acute cor pulmonale; N17.0 Acute kidney failure with tubular necrosis; J96.01 Acute respiratory failure with hypoxia; J85.1 Abscess of lung with pneumonia; R57.0 Cardiogenic shock; I82.403 Acute embolism and thrombosis of unspecified deep veins of lower extremity, bilateral; Z66 Do not resuscitate; H91.90 Unspecified hearing loss, unspecified ear; F32.9 Major depressive disorder, single episode, unspecified; M47.9 Spondylosis, unspecified; N40.0 Benign prostatic hyperplasia without lower urinary tract symptoms; I10 Essential (primary) hypertension; M48.00 Spinal stenosis, site unspecified; I48.91 Unspecified atrial fibrillation; D63.8 Anemia in other chronic diseases classified elsewhere; C67.9 Malignant neoplasm of bladder, unspecified; D69.59 Other secondary thrombocytopenia; K74.60 Unspecified cirrhosis of liver; B18.2 Chronic viral hepatitis C; F17.210 Nicotine dependence, cigarettes, uncomplicated
CPT/HCPCS: 31720; 36415; 36591; 51702; 71045; 71275; 80048; 80053; 80076; 82248; 83540; 83550; 83605; 83615; 83735; 85025; 85027; 85045; 85610; 85730; 86880; 87040; 87070; 87077; 87149; 87186; 87205; 87493; 92507; 92526; 93005; 93306; 93312; 93320; 93325; 93970; 93971; 94002; 94003; 94667; 94668; 96360; 97110; 97163; 97166; 97530; 97535; 97802; 99284; 99406; J2997; J7030; J7040; J7050; Q9967; A4216; J1940; J2469

== ENCOUNTER 2018-04-30 19:40 | Inpatient (IN) | payer MEDICARE, MEDICAID, SELFPAY ==
[2018-04-30 19:41] VITALS: BP 120/79; PULSE 96; RESP 22; TEMP 36.9; O2SAT 86; BMI 28.4
--- NOTE | 2018-04-30 20:09 | EKG12_ITS ---
Test Reason : FALL Blood Pressure : / mmHG Vent. Rate : 090 BPM Atrial Rate : 090 BPM P-R Int : 148 ms QRS Dur : 084 ms QT Int : 380 ms P-R-T Axes : 055 039 064 degrees QTc Int : 464 ms Sinus rhythm with Premature atrial complexes Otherwise normal ECG Confirmed by RADHA DRAPER, SALMA ([id number]), continuity editor ADRI CHILD ([id number] on 05/03/2018 3:25:12 PM Referred By: MELISSA XIE Confirmed By:SALMA GARCIA MD
--- NOTE | 2018-04-30 20:10 | RAD_ITS ---
STUDY: X-RAY - PELVIS AND RIGHT HIP REASON FOR EXAM: Male, 67 years old. Fall. TECHNIQUE: Radiological exam, hip, unilateral, with pelvis when performed; 2 or 3 views. COMPARISON: None. FINDINGS: There are mildly dilated gas filled loops of small intestine in the pelvis. Normal visualized soft tissue structures. Normal bilateral iliac wings, sacroiliac joints and visualized sacrum. Normal bilateral superior and inferior pubic rami. Normal pubic symphysis. Normal bilateral ischial tuberosities. Normal visualized femoral head. Normal acetabulum. Normal hip joint. Prominent degenerative changes of the lumbar spine. RAD/HIP, UNI W/ Pelvis 2-3 Views IMPRESSION: No acute fracture or dislocation. Electronically Signed: Omar Byrne MD at 21:18 EDT , Service support ,
--- NOTE | 2018-04-30 20:11 | ED.VISSUMM ---
- ER Visit Summary Date of Service: 04/30/18 Chief Complaint: Multiple falls and right hip pain History of Present Illness: The patient is a 67 M history of bladder CA, recent DVTs and pulmonary emboli. Also DNR Comfort Care arrest. Patient was recently hospitalized found to have sepsis and had his right Mediport removed. Reportedly signed out AMA yesterday. Today at home he fell multiple times. Now is complaining of right hip pain. Reportedly lives with his brother. He is also hypoxic on room air is 86%. He denies any lung history. Physical Examination: Older male initial blood pressure 120/79 is afebrile. His pulse ox is 86% on room air consistent with hypoxia. HEENT exam atraumatic. Pupils are round reactive light. C-spine nontender trachea midline. Lungs coarse breath sounds bilaterally. Heart regular rhythm in the 90s. Chest wall nontender. Abdomen soft nontender. Pelvic girdle intact. He has pain on palpation and with passive movement of his right hip. Currently there is no shortening or external rotation. He has 1+ pitting edema both lower extremities. His excoriations of the skin. Dorsi plantar flexion intact. Neurologically is awake. He is alert. He is moving all 4 extremities except for his right hip. He knows day, month, year, place and president. Test Results: White count 15,000. Hemoglobin is 7.9 patient is chronically anemic last hemoglobin was 8.9. Electrolytes show BUN of 18 and creatinine 0.5. Gap is normal. INR is 1.6. Urine infection with positive nitrates. 100 white cells. Troponin 0 0.063 and BNP is 108. Urine culture was sent. Chest x-ray shows right upper lobe infiltrate which is consistent with a prior film. Right hip and pelvis x-ray shows no fracture or dislocation. Both films were reviewed by me and read by the radiologist. EKG sinus rhythm rate of 90 with PACs. No signs of ischemia. Emergency Department Course and Treatment: Patient will be readmitted. He is hypoxic. Treatment Plan: Repeat exam the patient is resting comfortably at 2330. I spoke to his niece at bedside. She told me multiple people tried to talk him in staying in the hospital before he signed out AMA. She said family did, his inpatient physicians and even social media marketing specialist and the nurses. The hospitalist on page for admission to the PCU. Patient will be started on Rocephin for his UTI. I did speak to his niece and she understands that if he is unable to ambulate in the right hip they may have to do further imaging. Disposition: Admission Impression: Acute multiple falls Acute right hip pain secondary to contusion Acute hypoxia recent pulmonary emboli Urinary tract infection History of bladder CA DNR Comfort Care arrest This note was generated with [employer] dictation software. It may contain incorrect words, spelling, and punctuation that were not noted in review of the chart prior to signing ED Disposition - Plan for ED Patient: Chief Complaint: Fall Referrals: Care Physician,No Primary [Primary Care Provider] -
--- NOTE | 2018-04-30 20:14 | ED.DCSUM_ITS ---
- ER Visit Summary Date of Service: 04/30/18 Chief Complaint: Multiple falls and right hip pain History of Present Illness: The patient is a 67 M history of bladder CA, recent DVTs and pulmonary emboli. Also DNR Comfort Care arrest. Patient was recently hospitalized found to have sepsis and had his right Mediport removed. Reportedly signed out AMA yesterday. Today at home he fell multiple times. Now is complaining of right hip pain. Reportedly lives with his brother. He is also hypoxic on room air is 86%. He denies any lung history. Physical Examination: Older male initial blood pressure 120/79 is afebrile. His pulse ox is 86% on room air consistent with hypoxia. HEENT exam atraumatic. Pupils are round reactive light. C-spine nontender trachea midline. Lungs coarse breath sounds bilaterally. Heart regular rhythm in the 90s. Chest wall nontender. Abdomen soft nontender. Pelvic girdle intact. He has pain on palpation and with passive movement of his right hip. Currently there is no shortening or external rotation. He has 1+ pitting edema both lower extremities. His excoriations of the skin. Dorsi plantar flexion intact. Neurologically is awake. He is alert. He is moving all 4 extremities except for his right hip. He knows day, month, year, place and president. Test Results: White count 15,000. Hemoglobin is 7.9 patient is chronically anemic last hemoglobin was 8.9. Electrolytes show BUN of 18 and creatinine 0.5. Gap is normal. INR is 1.6. Urine infection with positive nitrates. 100 white cells. Troponin 0 0.063 and BNP is 108. Urine culture was sent. Chest x -ray shows right upper lobe infiltrate which is consistent with a prior film. Right hip and pelvis x-ray shows no fracture or dislocation. Both films were reviewed by me and read by the radiologist. EKG sinus rhythm rate of 90 with PACs. No signs of ischemia. Emergency Department Course and Treatment: Patient will be readmitted. He is hypoxic. Treatment Plan: Repeat exam the patient is resting comfortably at 2330. I spoke to his niece at bedside. She told me multiple people tried to talk him in staying in the hospital before he signed out AMA. She said family did, his inpatient physicians and even social service manager and the nurses. The hospitalist on page for admission to the PCU. Patient will be started on Rocephin for his UTI. I did speak to his niece and she understands that if he is unable to ambulate in the right hip they may have to do further imaging. Disposition: Admission Impression: Acute multiple falls Acute right hip pain secondary to contusion Acute hypoxia recent pulmonary emboli Urinary tract infection History of bladder CA DNR Comfort Care arrest This note was generated with [employer] dictation software. It may contain incorrect words, spelling, and punctuation that were not noted in review of the chart prior to signing ED Disposition - Plan for ED Patient: Chief Complaint: Fall Referrals: Care Physician,No Primary [Primary Care Provider] -
[2018-04-30 20:20] VITALS: O2SAT 97
[2018-04-30 20:26] LABS: Bacteria 0 SEEN /hpf (None Seen); Mucous, Urine 0 SEEN /hpf (<or=2+); Squamous Epithelial Cells - UA 0 SEEN /hpf (0-5)
[2018-04-30 20:27] LABS: Color, Urine Amber (Yellow); Glucose, Dipstick Normal (Normal); Ketone-Dipstick 5 mg/dl (Negative); Leukocyte Esterase-Dipstick 500 /ul (Negative); Nitrite-Dipstick Positive (Negative); Occult Blood-Urine 250 /ul (Negative); Protein-Dipstick 100 mg/dl (Negative); Urine Bilirubin Dipstick Negative (Negative); Urine Clarity Cloudy (Clear); Urine Urobilinogen 1 mg/dl (Normal)
--- NOTE | 2018-04-30 20:40 | RAD_ITS ---
STUDY: X-RAY CHEST REASON FOR EXAM: Male, 67 years old. Staph infection. Falls. TECHNIQUE: Single AP portable view of the chest. COMPARISON: Previous chest x-ray 04/25/2018, CT scan 04/20/18. FINDINGS: Normal lung volumes. Diffuse infiltrate throughout the right upper lobe, grossly stable. Atelectasis or infiltrate in the left lung base is markedly improved. Small right pleural effusion also significantly improved. Normal size heart. Normal mediastinum and jill. Normal visualized pulmonary arteries. Normal visualized aortic arch and descending thoracic aorta. There are diffuse degenerative changes of the visualized thoracic spine. Normal visualized ribs, clavicles, and shoulders. There is no demonstrated abnormality of the visualized soft tissue structures of the upper abdomen. RAD/Chest 1 View (Portable) IMPRESSION: Improved atelectasis or infiltrate and pleural effusion in the left lung base. Stable extensive infiltrate of the right upper lobe. Electronically Signed: Omar Byrne MD at 21:16 EDT , Service support ,
[2018-04-30 20:42] LABS: Red Blood Cells-Urine 50-100 SEEN /hpf (0-5); White Blood Cells >100 SEEN /hpf (0-5)
[2018-04-30 20:46] LABS: Yeast-Urine 1+ /hpf (None Seen)
[2018-04-30 21:13] LABS: Absolute Lymphocyte Count 2.29 X10^3/ul (0.83-4.51); Absolute Neutrophil Count 12.7 X10^3/uL (2.0-7.7); Basophil# 0.01 X10^3/uL; Basophil% 0.1 % (0-1); Eosinophil# 0.02 X10^3/uL; Eosinophils% 0.1 % (0-5); Hematocrit 26.2 % (40-54); Hemoglobin 7.9 g/dl (13.0-16.5); Lymphocyte # 2.29 X10^3/ul (4.0); Lymphocyte % 14.6 % (19-41); Mean Corp Hgb Conc 30.2 g/gl (32-36); Mean Corpuscular Hgb 27.9 pg (27.0-32.0); Mean Corpuscular Volume 92.6 fL (80-94); Mean Platelet Vol. 9.1 fl (6.2-12.0); Monocyte% 4.5 % (0-10); Neutrophil # 12.65 X10^3/uL (2.7-7.7); Neutrophil % 80.4 % (47-70); Platelet Count 66 K/mm3 (150-450); RBC Distribution Width CV 26.9 % (11.6-14.6); RBC Distribution Width SD 88.8 fl (35.1-43.9); Red Blood Count 2.83 M/mm3 (4.6-6.2); White Blood Count 15.7 K/mm3 (4.4-11.0)
[2018-04-30 21:14] LABS: Differential Indicated SCAN CRITERIA MET; POSITIVE COUNT NO; POSITIVE DIFFERENTIAL NO; POSITIVE MORPHOLOGY YES
[2018-04-30 21:17] LABS: International Normalized Ratio 1.6; Prothrombin Time (Protime)PT. 19.4 SECONDS (11.7-14.9)
[2018-04-30 21:29] LABS: Anion Gap 6 (5-15); BUN 18 mg/dL (7-18); BUN/Creat Ratio 32.5 RATIO (10-20); Calcium,Total 7.2 mg/dL (8.5-10.1); Chloride 112 mmol/L (98-107); Creatinine, Serum 0.55 mg/dL (0.70-1.30); EST Glomerular Filtration Rate 155 mL/min (>60); Est Glom Filt Rate - Afr Amer 188 mL/min (>60); Estimated Creatinine Clearance 67.45 ml/min; Glucose 107 mg/dL (74-106); Potassium 3.4 mmol/L (3.5-5.1); Sodium Level 145 mmol/L (136-145)
[2018-04-30 21:33] LABS: Differential Comment SCANNED
[2018-04-30 21:57] LABS: BNP,B-Type NATRIURETIC PEPTIDE 108.3 pg/mL (0-100)
[2018-04-30 22:13] VITALS: BP 133/83; PULSE 89; RESP 18; O2SAT 97
[2018-05-01] VITALS (15 sets, daily range): BP systolic 92–127; BP diastolic 52–75; PULSE 81–94; RESP 16–20; TEMP 36.4–36.9; O2SAT 91–95; BMI 23.8; BMI 23.9
--- NOTE | 2018-05-01 00:31 | HP.PCM_ITS ---
Problem List (1) Acute respiratory failure with hypoxia Status: Acute (2) Saddle embolus of pulmonary artery with acute cor pulmonale Status: Acute Qualifiers: Chronicity: acute Qualified Code(s): I26.02 - Saddle embolus of pulmonary artery with acute cor pulmonale (3) MSSA bacteremia Status: Acute (4) Cystitis Status: Acute History of Present Illness Date of Admission: 05/01/18 Chief Complaint: Multiple falls. The patient is a 67 year old M with a history of bladder cancer status post resection and chemotherapy; hepatitis C cirrhosis; who was recently admitted to ICU for submassive saddle embolism and also had Septic shock due to port- related MSSA bacteremia; and cavitary pneumonia who left AMA 1 day ago presents with multiple falls and right leg pain. Also at emergency department he was found to be severely hypoxic with oxygen saturation of 86% on room air. He had a positive urinalysis and neutrophilic leukocytosis.. Past Medical History Past Medical History (Chronic Problems): Chronic Problems (Last Reviewed 05/01/18 @ 02:31 by Ayaz Cooper MD) Depression (Chronic) Hearing loss (Chronic) Anemia (Chronic) Urinary bladder cancer (Chronic) Spinal stenosis (Chronic) Degenerative joint disease of spine (Chronic) Cirrhosis (Chronic) BPH (benign prostatic hyperplasia) (Chronic) HTN (hypertension) (Chronic) Medical History: Medical History (Last Reviewed 05/01/18 @ 02:31 by Ayaz Cooper MD) Anemia (Chronic) D64.9 Urinary bladder cancer (Chronic) C67.9 Spinal stenosis (Chronic) M48.00 Degenerative joint disease of spine (Chronic) M47.9 Cirrhosis (Chronic) K74.60 UTI (urinary tract infection) (Acute) N39.0 Back pain (Acute) M54.9 BPH (benign prostatic hyperplasia) (Chronic) N40.0 HTN (hypertension) (Chronic) I10 Bladder neoplasm D49.4 Essential hypertension I10 Gross hematuria R31.0 Hepatitis C B19.20 UTI (urinary tract infection) N39.0 Allergies No Known Allergies Allergy (Verified 04/30/18 19:44) Home Medications: Ambulatory Orders Medication Instructions Recorded Lisinopril 20 mg PO DAILY 11/25/17 Pantoprazole Sodium [Protonix] 40 mg PO DAILY 11/25/17 Sertraline HCl [Zoloft] 50 mg PO DAILY 01/14/18 Ondansetron HCl [Zofran] 4 mg PO PRN PRN 04/20/18 Linezolid 600 mg PO BID #28 tab 04/29/18 Surgical History: Surgical History (Last Reviewed 05/01/18 @ 02:31 by Ayaz Cooper MD) S/P cystoscopy Z98.890 x 2 liver biopsy, percutaneous Surgical History: - - Port placement Psychiatric History: Depression Lives: With Family - Lives with brother Smoking Status: Current every day smoker - *Family History Maternal Family History: Family History (Last Reviewed 04/20/18 @ 08:55 by Venessa Meneses) Brother Diabetes Mother Diabetes History Items: - - No cancer Paternal Family History: Family History (Last Reviewed 04/20/18 @ 08:55 by Venessa Meneses) Brother Diabetes Mother Diabetes History Items: - - No cancer Review of Systems Constitutional: Reports: Weakness HEENT: Denies: Head Aches, Sinus Congestion, Sinus Drainage Respiratory: Reports: Cough - Reports that sputum. Gastrointestinal: Denies: Abdominal Pain, Nausea, Vomiting Genitourinary: Denies: Incontinence Musculoskeletal: Reports: - - Right hip pain. Skin: Denies: Rash, Wounds Neurological: Reports: Balance problems Psychiatric: Denies: Homicidal Ideations, Suicidal Ideations Hematologic/ Lymphatic: Denies: Easy Bruising, Easy Bleeding VTE Information - Inpt Only VTE Present on Admission: Yes VTE Mechan Device Prophylaxis: None VTE Pharm Prophylaxis ordered?: No Reason prophylaxis not ordered:: Treatment Not Indicated - Restarted on heparin drip for PE Patient Problems: Active and Suspected Problems (Last Reviewed 05/01/18 @ 02:31 by Ayaz Cooper MD) Acute respiratory failure with hypoxia (Acute) Cystitis (Acute) - Physical Exam General: Oriented x3, Lethargic HEENT: Atraumatic, PERRLA, EOMI, Normocephalic Neck: Supple, No JVD, Negative Carotid Bruits Lungs: Rales - Right side, Rhonchi Cardiovascular: Regular rate, Normal S1, Normal S2 Abdomen: Bowel Sounds Present, Soft, Non Tender Extremities: Edema - +4 from bilateral feet to bilateral ankle with blisters. Skin: Skin Tear - 2 x 3 cm excoriation proximal to right pollicis., - - 1 cm x 1 cm unroofing of epidermis on left dorsal foot. Musculoskeletal: - - Reduced range of motion of bilateral legs. Right worse than left. Lymphatic: No Cervical, Supraclavicular, or Inguinal Adenopathy Neurological: Cranial nerves II-XII grossly intact Psych/Mental Status: Normal Affect Vital Signs Temp Pulse Resp BP Pulse Ox 98.5 F 89 18 133/83 H 97 04/30/18 19:41 04/30/18 22:13 04/30/18 22:13 04/30/18 22:13 04/30/18 22:13 Assessment/Plan All Active Problems (Last Reviewed 05/01/18 @ 02:31 by Ayaz Cooper MD) Chemotherapy management, encounter for (Acute) Saddle embolus of pulmonary artery with acute cor pulmonale (Acute) Pneumonia (Acute) MSSA bacteremia (Acute) Acute respiratory failure with hypoxia (Acute) Cystitis (Acute) UTI (urinary tract infection) (Acute) Back pain (Acute) The patient is a 67 year old M with a history of bladder cancer status post resection and chemotherapy; hepatitis C cirrhosis; who was recently admitted to ICU for submassive saddle embolism and also had Septic shock due to port- related MSSA bacteremia; and cavitary pneumonia who left AMA 1 day ago presents with multiple falls; right leg pain and found to have a positive urinalysis; low oxygen saturation and with neutrophilic leukocytosis... 1.Acute hypoxic respiratory failure Likely a combination of PE and pneumonia. Treatment as below. 2.Submassive saddle pulmonary embolism with DVT Patient was started on heparin drip. Consider transitioning to direct oral anticoagulation the patient can continue outpatient. 3.MSSA bacteremia. Patient was supposed to be taking Zyvox whiles outpatient We will restart patient on Zyvox IV. Was on cefazolin on previous visits. Placed on ceftriaxone for #4. Monitor platelet and serotonin syndrome. Patient is a known patient of Dr. Ferris, Dr. Magallanes consulted 4. Probable Cystitis Patient with positive urinalysis Received ceftriaxone at emergency department Ceftriaxone continued. 5.Acute right hip pain secondary to contusion Supportive treatment of pain medication: Oxycodone as needed ordered. PT/OT to work with patient. 6. Multiple falls Patient reports that he lost his balance. Vitamin D and vitamin B12 level ordered Vitamin D p.o. started. 7.Hepatitis C cirrhosis Per Dr. Ferris's notes patient reported failing treatment with [facility] Patient to follow up outpatient Lasix for bilateral leg edema. 8.DVT prophylaxis Not indicated. Patient started on heparin drip for PE. Wounds on bilateral feet left open to air. Code Visit Inpatient E&M: [id number] Init Hosp L3
[2018-05-01] MEDS: Ceftriaxone 1 GM/50 ML BAG IV ×2 (01:30→22:25)
[2018-05-01] MEDS: Linezolid 600 MG 600 MG/300 ML BAG 200 MG IV ×2 (02:48→23:00)
[2018-05-01] MEDS: Furosemide 40 MG/4 ML Vial IV (02:48)
[2018-05-01] MEDS: HEPARIN/D5w 25,000 UNITS 25,000 UNITS/250 ML IV.SOLN. 12 UNITS IV (02:48)
[2018-05-01 02:52] LABS: International Normalized Ratio 1.6; Prothrombin Time (Protime)PT. 18.7 SECONDS (11.7-14.9)
[2018-05-01 02:53] LABS: Partial Thromboplast Time 38.1 Seconds (24.1-36.2)
[2018-05-01] MEDS: Heparin Injection (Vial) 5,000 UNIT/ML VIAL 6000 UNIT IV (02:57)
[2018-05-01 02:58] LABS: Anion Gap 7 (5-15); BUN 16 mg/dL (7-18); Calcium,Total 7.1 mg/dL (8.5-10.1); Chloride 112 mmol/L (98-107); Creatinine, Serum 0.43 mg/dL (0.70-1.30); EST Glomerular Filtration Rate 207 mL/min (>60); Est Glom Filt Rate - Afr Amer 251 mL/min (>60); Estimated Creatinine Clearance 67.45 ml/min; Glucose 83 mg/dL (74-106); Potassium 3.4 mmol/L (3.5-5.1); Sodium Level 146 mmol/L (136-145)
[2018-05-01 09:48] LABS: Partial Thromboplast Time > 250.0 Seconds (24.1-36.2)
[2018-05-01] MEDS: guaiFENesin 1,200 MG Tablet 1200 MG PO (10:31)
--- NOTE | 2018-05-01 16:47 | CASEMGMT ---
SOCIAL WORK ASSESSMENT COMPLETED WITH PATIENT; REFER TO FOR ADDITIONAL DETAILS. Met with patient and introduced self and SW role at [facility] this date. Advised that primary SW will be available on Thursday to further discuss discharge planning. Patient admits that he knew the risks when he left AMA and that he fell at least 3 times since returning home. He states that he is so weak that he couldn't even make it to the front door of his home. Patient now requesting placement at [facility] if bed available. Explained that SW will have to check on Thursday and that pre-cert process will need to be started again. He voiced understanding of information provided. Patient with flat affect and poor eye contact. Admits to having suicide ideations however denies any type of plan to harm self at this time. States that he wants to get therapy and eventually go into assisted living. PLAN: SNF placement pending referral and pre-cert. MIRA Lambert
[2018-05-01 17:15] LABS: Partial Thromboplast Time 88.7 Seconds (24.1-36.2)
[2018-05-01] MEDS: Enoxaparin 80 MG/0.8 ML Syringe SC (17:52)
[2018-05-01] MEDS: 0.9% NaCl Peripheral Flush Adult/Peds IV (22:25)
[2018-05-02 03:07] VITALS: PULSE 84
[2018-05-02 04:15] VITALS: BP 109/77; PULSE 81; RESP 18; TEMP 36.7; O2SAT 97
[2018-05-02 06:26] LABS: ALB/GLOB Ratio 0.2 RATIO (0.9-2.4); AST(SGOT) 66 U/L (15-37); Alanine Aminotransfer ALT/SGPT 12 U/L (16-61); Albumin, Serum 0.8 g/dL (3.2-5.0); Alkaline Phosphatase 92 U/L (45-117); Anion Gap 5 (5-15); BUN 14 mg/dL (7-18); BUN/Creat Ratio 31.7 RATIO (10-20); Calcium,Total 6.8 mg/dL (8.5-10.1); Chloride 112 mmol/L (98-107); Creatinine, Serum 0.44 mg/dL (0.70-1.30); EST Glomerular Filtration Rate 202 mL/min (>60); Est Glom Filt Rate - Afr Amer 244 mL/min (>60); Estimated Creatinine Clearance 67.45 ml/min; Globulin 4.9 g/dL (2.2-4.2); Glucose 129 mg/dL (74-106); Potassium 3.7 mmol/L (3.5-5.1); Protein, Total 5.7 g/dL (6.4-8.2); Sodium Level 146 mmol/L (136-145)
[2018-05-02] MEDS: Enoxaparin 80 MG/0.8 ML Syringe SC (06:37)
[2018-05-02 06:44] LABS: Absolute Lymphocyte Count 1.88 X10^3/ul (0.83-4.51); Absolute Neutrophil Count 8.7 X10^3/uL (2.0-7.7); Basophil# 0.01 X10^3/uL; Basophil% 0.1 % (0-1); Eosinophil# 0.06 X10^3/uL; Eosinophils% 0.5 % (0-5); Hemoglobin 7.1 g/dl (13.0-16.5); Lymphocyte # 1.88 X10^3/ul (4.0); Lymphocyte % 16.8 % (19-41); Mean Corp Hgb Conc 29.6 g/gl (32-36); Mean Corpuscular Hgb 29.1 pg (27.0-32.0); Mean Corpuscular Volume 98.4 fL (80-94); Monocyte# 0.57 X10^3/uL; Monocyte% 5.1 % (0-10); Neutrophil # 8.69 X10^3/uL (2.7-7.7); Neutrophil % 77.4 % (47-70); Platelet Count 105 K/mm3 (150-450); RBC Distribution Width CV 26.6 % (11.6-14.6); RBC Distribution Width SD 90.2 fl (35.1-43.9); Red Blood Count 2.44 M/mm3 (4.6-6.2); White Blood Count 11.2 K/mm3 (4.4-11.0)
[2018-05-02 06:48] LABS: POSITIVE COUNT NO; POSITIVE DIFFERENTIAL NO
[2018-05-02 06:49] LABS: Differential Indicated SCAN CRITERIA MET; Erythrocyte Sedimentation Rate 51 mm/hr (0-20); POSITIVE MORPHOLOGY YES
[2018-05-02 07:08] VITALS: PULSE 80
[2018-05-02 07:25] LABS: Anisocytosis 1+; Differential Comment SCAN; Hypochromasia 1+; Microcytosis 1+; Polychromasia 1+
[2018-05-02 09:03] VITALS: O2SAT 96
[2018-05-02 10:15] VITALS: BP 119/75; PULSE 83; RESP 20; TEMP 36.6; O2SAT 94
[2018-05-02] MEDS: Linezolid 600 MG 600 MG/300 ML BAG 200 MG IV (10:18)
[2018-05-02 11:15] VITALS: PULSE 85
--- NOTE | 2018-05-02 11:53 | DCINST_ITS ---
- Discharge Diagnoses Current Active Problems: Current Active and Chronic Problems (Last Reviewed 05/01/18 @ 02:31 by Ayaz Cooper MD) Acute respiratory failure with hypoxia (Acute) Cystitis (Acute) You will use the following diet at home:: No restrictions Discharge Activity: Return to Normal Activity Allergies/Adverse Reactions: Allergies No Known Allergies Allergy (Verified 04/30/18 19:44) Medications to take at Discharge Lisinopril 20 mg PO DAILY 11/25/17 Pantoprazole Sodium [Protonix] 40 mg PO DAILY 11/25/17 Sertraline HCl [Zoloft] 50 mg PO DAILY 01/14/18 Ondansetron HCl [Zofran] 4 mg PO PRN PRN 04/20/18 Linezolid 600 mg PO BID #28 tab 04/29/18 Primary Care Physician: Care Physician,No Primary [Primary Care Provider] - Please follow up with your Primary Care Physician in: As needed Test Results: Test results from this visit will be discussed in further detail at your follow- up appointment, if applicable. Proposed Discharge Date: 05/02/18
--- NOTE | 2018-05-02 11:54 | PCM.DC.SUM ---
<Stacy Kirkpatrick - Last Filed: 05/02/18 12:22> Discharge Date and Diagnosis Date of Admission: 05/01/18 Date of Discharge: 05/02/18 - Primary Discharge Diagnosis Active and Suspected Problems (Last Reviewed 05/01/18 @ 02:31 by Ayaz Cooper MD) 1. Acute respiratory insufficiency with hypoxia secondary to recent diagnosis of submassive pulmonary embolism/cavitary pneumonia 2. Recent diagnosis MSSA bacteremia 3. Acute cystitis 4. Debility with recent recurrent falls prior to admission, acute right hip pain secondary to fall prior to admission 5. Stage II bladder cancer - Secondary Discharge Diagnosis Chronic Problems (Last Reviewed 05/01/18 @ 02:31 by Ayaz Cooper MD) Depression (Chronic) Hearing loss (Chronic) Anemia (Chronic) Urinary bladder cancer (Chronic) Spinal stenosis (Chronic) Degenerative joint disease of spine (Chronic) Cirrhosis (Chronic) BPH (benign prostatic hyperplasia) (Chronic) HTN (hypertension) (Chronic) Hospital Course and Treatment Imaging Results: Diagnostic Data Hip/Pelvis X-Ray 04/30/18 20:10 IMPRESSION: No acute fracture or dislocation. Electronically Signed: Omar Byrne MD at 21:18 EDT , Service support , Chest X-Ray 04/30/18 20:40 IMPRESSION: Improved atelectasis or infiltrate and pleural effusion in the left lung base. Stable extensive infiltrate of the right upper lobe. Electronically Signed: Omar Byrne MD at 21:16 EDT , Service support , Consultations 05/01/18 02:37 Consult: Onc/Wound/information clerk [employer] Routine Comment: Reason for Consult:: bilateral feet wound Operations: None Procedures: None Summary of Care Provided: The patient is a 67 year old M admitted 05/01/2018 due to multiple falls. He has a complicated recent past medical history. Recently signed out AMA 04/29/2018 while he was being admitted for submassive pulmonary embolism with cardiogenic shock, septic shock secondary to suspected lung abscess with MSSA bacteremia. Infectious disease evaluated patient during previous admission and recommended discharge with 2-week course of Zyvox. Patient did not continue antibiotic therapy at discharge due to leaving AMA. This admission, patient was noted to have acute respiratory insufficiency with hypoxia secondary to recent diagnosis of submassive pulmonary embolus as well as suspected lung abscess/cavitary pneumonia. Recent diagnosis MSSA bacteremia. He was also noted to have acute cystitis and was a started on IV Rocephin. Patient with acute right hip pain secondary to fall prior to admission. Imaging showed no acute fracture or dislocation. Patient has ongoing stage II bladder cancer. Patient agreeable to hospice services and will be admitted to inpatient hospital facility at discharge. CODE STATUS changed to DNR CC per patient wishes. General: Alert, oriented ?3, ill-appearing HEENT: Atraumatic, PERRLA, EOMI, Normocephalic Neck: Supple, No JVD, Negative Carotid Bruits Lungs: Rales, rhonchi Cardiovascular: Regular rate, Normal S1, Normal S2 Abdomen: Bowel Sounds Present, Soft, Non Tender Extremities: Anasarca, bilateral lower extremity edema +4, bilateral hand edema +2-3 Skin: Generalized abrasions, bruising. Bilateral arm abrasions/scabbing. Musculoskeletal: Right hip tenderness. Lymphatic: No Cervical, Supraclavicular, or Inguinal Adenopathy Neurological: Cranial nerves II-XII grossly intact Psych/Mental Status: Normal Affect Patient seen and examined prior to discharge. Physical assessment as noted above. Patient to be transported to inpatient hospice facility at discharge. This patient was seen by TERE Duong under the supervision of Dr. Yusuf. Home Medications: Medications to take at Discharge Lisinopril 20 mg PO DAILY 11/25/17 Pantoprazole Sodium [Protonix] 40 mg PO DAILY 11/25/17 Sertraline HCl [Zoloft] 50 mg PO DAILY 01/14/18 Ondansetron HCl [Zofran] 4 mg PO PRN PRN 04/20/18 Linezolid 600 mg PO BID #28 tab 04/29/18 Primary Care Physician: Care Physician,No Primary [Primary Care Provider] - Please follow up with your Primary Care Physician in: As needed Disposition: Hospice Medical Facility Minutes spent on discharge:: 35 Patient Condition:: Guarded Medical Necessity - Tobacco Use Smoking Status: Current every day smoker Meaningful Use Info Meaningful Use Diagnoses (Choose all that apply): None applicable <TienAlex griffithpatti - Last Filed: 05/03/18 08:09> Discharge Date and Diagnosis - Secondary Discharge Diagnosis Chronic Problems (Last Reviewed 05/01/18 @ 02:31 by Ayaz Cooper MD) Depression (Chronic) Hearing loss (Chronic) Anemia (Chronic) Urinary bladder cancer (Chronic) Spinal stenosis (Chronic) Degenerative joint disease of spine (Chronic) Cirrhosis (Chronic) BPH (benign prostatic hyperplasia) (Chronic) HTN (hypertension) (Chronic) Hospital Course and Treatment Consultations 05/01/18 02:37 Consult: Onc/Wound/information clerk [employer] Routine Comment: Reason for Consult:: bilateral feet wound Summary of Care Provided: Case reviewed independently of CREW CLERK Patient has opted for hospice care and will be discharged to inpatient hospice Symptoms well controlled at this time Agree with other findings and assessment and discharge plans as enumerated and described in the rest of this note
--- NOTE | 2018-05-02 12:01 | DS.PCM_ITS ---
<Stacy Kirkpatrick - Last Filed: 05/02/18 12:22> Discharge Date and Diagnosis Date of Admission: 05/01/18 Date of Discharge: 05/02/18 - Primary Discharge Diagnosis Active and Suspected Problems (Last Reviewed 05/01/18 @ 02:31 by Ayaz Cooper MD) 1. Acute respiratory insufficiency with hypoxia secondary to recent diagnosis of submassive pulmonary embolism/cavitary pneumonia 2. Recent diagnosis MSSA bacteremia 3. Acute cystitis 4. Debility with recent recurrent falls prior to admission, acute right hip pain secondary to fall prior to admission 5. Stage II bladder cancer - Secondary Discharge Diagnosis Chronic Problems (Last Reviewed 05/01/18 @ 02:31 by Ayaz Cooper MD) Depression (Chronic) Hearing loss (Chronic) Anemia (Chronic) Urinary bladder cancer (Chronic) Spinal stenosis (Chronic) Degenerative joint disease of spine (Chronic) Cirrhosis (Chronic) BPH (benign prostatic hyperplasia) (Chronic) HTN (hypertension) (Chronic) Hospital Course and Treatment Imaging Results: Diagnostic Data Hip/Pelvis X-Ray 04/30/18 20:10 IMPRESSION: No acute fracture or dislocation. Electronically Signed: Omar Byrne MD at 21:18 EDT , Service support , Chest X-Ray 04/30/18 20:40 IMPRESSION: Improved atelectasis or infiltrate and pleural effusion in the left lung base. Stable extensive infiltrate of the right upper lobe. Electronically Signed: Omar Byrne MD at 21:16 EDT , Service support , Consultations 05/01/18 02:37 Consult: Onc/Wound/associate broker Routine Comment: Reason for Consult:: bilateral feet wound Operations: None Procedures: None Summary of Care Provided: The patient is a 67 year old M admitted 05/01/2018 due to multiple falls. He has a complicated recent past medical history. Recently signed out AMA 2017 while he was being admitted for submassive pulmonary embolism with cardiogenic shock, septic shock secondary to suspected lung abscess with MSSA bacteremia. Infectious disease evaluated patient during previous admission and recommended discharge with 2-week course of Zyvox. Patient did not continue antibiotic therapy at discharge due to leaving AMA. This admission, patient was noted to have acute respiratory insufficiency with hypoxia secondary to recent diagnosis of submassive pulmonary embolus as well as suspected lung abscess/cavitary pneumonia. Recent diagnosis MSSA bacteremia. He was also noted to have acute cystitis and was a started on IV Rocephin. Patient with acute right hip pain secondary to fall prior to admission. Imaging showed no acute fracture or dislocation. Patient has ongoing stage II bladder cancer. Patient agreeable to hospice services and will be admitted to inpatient hospital facility at discharge. CODE STATUS changed to DNR CC per patient wishes. General: Alert, oriented ?3, ill-appearing HEENT: Atraumatic, PERRLA, EOMI, Normocephalic Neck: Supple, No JVD, Negative Carotid Bruits Lungs: Rales, rhonchi Cardiovascular: Regular rate, Normal S1, Normal S2 Abdomen: Bowel Sounds Present, Soft, Non Tender Extremities: Anasarca, bilateral lower extremity edema +4, bilateral hand edema +2-3 Skin: Generalized abrasions, bruising. Bilateral arm abrasions/scabbing. Musculoskeletal: Right hip tenderness. Lymphatic: No Cervical, Supraclavicular, or Inguinal Adenopathy Neurological: Cranial nerves II-XII grossly intact Psych/Mental Status: Normal Affect Patient seen and examined prior to discharge. Physical assessment as noted above. Patient to be transported to inpatient hospice facility at discharge. This patient was seen by TERE Duong under the supervision of Dr. Yusuf. Home Medications: Medications to take at Discharge Lisinopril 20 mg PO DAILY 11/25/17 Pantoprazole Sodium [Protonix] 40 mg PO DAILY 11/25/17 Sertraline HCl [Zoloft] 50 mg PO DAILY 01/14/18 Ondansetron HCl [Zofran] 4 mg PO PRN PRN 04/20/18 Linezolid 600 mg PO BID #28 tab 04/29/18 Primary Care Physician: Care Physician,No Primary [Primary Care Provider] - Please follow up with your Primary Care Physician in: As needed Disposition: Hospice Medical Facility Minutes spent on discharge:: 35 Patient Condition:: Guarded Medical Necessity - Tobacco Use Smoking Status: Current every day smoker Meaningful Use Info Meaningful Use Diagnoses (Choose all that apply): None applicable <TienAlex griffithpatti - Last Filed: 05/03/18 08:09> Discharge Date and Diagnosis - Secondary Discharge Diagnosis Chronic Problems (Last Reviewed 05/01/18 @ 02:31 by Ayaz Cooper MD) Depression (Chronic) Hearing loss (Chronic) Anemia (Chronic) Urinary bladder cancer (Chronic) Spinal stenosis (Chronic) Degenerative joint disease of spine (Chronic) Cirrhosis (Chronic) BPH (benign prostatic hyperplasia) (Chronic) HTN (hypertension) (Chronic) Hospital Course and Treatment Consultations 05/01/18 02:37 Consult: Onc/Wound/associate broker Routine Comment: Reason for Consult:: bilateral feet wound Summary of Care Provided: Case reviewed independently of [employer] Patient has opted for hospice care and will be discharged to inpatient hospice Symptoms well controlled at this time Agree with other findings and assessment and discharge plans as enumerated and described in the rest of this note
[2018-05-03 10:14] LABS: Vitamin B12 > 2000 pg/mL (211-911); Vitamin D,25 Hydroxy 20.1 ng/mL (29.95-100.01)
[2018-05-05 11:14] LABS: Vitamin D 1,25-Dihydroxy 9.5 pg/mL (19.9-79.3)
== END 2018-05-02 12:19 | disposition hospice, inpatient (51) | DRG 175 ==
LOC: ED 21:13 → PCU 05-01 00:40
PROVIDERS: Admitting Provider Hospitalist; Emergency Provider Emergency Medicine; Visit Provider Internal Medicine
DX: I26.92 Saddle embolus of pulmonary artery without acute cor pulmonale (principal); J18.9 Pneumonia, unspecified organism; N30.00 Acute cystitis without hematuria; R78.81 Bacteremia; K74.60 Unspecified cirrhosis of liver; B19.20 Unspecified viral hepatitis C without hepatic coma; R53.81 Other malaise; F32.9 Major depressive disorder, single episode, unspecified; H91.90 Unspecified hearing loss, unspecified ear; D64.9 Anemia, unspecified; M48.00 Spinal stenosis, site unspecified; M47.9 Spondylosis, unspecified; N40.0 Benign prostatic hyperplasia without lower urinary tract symptoms; I10 Essential (primary) hypertension; C67.9 Malignant neoplasm of bladder, unspecified; Z66 Do not resuscitate; B95.61 Methicillin susceptible Staphylococcus aureus infection as the cause of diseases classified elsewhere; Z51.5 Encounter for palliative care; F17.200 Nicotine dependence, unspecified, uncomplicated; W19.XXXA Unspecified fall, initial encounter; Y92.009 Unspecified place in unspecified non-institutional (private) residence as the place of occurrence of the external cause; S70.01XA Contusion of right hip, initial encounter; R06.89 Other abnormalities of breathing; R09.02 Hypoxemia
CPT/HCPCS: 36415; 71045; 73502; 80048; 80053; 81001; 82306; 82607; 82652; 83880; 84484; 85025; 85610; 85652; 85730; 86140; 93005; 97162; 97166; 99285; 99406; J2020; J7040; A4216; J1940